=== PATIENT | female | born 1950 | race Caucasian/White ===

== ENCOUNTER 2023-04-15 19:49 | Inpatient (IN) | payer OTHER, SELFPAY ==
[2023-04-14 08:39] VITALS: BMI 47.6
[2023-04-14 09:28] LABS: Urine Albumin Trace (Neg - Trace); Urine Bilirubin 1+ (Negative); Urine Character Slightly Cloudy (Clear); Urine Color Yellow; Urine Glucose Negative (Negative); Urine Ketone Trace (Negative); Urine Leukocyte Trace (Negative); Urine Nitrite Negative (Negative); Urine Occult Blood 4+ (Negative); Urine Urobilinogen Negative (Neg - 1+)
[2023-04-14 09:29] LABS: % Basophils 0.6 % (0-2); % Eosinophils 1.3 % (0-6); % Immature Granulocytes 0.4 % (0-0.5); % Lymphocytes 19.3 % (20.5-51.1); % Monocytes 9.6 % (1.7-9.3); % Neutrophils 68.8 % (42.2-75.2); Absolute Basophils 0.1 10^3/uL (0-0.2); Absolute Eosinophils 0.1 10^3/uL (0-0.7); Absolute Lymphocytes 2.1 10^3/uL (1.2-3.4); Absolute Neutrophils 7.5 10^3/uL (1.4-6.5); Hematocrit 36.3 % (37.0-47.0); Hemoglobin 11.6 g/dL (12.0-16.0); Mean Corpuscular Volume 87.7 fL (81.0-99.0); Mean Platelet Volume 9.8 fL (7.4-10.4); Nucleated Red Blood Cells % 0 %; Platelet Count 252 10^3/uL (130-400); Red Blood Cell Count 4.14 10^6/uL (4.20-5.40); Red Cell Dist. Width 14.8 % (11.5-14.5); White Blood Cell Count 10.9 10^3/uL (4.8-10.8)
[2023-04-14 09:33] LABS: PT 29.1 Sec (11.4-14.6)
[2023-04-14 09:34] LABS: APTT 41.3 Sec (23.4-35.0)
[2023-04-14 09:44] LABS: Urine Mucus Few; Urine Squamous Cell >30 /LPF (Few)
[2023-04-14 09:45] LABS: Urine Red Blood Cell >100 /HPF (0-2)
[2023-04-14 09:46] LABS: Urine Bacteria Many (Negative)
[2023-04-14 09:58] LABS: Glycohemoglobin (HgbA1c) 5.7 % (4.0-5.6)
[2023-04-14 10:26] LABS: NT-proBNP 1640 pg/ml
[2023-04-14 10:37] LABS: ALT (SGPT) 19 U/L (0-35); AST (SGOT) 51 U/L (14-36); Albumin 3.5 g/dl (3.5-5.0); Alkaline Phosphatase 125 U/L (38-126); Blood Urea Nitrogen 18 mg/dl (7-17); Calcium 9.3 mg/dl (8.4-10.2); Carbon Dioxide 33 mmol/L (22-30); Chloride 91 mmol/L (98-107); Direct Bilirubin 0.5 mg/dl (0.0-0.4); Estimated Creatinine Clearance 90 ml/min; Glucose 123 mg/dl (70-99); Potassium 3.7 mmol/L (3.5-5.1); Sodium 133 mmol/L (135-145); Total Protein 8.3 g/dl (6.3-8.2); eGFR > 60.00
--- NOTE | 2023-04-14 10:54 | CM ---
Chart reviewed. Met with the patient and her daughter in PAT. Patient is Ukaranian speaking, daughter was translating. Patient and her live in the basement of a [address], full set up in the basement, ambulates with a rolling walker, also
has a wheelchair at home. Patient wears Home O2 2l and CPAP at night. The daughter is unsure of her oxygen supplier. Patient is not current with VN. The daughter is her multimedia programmer caregiver. 0 LUZ MARIA . Reviewed preoperative and postoperative
instructions and restrictions, along with showering guidelines. Gave patient 2 soaps. Patient is agreeable to a home visit by CT Transitional RN. Plan is for the patient to return home with CT Transitional RN.
--- NOTE | 2023-04-14 13:38 | HPS.HSE ---
Family Physician
-
Family Physician: Harmeet Barrios
Cardiology: Ayaz Vasques
Chief Complaint
-
Dyspnea on exertion
History of Present Illness
Mrs. Anita Guevara is a very pleasant 72-year-old woman who is followed by Dr. Vasques. She was initially evaluated by the heart team in August. Her past medical history significant for hypertension, hyperlipidemia, morbid obesity with a BMI of 45.19,
MARY KATE, DM type II, hypothyroidism, multivessel CAD status post multivessel PCI at [facility] in 2014, chronic atrial fibrillation on Xarelto, stage III diastolic CHF with history of hospitalizations, and aortic stenosis. In March 2021,
her mean aortic valve gradient was 19 mmHg, that had increased to between 27 and 31 mmHg on echocardiogram was obtained in July, and most recently her gradient has increased further to a mean of 41 mmHg on 12/03/2022. Cardiac catheterization on
07/24/2022 demonstrated no significant residual CAD with only 10% luminal irregularities and 10 to 20% in-stent restenosis throughout her coronary bed. Her TAVR CT scan was completed and reviewed, and transfemoral TAVR approach appears reasonable. She
does have a Ade type 0 BAV, but has very reasonable sinuses and coronary heights.Given her numerous comorbidities and body habitus, the heart team reviewed her at the Shared Decision Making Meeting and TAVR is preferred over SAVR. The patient
and her daughter would like to proceed with TAVR. Patient seen in pre-admission testing today and in no acute distress although her daughter states she feels that her shortness of breath has progressed. She denies recent fever and chills. She denies
chest pain or palpitations. She does complain of orthopnea and also uses a cpap to sleep at night. Reviewed TAVR procedure and risks including PPM, bleeding and stroke. Allowed for and answered questions. Patient chest x-ray with moderate right
pleural effusion. Dr. Michaela bowen. Would like to have admitted on Wednesday prior to TAVR for thoracentesis and medical management of her heart failure prior to TAVR. Daughter, Stefanie, is in agreement with plan. Last dose of Xarelto will be on
Wednesday and she will remain on her aspirin, taking 325mg Wednesday then 81mg daily. Aware she will receive a call from the hospital Wednesday with bed assignment.
Medical History
Past Medical History
Past Medical History: Reports Arrhythmia (A-fib on Xarelto), CAD (MID RCA and LAD stent), CHF, GERD, HTN, Hypercholesterolemia, Hypothyroidism, NIDDM, Valvular Disease (severe , mild MR, TR) and Other (Moderate pulmonary HTN)
Past Surgical History: Reports Cardiac (PCI with stents to RCA and LAD)
Social History
Unable to obtain full social history at this time due to: Language Barrier (Patient is [place] speaking. Daughter interpretting.)
Tobacco: Former Smoker
Alcohol: None
Drug: None
Personal:
Living: With Family
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
Family History
Family History: Not pertinent
Allergies / Home Medications
Allergies reflects when Allergies were last updated in [employer].
Home Medications with original date entered in [employer]
Allergy/Medication List:
Allergies:
Penicillins
Medications:
Aspirin Adult Low Dose 81 MG Tablet Delayed Release 1 tablet Orally One every 3 day
Atorvastatin Calcium 40 MG Tablet 1 tablet Orally Once a day
Cardizem CD(dilTIAZem HCl ER Coated Beads) 120 MG Capsule Extended Release 24 Hour 1 capsule Orally bid
Digoxin 125 MCG Tablet 1 tablet Orally
Ferrous Sulfate 325 (65 Fe) MG Tablet 1 tablet Orally daily
Lasix(Furosemide) 40 MG Tablet 1 tablet Orally TID
Donepezil 5mg QD
Bumex 1mg BID
Trazadone 50mg daily
Levothyroxine Sodium 125 MCG Capsule 2 tablet in the morning on an empty stomach Orally Once a day, Notes: [id number]
metOLazone 5 MG Tablet 1 tablet Orally every other day
Metoprolol Tartrate 100 MG Tablet 1 tablet with food Orally Twice a day
Omeprazole 20 MG Capsule Delayed Release 1 capsule 30 minutes before morning meal Orally Once a day
Potassium Chloride 20 MEQ Packet 1 packet with food Orally Once a day
Spironolactone 25 MG Tablet 1 tablet Orally Once a day
Trulicity , Notes: ?dose, takes weekly on Sundays
Rivaroxaban 20 MG Tablet 1 tablet with food Orally Once a day
Vitamin d 50,000units as directed
Review of Systems
-
Unable to obtain full review of systems at this time due to: Language Barrier ([place] speaking. Daughter interpreting)
History Source: Family
Constitutional: Reports Sleep Disturbance
EENT: Reports No Symptoms
Respiratory: Reports Trouble Breathing (uses CPAP at night. ROSA. h/o hospitalization for pleural effusion)
Cardiac: Reports Chest Pain (intermittant, relieved spontaneously. Does not radiate. ) and Palpitations (A-fib, on Xarelto)
Abdomen/GI: Reports No Symptoms
: Reports No Symptoms
Musculoskeletal: Reports Edema (bilateral LE)
Skin: Reports No Symptoms
Neurological: Reports No Symptoms
Endocrine: Reports No Symptoms
Hematologic/Lymphatic: Reports No Symptoms
Psych: Reports No Symptoms
Physical Exam
Physical Exam
General: Well Developed, No Apparent Distress and Morbidly Obese
HEENT: NormoCephalic
Respiratory: Clear, Non Labored Respirations and Decreased Breath Sounds (right lower lobe)
Cardiac: Irregular Rhythm, Tachycardia and Murmur (Grade III/)
Breast: Deferred by me
GI: Soft, Non Tender, Non Distended and Normal Bowel Sounds
Rectal: Deferred by Provider
Genito-urinary: Deferred by me
Musculoskeletal: Edema, Left Lower Extremity (+3 pitting) and Edema, Right Lower Extremity (+3 pitting)
Skin: Warm and Dry
Neuro: Awake, Alert, Oriented and Nonfocal/grossly intact
Psych: Calm
Laboratory Results
-
04/14/23 08:53
04/14/23 08:53
Laboratory Results
PT 29.1 Sec (11.4-14.6) H 04/14/23 08:53
INR 2.70 04/14/23 08:53
APTT 41.3 Sec (23.4-35.0) H 04/14/23 08:53
Total Bilirubin 1.0 mg/dl (0.2-1.3) 04/14/23 08:53
AST 51 U/L (14-36) H 04/14/23 08:53
ALT 19 U/L (0-35) 04/14/23 08:53
Alkaline Phosphatase 125 U/L (38-126) 04/14/23 08:53
Data Reviewed
-
Diagnostic Radiology: Report Reviewed by me and Discussed with Physician (Chest x-ray with moderate pleural effusion. Reviewed with Dr. Jennings. Plan to admit 04/19 for thoracentesis)
Medical Tests (Nuc Med, Echo, EKG etc): Report Reviewed by me (EKG, afib, no bundle branch blocks noted)
Lab Data: Labs Reviewed by me (GFR >60, BUN/Creat: 18/0.8, H/H: 11.6/36.3)
Old Records: Reviewed (Echocardiogram , CT surgery consult note)
Impression/Plan
-
IMPRESSION: Severe aortic stenosis
Acute on Chronic Heart Failure
Moderate right pleural effusion
PLAN:
Severe Aortic Stenosis:
Plan TF TAVR on 04/22/2023 utilizing 23mm S3
Continue daily aspirin and resume Xarelto post TAVR if no signs of bleeding
POD #1/#30 echocardiogram
Cardiac Rehab consult
Acute on Chronic Heart Failure:
Admit 48 hours prior to TAVR for inpatient management
Daily weights
Low sodium diet
Consult cardiology for medication management
Right pleural effusion:
Consult interventional radiology for thoracentesis
[2023-04-15] VITALS (7 sets, daily range): BP systolic 120–206; BP diastolic 67–111; PULSE 85; BMI 46.5
--- NOTE | 2023-04-15 17:10 | ED.GENMED ---
History of Present Illness
<Karla Beltre PA-C - Last Filed: 04/20/23 11:09>
General
Chief Complaint: Breathing Problem
Source: patient
Exam Limitations: none
Time Seen by Provider: 04/15/23 16:46
Nursing documentation reviewed up to this point in time: agreed with
Travel History
Have you had any contact with someone who has COVID-19?: No
Do you have any symptoms of coronavirus? Fever > 100 degrees, chills, cough, shortness of breath, sore throat, loss of taste or smell, muscle aches, or headache?: No
History of Present Illness
History of Present Illness:
Patient is a 72 year old female with hx afib on xarelto, CHF, severe aortic stenosis presenting to the emergency department for evaluation of right-sided pleural effusion and associated worsening shortness of breath. Patient has a TAVR scheduled
with Dr. Jennings on 04/22/23. She was seen in office for pre-op labs yesterday and was found to have a moderate right pleural effusion. She was sent to ER for admission to hospital, thoracentesis, and medical management of CHF.
Patient does report worsening shortness of breath over the past few days and a mild cough. No fever or chills. No chest pain.
Patient is complaint with medications. She is on 2L nasal cannula at home.
Phy Exam
<Karla Beltre PA-C - Last Filed: 04/20/23 11:09>
Physical Exam
Physical Exam:
General: Uncomfortable, non-toxic
Vitals: Tachypneic, otherwise VSS; afebrile
HEENT: Atraumatic, normocephalic; protecting airway
Neck: appears supple, no JVD
CV: Regular rate and rhythm, heart sounds normal, no evidence of cyanosis
Resp: On 2 L nasal cannula, diminished breath sounds at right lower lung, no accessory muscle use
Abd: Soft, nontender, non-distended
Extremities: Bilateral 2+ pitting edema
Neuro: Nonfocal/grossly intact
Psych: Normal affect
Skin: Intact
Scores
<Karla Beltre PA-C - Last Filed: 04/20/23 11:09>
Heart Failure Risk
Heart Failure Risk Score: Yes
History of Stroke or TIA: No
History of intubation for respiratory distress: No
Heart rate on ED arrival >/= 110: No
SaO2 <90% on arrival on room air: Yes
HR >/=110 during 3min walk test (or too ill to perform test): No
ECG has acute ischemic changes: No
Urea >/=12mmol/L (BUN 33.6mg/dL): Yes
Serum CO2>/=35mmol/L: Yes
Troponin I or T elevated to [place] Level (0.4mg/dL): Yes
NT-proBNP >/=5,000ng/L (5,000pg/ml): No
HF Risk Score: 6
Admission Status: VERY HIGH RISK 55.3% Consider admission to hospital
Course
<Karla Beltre PA-C - Last Filed: 04/20/23 11:09>
Orders/Labs/Results
Orders:
Orders
04/14/23 08:15
Electrocardiogram (*1) Routine
Reason for Study: PreOp
Comment: MERGED WITH [facility] 04/22/23
CR Chest - 2 Views Routine
Comment: MERGED WITH [facility] 04/22/23
Reason For Exam: PREOP
04/15/23 Dinner
Cholesterol Lowering
At Your Request: Limited Participation
Cholesterol Lowering: Sodium, 2 Gram
04/15/23 15:30
EKG [Electrocardiogram (*1)] Urgent
Reason for Study: Shortness of Breath
EKG- Treatment ONCE
04/15/23 17:18
Furosemide [Lasix] 40 mg IV NOW STA
04/15/23 19:11
Admit/Transfer Patient As Directed
Co-Sign Provider:
Level of Care: Inpatient admission
Assign to:: Telemetry
Physician / Group: la nena
Diagnosis: chf exacerbation
Reason for Telemetry: Arrhythmia
Date to Stop Telemetry: 04/18/23
Time to Stop Telemetry: 11:00
Reason for Hospitalization: chf exacerbation
Expected length of stay greater than two midnights?: Yes
ELOS- Estimated Length of Stay in days: 2
I certify the patient meets the requirements for IP care: Yes
04/15/23 19:12
Code Status As Directed
Resuscitation Status: Full Code
04/15/23 19:33
Troponin I Urgent
04/15/23 20:43
Budesonide/Formoterol 160/4.5 [Symbicort 160/4.5 Mcg Inhaler] 2 puff INH R BIDPRN PRN
Dextrose 50%-Water [Dextrose 50% Syringe] 12.5 grams IV [id number] PRN
Diltiazem Extended Release [Cardizem Cd] 120 mg PO BID
Glucagon [GlucaGen] 1 mg IM PRN PRN
Metoprolol [Lopressor] 100 mg PO BID
Potassium Chloride [KCl] 20 meq PO BID
04/15/23 20:43
VTE Contraindication Routine
VTE Mechanical Device Contraindication: Medical Contraindication
Pharmocologic Contraindication: Medical Contraindication
Acid Fast Culture & Smear Routine
GREGG Source: Pleural Fluid
Specimen Description:
Date Specimen was Collected: 04/16/23
Time Specimen was Collected: 15:31
Comment: right thoracentsis
Body Fluid Amylase Routine
Fluid Source: Pleural
Date Specimen was Collected: 04/16/23
Time Specimen was Collected: 15:31
Body Fluid Cell Count Routine
What is the Body Fluid: pleural fluid
Date Specimen was Collected: 04/16/23
Time Specimen was Collected: 15:31
Body Fluid Glucose Routine
Fluid Source: Pleural
Date Specimen was Collected: 04/16/23
Time Specimen was Collected: 15:31
Body Fluid LDH Routine
Fluid Source: Pleural
Date Specimen was Collected: 04/16/23
Time Specimen was Collected: 15:31
Body Fluid Protein Routine
Fluid Source: Pleural
Date Specimen was Collected: 04/16/23
Time Specimen was Collected: 15:31
Body Fluid Triglycerides Routine
Fluid Source: Pleural
Date Specimen was Collected: 04/16/23
Time Specimen was Collected: 15:31
Body Fluid pH Routine
Fluid Source: Pleural
Date Specimen was Collected: 04/16/23
Time Specimen was Collected: 15:31
Fluid Culture with Gram Stain Routine
GREGG Source: Pleural Fluid
Specimen Description:
Date Specimen was Collected: 04/16/23
Time Specimen was Collected: 15:31
Fungus Culture Routine
GREGG Source: Pleural Fluid
Specimen Description:
Date Specimen was Collected: 04/16/23
Time Specimen was Collected: 15:31
Fungus Smear Routine
GREGG Source: Pleural Fluid
Specimen Description:
Date Specimen was Collected: 04/16/23
Time Specimen was Collected: 15:31
Activity As Directed
Activity Level: As Tolerated
Bedside Glucose Monitoring As Directed
Frequency: AC&HS
Comment: Change to q6h if pt on TPN, tube feeding or not eating
Intake/ Output As Directed
Frequency: Per unit guidelines
Vital Signs As Directed
Frequency: Other
Additional Instructions:: Q12 or per unit guidelines if more frequent.
Weight As Directed
Frequency: Daily
Type of Scale: Standing Scale
Comment: Daily morning weight. If unable to stand, use balanced bed scale.
Weight As Directed
Frequency: Once
Type of Scale: Standing Scale
Comment: Upon Admission. If unable to stand, use balanced bed scale.
IRAD Cytology Routine
Date Specimen was Collected: 04/16/23
Time Specimen was Collected: 15:32
Source: Pleural Fluid, Right
Clinical Impression: chf
Pulse Ox/cont/shift [RESP] Routine
Quantity: 1
Special Instructions: Daily pulse oximetry at rest. If greater than 92% at rest also obtain pulse oximetry
while ambulating as tolerated.
04/15/23 20:58
LDH Routine
Comment: post procedure, add on to morning labs if already drawn
Total Protein Routine
Comment: post procedure, add on to morning labs if already drawn
04/15/23 22:00
Trazodone [Desyrel] 50 mg PO HS
04/16/23 07:00
Levothyroxine [Synthroid] 200 mcg PO DAILY AT 0700
Levothyroxine [Synthroid] 50 mcg PO DAILY AT 0700
04/16/23 07:30
Insulin Aspart Corrective Low [Novolog Flexpen-Low Resistance] See Protocol SC AC
04/16/23 08:00
Aspirin Low Dose EC [Aspir Low (Enteric Coated)] 81 mg PO Q3D
Donepezil [Aricept] 5 mg PO DAILY
Ferrous Sulfate [Feosol] 325 mg PO DAILY
Furosemide [Lasix] 60 mg IV BID AT 0800,1600
Metolazone [Zaroxolyn] 5 mg PO Q48H
Pantoprazole [Protonix] 40 mg PO DAILY
Spironolactone [Aldactone] 25 mg PO DAILY
04/16/23 08:39
Complete Blood Count/With Diff IN AM
Comprehensive Metabolic Panel IN AM
04/16/23 18:00
Atorvastatin [Lipitor] 40 mg PO QPM
Digoxin [Lanoxin] 125 mcg PO QPM
Rivaroxaban [Xarelto] 20 mg PO QPM
04/18/23 11:00
DC Protocol for Telemetry ONCE
04/20/23 08:00
Ergocalciferol [Drisdol (Vitamin D2)] 50,000 units PO TU
Abnormal Lab Results
04/15/23
19:33
Troponin I 0.114 H* ng/ml
Vital Signs
Initial and Last Documented VS:
Initial Vital Signs
Temp Pulse Resp BP Pulse Ox
98.5 F 74 18 141/85 96
04/15/23 15:28 04/15/23 15:28 04/15/23 15:28 04/15/23 15:28 04/15/23 15:28
Last Documented Vital Signs
Temp Pulse Resp BP Pulse Ox
97.7 F 86 20 135/75 94
04/20/23 07:40 04/20/23 07:52 04/20/23 07:40 04/20/23 07:52 04/20/23 07:40
<Johny Colby, DO - Last Filed: 04/15/23 17:15>
Orders/Labs/Results
Orders:
Orders
04/14/23 08:15
Electrocardiogram (*1) Routine
Reason for Study: PreOp
Comment: MERGED WITH [facility] 04/22/23
CR Chest - 2 Views Routine
Comment: MERGED WITH [facility] 04/22/23
Reason For Exam: PREOP
04/15/23 Dinner
Cholesterol Lowering
At Your Request: Limited Participation
Cholesterol Lowering: Sodium, 2 Gram
04/15/23 15:30
EKG [Electrocardiogram (*1)] Urgent
Reason for Study: Shortness of Breath
EKG- Treatment ONCE
04/15/23 17:18
Furosemide [Lasix] 40 mg IV NOW STA
04/15/23 19:11
Admit/Transfer Patient As Directed
Co-Sign Provider:
Level of Care: Inpatient admission
Assign to:: Telemetry
Physician / Group: la nena
Diagnosis: chf exacerbation
Reason for Telemetry: Arrhythmia
Date to Stop Telemetry: 04/18/23
Time to Stop Telemetry: 11:00
Reason for Hospitalization: chf exacerbation
Expected length of stay greater than two midnights?: Yes
ELOS- Estimated Length of Stay in days: 2
I certify the patient meets the requirements for IP care: Yes
04/15/23 19:12
Code Status As Directed
Resuscitation Status: Full Code
04/15/23 19:33
Troponin I Urgent
04/15/23 20:43
Budesonide/Formoterol 160/4.5 [Symbicort 160/4.5 Mcg Inhaler] 2 puff INH R BIDPRN PRN
Dextrose 50%-Water [Dextrose 50% Syringe] 12.5 grams IV [id number] PRN
Diltiazem Extended Release [Cardizem Cd] 120 mg PO BID
Glucagon [GlucaGen] 1 mg IM PRN PRN
Metoprolol [Lopressor] 100 mg PO BID
Potassium Chloride [KCl] 20 meq PO BID
04/15/23 20:43
VTE Contraindication Routine
VTE Mechanical Device Contraindication: Medical Contraindication
Pharmocologic Contraindication: Medical Contraindication
Acid Fast Culture & Smear Routine
GREGG Source: Pleural Fluid
Specimen Description:
Date Specimen was Collected: 04/16/23
Time Specimen was Collected: 15:31
Comment: right thoracentsis
Body Fluid Amylase Routine
Fluid Source: Pleural
Date Specimen was Collected: 04/16/23
Time Specimen was Collected: 15:31
Body Fluid Cell Count Routine
What is the Body Fluid: pleural fluid
Date Specimen was Collected: 04/16/23
Time Specimen was Collected: 15:31
Body Fluid Glucose Routine
Fluid Source: Pleural
Date Specimen was Collected: 04/16/23
Time Specimen was Collected: 15:31
Body Fluid LDH Routine
Fluid Source: Pleural
Date Specimen was Collected: 04/16/23
Time Specimen was Collected: 15:31
Body Fluid Protein Routine
Fluid Source: Pleural
Date Specimen was Collected: 04/16/23
Time Specimen was Collected: 15:31
Body Fluid Triglycerides Routine
Fluid Source: Pleural
Date Specimen was Collected: 04/16/23
Time Specimen was Collected: 15:31
Body Fluid pH Routine
Fluid Source: Pleural
Date Specimen was Collected: 04/16/23
Time Specimen was Collected: 15:31
Fluid Culture with Gram Stain Routine
GREGG Source: Pleural Fluid
Specimen Description:
Date Specimen was Collected: 04/16/23
Time Specimen was Collected: 15:31
Fungus Culture Routine
GREGG Source: Pleural Fluid
Specimen Description:
Date Specimen was Collected: 04/16/23
Time Specimen was Collected: 15:31
Fungus Smear Routine
GREGG Source: Pleural Fluid
Specimen Description:
Date Specimen was Collected: 04/16/23
Time Specimen was Collected: 15:31
Activity As Directed
Activity Level: As Tolerated
Bedside Glucose Monitoring As Directed
Frequency: AC&HS
Comment: Change to q6h if pt on TPN, tube feeding or not eating
Intake/ Output As Directed
Frequency: Per unit guidelines
Vital Signs As Directed
Frequency: Other
Additional Instructions:: Q12 or per unit guidelines if more frequent.
Weight As Directed
Frequency: Daily
Type of Scale: Standing Scale
Comment: Daily morning weight. If unable to stand, use balanced bed scale.
Weight As Directed
Frequency: Once
Type of Scale: Standing Scale
Comment: Upon Admission. If unable to stand, use balanced bed scale.
IRAD Cytology Routine
Date Specimen was Collected: 04/16/23
Time Specimen was Collected: 15:32
Source: Pleural Fluid, Right
Clinical Impression: chf
Pulse Ox/cont/shift [RESP] Routine
Quantity: 1
Special Instructions: Daily pulse oximetry at rest. If greater than 92% at rest also obtain pulse oximetry
while ambulating as tolerated.
04/15/23 20:58
LDH Routine
Comment: post procedure, add on to morning labs if already drawn
Total Protein Routine
Comment: post procedure, add on to morning labs if already drawn
04/15/23 22:00
Trazodone [Desyrel] 50 mg PO HS
04/16/23 07:00
Levothyroxine [Synthroid] 200 mcg PO DAILY AT 0700
Levothyroxine [Synthroid] 50 mcg PO DAILY AT 0700
04/16/23 07:30
Insulin Aspart Corrective Low [Novolog Flexpen-Low Resistance] See Protocol SC AC
04/16/23 08:00
Aspirin Low Dose EC [Aspir Low (Enteric Coated)] 81 mg PO Q3D
Donepezil [Aricept] 5 mg PO DAILY
Ferrous Sulfate [Feosol] 325 mg PO DAILY
Furosemide [Lasix] 60 mg IV BID AT 0800,1600
Metolazone [Zaroxolyn] 5 mg PO Q48H
Pantoprazole [Protonix] 40 mg PO DAILY
Spironolactone [Aldactone] 25 mg PO DAILY
04/16/23 08:39
Complete Blood Count/With Diff IN AM
Comprehensive Metabolic Panel IN AM
04/16/23 18:00
Atorvastatin [Lipitor] 40 mg PO QPM
Digoxin [Lanoxin] 125 mcg PO QPM
Rivaroxaban [Xarelto] 20 mg PO QPM
04/18/23 11:00
DC Protocol for Telemetry ONCE
04/20/23 08:00
Ergocalciferol [Drisdol (Vitamin D2)] 50,000 units PO TU
Abnormal Lab Results
04/15/23
19:33
Troponin I 0.114 H* ng/ml
Vital Signs
Initial and Last Documented VS:
Initial Vital Signs
Temp Pulse Resp BP Pulse Ox
98.5 F 74 18 141/85 96
04/15/23 15:28 04/15/23 15:28 04/15/23 15:28 04/15/23 15:28 04/15/23 15:28
Last Documented Vital Signs
Temp Pulse Resp BP Pulse Ox
97.7 F 86 20 135/75 94
04/20/23 07:40 04/20/23 07:52 04/20/23 07:40 04/20/23 07:52 04/20/23 07:40
<Karla Beltre PA-C - Last Filed: 04/20/23 11:09>
MDM/Problems Addressed
Differential Diagnosis Includes:
Pleural effusion, CHF exacerbation, atrial fibrillation,
MDM/Problems Addressed:
Patient is a 72 year old female with hx afib on xarelto, CHF, severe aortic stenosis presenting to the emergency department for evaluation of right-sided pleural effusion and associated worsening shortness of breath. Patient is scheduled for TAVR
with Dr. Jennings on 04/21 and had pre-operative labs and imaging performed yesterday which showed moderate right-sided pleural effusion. She was sent emergency department for admission for medical management of CHF and thoracentesis. Patient is on 2
L nasal cannula. Vital signs stable. Physical exam as document above. She has diminished breath sounds at right lung base. Reviewed x-ray which shows mild to moderate pleural effusion on right side. Discussed with interventional radiology.
They will perform thoracentesis tomorrow morning. Will admit patient for CHF management/thoracentesis tomorrow. Will give 40 IV Lasix. Discussed with hospitalist.
Chronic conditions affecting care:
CHF, aortic stenosis, atrial fibrillation
Acute Exacerbation and/or Progression of Chronic Illness:
Acute CHF exacerbation with right-sided pleural effusion
<Karla Beltre PA-C - Last Filed: 04/20/23 11:09>
*Radiology
Radiology exam reviewed: preliminary read by ED provider and radiology read reviewed
*Pulse Oximetry
Patient hypoxic: yes
Comment: on 2L
*EKG
EKG Intrepretation Date: 04/15/23
Interpretation: abnormal
Comparison EKG: changes noted
Heart Rate: 65
Rate: normal
Rhythm: a-fib
[place]: normal axis
Interval: normal interval
QRS Pattern: normal QRS
Ischemia: non-specific ST changes
*Critical Care Note
Total Time (30-74mins, 75-104mins- exclusive of procedures): Not Applicable
<Karla Beltre PA-C - Last Filed: 04/20/23 11:09>
Patient Management
Discussion with other providers: Hospitalist and [employer] (interventional radiologist)
ED Attending Note
<Karla Beltre PA-C - Last Filed: 04/20/23 11:09>
-
Portions of this chart may have been created with voice recognition software.� Occasional wrong word or��sound alike� substitutions may have occurred due to the inherent limitations of voice recognition software.
<Johny Colby DO - Last Filed: 04/15/23 17:15>
ED Attending Note
Patient seen and examined by attending physician: Yes
I performed the substantive portion of visit, reviewed & personally made and approve the management plan that is documented in note by myself or ELLIS.: Yes
ED Attending Note:
I have seen and evaluated the patient with a [id number] encounter. I have spoken to the advance practicer provider and involved in the medical history, the physical exam, medical decision making.
Evaluation and management service: agree unless noted differently below.
Results interpretation: agree unless noted differently below.
Focused HPI: 72-year-old female presenting with shortness of breath. Patient is being worked up for TAVR. Outpatient blood work and chest x-ray revealed large right pleural effusion. Patient sent in for thoracentesis and admission for management
of heart failure
Physical exam: Uncomfortable, tachypneic, decreased breath sounds to the right
Medical Decision Making: Will discuss case with IR to discuss thoracentesis. Will give Lasix and admit
Discharge Plan
Departure
Patient Disposition: Admit
Date of Disposition: 04/15/23
Time of Disposition: 17:56
Presentation/result/management discussed w/ accepting MD/DO: Hospitalist
Discharge Problem:
Pleural effusion on right, CHF (congestive heart failure)
Interventions
Interventions:
*Risk Screen - Suicide Last Done: 04/15/23 20:53
*General Assessment Last Done: 04/15/23 15:28
*Neglect/Abuse Screening Last Done: 04/15/23 15:28
ED- Fall Risk Assessment Last Done: 04/15/23 17:01
*ED COVID-19 Vaccine History Last Done: 04/15/23 15:28
*Nursing Disposition Last Done: 04/15/23 20:04
ED- Cardiac Assessment Last Done: 04/15/23 17:01
ED- Pulmonary Assessment Last Done: 04/15/23 17:01
Discharge Date and Time
Discharge Date/Time: 04/15/23 20:04
[2023-04-15] MEDS: LASIX 40 MG IV (17:53)
--- NOTE | 2023-04-15 19:20 | HPS.HSE ---
Family Physician
-
Family Physician: Harmeet Barrios
Chief Complaint
-
shortness of breath
History of Present Illness
72-year-old Luxembourger-speaking female past medical history of atrial fibrillation on Xarelto, CAD with stents, diastolic CHF, severe aortic stenosis, moderate pulm hypertension, obstructive sleep apnea, asthma, hypertension, GERD, hypercholesteremia,
hypothyroidism, diabetes, obesity, presenting for right pleural effusion and worsening shortness of breath.
Patient has TAVR scheduled for 04/22/[address] Jennings. Patient had preop labs yesterday and chest x-ray which showed large right pleural effusion. Patient was sent in for thoracentesis and medical management for heart failure to be optimized
prior to TAVR.
She has been having shortness of breath for the past few weeks worse with exertion. She does have some cough sometimes with sputum. Denies any fevers or chills. She does have burning chest pain with ambulation and elevated heart rate and hypoxia
with ambulation as well. No recent weight gain and in fact has lost weight.
Medical History
Past Medical History
Past Medical History: Reports Other (atrial fibrillation on Xarelto, CAD with stents, diastolic CHF, severe aortic stenosis, moderate pulm hypertension, obstructive sleep apnea, asthma, hypertension, GERD, hypercholesteremia, hypothyroidism,
diabetes, obesity)
Past Surgical History: Reports None
Social History
Tobacco: Former Smoker
Alcohol: Former
Drug: None
Family History
Family History: Not pertinent
Allergies / Home Medications
Allergies reflects when Allergies were last updated in [facility].
Home Medications with original date entered in [facility]
Allergy/Medication List:
Allergies
Allergy/AdvReac Type Severity Reaction Status Date / Time
Penicillins Allergy Diarrhea Verified 04/15/23 15:29
Home Medications
atorvastatin 40 mg tablet 40 mg PO QPM 04/12/23
budesonide-formoterol HFA 160 mcg-4.5 mcg/actuation aerosol inhaler (Symbicort) 2 puff inhalation PRN PRN asthma 04/12/23
digoxin 125 mcg (0.125 mg) tablet 125 mcg PO QPM 04/12/23
diltiazem HCl 120 mg capsule,extended release 24 hr 120 mg PO BID 04/12/23
donepezil 5 mg tablet 5 mg PO DAILY 04/12/23
ergocalciferol (vitamin D2) 1,250 mcg (50,000 unit) capsule 1,250 mcg PO TU 04/12/23
ferrous sulfate 324 mg (65 mg iron) tablet,delayed release 324 mg PO DAILY 04/12/23
furosemide 40 mg tablet 40 mg PO DAILY@1300 04/12/23
levothyroxine 200 mcg tablet 200 mcg PO DAILY 04/12/23
metolazone 5 mg tablet 5 mg PO Q48H 04/12/23
omeprazole 20 mg tablet,delayed release 20 mg PO DAILY 04/12/23
potassium chloride 20 mEq tablet,extended release 20 meq PO BID 04/12/23
rivaroxaban 20 mg tablet (Xarelto) 20 mg PO QPM 04/12/23
spironolactone 25 mg tablet 25 mg PO DAILY 04/12/23
trazodone 50 mg tablet 50 mg PO HS 04/12/23
aspirin 81 mg tablet,delayed release 81 mg PO Q3D 04/15/23
dulaglutide 0.75 mg/0.5 mL subcutaneous pen injector (Trulicity) 0.75 mg SC TU 04/15/23
furosemide 40 mg tablet 80 mg PO DAILY 04/15/23
levothyroxine 50 mcg tablet 50 mcg PO DAILY 04/15/23
metoprolol tartrate 100 mg tablet 100 mg PO BID 04/15/23
Review of Systems
-
History Source: Patient
A 12 point ROS was completed and negative except as noted: Yes
Constitutional: Reports No Symptoms
EENT: Reports No Symptoms
Respiratory: Reports See HPI
Cardiac: Reports See HPI
Abdomen/GI: Reports No Symptoms
: Reports No Symptoms
Musculoskeletal: Reports No Symptoms
Skin: Reports No Symptoms
Neurological: Reports No Symptoms
Endocrine: Reports No Symptoms
Hematologic/Lymphatic: Reports No Symptoms
Psych: Reports No Symptoms
Physical Exam
Vital Signs
Vital Signs
Temp Pulse Resp BP Pulse Ox
98.5 F 75 25 206/105 97
04/15/23 15:28 04/15/23 18:30 04/15/23 18:30 04/15/23 17:55 04/15/23 18:30
Physical Exam
General: Well Developed, Well Nourished and No Apparent Distress
HEENT: NormoCephalic, Moist mucous membranes and Atraumatic
Respiratory: Clear
Cardiac: S1/S2 and Regular Rhythm; No Murmur or Rub
GI: Soft, Non Tender, Non Distended and Normal Bowel Sounds; No Organomegaly
Rectal: Deferred by Provider
Musculoskeletal: No Clubbing, No Cyanosis and No Edema
Skin: No Rash
Neuro: Nonfocal/grossly intact
Data Reviewed
-
Lab Data: Labs Reviewed by me
Old Records: Reviewed
Impression/Plan
-
IMPRESSION:
PLAN:
# Moderate right pleural effusion
# Acute on chronic HFpEF exacerbation
-Cardiac BNP of 1600
-Check I's and O's, daily weights
-60 IV Lasix twice daily
-Continue metolazone
-Continue spironolactone
-EKG diffuse T wave inversions
-Check troponin
-IR consulted for Thora
-Cardiology consulted
Paroxysmal atrial fibrillation
-Continue Xarelto
-Continue digoxin
-Continue diltiazem
-Continue metoprolol
Coronary artery disease with history of stents
-Continue aspirin
Severe aortic stenosis
-Undergoing TAVR on April 21
Moderate pulmonary hypertension
Obstructive sleep apnea
-Continue CPAP
Asthma
-Continue inhalers
Essential hypertension
GERD
-Continue omeprazole
Hypercholesterolemia
-Continue statin
Hypothyroidism
-Continue levothyroxine
Type 2 diabetes
-Insulin sliding scale
Obesity
Dementia
-Continue donepezil
Chronic anemia
-Hemoglobin stable
Insomnia
-Continue trazodone
Full code
DVT prophylaxis�Xarelto
Cardiac diet
[2023-04-15 20:12] LABS: Troponin I 0.114 ng/ml
[2023-04-15 21:21] LABS: LDH 264 U/L (120-246); Total Protein 8.8 g/dl (6.3-8.2)
[2023-04-15] MEDS: KCL 20 MEQ PO (21:44)
[2023-04-15] MEDS: DESYREL 50 MG PO (21:44)
[2023-04-15] MEDS: XARELTO 20 MG PO (21:44)
[2023-04-15] MEDS: LOPRESSOR 100 MG PO (21:45)
[2023-04-15] MEDS: CARDIZEM CD 120 MG PO (21:45)
[2023-04-15 21:48] LABS: Glucose - Point of Care 110 mg/dl (70-99)
[2023-04-16] VITALS (8 sets, daily range): BP systolic 60–141; BP diastolic 57–75
--- NOTE | 2023-04-16 01:12 | PTCARENOTE ---
Received pt from the ER, and ambulated from stretcher to bed. Daughter at the bedside and assisted with the admission. Pt fluent only in Urdu. Pt uses CPAP at home, but forgot it and lives an hour away. notified and changed order.
Respiratory assisted with placing CPAP. Pt did not like the fit of the CPAP, and requested to wear the 2L nasal cannula instead. Daughter will bring home CPAP tomorrow. Pt oriented to the room, call reddy within reach.
[2023-04-16] MEDS: SYNTHROID 200 MCG PO (06:25)
[2023-04-16] MEDS: SYNTHROID 50 MCG PO (06:26)
[2023-04-16 08:01] LABS: Glucose - Point of Care 114 mg/dl (70-99)
--- NOTE | 2023-04-16 08:47 | CON.CAR ---
Addendum entered and electronically signed by Shankar Ceja MD 04/16/23 09:34:
I saw and examined the patient.
The CORPORATE DRIVER's note was reviewed and I agree with the note.
Comment: 72 yo Bahamian speaking female (patient of Dr. Ayaz Vasques) with severe (scheduled for TAVR 04/22/23), HFpEF, HTN, HLD, morbid obesity, permanent Afib on Xarelto, MARY KATE on CPAP, DM II, multivessel CAD (PCI 2014 Mid RCA and mid LAD, patent
on cath 08/07), and hypothyroidism, who presents to the ER with c/o SOB and moderate right pleural effusion on CXR. She is here for thoracentesis and diuresis for CHF prior to TAVR.
- IV diuresis
- thoracentesis today
Original Note:
Consultation
Consultation Request
Date/Time Consultation Requested: 04/15/23 11p
Date/Time Consultation Performed: 04/16/23 8a
Requesting Provider: Dr. Longoria
Performing Provider: PEYTON Khan for Dr. Jennings
Reason for Consultation: HFpEF, right pleural effusion, severe
Medical History
-
Chief Complaint: sob, right pleural effusion on CXR
History of Present Illness:
Mrs. Guevara is a 72 yo Bahamian speaking female (patient of Dr. Ayaz Vasques) with severe (scheduled for TAVR 04/22/23), HFpEF, HTN, HLD, morbid obesity, permanent Afib on Xarelto, MARY KATE on CPAP, DM II, multivessel CAD (PCI 2014 Mid RCA and mid LAD,
patent on cath 08/07), and hypothyroidism, who presents to the ER with c/o SOB and moderate right pleural effusion on CXR. She had the CXR for pre-procedure work up as she is scheduled for a TAVR 04/22/23. She is admitted for thoracentesis and
diuresis with IV Lasix. History obtained from patient's son Vin, he was assisting with translation via her telephone. She c/o SOB, LE edema and not sleeping well last night because her CPAP mask didn't fit correctly.
Past Medical History
Past Medical History: Other (as above)
Past Surgical History: Cardiac (PCI)
Social History
Tobacco: Non-Smoker
Alcohol: None
Living: With Family
Family History
Family History: Reviewed & Not Pertinent
Allergies / Home Medications
Allergy/AdvReac Type Severity Reaction Status Date / Time
Penicillins Allergy Diarrhea Verified 04/15/23 15:29
Medication Instructions Recorded Confirmed Type
atorvastatin 40 mg tablet 40 mg PO QPM 04/12/23 04/15/23 History
budesonide-formoterol HFA 160 2 puff inhalation PRN PRN asthma 04/12/23 04/15/23 History
mcg-4.5 mcg/actuation aerosol
inhaler (Symbicort)
digoxin 125 mcg (0.125 mg) tablet 125 mcg PO QPM 04/12/23 04/15/23 History
diltiazem HCl 120 mg 120 mg PO BID 04/12/23 04/15/23 History
capsule,extended release 24 hr
donepezil 5 mg tablet 5 mg PO DAILY 04/12/23 04/15/23 History
ergocalciferol (vitamin D2) 1,250 1,250 mcg PO TU 04/12/23 04/15/23 History
mcg (50,000 unit) capsule
ferrous sulfate 324 mg (65 mg 324 mg PO DAILY 04/12/23 04/15/23 History
iron) tablet,delayed release
furosemide 40 mg tablet 40 mg PO DAILY@1300 04/12/23 04/15/23 History
levothyroxine 200 mcg tablet 200 mcg PO DAILY 04/12/23 04/15/23 History
metolazone 5 mg tablet 5 mg PO Q48H 04/12/23 04/15/23 History
omeprazole 20 mg tablet,delayed 20 mg PO DAILY 04/12/23 04/15/23 History
release
potassium chloride 20 mEq 20 meq PO BID 04/12/23 04/15/23 History
tablet,extended release
rivaroxaban 20 mg tablet (Xarelto) 20 mg PO QPM 04/12/23 04/15/23 History
spironolactone 25 mg tablet 25 mg PO DAILY 04/12/23 04/15/23 History
trazodone 50 mg tablet 50 mg PO HS 04/12/23 04/15/23 History
aspirin 81 mg tablet,delayed 81 mg PO Q3D 04/15/23 04/15/23 History
release
dulaglutide 0.75 mg/0.5 mL 0.75 mg SC TU 04/15/23 04/15/23 History
subcutaneous pen injector
(Trulicity)
furosemide 40 mg tablet 80 mg PO DAILY 04/15/23 04/15/23 History
levothyroxine 50 mcg tablet 50 mcg PO DAILY 04/15/23 04/15/23 History
metoprolol tartrate 100 mg tablet 100 mg PO BID 04/15/23 04/15/23 History
Review of Systems
-
History Source: Patient and Family (son Vin assisting with translation)
All other systems: Negative unless noted
Physical Exam
Vital Signs
Temp Pulse Resp BP Pulse Ox
98.7 F 72 16 118/68 97
04/16/23 08:08 04/16/23 08:08 04/16/23 08:08 04/16/23 08:08 04/16/23 08:08
Lab Results
Troponin I 0.114 ng/ml H* 04/15/23 19:33
Physical Exam
General: Well Developed, Well Nourished and Other ( morbidly obese)
HEENT: Normocephalic and Anicteric
Respiratory: Non Labored Respirations and Other (diminished right middle/base)
Cardiac: S1/S2, Irregular Rhythm, Murmur (3/6 SOBEIDA) and Peripheral Edema (b/l LE)
Breast: Deferred by me
GI: Soft, Non Tender and Normal Bowel Sounds
Rectal: Deferred by Provider
Musculoskeletal: No Clubbing and Cyanosis
Skin: Warm and Dry
Neuro: AO x 3
Psych: Calm
Impression / Plan
-
Pleural effusion - moderate right.
- plan for thoracentesis today.
- continue diuresis, Lasix 80mg IV BID.
HFpEF - acute on chronic.
- diuresis IV Lasix 80mg IV BID, Zaroxolyn 5mg Q48H.
- monitor renal function, daily weights.
Aortic stenosis - severe.
- echo 11/2022 EF 60-65%, severe mean gradient 41mmHg, HIRA 0.9cm2
- plan for TAVR 04/22/23.
- TAVR team following.
Afib - permanent.
- rate controlled on Lopressor, Diltiazem, Digoxin.
- [id number] VASc 5.
- OAC with Xarelto, continue.
CAD - multivessel PCI 2014.
- cath 07/24/2022: no significant residual CAD with 10% luminal irregularities and 10 to 20% in-stent restenosis, patent mid RCA/mid LAD stents.
- abnormal troponin 0.114, trend.
- denies any chest pain.
MARY KATE - stable on CPAP.
- her granddaughter is bringing in her mask from home.
HTN - stable on meds, continue and monitor.
HLD - on Lipitor.
- goal LDL < 70.
- no recent lipid profile.
Data Reviewed
-
Radiology: Report Reviewed by me (CXR: moderate right pleural effusion)
Medical Tests (Nuc Med, Echo etc): Report Reviewed by me (cath 07/24/2022: no significant residual CAD with only 10% luminal irregularities and 10 to 20% in-stent restenosis, patent mid RCA/mid LAD stents.) and Other (echo 11/2022 EF 60-65%, severe
mean gradient 41mmHg, HIRA 0.9cm2)
Labs: Labs Reviewed by me
Old Records: Reviewed
[2023-04-16 09:15] LABS: % Basophils 0.8 % (0-2); % Eosinophils 1.6 % (0-6); % Immature Granulocytes 0.2 % (0-0.5); % Lymphocytes 16.6 % (20.5-51.1); % Monocytes 9.4 % (1.7-9.3); % Neutrophils 71.4 % (42.2-75.2); Absolute Basophils 0.1 10^3/uL (0-0.2); Absolute Eosinophils 0.2 10^3/uL (0-0.7); Absolute Lymphocytes 1.6 10^3/uL (1.2-3.4); Absolute Monocytes 0.9 10^3/uL (0.1-0.6); Hematocrit 35.8 % (37.0-47.0); Hemoglobin 11.3 g/dL (12.0-16.0); Mean Corp Hgb Conc. 31.6 g/dL (33.0-37.0); Mean Corpuscular Hgb 27.1 pg (27.0-31.0); Mean Corpuscular Volume 85.9 fL (81.0-99.0); Mean Platelet Volume 9.8 fL (7.4-10.4); Nucleated Red Blood Cells % 0 %; Platelet Count 269 10^3/uL (130-400); Red Blood Cell Count 4.17 10^6/uL (4.20-5.40); Red Cell Dist. Width 14.7 % (11.5-14.5); White Blood Cell Count 9.8 10^3/uL (4.8-10.8)
[2023-04-16 09:36] LABS: ALT (SGPT) 21 U/L (0-35); AST (SGOT) 51 U/L (14-36); Albumin 3.5 g/dl (3.5-5.0); Alkaline Phosphatase 125 U/L (38-126); Blood Urea Nitrogen 23 mg/dl (7-17); Calcium 8.7 mg/dl (8.4-10.2); Carbon Dioxide 37 mmol/L (22-30); Chloride 88 mmol/L (98-107); Estimated Creatinine Clearance 62 ml/min; Glucose 142 mg/dl (70-99); Potassium 3.1 mmol/L (3.5-5.1); Sodium 131 mmol/L (135-145); Total Bilirubin 1.1 mg/dl (0.2-1.3); Total Protein 8.1 g/dl (6.3-8.2); eGFR > 60.00
[2023-04-16] MEDS: NOVOLOG FLEXPEN-LOW RESISTANCE SC ×2 (09:41→17:02)
[2023-04-16] MEDS: ZAROXOLYN 5 MG PO (09:42)
[2023-04-16] MEDS: LOPRESSOR 100 MG PO ×2 (09:42→20:49)
[2023-04-16] MEDS: ALDACTONE 25 MG PO (09:42)
[2023-04-16] MEDS: ARICEPT 5 MG PO (09:43)
[2023-04-16] MEDS: KCL 20 MEQ PO ×2 (09:44→20:49)
[2023-04-16] MEDS: CARDIZEM CD 120 MG PO ×2 (09:44→20:49)
[2023-04-16] MEDS: PROTONIX 40 MG PO (09:44)
[2023-04-16] MEDS: FEOSOL 325 MG PO (09:44)
[2023-04-16] MEDS: ASPIR LOW (ENTERIC COATED) 81 MG PO (09:53)
[2023-04-16 10:04] LABS: INR 2.98; PT 30.9 Sec (11.4-14.6)
[2023-04-16 10:08] LABS: Troponin I 0.126 ng/ml
--- NOTE | 2023-04-16 10:24 | CM ---
Addendum entered by Minna Zuniga 04/16/23 15:16:
Spoke with pesticide use medical coordinator from [facility] [place] home casre, referral received via [facility].
[facility] [place] will require a written script and 'face to face' form filled out by to be faxed with d/c instructions.
[facility] [place] VN

Original Note:
Patient seen bedside with daughter who translated.
Patient lives with daughter in a multilevel home.
Patient an spouse live in the finished basement with no steps to enter.
Powder room in basement.
Daughter brings all meals to patient and sponge bathes her mother.
Patient ambulates with a RW, also has a WC and cane.
Patient has had VN in the past and daughter would like VN again, [facility] [place] VN. Referral sent.
PCP: Dr Zapien
Pharmacy: [facility]
Plan: home with VN, referral sent to [facility] [place].
[2023-04-16 11:42] LABS: Glucose - Point of Care 157 mg/dl (70-99)
--- NOTE | 2023-04-16 12:01 | W.PN.HOSP.TC ---
Today's Communication/Plan
-
monitor vitals
see plan
IV lasix
give vit K
monitor INR
thora when able per IR
Assessment / Plan
Assessment / Plan
General: Well Developed, Well Nourished and No Apparent Distress
HEENT: NormoCephalic, Moist mucous membranes and Atraumatic
Respiratory: Clear
Cardiac: S1/S2 and Regular Rhythm; No Murmur or Rub
GI: Soft, Non Tender, Non Distended and Normal Bowel Sounds; No Organomegaly
Rectal: Deferred by Provider
Musculoskeletal: No Clubbing, No Cyanosis and No Edema
Skin: No Rash
Neuro: Nonfocal/grossly intact
Moderate right pleural effusion
# Acute on chronic HFpEF exacerbation
-Cardiac BNP of 1600
-monitor I's and O's, daily weights
-cw IV alsix
-Continue metolazone
-Continue spironolactone
-IR consulted for Thora; INR 2.9; give 2.5 PO vit K
-Cardiology consulted
elevated trop
likely non DC related; trend
Paroxysmal atrial fibrillation
-Continue Xarelto
-Continue digoxin
-Continue diltiazem
-Continue metoprolol
Coronary artery disease with history of stents
-Continue aspirin
Severe aortic stenosis
-Undergoing TAVR on April 21
Moderate pulmonary hypertension
Hypokalemia
replete
Hyponatremia
Monitor
Obstructive sleep apnea
-Continue CPAP
Asthma
-Continue inhalers
Essential hypertension
GERD
-Continue omeprazole
Hypercholesterolemia
-Continue statin
Hypothyroidism
-Continue levothyroxine
Type 2 diabetes
-Insulin sliding scale
Obesity
Dementia
-Continue donepezil
Chronic anemia
-Hemoglobin stable
Insomnia
-Continue trazodone
Full code
DVT prophylaxis�Xarelto
I spent a total of 52 minutes with the patient or on the floor. More than 50% of this time involved counseling and coordination of care.
Anticipated Discharge: > 48 hours
Subjective/Interval History
-
Date of Service: April 16, 2023
denies pain
Objective Data
-
Labs:
Laboratory Results
04/16/23 04/16/23
08:39 09:41
WBC 9.8
Hgb 11.3 L
Hct 35.8 L
Plt Count 269
PT 30.9 H
INR 2.98
Sodium 131 L
Potassium 3.1 L
Chloride 88 L
Carbon Dioxide 37 H
BUN 23 H
Creatinine 1.0
Glucose 142 H
Calcium 8.7
Total Bilirubin 1.1
AST 51 H
ALT 21
Alkaline Phosphatase 125
Vital Signs:
Vital Signs
Temp Pulse Resp BP Pulse Ox
98.7 F 73 16 141/75 93
04/16/23 11:13 04/16/23 11:13 04/16/23 11:13 04/16/23 11:13 04/16/23 11:13
I&O
04/15/23 04/16/23 04/17/23
06:59 06:59 06:59
Intake Total 120 / 120
Output Total 700 / 700
Balance -580 / -580
[2023-04-16] MEDS: NOVOLOG FLEXPEN-LOW RESISTANCE 1 UNITS SC (12:51)
[2023-04-16] MEDS: MEPHYTON 2.5 MG PO (12:52)
[2023-04-16 15:59] LABS: Body Fluid Polymorphonuclear 16.7 %; Body Fluid WBC 562 /CUMM; Body Fluid pH 7.53
[2023-04-16 16:00] LABS: Body Fluid Mononuclear 83.3 %; Body Fluid Second Tech JKH
[2023-04-16 16:11] LABS: Body Fluid Amylase < 30 U/L; Body Fluid Glucose 128 mg/dl; Body Fluid LDH 101 U/L; Body Fluid Protein 3.6 g/dl; Body Fluid Triglycerides < 30 mg/dl
[2023-04-16 16:35] LABS: Glucose - Point of Care 116 mg/dl (70-99)
[2023-04-16 17:01] LABS: Troponin I 0.116 ng/ml
[2023-04-16] MEDS: LASIX 80 MG IV (17:01)
[2023-04-16] MEDS: LIPITOR 40 MG PO (17:03)
[2023-04-16] MEDS: XARELTO 20 MG PO (17:03)
[2023-04-16] MEDS: LANOXIN 125 MCG PO (17:03)
[2023-04-16] MEDS: DESYREL PO (21:57)
[2023-04-16 22:06] LABS: Glucose - Point of Care 126 mg/dl (70-99)
[2023-04-17 03:00] VITALS: BP 107/45
[2023-04-17 06:00] VITALS: BMI 46.2
[2023-04-17] MEDS: SYNTHROID 50 MCG PO (06:33)
[2023-04-17] MEDS: SYNTHROID 200 MCG PO (06:33)
[2023-04-17 07:30] VITALS: BP 99/47
[2023-04-17 08:39] LABS: Glucose - Point of Care 160 mg/dl (70-99)
[2023-04-17 08:46] LABS: % Basophils 0.8 % (0-2); % Immature Granulocytes 0.4 % (0-0.5); % Lymphocytes 18.2 % (20.5-51.1); % Monocytes 11.4 % (1.7-9.3); % Neutrophils 67.2 % (42.2-75.2); Absolute Basophils 0.1 10^3/uL (0-0.2); Absolute Eosinophils 0.2 10^3/uL (0-0.7); Absolute Lymphocytes 1.6 10^3/uL (1.2-3.4); Absolute Neutrophils 5.7 10^3/uL (1.4-6.5); Hemoglobin 10.7 g/dL (12.0-16.0); Mean Corp Hgb Conc. 31.5 g/dL (33.0-37.0); Mean Corpuscular Hgb 27.5 pg (27.0-31.0); Mean Corpuscular Volume 87.4 fL (81.0-99.0); Mean Platelet Volume 9.9 fL (7.4-10.4); Nucleated Red Blood Cells % 0 %; Platelet Count 233 10^3/uL (130-400); Red Blood Cell Count 3.89 10^6/uL (4.20-5.40); Red Cell Dist. Width 14.7 % (11.5-14.5); White Blood Cell Count 8.5 10^3/uL (4.8-10.8)
[2023-04-17 09:01] LABS: INR 2.84; PT 29.8 Sec (11.4-14.6)
[2023-04-17 09:17] LABS: Blood Urea Nitrogen 34 mg/dl (7-17); Carbon Dioxide 39 mmol/L (22-30); Chloride 87 mmol/L (98-107); Estimated Creatinine Clearance 62 ml/min; Glucose 116 mg/dl (70-99); Potassium 3.2 mmol/L (3.5-5.1); Sodium 133 mmol/L (135-145); eGFR > 60.00
[2023-04-17] MEDS: NOVOLOG FLEXPEN-LOW RESISTANCE SC ×3 (09:33→17:07)
[2023-04-17] MEDS: ARICEPT 5 MG PO (09:34)
[2023-04-17] MEDS: KCL 20 MEQ PO ×2 (09:34→20:45)
[2023-04-17] MEDS: CARDIZEM CD 120 MG PO (09:35)
[2023-04-17] MEDS: PROTONIX 40 MG PO (09:35)
[2023-04-17] MEDS: LOPRESSOR 100 MG PO (09:35)
[2023-04-17] MEDS: ALDACTONE 25 MG PO (09:35)
[2023-04-17] MEDS: FEOSOL 325 MG PO (09:35)
[2023-04-17] MEDS: LASIX IV (09:35)
--- NOTE | 2023-04-17 10:49 | W.PN.CD ---
Addendum entered and electronically signed by Shankar Ceja MD 04/17/23 13:11:
I saw and examined the patient.
The MULTIMEDIA DEVELOPER's note was reviewed and I agree with the note.
Comment: 79-year-old male with CAD, non-ischemic cardiomyopathy EF 30-35%, HFrEF, permanent atrial fibrillation (Watchman device on aspirin), aortic stenosis s/p TAVR, ICD with lead extraction 04/06/2022, dyslipidemia, chronic anemia and CKD3b, who
presented to the ER with complaints of shortness of breath x 2 days. She is s/p thoracentesis and feeling much better, but she still has LE edema. She also has bradycardia with asymptomatic ~2s in duration pauses.
- stop dilt
- continue diuresis
- LE compression stocking
Original Note:
Today's Communication / Plan
-
Continue diuresis
Stop diltiazem
LE compression
Impression / Plan
-
Background: 72 yo Ecuadorean speaking female (patient of Dr. Ayaz Vasques) with severe (scheduled for TAVR 04/22/23), HFpEF, HTN, HLD, morbid obesity, permanent Afib on Xarelto, MARY KATE on CPAP, DM II, multivessel CAD (PCI 2015 Mid RCA and mid LAD,
patent on cath 08/07), and hypothyroidism, who presents to the ER with c/o SOB and moderate right pleural effusion on CXR.
Pleural effusion - moderate right.
- S/P thoracentesis 04/16/23 for 600mL
- continue diuresis, Lasix 80mg IV BID.
HFpEF - acute on chronic.
- diuresis IV Lasix 80mg IV BID, Zaroxolyn 5mg Q48H.
- monitor renal function, daily weights.
- she would benefit from LE compression
Aortic stenosis - severe.
- echo 11/2022 EF 60-65%, severe mean gradient 41mmHg, HIRA 0.9cm2
- plan for TAVR 04/22/23.
- TAVR team following.
Abnormal troponin, nonischemic myocardial injury in the setting of acute heart failure and severe aortic valve disease
- Chest pain-free
- Peak appears to be 0.126
Afib - permanent.
- she is having 2-2.5 second pauses, stop diltiazem
- [id number] VASc 5.
- OAC with Xarelto, continue.
CAD - multivessel PCI 2014.
- cath 07/24/2022: no significant residual CAD with 10% luminal irregularities and 10 to 20% in-stent restenosis, patent mid RCA/mid LAD stents.
- abnormal troponin 0.114, trend.
- denies any chest pain.
MARY KATE - stable on CPAP.
- her granddaughter is bringing in her mask from home.
HTN - stable on meds, continue and monitor.
HLD - on Lipitor.
- goal LDL < 70.
- no recent lipid profile.
Physical Exam
Vital Signs/Labs
Vital Signs
Temp Pulse Resp BP Pulse Ox
97.9 F 67 18 99/47 98
04/17/23 07:30 04/17/23 07:30 04/17/23 07:30 04/17/23 07:30 04/17/23 07:30
04/16/23 04/17/23 04/18/23
06:59 06:59 06:59
Actual Weight 115.212 kg 114.396 kg
04/17/23 07:14
04/17/23 07:14
PT 29.8 Sec (11.4-14.6) H 04/17/23 07:14
INR 2.84 04/17/23 07:14
LAB Results
04/15/23 04/16/23 04/16/23
19:33 09:29 16:31
Troponin I 0.114 H* 0.126 H* 0.116 H*
Physical Exam
Constitutional: No acute distress
EENT: Anicteric and Moist mucous membranes
Cardiovascular: Rhythm & rate is regular, Pedal edema present, S1S2 is normal and Murmur/rub/gallop absent
Respiratory: Respiratory effort normal and Lungs clear to auscul.
GI: Soft, Distention absent, Flat and Normal bowel sounds
Neuro/Psych: AO x 3
Other: Skin (warm and dry with LE edema)
Data Reviewed
-
Date of Service: April 17, 2023
[2023-04-17 11:25] VITALS: BP 123/60
[2023-04-17 11:46] LABS: Glucose - Point of Care 100 mg/dl (70-99)
--- NOTE | 2023-04-17 11:53 | W.PN.HOSP.TC ---
Today's Communication/Plan
-
monitor vitals
see plan
cw IV lasix
dc diltiazem
cw dig,metoprolol
Assessment / Plan
Assessment / Plan
General: Well Developed, Well Nourished and No Apparent Distress
HEENT: NormoCephalic, Moist mucous membranes and Atraumatic
Respiratory: Clear
Cardiac: S1/S2 and Regular Rhythm; No Murmur or Rub
GI: Soft, Non Tender, Non Distended and Normal Bowel Sounds; No Organomegaly
Rectal: Deferred by Provider
Musculoskeletal: No Clubbing, No Cyanosis and No Edema
Skin: No Rash
Neuro: Nonfocal/grossly intact
Moderate right pleural effusion
# Acute on chronic HFpEF exacerbation
-Cardiac BNP of 1600
-monitor I's and O's, daily weights
-cw IV lasix
-Continue metolazone
-Continue spironolactone
-IR consulted for Thora; INR 2.9; give 2.5 PO vit K; s/p thora 04/15 with 600cc removal
-Cardiology following
elevated trop
likely non HI related; trend
Paroxysmal atrial fibrillation
periods of bradycardia
-Continue Xarelto
-Continue digoxin
-DC diltiazem
-Continue metoprolol
Coronary artery disease with history of stents
-Continue aspirin
Severe aortic stenosis
-Undergoing TAVR on April 21
Moderate pulmonary hypertension
Hypokalemia
replete
Hyponatremia
Monitor
Obstructive sleep apnea
-Continue CPAP
Asthma
-Continue inhalers
Essential hypertension
GERD
-Continue omeprazole
Hypercholesterolemia
-Continue statin
Hypothyroidism
-Continue levothyroxine
Type 2 diabetes
-Insulin sliding scale
Obesity
Dementia
-Continue donepezil
Chronic anemia
-Hemoglobin stable
Insomnia
-Continue trazodone
Full code
DVT prophylaxis�Xarelto
I spent a total of 53 minutes with the patient or on the floor. More than 50% of this time involved counseling and coordination of care.
Anticipated Discharge: 24 - 48 hours
Subjective/Interval History
-
Date of Service: April 17, 2023
denies chest pain
Objective Data
-
Labs:
Laboratory Results
04/17/23
07:14
WBC 8.5
Hgb 10.7 L
Hct 34.0 L
Plt Count 233
PT 29.8 H
INR 2.84
Sodium 133 L
Potassium 3.2 L
Chloride 87 L
Carbon Dioxide 39 H
BUN 34 H
Creatinine 1.0
Glucose 116 H
Calcium 9.0
Vital Signs:
Vital Signs
Temp Pulse Resp BP Pulse Ox
97.9 F 67 18 99/47 98
04/17/23 07:30 04/17/23 07:30 04/17/23 07:30 04/17/23 07:30 04/17/23 09:01
I&O
04/16/23 04/17/23 04/18/23
06:59 06:59 06:59
Intake Total 120 / 120 960 / 960
Output Total 700 / 700
Balance -580 / -580 960 / 960
[2023-04-17] MEDS: KLOR-CON 40 MEQ PO (12:35)
[2023-04-17 15:30] VITALS: BP 128/62
[2023-04-17 17:04] LABS: Glucose - Point of Care 130 mg/dl (70-99)
[2023-04-17] MEDS: LASIX 80 MG IV (17:07)
[2023-04-17] MEDS: LIPITOR 40 MG PO (17:08)
[2023-04-17] MEDS: LANOXIN PO (17:11)
[2023-04-17] MEDS: XARELTO 20 MG PO (17:13)
[2023-04-17 19:58] VITALS: BP 137/67
[2023-04-17] MEDS: DESYREL 50 MG PO (20:45)
[2023-04-17] MEDS: LOPRESSOR PO (20:54)
[2023-04-17 21:36] LABS: Glucose - Point of Care 109 mg/dl (70-99)
[2023-04-17 23:39] VITALS: BP 117/65
[2023-04-18 04:13] VITALS: BP 108/60
[2023-04-18] MEDS: SYNTHROID 50 MCG PO (05:48)
[2023-04-18] MEDS: SYNTHROID 200 MCG PO (05:48)
[2023-04-18 05:53] VITALS: BMI 46.2
[2023-04-18 08:08] LABS: Glucose - Point of Care 135 mg/dl (70-99)
[2023-04-18 09:02] VITALS: BP 119/59
[2023-04-18 09:20] LABS: % Basophils 0.7 % (0-2); % Eosinophils 1.2 % (0-6); % Immature Granulocytes 0.5 % (0-0.5); % Lymphocytes 15.6 % (20.5-51.1); % Monocytes 8.8 % (1.7-9.3); % Neutrophils 73.2 % (42.2-75.2); Absolute Basophils 0.1 10^3/uL (0-0.2); Absolute Eosinophils 0.1 10^3/uL (0-0.7); Absolute Lymphocytes 1.3 10^3/uL (1.2-3.4); Absolute Monocytes 0.8 10^3/uL (0.1-0.6); Absolute Neutrophils 6.2 10^3/uL (1.4-6.5); Hematocrit 36.4 % (37.0-47.0); Hemoglobin 11.4 g/dL (12.0-16.0); Mean Corp Hgb Conc. 31.3 g/dL (33.0-37.0); Mean Corpuscular Hgb 27.5 pg (27.0-31.0); Mean Corpuscular Volume 87.9 fL (81.0-99.0); Mean Platelet Volume 9.8 fL (7.4-10.4); Nucleated Red Blood Cells % 0 %; Platelet Count 242 10^3/uL (130-400); Red Blood Cell Count 4.14 10^6/uL (4.20-5.40); Red Cell Dist. Width 14.7 % (11.5-14.5); White Blood Cell Count 8.5 10^3/uL (4.8-10.8)
[2023-04-18 09:49] LABS: Blood Urea Nitrogen 31 mg/dl (7-17); Calcium 8.8 mg/dl (8.4-10.2); Carbon Dioxide 37 mmol/L (22-30); Chloride 89 mmol/L (98-107); Estimated Creatinine Clearance 69 ml/min; Glucose 115 mg/dl (70-99); Potassium 3.5 mmol/L (3.5-5.1); Sodium 131 mmol/L (135-145); eGFR > 60.00
[2023-04-18] MEDS: LOPRESSOR 100 MG PO ×2 (10:21→17:12)
[2023-04-18] MEDS: FEOSOL 325 MG PO (10:21)
[2023-04-18] MEDS: ZAROXOLYN 5 MG PO (10:22)
[2023-04-18] MEDS: KCL 20 MEQ PO ×2 (10:22→20:38)
[2023-04-18] MEDS: LASIX 80 MG IV ×2 (10:22→15:40)
[2023-04-18] MEDS: ALDACTONE 25 MG PO (10:23)
[2023-04-18] MEDS: PROTONIX 40 MG PO (10:23)
[2023-04-18] MEDS: ARICEPT 5 MG PO (10:24)
[2023-04-18] MEDS: NOVOLOG FLEXPEN-LOW RESISTANCE SC ×2 (10:24→17:13)
[2023-04-18 11:15] VITALS: BP 119/75
[2023-04-18 11:37] LABS: Glucose - Point of Care 160 mg/dl (70-99)
--- NOTE | 2023-04-18 11:51 | W.PN.CD ---
Today's Communication / Plan
-
hold xarelto, npo after midnight for cath tomorrow, asa 81 mg, cont diuresis
Impression / Plan
-
Background: 72 yo Belizean speaking female (patient of Dr. Ayaz Vasques) with severe (scheduled for TAVR 04/22/23), HFpEF, HTN, HLD, morbid obesity, permanent Afib on Xarelto, MARY KATE on CPAP, DM II, multivessel CAD (PCI 2014 Mid RCA and mid LAD,
patent on cath 08/07), and hypothyroidism, who presents to the ER with c/o SOB and moderate right pleural effusion on CXR.
Burning chest pain with exertion
- NPO after midnight for cath tomorrow
- hold Xarelto until post TAVR
- aspirin 81 mg
Pleural effusion - moderate right.
- S/P thoracentesis 04/16/23 for 600mL
- continue diuresis, Lasix 80mg IV BID.
HFpEF - acute on chronic.
- diuresis IV Lasix 80mg IV BID, Zaroxolyn 5mg Q48H.
- monitor renal function, daily weights.
- she would benefit from LE compression
Aortic stenosis - severe.
- echo 11/2022 EF 60-65%, severe mean gradient 41mmHg, HIRA 0.9cm2
- plan for TAVR 04/22/23.
- TAVR team following.
Abnormal troponin, nonischemic myocardial injury in the setting of acute heart failure and severe aortic valve disease
- Chest pain-free
- Peak appears to be 0.126
Afib - permanent.
- she is having 2-2.5 second pauses, stop diltiazem
- [id number] VASc 5.
- OAC with Xarelto, hold for now.
CAD - multivessel PCI 2014.
- cath 07/24/2022: no significant residual CAD with 10% luminal irregularities and 10 to 20% in-stent restenosis, patent mid RCA/mid LAD stents.
- abnormal troponin 0.114, trend.
- denies any chest pain.
- cont crestor
MARY KATE - stable on CPAP.
- her granddaughter is bringing in her mask from home.
HTN - stable on meds, continue and monitor.
HLD - on Lipitor.
- goal LDL < 70.
- no recent lipid profile.
Physical Exam
Vital Signs/Labs
Vital Signs
Temp Pulse Resp BP Pulse Ox
98.2 F 79 16 119/75 95
04/18/23 11:15 04/18/23 11:15 04/18/23 11:15 04/18/23 11:15 04/18/23 11:15
04/17/23 04/18/23 04/19/23
06:59 06:59 06:59
Actual Weight 252 lb 3.2 oz 252 lb 4 oz
04/18/23 07:46
04/18/23 07:46
PT 29.8 Sec (11.4-14.6) H 04/17/23 07:14
INR 2.84 04/17/23 07:14
LAB Results
04/15/23 04/16/23 04/16/23
19:33 09:29 16:31
Troponin I 0.114 H* 0.126 H* 0.116 H*
Physical Exam
Constitutional: No acute distress
EENT: Anicteric
Cardiovascular: Rhythm/rate is irregular and Pedal edema present
Respiratory: Respiratory effort normal and Lungs clear to auscul.
GI: Soft
Neuro/Psych: AO x 3
Data Reviewed
-
Date of Service: April 18, 2023
EKG: Tracing Personally Visualized and interpreted
Labs: Labs Reviewed by me
--- NOTE | 2023-04-18 12:34 | W.PN.HOSP.TC ---
Today's Communication/Plan
-
Monitor vital signs and see plan
Plan for catheterization tomorrow
Xarelto on hold
Continue with IV Lasix
N.p.o. past midnight
Daughter updated over the phone
Assessment / Plan
Assessment / Plan
General: Well Developed, Well Nourished and No Apparent Distress
HEENT: NormoCephalic, Moist mucous membranes and Atraumatic
Respiratory: Clear
Cardiac: S1/S2 and Regular Rhythm; No Murmur or Rub
GI: Soft, Non Tender, Non Distended and Normal Bowel Sounds; No Organomegaly
Rectal: Deferred by Provider
Musculoskeletal: No Clubbing, No Cyanosis and No Edema
Skin: No Rash
Neuro: Nonfocal/grossly intact
Moderate right pleural effusion
# Acute on chronic HFpEF exacerbation
-Cardiac BNP of 1600
-monitor I's and O's, daily weights
-cw IV lasix
-Continue metolazone
-Continue spironolactone
-IR consulted for Thora; INR 2.9; give 2.5 PO vit K; s/p thora 04/15 with 600cc removal
-Cardiology following
elevated trop
likely non AR related; trend
Given burning chest pain exertion overnight. Cardiology now planning for catheterization tomorrow. N.p.o. past midnight. Xarelto on hold
Paroxysmal atrial fibrillation
periods of bradycardia
-Continue Xarelto
-Continue digoxin
-DC diltiazem
-Continue metoprolol
Coronary artery disease with history of stents
-Continue aspirin
Severe aortic stenosis
-Undergoing TAVR on April 21
Moderate pulmonary hypertension
Hypokalemia
improving
Hyponatremia
Monitor
Obstructive sleep apnea
-Continue CPAP
Asthma
-Continue inhalers
Essential hypertension
GERD
-Continue omeprazole
Hypercholesterolemia
-Continue statin
Hypothyroidism
-Continue levothyroxine
Type 2 diabetes
-Insulin sliding scale
Obesity
Dementia
-Continue donepezil
Chronic anemia
-Hemoglobin stable
Insomnia
-Continue trazodone
Full code
DVT prophylaxis�Xarelto on hold; SCD's
I spent a total of 52 minutes with the patient or on the floor. More than 50% of this time involved counseling and coordination of care.
Anticipated Discharge: > 48 hours
Subjective/Interval History
-
Date of Service: April 18, 2023
had some exertional chest discomfort
Objective Data
-
Labs:
Laboratory Results
04/18/23
07:46
WBC 8.5
Hgb 11.4 L
Hct 36.4 L
Plt Count 242
Sodium 131 L
Potassium 3.5
Chloride 89 L
Carbon Dioxide 37 H
BUN 31 H
Creatinine 0.9
Glucose 115 H
Calcium 8.8
Vital Signs:
Vital Signs
Temp Pulse Resp BP Pulse Ox
98.2 F 79 16 119/75 95
04/18/23 11:15 04/18/23 11:15 04/18/23 11:15 04/18/23 11:15 04/18/23 11:15
I&O
04/17/23 04/18/23 04/19/23
06:59 06:59 06:59
Intake Total 960 / 960 1440 / 1440
Balance 960 / 960 1440 / 1440
[2023-04-18] MEDS: NOVOLOG FLEXPEN-LOW RESISTANCE 1 UNITS SC (12:56)
[2023-04-18 15:30] VITALS: BP 119/62
[2023-04-18 16:39] LABS: Glucose - Point of Care 110 mg/dl (70-99)
[2023-04-18] MEDS: LIPITOR 40 MG PO (17:14)
--- NOTE | 2023-04-18 17:15 | PTCARENOTE ---
pt had a 12 beat run of V-tach. Cardiology made aware. Told to give 20:00 dose of metoprolol early. Given now.
[2023-04-18] MEDS: LANOXIN 125 MCG PO (18:22)
[2023-04-18] MEDS: DESYREL PO ×2 (20:38→20:43)
[2023-04-18 21:50] LABS: Glucose - Point of Care 106 mg/dl (70-99)
[2023-04-18 23:25] VITALS: BP 115/55
[2023-04-19] VITALS (12 sets, daily range): BP systolic 99–145; BP diastolic 45–72; BMI 45.8
[2023-04-19 05:54] LABS: % Basophils 0.8 % (0-2); % Eosinophils 1.6 % (0-6); % Immature Granulocytes 0.5 % (0-0.5); % Lymphocytes 18.6 % (20.5-51.1); % Monocytes 12.6 % (1.7-9.3); % Neutrophils 65.9 % (42.2-75.2); Absolute Basophils 0.1 10^3/uL (0-0.2); Absolute Eosinophils 0.2 10^3/uL (0-0.7); Absolute Immature Granulocytes 0.1 10^3/uL (0-0.05); Absolute Lymphocytes 1.9 10^3/uL (1.2-3.4); Absolute Monocytes 1.3 10^3/uL (0.1-0.6); Absolute Neutrophils 6.8 10^3/uL (1.4-6.5); Hemoglobin 11.1 g/dL (12.0-16.0); Mean Corp Hgb Conc. 31.7 g/dL (33.0-37.0); Mean Corpuscular Hgb 27.6 pg (27.0-31.0); Mean Corpuscular Volume 87.1 fL (81.0-99.0); Mean Platelet Volume 9.7 fL (7.4-10.4); Nucleated Red Blood Cells % 0 %; Platelet Count 220 10^3/uL (130-400); Red Blood Cell Count 4.02 10^6/uL (4.20-5.40); Red Cell Dist. Width 14.6 % (11.5-14.5); White Blood Cell Count 10.2 10^3/uL (4.8-10.8)
[2023-04-19] MEDS: SYNTHROID 200 MCG PO (06:01)
[2023-04-19] MEDS: SYNTHROID 50 MCG PO (06:01)
[2023-04-19 06:06] LABS: Glucose - Point of Care 108 mg/dl (70-99)
[2023-04-19 06:18] LABS: Blood Urea Nitrogen 36 mg/dl (7-17); Calcium 8.7 mg/dl (8.4-10.2); Carbon Dioxide 38 mmol/L (22-30); Chloride 88 mmol/L (98-107); Estimated Creatinine Clearance 47 ml/min; Glucose 117 mg/dl (70-99); Potassium 3.6 mmol/L (3.5-5.1); Sodium 133 mmol/L (135-145); eGFR 43.96
[2023-04-19] MEDS: PROTONIX 40 MG PO (08:11)
[2023-04-19] MEDS: FEOSOL 325 MG PO (08:11)
[2023-04-19] MEDS: KCL 20 MEQ PO ×2 (08:11→19:31)
[2023-04-19 08:40] LABS: Magnesium 1.9 mg/dl (1.6-2.3)
[2023-04-19] MEDS: ASPIR LOW (ENTERIC COATED) 81 MG PO (08:42)
[2023-04-19] MEDS: LOPRESSOR 100 MG PO ×2 (08:42→19:31)
[2023-04-19] MEDS: ARICEPT 5 MG PO (08:43)
[2023-04-19 08:44] LABS: PT 19.8 Sec (11.4-14.6)
[2023-04-19] MEDS: LASIX IV (08:45)
[2023-04-19] MEDS: ALDACTONE PO (08:45)
--- NOTE | 2023-04-19 10:52 | W.PN.CD ---
Today's Communication / Plan
-
Cardiac catheterization today.
We will look at the coronary arteries and consider crossing valve to evaluate her LVEDP given her rise in creatinine.
Impression / Plan
-
Impression/Plan: 72 yo Ukranian speaking female (patient of Dr. Ayaz Vasques) with severe (scheduled for TAVR 04/22/23), HFpEF, HTN, HLD, morbid obesity, permanent Afib on Xarelto, MARY KATE on CPAP, DM II, multivessel CAD (PCI 2015 Mid RCA and mid
LAD, patent on cath 08/07), and hypothyroidism, who admitted with decompensated HF, right pleural effusion and new burning chest pain with ambulation.
#Burning chest pain with exertion
-Possible anginal equivalent.
-Coronary angiography today to clarify anatomy. Prior films from 07/2022 (Dr. Griffin, [facility]) reviewed, patent at that time.
-Troponin stuttering (0.114 --> 0.126 --> 0.116).
#Right sided pleural effusion
-New diagnosis.
-S/P thoracentesis 04/16/23 for 600mL of transudate.
#HFpEF
-Acute on chronic.
-Diuresis IV Lasix 80mg IV BID, Zaroxolyn 5mg Q48H - currently on hold with uptick in BUN/Cr.
-Continue to monitor renal function, daily weights.
-She would benefit from LE compression.
#Aortic stenosis
-Chronic, severe.
-Echo 11/2022: EF 60-65%, severe mean gradient 41mmHg, HIRA 0.9cm2
-Tentative plan for TAVR 04/22/23.
-TAVR team following.
#Abnormal troponin
-Nonischemic myocardial injury in the setting of acute heart failure and severe aortic valve disease.
-Chest pain-free at rest.
-Troponin peak 0.126. This is consistent with non-ischemic myocardial injury.
#Permanent Afib
-She is having 2-2.5 second pauses, stop diltiazem.
-[id number] = 5 (CHF, HTN, Age x1, Vascular Disease, Female).
-OAC with Xarelto, currently on hold for now.
#CAD
-Chronic, stable.
-Multivessel PCI 2014 (RCA, LAD).
-Cath 07/24/2022: no significant residual CAD with 10% luminal irregularities and 10 to 20% in-stent restenosis, patent mid RCA/mid LAD stents.
-As noted above, troponin elevation seems unlikely to be ACS.
-Coronary angiography today.
-Continue aspirin, rosuvastatin.
#MARY KATE
-Chronic, stable on CPAP.
#HTN
-Chronic, stable on meds.
-Continue to monitor while off of diltiazem (held for pauses).
#HLD
-Chronic, stable.
Subjective/Interval History:
12 beat run of NSVT overnight. Metoprolol given early.
Patient's daughter is present and translates as the patient does not speak ivorian.
SaO2 97% on 1.5 LNC.
Metolazone given yesterday.
Creatinine up to 1.3 this AM. Furosemide, metolazone and spironolactone held.
DATA:
Thoracentesis, 04/16/2023:
IMPRESSION: Successful ultrasound-guided thoracentesis, yielding 600 cc of clear christopher pleural fluid.
TAVR CTA, 09/28/2022:
Measurements for proposed TAVR procedure:
Bicuspid aortic valve, Siever's type 0, with no raphe.
Moderate valvular calcification. Mild nodular calcification extending into the left ventricular outflow tract.
Aortic annulus: 27.4 mm x 22.6 mm. Measured cross-sectional area of 412-429 sq mm. Calculated annular perimeter from diameters-78.7 mm.
Left ventricular outflow tract: Measured cross-sectional area of 390 sq mm.
Sinuses of Valsalva: 35.3 mm x 27.0 mm.
Sinotubular junction: Minimal calcification. 26.1 mm x 26.7 mm.
Distance from aortic annulus to left coronary artery origin: 18.3 mm.
Distance from aortic annulus to right coronary artery origin: 17.0 mm.
TTE, 05/27/2022:
CONCLUSIONS
�Poorly visualized aortic valve which appears to be restricted in motion.
�Mean gradient across the valve is 26 mmHg
�Dimensionless index LVOT VTI 2 aortic valve VTI ratio is 0 21, this ratio
�suggest low gradient severe aortic stenosis.
�Clinical correlation is required, correlation with recent cardiac
�catheterization at [facility].
�If clinically indicated patient should be evaluated for TAVR.
Physical Exam
Vital Signs/Labs
Vital Signs
Temp Pulse Resp BP Pulse Ox
36.3 C 87 16 123/60 97
04/19/23 08:00 04/19/23 08:42 04/19/23 08:00 04/19/23 08:42 04/19/23 08:00
04/17/23 04/18/23 04/19/23
11:59 11:59 11:59
Actual Weight 114.396 kg 114.419 kg 113.489 kg
04/19/23 05:34
04/19/23 05:34
PT Cancelled 04/19/23 08:10
INR Cancelled 04/19/23 08:10
Magnesium 1.9 mg/dl (1.6-2.3) 04/19/23 05:34
LAB Results
04/16/23
16:31
Troponin I 0.116 H*
Physical Exam
Constitutional: No acute distress and Comfortable
EENT: Anicteric and Moist mucous membranes
Cardiovascular: Rhythm & rate is regular, Pedal edema is absent, JVD pressure is normal, Systolic murmur present and S1S2 is normal
Respiratory: Respiratory effort normal, Lungs clear to auscul., Wheeze Absent, Crackles Absent and Rhonchi Absent
GI: Soft, Distention absent, Flat, Non tender and Normal bowel sounds
Neuro/Psych: Alert
Data Reviewed
-
Date of Service: April 19, 2023
Medical Decision Making: Reviewed Test Results, Test Interpretation and Review of Case with other Provider
EKG: Tracing Personally Visualized and interpreted and Report Reviewed by me
Echo: Report Reviewed by me
X-Ray/CT/US/MRI/NUC/PET: Image Personally Visualized and interpreted and Report Reviewed by me
Medical Tests (PFT, Pathology etc): Image Personally Visualized and interpreted and Report Reviewed by me
Labs: Labs Reviewed by me
--- NOTE | 2023-04-19 11:11 | W.PN.HOSP.TC ---
Addendum entered and electronically signed by Enrrique Messer MD 04/19/23 13:49:
Permanent atrial fibrillation
Chronic hypoxic respiratory failure on 2 L oxygen at home
Original Note:
Today's Communication/Plan
-
Monitor vital signs and see plan
Creatinine elevated today, hold IV Lasix for now
Check UA, bladder scan
Cath today, n.p.o.
Daughter updated over the phone
Assessment / Plan
Assessment / Plan
General: Well Developed, Well Nourished and No Apparent Distress
HEENT: NormoCephalic, Moist mucous membranes and Atraumatic
Respiratory: Clear
Cardiac: S1/S2 and Regular Rhythm; No Murmur or Rub
GI: Soft, Non Tender, Non Distended and Normal Bowel Sounds; No Organomegaly
Rectal: Deferred by Provider
Musculoskeletal: + Edema
Skin: No Rash
Neuro: Nonfocal/grossly intact
Moderate right pleural effusion
# Acute on chronic HFpEF exacerbation
-Cardiac BNP of 1600
-monitor I's and O's, daily weights
-cw IV lasix once ok with cardiology; ELGIN today and going for cath will hold off on morning dose
-Continue metolazone
-Continue spironolactone
-s/p thora 04/15 with 600cc removal
-Cardiology following
elevated trop
likely non ischemic myocardial injury; trend
Given burning chest pain on exertion. Cardiology now planning for catheterization today. N.p.o. Xarelto on hold
Paroxysmal atrial fibrillation
periods of bradycardia
-Continue Xarelto
-Continue digoxin
-DC diltiazem
-Continue metoprolol
Coronary artery disease with history of stents
-Continue aspirin
ELGIN likely secondary to diuresis
Check UA
Bladder scan
Severe aortic stenosis
-Undergoing TAVR on April 21
Moderate pulmonary hypertension
Hypokalemia
improving
Hyponatremia
Monitor
Obstructive sleep apnea
-Continue CPAP
Asthma
-Continue inhalers
Essential hypertension
GERD
-Continue omeprazole
Hypercholesterolemia
-Continue statin
Hypothyroidism
-Continue levothyroxine
Type 2 diabetes
-Insulin sliding scale
Obesity
Dementia
-Continue donepezil
Chronic anemia
-Hemoglobin stable
Insomnia
-Continue trazodone
Full code
DVT prophylaxis�Xarelto on hold; SCD's
I spent a total of 53 minutes with the patient or on the floor. More than 50% of this time involved counseling and coordination of care.
Anticipated Discharge: > 48 hours
Subjective/Interval History
-
Date of Service: April 19, 2023
denies pain
Objective Data
-
Labs:
Laboratory Results
04/19/23 04/19/23 04/19/23
05:34 07:59 08:10
WBC 10.2
Hgb 11.1 L
Hct 35.0 L
Plt Count 220
PT 19.8 H Cancelled
INR 1.70 Cancelled
Sodium 133 L
Potassium 3.6
Chloride 88 L
Carbon Dioxide 38 H
BUN 36 H
Creatinine 1.3 H
Glucose 117 H
Calcium 8.7
Vital Signs:
Vital Signs
Temp Pulse Resp BP Pulse Ox
97.4 F 87 16 123/60 97
04/19/23 08:00 04/19/23 08:42 04/19/23 08:00 04/19/23 08:42 04/19/23 08:00
I&O
04/18/23 04/19/23 04/20/23
06:59 06:59 06:59
Intake Total 1440 / 1440 1380 / 1380
Balance 1440 / 1440 1380 / 1380
--- NOTE | 2023-04-19 11:59 | ITS.CL.CATH ---
[facility] - Catheterization
Cardiac Catheterization
Procedure Report:
CARDIAC CATHETERIZATION REPORT
Date of Procedure: 04/19/2023
Referring: Shankar Ceja M.D.
INDICATION: Severe aortic valve stenosis, congestive heart failure, known coronary artery disease, low-level troponin elevation.
PROCEDURE:
1. Left heart catheterization.
2. Coronary angiography.
ACCESS:
6 Senegalese right radial artery.
CATHETERS:
1. 5 [place]e JL 3.5.
2. 5 [place]e JR4.
3. 5 [place]e AL-1.
HEMODYNAMIC DATA
Weight (kg): 113.4
AO (s/d/x, mmHg): 146/72/97
LV (s/x mmHg): 195/35
AV gradient (x, mmHg): 43 (pullback)
LEFT VENTRICULOGRAPHY: Not performed.
CORONARY ANGIOGRAPHY
Dominance: Right.
Left Main: Normal size, bifurcating vessel. There is no coronary artery disease.
LAD: Normal size vessel giving rise to several small diagonals. There is a long stented segment in the mid vessel. There is <10% in-stent restenosis.
Ramus: Congenitally absent.
Circumflex: Large size, nondominant vessel giving rise to 2 obtuse marginals before terminating as a left posterolateral branch. There are minor luminal irregularities in the proximal circumflex.
RCA: Normal size, dominant vessel. Patent stents are present in the proximal and mid vessel with no evidence of in-stent restenosis.
INTERVENTION(S)
None.
Closure Device: Vascular band.
Radiation (mGy): 371.80
DAP (cm2.Gy): 29.2381
Fluoroscopy time (minutes): 4.9
Sedation time (minutes): 23
CONCLUSIONS
1. Right dominant circulation with patent stents in the proximal/mid RCA and mid LAD with no evidence of significant in-stent restenosis.
2. Severely elevated filling pressures (LVEDP = 35 mmHg at 113.4 kg).
3. Severe aortic valve stenosis (mean gradient 43 mmHg on pullback).
RECOMMENDATIONS:
1. Expectant management after cardiac catheterization via right radial approach.
2. Limited weight bearing on the right wrist for one week.
3. Continue diuresis.
4. Maintain tentative plan for transcatheter aortic valve replacement during this admission.
Copy to: Shankar Ceja M.D., David Jennings M.D., Ayaz Vasques M.D., Harmeet Barrios M.D., Axel Cordova M.D.
Enoc Nagel DO, FACC, FACP
--- NOTE | 2023-04-19 13:02 | PN.CDI ---
CDI
- -
CDI:
Physician Documentation Request
Admit Date: 04/15/23 19:49
Dear Doctor Gui,
Please review the following and provide your response in the progress notes.
Clinical Indicators:
Pt admitted with CHFpEF exacerbation
There is potentially conflicting documentation in the record regarding the type of afib.
Documented per cardiology notes, ' Permanent Afib..OAC with Xarelto...'
Documented per progress notes, ' Paroxysmal atrial fibrillation Continue Xarelto Continue digoxin Continue diltiazem Continue metoprolol..'
If possible, please provide further specificity regarding atrial fibrillation, such as:
Permanent atrial fibrillation - when a decision has been made to accept the presence of AF and there is no further attempt to restore or maintain sinus rhythm
Paroxysmal atrial fibrillation - terminates spontaneously or with intervention within 7 days of onset
Other - please specify
Use of terms such as suspected, likely, concern for, or probable (associated with a specific diagnosis that is being evaluated, monitored, or treated as if it exists) are acceptable and can be coded in the inpatient setting, when documented at the
time of discharge.
Thank you,
Talia Rios RN
CDI Specialist
[facility]
Please use your independent medical judgment in providing your response.
--- NOTE | 2023-04-19 13:08 | PN.CDI ---
CDI
- -
CDI:
Physician Documentation Request
Admit Date: 04/15/23 19:49
Dear Doctor Gui ,
Please review the following and provide your response in the progress notes.
Clinical Indicators:
Pt admitted with CHFpEF exacerbation
Documented per ED, ' She is on 2L nasal cannula at home. '
Per Vitals signs pt has been on 1.5 -2 lPM via NC here
Clarify which of the following accurately represents the patient's respiratory status/home oxygen use:
Chronic Hypoxic respiratory failure
Home oxygen use only
Other
Use of terms such as suspected, likely, concern for, or probable (associated with a specific diagnosis that is being evaluated, monitored, or treated as if it exists) are acceptable and can be coded in the inpatient setting, when documented at the
time of discharge.
Thank you,
Talia Rios RN
CDI Specialist
[place] [facility]
Please use your independent medical judgment in providing your response.
--- NOTE | 2023-04-19 13:15 | CM ---
Patient was seen in [facility] 04/14/23. Chart reviewed. Met with the patient and her daughter in [facility]. Patient is Ukaranian speaking, daughter was translating. Patient and her live in the basement of a [address], full set up in the basement,
ambulates with a rolling walker, also has a wheelchair at home. Patient wears Home O2 2l and CPAP at night. The daughter is unsure of her oxygen supplier. Patient is not current with VN. The daughter is her methods time analyst caregiver. 0 LUZ MARIA .
Reviewed preoperative and postoperative instructions and restrictions, along with showering guidelines. Gave patient 2 soaps. Patient is agreeable to a home visit by CT Transitional RN. Plan is for the patient to return home with CT Transitional
RN.
[2023-04-19 13:39] LABS: Glucose - Point of Care 120 mg/dl (70-99)
--- NOTE | 2023-04-19 13:56 | CM ---
Chart reviewed and patient to possible transfer to IVU for procedure on 04/22/23, cardiac case packer has evaluated patient. referral was sent to [facility].
Plan; Home when stable.
[2023-04-19] MEDS: NSS 1000 IV (14:02)
--- NOTE | 2023-04-19 16:13 | PTCARENOTE ---
pt currently ordered Lasix 80mg IV bid, requested pt to remain on tele
[2023-04-19 16:15] LABS: Urine Albumin Trace (Neg - Trace); Urine Bilirubin 1+ (Negative); Urine Character Slightly Cloudy (Clear); Urine Color Yellow; Urine Glucose Negative (Negative); Urine Ketone Trace (Negative); Urine Leukocyte Trace (Negative); Urine Nitrite Negative (Negative); Urine Occult Blood 4+ (Negative); Urine Specific Gravity 1.015 (<1.030); Urine Urobilinogen Negative (Neg - 1+)
[2023-04-19 16:24] LABS: Urine Red Blood Cell >100 /HPF (0-2); Urine Squamous Cell 26-30 /LPF (Few); Urine Yeast Few (Negative)
[2023-04-19] MEDS: LASIX 80 MG IV (17:09)
[2023-04-19] MEDS: LANOXIN 125 MCG PO (17:10)
[2023-04-19] MEDS: LIPITOR 40 MG PO (17:10)
[2023-04-19 18:12] LABS: Glucose - Point of Care 129 mg/dl (70-99)
[2023-04-19] MEDS: DESYREL PO (19:29)
[2023-04-19 21:12] LABS: Glucose - Point of Care 114 mg/dl (70-99)
[2023-04-20] VITALS (8 sets, daily range): BP systolic 98–152; BP diastolic 44–82; BMI 45.8
--- NOTE | 2023-04-20 01:13 | PTCARENOTE ---
Patient complaining of right sided chest discomfort. Vital signs obtained. Patient remains on telemetry. Patient states that her chest discomfort started when she was moving around and that it is resolving while she lays down. Cardiac cath performed
on 04/19/23. Guillermina Lyn NP made aware.
[2023-04-20] MEDS: NITROSTAT (SUBLINGUAL) 0.400000000000000022 MG SL (01:23)
[2023-04-20] MEDS: SYNTHROID 200 MCG PO (05:28)
[2023-04-20] MEDS: SYNTHROID 50 MCG PO (05:28)
[2023-04-20 07:48] LABS: Glucose - Point of Care 124 mg/dl (70-99)
[2023-04-20] MEDS: ALDACTONE 25 MG PO (07:52)
[2023-04-20] MEDS: ZAROXOLYN 5 MG PO (07:52)
[2023-04-20] MEDS: KCL 20 MEQ PO ×2 (07:52→20:00)
[2023-04-20] MEDS: FEOSOL 325 MG PO (07:53)
[2023-04-20] MEDS: LASIX 80 MG IV ×2 (07:53→16:22)
[2023-04-20] MEDS: ARICEPT 5 MG PO (07:53)
[2023-04-20] MEDS: PROTONIX 40 MG PO (07:53)
[2023-04-20] MEDS: LOPRESSOR 100 MG PO ×2 (07:53→20:00)
[2023-04-20] MEDS: NOVOLOG FLEXPEN-LOW RESISTANCE SC (07:54)
[2023-04-20 08:14] LABS: % Basophils 0.7 % (0-2); % Eosinophils 1.8 % (0-6); % Immature Granulocytes 0.5 % (0-0.5); % Lymphocytes 16.9 % (20.5-51.1); % Monocytes 12.2 % (1.7-9.3); % Neutrophils 67.9 % (42.2-75.2); Absolute Basophils 0.1 10^3/uL (0-0.2); Absolute Eosinophils 0.2 10^3/uL (0-0.7); Absolute Lymphocytes 1.5 10^3/uL (1.2-3.4); Absolute Monocytes 1.1 10^3/uL (0.1-0.6); Absolute Neutrophils 5.9 10^3/uL (1.4-6.5); Hematocrit 35.9 % (37.0-47.0); Hemoglobin 11.4 g/dL (12.0-16.0); Mean Corp Hgb Conc. 31.8 g/dL (33.0-37.0); Mean Corpuscular Hgb 27.7 pg (27.0-31.0); Mean Corpuscular Volume 87.3 fL (81.0-99.0); Nucleated Red Blood Cells % 0 %; Platelet Count 231 10^3/uL (130-400); Red Blood Cell Count 4.11 10^6/uL (4.20-5.40); Red Cell Dist. Width 14.6 % (11.5-14.5); White Blood Cell Count 8.7 10^3/uL (4.8-10.8)
--- NOTE | 2023-04-20 08:35 | W.PN.CD ---
Today's Communication / Plan
-
-Most likely cause of burning chest pain with exertion; cardiac catheterization yesterday did not reveal any obstructive CAD, and stents were patent.
-TAVR pending, as inpatient.
-Tentative plan for TAVR 04/22/23.
-Continue Lasix 80 mg IV BID and Zaroxolyn 5 mg Q48H.
-Replete potassium.
-Will now place on heparin drip (Xarelto is being held).
-Coronary angiography yesterday with no obstructive CAD, patent stents.
Impression / Plan
-
Impression/Plan: 72 yo Ukranian speaking female (patient of Dr. Ayaz Vasques) with severe (scheduled for TAVR 04/22/23), HFpEF, HTN, HLD, morbid obesity, permanent Afib on Xarelto, MARY KATE on CPAP, DM II, multivessel CAD (PCI 2015 Mid RCA and mid
LAD, patent on cath 08/07), and hypothyroidism, who admitted with decompensated HF, right pleural effusion and new burning chest pain with ambulation.
# Severe symptomatic aortic stenosis:
-Most likely cause of burning chest pain with exertion; cardiac catheterization yesterday did not reveal any obstructive CAD, and stents were patent.
-TAVR pending, as inpatient.
#Aortic stenosis
-Severe.
-Echo 11/2022: EF 60-65%, severe mean gradient 41mmHg, HIRA 0.9cm2
-Tentative plan for TAVR 04/22/23.
-TAVR team following.
#Right sided pleural effusion
-S/P thoracentesis 04/16/23 for 600mL of transudate.
#HFpEF
-Acute on chronic.
-Continue Lasix 80 mg IV BID and Zaroxolyn 5 mg Q48H.
-Replete potassium.
-Continue to monitor renal function, daily weights.
-She would benefit from LE compression.
#Abnormal troponin
-Troponin stuttering (0.114 --> 0.126 --> 0.116).
-Acute nonischemic myocardial injury in the setting of acute heart failure and severe aortic valve disease.
#Permanent Afib
-She is having 2-2.5 second pauses; diltiazem discontinued.
-[id number] = 5 (CHF, HTN, Age x1, Vascular Disease, Female).
-OAC with Xarelto, currently on hold for now.
-Will now place on heparin drip.
#CAD
-Chronic, stable.
-Multivessel PCI 2014 (RCA, LAD).
-Cath 07/24/2022: no significant residual CAD with 10% luminal irregularities and 10 to 20% in-stent restenosis, patent mid RCA/mid LAD stents.
-As noted above, troponin elevation seems unlikely to be ACS.
-Coronary angiography yesterday with no obstructive CAD, patent stents.
-Continue aspirin, rosuvastatin.
#MARY KATE
-Chronic, stable on CPAP.
#HTN
-Chronic, stable on meds.
-Continue to monitor while off of diltiazem (held for pauses).
#HLD
-Chronic, stable.
Subjective/Interval History:
No major events overnight. Creatinine has normalized from 1.3-0.9 today. Daughter (Estela) was able to help translate via cell phone.
DATA:
Thoracentesis, 04/16/2023:
IMPRESSION: Successful ultrasound-guided thoracentesis, yielding 600 cc of clear christopher pleural fluid.
TAVR CTA, 09/28/2022:
Measurements for proposed TAVR procedure:
Bicuspid aortic valve, Siever's type 0, with no raphe.
Moderate valvular calcification. Mild nodular calcification extending into the left ventricular outflow tract.
Aortic annulus: 27.4 mm x 22.6 mm. Measured cross-sectional area of 412-429 sq mm. Calculated annular perimeter from diameters-78.7 mm.
Left ventricular outflow tract: Measured cross-sectional area of 390 sq mm.
Sinuses of Valsalva: 35.3 mm x 27.0 mm.
Sinotubular junction: Minimal calcification. 26.1 mm x 26.7 mm.
Distance from aortic annulus to left coronary artery origin: 18.3 mm.
Distance from aortic annulus to right coronary artery origin: 17.0 mm.
TTE, 05/27/2022:
CONCLUSIONS
�Poorly visualized aortic valve which appears to be restricted in motion.
�Mean gradient across the valve is 26 mmHg
�Dimensionless index LVOT VTI 2 aortic valve VTI ratio is 0 21, this ratio
�suggest low gradient severe aortic stenosis.
�Clinical correlation is required, correlation with recent cardiac
�catheterization at [facility].
�If clinically indicated patient should be evaluated for TAVR.
Physical Exam
Vital Signs/Labs
Vital Signs
Temp Pulse Resp BP Pulse Ox
98.2 F 86 18 135/75 92
04/20/23 03:05 04/20/23 07:52 04/20/23 03:05 04/20/23 07:52 04/20/23 03:05
04/19/23 04/20/23 04/21/23
06:59 06:59 06:59
Actual Weight 113.489 kg 113.511 kg
04/20/23 07:30
PT Cancelled 04/19/23 08:10
INR Cancelled 04/19/23 08:10
Magnesium 1.9 mg/dl (1.6-2.3) 04/19/23 05:34
Physical Exam
Constitutional: No acute distress and Comfortable
EENT: Anicteric
Cardiovascular: Rhythm/rate is irregular, Pedal edema present (1+), Systolic murmur present (3/6) and S1S2 is normal
Respiratory: Respiratory effort normal and Rhonchi Present (Mild bibasilar)
GI: Soft
Neuro/Psych: AO x 3
Other: Skin
Warm, dry, intact
Data Reviewed
-
Date of Service: April 20, 2023
EKG: Tracing Personally Visualized and interpreted (A-fib)
Echo: Tracing Personally Visualized and interpreted (Severe )
Medical Tests (PFT, Pathology etc): Image Personally Visualized and interpreted (Cardiac catheterization: Severe , no obstructive CAD, patent stents)
Labs: Labs Reviewed by me
[2023-04-20 08:36] LABS: Blood Urea Nitrogen 44 mg/dl (7-17); Calcium 8.9 mg/dl (8.4-10.2); Chloride 86 mmol/L (98-107); Estimated Creatinine Clearance 68 ml/min; Glucose 120 mg/dl (70-99); Potassium 3.3 mmol/L (3.5-5.1); Sodium 133 mmol/L (135-145); eGFR > 60.00
[2023-04-20 08:45] LABS: Carbon Dioxide 36 mmol/L (22-30)
[2023-04-20 09:55] LABS: Hematocrit 36.6 % (37.0-47.0); Hemoglobin 11.8 g/dL (12.0-16.0); Mean Corp Hgb Conc. 32.2 g/dL (33.0-37.0); Mean Corpuscular Hgb 27.8 pg (27.0-31.0); Mean Corpuscular Volume 86.3 fL (81.0-99.0); Mean Platelet Volume 9.7 fL (7.4-10.4); Platelet Count 245 10^3/uL (130-400); Red Blood Cell Count 4.24 10^6/uL (4.20-5.40); Red Cell Dist. Width 14.6 % (11.5-14.5); White Blood Cell Count 8.5 10^3/uL (4.8-10.8)
[2023-04-20 10:06] LABS: APTT 29.7 Sec (23.4-35.0)
--- NOTE | 2023-04-20 10:21 | W.PN.HOSP.TC ---
Today's Communication/Plan
-
see bold
Assessment / Plan
Assessment / Plan
Gen: NAD, Awake and alert, appears chronically ill
Eyes: EOMI, PERRLA, no scleral icterus.
Neck: supple.
CV: irreg/irreg, +S1/S2, no m/r/g.
Resp: CTAB, no rales, wheezes, or rhonchi.
Abd: +BS, soft, NT, ND
Skin: No rashes. 1+ ankle edema
Neuro: CN 2-12 intact, non-focal.
Psych: Normal mood and affect.
Acute on chronic HFpEF exacerbation:
-with moderate R pleural effusion s/p thoracentesis for 600cc on 04/16/23
-proBNP of 1600
-cont IV Lasix
-monitor I/O's, daily wts
-Continue metolazone/spironolactone
-Cardiology following
Elevated troponin:
-h/o CAD with h/o stents
-likely nonischemic myocardial injury
-s/p cardiac cath 04/19/23 without obstructive CAD, stents were patent
-cont ASA/BB
Paroxysmal atrial fibrillation:
-with periods of bradycardia
-Continue Xarelto/Digoxin/BB
-currently on heparin gtt
Other problems:
Severe : for TAVR as inpt on 04/22/23
Moderate pulmonary hypertension
Hypokalemia: cont PO K
Hyponatremia, mild
MARY KATE: cont CPAP
Asthma
Essential hypertension: cont BB
GERD: cont PPI
Hypercholesterolemia: Continue statin
Hypothyroidism: Continue levothyroxine
DM2: SSI/accuchecks
Obesity due to excess calories
Dementia: Continue donepezil
Anemia of chronic disease: Hb stable
Insomnia: Continue trazodone
FULL/Heparin
Anticipated Discharge: > 48 hours
Subjective/Interval History
-
Date of Service: April 20, 2023
Denies CP/SOB.
Objective Data
-
Labs:
Laboratory Results
04/20/23 04/20/23
07:30 09:43
WBC 8.7 8.5
Hgb 11.4 L 11.8 L
Hct 35.9 L 36.6 L
Plt Count 231 245
APTT 29.7
Sodium 133 L
Potassium 3.3 L
Chloride 86 L
Carbon Dioxide 36 H
BUN 44 H
Creatinine 0.9
Glucose 120 H
Calcium 8.9
Vital Signs:
Vital Signs
Temp Pulse Resp BP Pulse Ox
97.7 F 86 20 135/75 94
04/20/23 07:40 04/20/23 07:52 04/20/23 07:40 04/20/23 07:52 04/20/23 07:40
I&O
04/19/23 04/20/23 04/21/23
06:59 06:59 06:59
Intake Total 1380 / 1380 360 / 360
Output Total 200 / 200
Balance 1380 / 1380 160 / 160
[2023-04-20] MEDS: HEPARIN 4000 UNITS IV (10:22)
[2023-04-20] MEDS: DRISDOL (VITAMIN D2) 50000 UNITS PO (10:22)
[2023-04-20] MEDS: HEPARIN 25000 UNITS/250 ML IV (10:33)
--- NOTE | 2023-04-20 10:33 | CM ---
Updated [facility] on plan for TAVR and probable move to IVU.
[2023-04-20 11:53] LABS: Glucose - Point of Care 180 mg/dl (70-99)
[2023-04-20] MEDS: NOVOLOG FLEXPEN-LOW RESISTANCE 1 UNITS SC ×2 (12:42→16:23)
[2023-04-20 16:21] LABS: Glucose - Point of Care 157 mg/dl (70-99)
[2023-04-20 16:30] LABS: APTT 58.9 Sec (23.4-35.0)
[2023-04-20] MEDS: LIPITOR 40 MG PO (17:13)
[2023-04-20] MEDS: LANOXIN 125 MCG PO (17:13)
[2023-04-20] MEDS: DESYREL PO (20:05)
[2023-04-20] MEDS: TYLENOL 650 MG PO (21:02)
[2023-04-20 21:17] LABS: Glucose - Point of Care 191 mg/dl (70-99)
[2023-04-20 23:27] LABS: APTT 61.2 Sec (23.4-35.0)
[2023-04-21] VITALS (10 sets, daily range): BP systolic 107–130; BP diastolic 52–106; BMI 45.7
[2023-04-21] MEDS: SYNTHROID 50 MCG PO (05:14)
[2023-04-21] MEDS: SYNTHROID 200 MCG PO (05:14)
[2023-04-21 07:21] LABS: APTT 75.3 Sec (23.4-35.0)
[2023-04-21 07:51] LABS: Glucose - Point of Care 120 mg/dl (70-99)
[2023-04-21] MEDS: NOVOLOG FLEXPEN-LOW RESISTANCE SC ×3 (08:07→17:23)
[2023-04-21] MEDS: HEPARIN 25000 UNITS/250 ML IV (09:44)
[2023-04-21] MEDS: ALDACTONE 25 MG PO (10:17)
[2023-04-21] MEDS: KCL 20 MEQ PO ×2 (10:19→20:31)
[2023-04-21] MEDS: ARICEPT 5 MG PO (10:19)
[2023-04-21] MEDS: FEOSOL 325 MG PO (10:19)
[2023-04-21] MEDS: LASIX 80 MG IV ×2 (10:20→16:17)
[2023-04-21] MEDS: PROTONIX 40 MG PO (10:23)
[2023-04-21] MEDS: LOPRESSOR 100 MG PO ×2 (10:23→20:31)
[2023-04-21 10:29] LABS: Hematocrit 36.9 % (37.0-47.0); Mean Corp Hgb Conc. 32.5 g/dL (33.0-37.0); Mean Corpuscular Hgb 27.6 pg (27.0-31.0); Mean Corpuscular Volume 84.8 fL (81.0-99.0); Mean Platelet Volume 9.8 fL (7.4-10.4); Platelet Count 263 10^3/uL (130-400); Red Blood Cell Count 4.35 10^6/uL (4.20-5.40); Red Cell Dist. Width 14.9 % (11.5-14.5); White Blood Cell Count 8.2 10^3/uL (4.8-10.8)
[2023-04-21] MEDS: ULTRAM 50 MG PO (10:38)
--- NOTE | 2023-04-21 11:06 | W.PN.HOSP.TC ---
Today's Communication/Plan
-
see bold
Assessment / Plan
Assessment / Plan
Gen: NAD, Awake and alert, appears chronically ill
Eyes: EOMI, PERRLA, no scleral icterus.
Neck: supple.
CV: remains irreg/irreg, +S1/S2, 2/6 SOBEIDA
Resp: CTAB, no rales, wheezes, or rhonchi.
Abd: +BS, soft, NT, ND
Skin: No rashes. trace ankle edema
Neuro: CN 2-12 intact, non-focal.
Psych: Normal mood and affect.
Acute on chronic HFpEF exacerbation:
-with moderate R pleural effusion s/p thoracentesis for 600cc on 04/16/23
-proBNP of 1600
-cont IV Lasix
-monitor I/O's, daily wts
-Continue metolazone/spironolactone
-Cardiology following
Elevated troponin:
-h/o CAD with h/o stents
-likely nonischemic myocardial injury
-s/p cardiac cath 04/19/23 without obstructive CAD, stents were patent
-cont ASA/BB
Paroxysmal atrial fibrillation:
-with periods of bradycardia
-Continue Xarelto/Digoxin/BB
-currently on heparin gtt
Other problems:
Severe : for TAVR as inpt on 04/22/23
Moderate pulmonary hypertension
Hypokalemia: cont PO K
Hyponatremia, mild
MARY KATE: cont CPAP
Asthma
Essential hypertension: cont BB
GERD: cont PPI
Hypercholesterolemia: Continue statin
Hypothyroidism: Continue levothyroxine
DM2: SSI/accuchecks
Obesity due to excess calories
Dementia: Continue donepezil
Anemia of chronic disease: Hb stable
Insomnia: Continue trazodone
FULL/Heparin
Anticipated Discharge: > 48 hours
Subjective/Interval History
-
Date of Service: April 21, 2023
Denies CP/SOB.
Objective Data
-
Labs:
Laboratory Results
04/20/23 04/21/23 04/21/23
23:10 06:50 10:15
WBC 8.2
Hgb 12.0
Hct 36.9 L
Plt Count 263
APTT 61.2 H 75.3 H
Sodium Pending
Potassium Pending
Chloride Pending
Carbon Dioxide Pending
BUN Pending
Creatinine Pending
Glucose Pending
Calcium Pending
04/21/23
13:45
WBC
Hgb
Hct
Plt Count
APTT Pending
Sodium
Potassium
Chloride
Carbon Dioxide
BUN
Creatinine
Glucose
Calcium
Vital Signs:
Vital Signs
Temp Pulse Resp BP Pulse Ox
98.3 F 74 16 107/60 92
04/21/23 08:09 04/21/23 10:23 04/21/23 08:09 04/21/23 10:23 04/21/23 08:09
I&O
04/20/23 04/21/23 04/22/23
06:59 06:59 06:59
Intake Total 360 / 360 1570 / 1570
Output Total 200 / 200
Balance 160 / 160 1570 / 1570
[2023-04-21 11:27] LABS: Blood Urea Nitrogen 41 mg/dl (7-17); Carbon Dioxide 38 mmol/L (22-30); Chloride 87 mmol/L (98-107); Estimated Creatinine Clearance 68 ml/min; Glucose 119 mg/dl (70-99); Potassium 3.8 mmol/L (3.5-5.1); Sodium 131 mmol/L (135-145); eGFR > 60.00
[2023-04-21 11:34] LABS: Glucose - Point of Care 120 mg/dl (70-99)
--- NOTE | 2023-04-21 13:33 | W.PN.CD ---
Today's Communication / Plan
-
No changes.
NPO after MN for TAVR.
Impression / Plan
-
Impression/Plan: 72 yo Ukranian speaking female (patient of Dr. Ayaz Vasques) with severe (scheduled for TAVR 04/22/23), HFpEF, HTN, HLD, morbid obesity, permanent Afib on Xarelto, MARY KATE on CPAP, DM II, multivessel CAD (PCI 2015 Mid RCA and mid
LAD, patent on cath 08/07), and hypothyroidism, who admitted with decompensated HF, right pleural effusion and new burning chest pain with ambulation.
# Severe symptomatic aortic stenosis:
-Most likely cause of burning chest pain with exertion; cardiac catheterization did not reveal any obstructive CAD, and stents were patent.
-TAVR pending, as inpatient.
#Aortic stenosis
-Severe.
-Echo 11/2022: EF 60-65%, severe mean gradient 41mmHg, HIRA 0.9cm2
-Tentative plan for TAVR 04/22/23.
-TAVR team following.
#Right sided pleural effusion
-S/P thoracentesis 04/16/23 for 600mL of transudate.
#HFpEF
-Acute on chronic.
-Continue furosemide 80 mg IV BID and Zaroxolyn 5 mg Q48H.
-Replete potassium.
-Continue to monitor renal function, daily weights.
-She would benefit from LE compression.
#Abnormal troponin
-Troponin stuttering (0.114 --> 0.126 --> 0.116).
-Acute nonischemic myocardial injury in the setting of acute heart failure and severe aortic valve disease.
#Permanent Afib
-She is having 2-2.5 second pauses; diltiazem discontinued.
-[id number] = 5 (CHF, HTN, Age x1, Vascular Disease, Female).
-OAC with rivaroxaban, currently on heparin gtt.
#CAD
-Chronic, stable.
-Multivessel PCI 2014 (RCA, LAD).
-Cath 07/24/2022: no significant residual CAD with 10% luminal irregularities and 10 to 20% in-stent restenosis, patent mid RCA/mid LAD stents.
-As noted above, troponin elevation seems unlikely to be ACS.
-Coronary angiography on 04/19/2023 with no obstructive CAD, patent stents.
-Continue aspirin, rosuvastatin.
#MARY KATE
-Chronic, stable on CPAP.
#HTN
-Chronic, stable on meds.
-Continue to monitor while off of diltiazem (held for pauses).
#HLD
-Chronic, stable.
Subjective/Interval History:
Weight is down 0.4 kg.
Renal function stable/improving.
Communication was aided by her daughter who translated.
DATA:
Cardiac Catheterization, 04/19/2023:
CONCLUSIONS
1.� Right dominant circulation with patent stents in the proximal/mid RCA and mid LAD with no evidence of significant in-stent restenosis.
2.� Severely elevated filling pressures (LVEDP = 35 mmHg at 113.4 kg).
3.� Severe aortic valve stenosis (mean gradient 43 mmHg on pullback).
Thoracentesis, 04/16/2023:
IMPRESSION: Successful ultrasound-guided thoracentesis, yielding 600 cc of clear christopher pleural fluid.
TAVR CTA, 09/28/2022:
Measurements for proposed TAVR procedure:
Bicuspid aortic valve, Siever's type 0, with no raphe.
Moderate valvular calcification. Mild nodular calcification extending into the left ventricular outflow tract.
Aortic annulus: 27.4 mm x 22.6 mm. Measured cross-sectional area of 412-429 sq mm. Calculated annular perimeter from diameters-78.7 mm.
Left ventricular outflow tract: Measured cross-sectional area of 390 sq mm.
Sinuses of Valsalva: 35.3 mm x 27.0 mm.
Sinotubular junction: Minimal calcification. 26.1 mm x 26.7 mm.
Distance from aortic annulus to left coronary artery origin: 18.3 mm.
Distance from aortic annulus to right coronary artery origin: 17.0 mm.
TTE, 05/27/2022:
CONCLUSIONS
�Poorly visualized aortic valve which appears to be restricted in motion.
�Mean gradient across the valve is 26 mmHg
�Dimensionless index LVOT VTI 2 aortic valve VTI ratio is 0 21, this ratio
�suggest low gradient severe aortic stenosis.
�Clinical correlation is required, correlation with recent cardiac
�catheterization at [facility].
�If clinically indicated patient should be evaluated for TAVR.
Physical Exam
Vital Signs/Labs
Vital Signs
Temp Pulse Resp BP Pulse Ox
36.5 C 73 16 120/65 99
04/21/23 11:26 04/21/23 11:26 04/21/23 11:26 04/21/23 11:26 04/21/23 11:26
04/20/23 04/21/23 04/22/23
11:59 11:59 11:59
Actual Weight 113.511 kg 113.115 kg
04/21/23 10:15
04/21/23 10:15
PT Cancelled 04/19/23 08:10
INR Cancelled 04/19/23 08:10
APTT 75.3 Sec (23.4-35.0) H 04/21/23 06:50
Magnesium 1.9 mg/dl (1.6-2.3) 04/19/23 05:34
04/14/23
08:53
Gmj-N-Dxjqttkivsh Pept 1640
Physical Exam
Constitutional: No acute distress and Comfortable
EENT: Anicteric and Moist mucous membranes
Cardiovascular: Pedal edema is absent, JVD pressure is normal, Rhythm/rate is irregular, S1S2 is normal and Murmur/rub/gallop absent
Respiratory: Respiratory effort normal, Wheeze Absent, Crackles Absent, Rhonchi Absent and Other (Decreased/tubular at the RLL.)
GI: Soft, Distention absent, Flat, Non tender and Normal bowel sounds
Neuro/Psych: AO x 3
Data Reviewed
-
Date of Service: April 21, 2023
Medical Decision Making: Reviewed Test Results, Independent Historian Assessment and Test Interpretation
EKG: Tracing Personally Visualized and interpreted and Report Reviewed by me
Echo: Tracing Personally Visualized and interpreted and Report Reviewed by me
X-Ray/CT/US/MRI/NUC/PET: Image Personally Visualized and interpreted and Report Reviewed by me
Medical Tests (PFT, Pathology etc): Image Personally Visualized and interpreted and Report Reviewed by me
Labs: Labs Reviewed by me
[2023-04-21 14:29] LABS: APTT 76.8 Sec (23.4-35.0)
[2023-04-21 17:22] LABS: Glucose - Point of Care 101 mg/dl (70-99)
[2023-04-21] MEDS: LIPITOR 40 MG PO (18:28)
[2023-04-21] MEDS: LANOXIN 125 MCG PO (18:28)
[2023-04-21] MEDS: DESYREL PO (20:32)
[2023-04-21 21:20] LABS: Glucose - Point of Care 149 mg/dl (70-99)
[2023-04-22] VITALS (21 sets, daily range): BP systolic 104–142; BP diastolic 51–76
[2023-04-22] MEDS: HEPARIN 25000 UNITS/250 ML IV (04:12)
[2023-04-22 05:22] LABS: Hematocrit 34.7 % (37.0-47.0); Hemoglobin 11.3 g/dL (12.0-16.0); Mean Corp Hgb Conc. 32.6 g/dL (33.0-37.0); Mean Corpuscular Hgb 27.6 pg (27.0-31.0); Mean Corpuscular Volume 84.8 fL (81.0-99.0); Mean Platelet Volume 9.6 fL (7.4-10.4); Platelet Count 227 10^3/uL (130-400); Red Blood Cell Count 4.09 10^6/uL (4.20-5.40); Red Cell Dist. Width 14.7 % (11.5-14.5); White Blood Cell Count 8.5 10^3/uL (4.8-10.8)
--- NOTE | 2023-04-22 05:25 | PTCARENOTE ---
Pt prepped- linens changed- showered and wiped with CHG wipes. dgt helped and is at bedside for translation.
[2023-04-22 05:33] LABS: APTT 93.3 Sec (23.4-35.0)
[2023-04-22 05:49] LABS: Blood Urea Nitrogen 46 mg/dl (7-17); Calcium 9.1 mg/dl (8.4-10.2); Chloride 86 mmol/L (98-107); Estimated Creatinine Clearance 51 ml/min; Glucose 116 mg/dl (70-99); Potassium 3.5 mmol/L (3.5-5.1); Sodium 133 mmol/L (135-145); eGFR 48.39
[2023-04-22 06:01] LABS: Carbon Dioxide 37 mmol/L (22-30)
[2023-04-22] MEDS: NOVOLOG FLEXPEN-LOW RESISTANCE SC ×2 (07:23→14:24)
[2023-04-22] MEDS: LASIX IV (08:00)
[2023-04-22] MEDS: LOPRESSOR PO (08:00)
[2023-04-22] MEDS: KCL PO (08:00)
--- NOTE | 2023-04-22 08:01 | W.PN.HOSP.TC ---
Today's Communication/Plan
-
see bold
Assessment / Plan
Assessment / Plan
Gen: NAD, Awake and alert, appears chronically ill
Eyes: EOMI, PERRLA, no scleral icterus.
Neck: supple.
CV: continues to remain irreg/irreg, +S1/S2, 2/6 SOBEIDA
Resp: remains CTAB, no rales, wheezes, or rhonchi.
Abd: remains +BS, soft, NT, ND
Skin: No rashes. trace ankle edema
Neuro: CN 2-12 intact, non-focal.
Psych: Normal mood and affect.
Acute on chronic HFpEF exacerbation:
-with moderate R pleural effusion s/p thoracentesis for 600cc on 04/16/23
-proBNP of 1600
-cont IV Lasix
-monitor I/O's, daily wts
-Continue metolazone/spironolactone
-Cardiology following
Elevated troponin:
-h/o CAD with h/o stents
-likely nonischemic myocardial injury
-s/p cardiac cath 04/19/23 without obstructive CAD, stents were patent
-cont ASA/BB
Paroxysmal atrial fibrillation:
-with periods of bradycardia
-Continue Digoxin/BB
-currently on heparin gtt
Other problems:
Severe : for TAVR as inpt on 04/22/23
Moderate pulmonary hypertension
Hypokalemia: cont PO K
Hyponatremia, mild
MARY KATE: cont CPAP
Asthma
Essential hypertension: cont BB
GERD: cont PPI
Hypercholesterolemia: Continue statin
Hypothyroidism: Continue levothyroxine
DM2: SSI/accuchecks
Obesity due to excess calories
Dementia: Continue donepezil
Anemia of chronic disease: Hb stable
Insomnia: Continue trazodone
FULL/Heparin
Anticipated Discharge: 24 - 48 hours
Subjective/Interval History
-
Date of Service: April 22, 2023
Denies chest pain or shortness of breath.
Objective Data
-
Labs:
Laboratory Results
04/22/23
05:06
WBC 8.5
Hgb 11.3 L
Hct 34.7 L
Plt Count 227
APTT 93.3 H
Sodium 133 L
Potassium 3.5
Chloride 86 L
Carbon Dioxide 37 H
BUN 46 H
Creatinine 1.2 H
Glucose 116 H
Calcium 9.1
Vital Signs:
Vital Signs
Temp Pulse Resp BP Pulse Ox
97.8 F 67 20 119/62 97
04/22/23 07:19 04/22/23 05:08 04/22/23 07:19 04/22/23 05:08 04/22/23 07:19
I&O
04/21/23 04/22/23 04/23/23
06:59 06:59 06:59
Intake Total 1570 / 1570 120 / 120
Balance 1570 / 1570 120 / 120
--- NOTE | 2023-04-22 09:12 | W.CVOR.SURPR ---
CVOR Surgeon Immed Pre Op
-
I have examined this patient prior to performance of the scheduled procedure.
The patient's condition is unchanged from the time of the dictated/written History and
Physical and the patient is able to undergo the scheduled procedure.
[2023-04-22] MEDS: ASPIR LOW (ENTERIC COATED) 81 MG PO (09:26)
[2023-04-22] MEDS: SYNTHROID 50 MCG PO (09:26)
[2023-04-22] MEDS: PROTONIX 40 MG PO (09:26)
[2023-04-22] MEDS: SYNTHROID 200 MCG PO (09:26)
[2023-04-22] MEDS: ZINACEF 1500 MG IV ×2 (10:00)
[2023-04-22] MEDS: STERILE WATER FOR INJECTION 16 ML IV ×2 (10:00)
[2023-04-22] MEDS: VANCOCIN 300 ML IV ×2 (10:30→22:57)
[2023-04-22] MEDS: VANCOCIN 300 MG IV ×2 (10:30→22:57)
--- NOTE | 2023-04-22 10:58 | CM ---
Chart reviewed. Patient is independent of ADLS, lives with her in the basement of her daughters house, [address], uses a wheelchair and walker. Patient also wears Oxygen 2l at home. Plan is for the patient to return home with CT
Transitional RN and then will be seen by [facility]. CM to follow.
[2023-04-22 11:11] LABS: ACT-LR - POC 279 Seconds (116-155)
--- NOTE | 2023-04-22 12:13 | W.IMMPOSTOP ---
Surgical Immed Post Op Note
-
Dictated: [id number]
STRUCTURAL HEART PROCEDURE NOTE: TAVR
Preoperative Dx:
Severe aortic stenosis (P/M: 70/41)
Bicuspid AV (Ade 0)
Congestive heart failure w/ current admission w/ acute decompensation
CAD s/p prior MV PCI
Permanent AF (C2V: 5) on Xarelto
T2DM
HTN/HLD
Morbid obesity w/ BMI 45.32
Postoperative Dx:
Same
Procedures:
1) L OCCUPATIONAL THERAPY ASST access w/ tactile and fluoroscopic guidance, micropuncture technique, 6Fr sheath placement, limited angiography
2) L CFV access w/ fluoroscopic guidance, micropuncture technique, 6Fr sheath placement
3) R OCCUPATIONAL THERAPY ASST access w/ tactile and fluoroscopic guidance, micropuncture technique, 6Fr sheath placement, limited angiography
4) Placement of pigtail catheter at saleem of AV cusp w/ limited aortography & confirmation of coplanar valve deployment angle
5) Placement of temporary RV pacing wire w/ threshold testing
6) Placement of perclose sutures x 3 into R OCCUPATIONAL THERAPY ASST (1 failure), 8Fr sheath placement (partial heparinization)
7) Placement of superstiff wire w/ serial dilation of right ileofemoral system & subsequent placement of Brown E-sheath (full heparinization)
8) Wire purchase across stenotic AV (AL-1, soft-tip straight, extrastiff wire)
9) R TF TAVR w/ placement of 26mm RICK 3 valve
10) Completion aortography: 90/10 positioning, no AI, patent coronaries
11) Completion TTE: mean gradient 6mmHg, no AI
12) Removal of valve delivery system & Brown E-sheath w/ R OCCUPATIONAL THERAPY ASST mgmt w/ perclose sutures x 2, 8Fr angioseal, manual pressure
13) Completion R ileofemoral angiography w/ significant loss of perfusion below level of OCCUPATIONAL THERAPY ASST access
14) Contralateral antegrade wire control across iatrogenic R OCCUPATIONAL THERAPY ASST injury into R SFA
15) Balloon of iatrogenic R OCCUPATIONAL THERAPY ASST injury w/ 4mm x 40mm balloon - angiography w/ significantly improved flow; patent profunda
16) Placement of COOK Zilver PTX BHARGAV 8mm x 40mm self-expanding stent into R OCCUPATIONAL THERAPY ASST - angiography w/ good result
17) Post-stent balloon dilation - angiography w/ excellent result
18) Removal of 6Fr L OCCUPATIONAL THERAPY ASST sheath w/ mgmt w/ 6Fr angioseal; manual pressure
19) Removal of temporary pacing wire
20) L CFV sheath left in-situ w/ planned removal in recovery; heparinization not reversed
Real Estate Assessor:
Dr. David Jennings
Cardiac Surgeon:
Dr. Axel Cordova
Vascular Surgery Consultation:
Dr. Levy Thurman
Anesthesia:
General w/ LMA; local to B/L groins
Complications:
Temporary loss of RLE perfusion after removal of Brown E-sheath
Successfully managed w/ percutaneous techniques and R OCCUPATIONAL THERAPY ASST stent placement
Implants:
Perclose x 2
8Fr angioseal x 1
6Fr angioseal x 1
Brown Lifesciences 26mm Model [id number], SN: [id number]
COOK BHARGAV 8mm x 40mm; REF: [id number], LOT: [id number]
Cath Data:
Start: 1037hrs, Deploy: 1115hrs, End: 1209hrs
FT: 15.0min, mGy: 1289.87, DAP: 151.42, Contrast: 119 omni
Post TTE: mean gradient 6mmHg, no AI
Condition:
Stable/guarded to recovery
[2023-04-22 12:55] LABS: ACT-LR - POC 200 Seconds (116-155)
[2023-04-22 12:57] LABS: Glucose - Point of Care 131 mg/dl (70-99)
[2023-04-22] MEDS: DILAUDID 0.5 MG IV (13:04)
[2023-04-22 14:18] LABS: ACT-LR - POC 171 Seconds (116-155)
[2023-04-22 14:48] LABS: ACT-LR - POC 161 Seconds (116-155)
--- NOTE | 2023-04-22 14:50 | PTCARENOTE ---
Rec'd Pt S/P TAVR, A,A+O, speaks Ukranian, daughter and son at bedside to translate. Bilat femoral dsgs D+I. Pt c/o chest pain rated 09/24. PA control system computer scientist notified-Minna and came to see Pt. IV offirmiv ordered and given with good relief.
[2023-04-22] MEDS: OFIRMEV 100 IV (15:14)
[2023-04-22 15:45] LABS: ACT-LR - POC > 397 Seconds (116-155)
[2023-04-22 15:45] LABS: ACT-LR - POC > 397 Seconds (116-155)
[2023-04-22] MEDS: PLAVIX 600 MG PO (16:02)
[2023-04-22] MEDS: FEOSOL 325 MG PO (16:05)
[2023-04-22] MEDS: ALDACTONE 25 MG PO (16:06)
[2023-04-22] MEDS: ARICEPT 5 MG PO (16:06)
[2023-04-22] MEDS: ZAROXOLYN 5 MG PO (16:07)
[2023-04-22] MEDS: LASIX 80 MG IV (16:07)
--- NOTE | 2023-04-22 16:28 | ITS.CL.TAVR ---
Nuclear Reactor Technician - TAVR Report
TAVR PRocedure
Procedure Report:
TRANSCATHETER AORTIC VALVE REPLACEMENT REPORT
Date: 04/22/2023
Referring physician: Ayaz Vasques MD
Operators:
director payment: David Jennings MD
Cardiac surgeon: Axel Cordova MD
Procedure:
Conscious sedation was provided by anesthesia. Using a micropuncture technique, 6F sheaths were placed in the LFA and LFV. A transvenous pacemaker was advanced to the RV and excellent thresholds obtained. A pigtail catheter was advanced to the
aortic root where low volume injections were performed to identify an appropriate angle for valve deployment deployment. Of note, this was a bicuspid aortic valve Ade type 0. Access was then obtained in the right femoral artery using a
micropuncture technique. A 6Fsheath was placed and angiography confirmed a PAINT LABORATORY TECHNICIAN puncture site. Heparin 5000 units was administered. Two perclose sutures were preset using the preclose technique. An 8F sheath was placed in the LFA and an Amplatz
super stiff wire advanced into the thoracic aorta. The ileofemoral vessels were dilated using the Brown dilator. An Brown E sheath was advanced into the descending thoracic aorta. Additional heparin 4000 units was administered. The valve was
crossed using a diagnostic 6F AL1 catheter and a straight wire. An Amplatz extra stiff wire with a homemade curve was placed in the LV apex. Balloon aortic valvuloplasty was not performed. An Brown 26 mm Buddy S3 valve prepped soft (1 less cc)
was then advanced through the E sheath and prepared for transit around the aortic arch. The valve was carefully advanced across the aortic annulus and deployed during rapid ventricular pacing. Echocardiography and aortography confirmed an excellent
result with no AI and mean gradient 6 mmHg.. The valve deployment system was removed. The Brown E sheath was then removed. The Perclose sutures were cinched down and there was still significant bleeding prompting us to place an 8 Jordanian
Angio-Seal. Bleeding stopped after the Angio-Seal was placed. Angiography demonstrated no evidence of ileofemoral dissection/perforation but no runoff past the arteriotomy site in the common femoral artery. At this point, we needed to correct this
problem. A 5 Jordanian rim catheter was advanced over the aortic bifurcation for better angiography confirming occlusion of the common femoral artery. ACT remained in the therapeutic range. Using the Amplatz extra-stiff wire, we advanced a 6 x 45 cm
Cook sheath over the bifurcation into the right external iliac artery. A 0.014 compatible Spectranetics exchange catheter was then advanced over a [place] pilot 200 coronary guidewire to just superior to the site of occlusion. The [place] pilot wire was
successfully manipulated across the occlusion and placed in the right SFA. A 4 mm x 40 mm balloon was then advanced to cover the arteriotomy site in the common femoral artery and inflated for 5 minutes at 8 sonja. Once we deflated the balloon and
performed angiography there was brisk runoff into the SFA and profunda with a significant dissection at the arteriotomy site. At this point we decided to place a 8 x 40 mm Zilver PTX self-expanding stent in the right common femoral artery well
above the bifurcation. A 0.035 compatible Spectranetics exchange catheter was then advanced over the [place] pilot 200 wire into the SFA allowing us to make a wire exchange for the 035 table J-wire. This stent was placed and deployed-there was slight
underexpansion at the site of the arteriotomy possibly due to the Perclose/Angio-Seal. Postdilatation with a 6 x 40 mm balloon to 8 sonja resulted in complete expansion of the stent with an outstanding final angiographic results and brisk runoff into
the SFA and profunda vessels. The pacemaker was removed and the LFV sheath secured in position. The LFA sheath was removed using a 6 F angioseal.
Radiation (mGy): 1289
DAP (cm2.Gy)): 151
Fluoroscopy time: 15.0 minutes
Conclusions: Successful placement of 26 mm Buddy S3 aortic valve for bicuspid aortic valve stenosis via right transfemoral approach. The procedure was complicated by total occlusion of the right common femoral artery following hemostatis requiring
2 Perclose sutures and an 8 Jordanian Angio-Seal. This problem was corrected with balloon angioplasty using a 6 x 40 mm balloon followed by placement of an 8 x 40 mm Zilver PTX drug-eluting self-expanding stent positioned in the common femoral artery
well superior to the femoral bifurcation. Recommend dual antiplatelet therapy until Xarelto is resumed then in this patient I would favor full dose Xarelto (20 mg daily) with aspirin 81 mg daily. The alternative regimen would be Xarelto 15 mg
daily with Plavix 75mg daily
Copy: Ayaz Vasques MD, Harmeet Barrios MD
[2023-04-22] MEDS: LANOXIN 125 MCG PO (17:42)
[2023-04-22] MEDS: ZINACEF 750 MG IV (17:43)
[2023-04-22] MEDS: LIPITOR 40 MG PO (17:50)
[2023-04-22 17:59] LABS: Glucose - Point of Care 186 mg/dl (70-99)
[2023-04-22] MEDS: NOVOLOG FLEXPEN-LOW RESISTANCE 1 UNITS SC (18:00)
[2023-04-22] MEDS: LOPRESSOR 100 MG PO (19:39)
[2023-04-22] MEDS: KCL 20 MEQ PO (19:39)
[2023-04-22] MEDS: TYLENOL 650 MG PO (19:39)
[2023-04-22 21:29] LABS: Glucose - Point of Care 106 mg/dl (70-99)
[2023-04-22] MEDS: DESYREL 50 MG PO ×2 (22:55→22:57)
--- NOTE | 2023-04-23 00:03 | PTCARENOTE ---
Patient out of bed to the chair. Wears oxygen 2 liter NC at home. 93-84% on room air, placed on 2 liters NC. Groins dressing are soft and dry. Pedals verified with Doppler. Walking to the bathroom, purwick removed, daughter at bedside
[2023-04-23] MEDS: STERILE WATER FOR INJECTION 8.30000000000000071 ML IV ×2 (02:13→11:42)
[2023-04-23] MEDS: ZINACEF 750 MG IV ×2 (02:14→11:41)
[2023-04-23 02:23] VITALS: BP 121/58
[2023-04-23 04:49] LABS: Hematocrit 33.3 % (37.0-47.0); Hemoglobin 10.7 g/dL (12.0-16.0); Mean Corp Hgb Conc. 32.1 g/dL (33.0-37.0); Mean Corpuscular Hgb 27.8 pg (27.0-31.0); Mean Corpuscular Volume 86.5 fL (81.0-99.0); Mean Platelet Volume 9.9 fL (7.4-10.4); Platelet Count 209 10^3/uL (130-400); Red Blood Cell Count 3.85 10^6/uL (4.20-5.40); White Blood Cell Count 9.7 10^3/uL (4.8-10.8)
[2023-04-23 05:14] LABS: Blood Urea Nitrogen 38 mg/dl (7-17); Calcium 8.8 mg/dl (8.4-10.2); Carbon Dioxide 36 mmol/L (22-30); Chloride 92 mmol/L (98-107); Estimated Creatinine Clearance 56 ml/min; Glucose 107 mg/dl (70-99); Potassium 3.6 mmol/L (3.5-5.1); Sodium 132 mmol/L (135-145); eGFR 53.72
[2023-04-23] MEDS: SYNTHROID 200 MCG PO (05:46)
[2023-04-23] MEDS: SYNTHROID 50 MCG PO (05:46)
--- NOTE | 2023-04-23 07:00 | W.PN.CT ---
Today's Communication / Plan
-
-pod #1
-no issues overnight
-a-fib 40-50s overnight. No significant pauses
-s/p R BOILER OUT stent- lower extremities are warm b/l. DP and PT pulses are Dopplerable b/l
-Echo today
-current meds (ASA 81 q3d, Plavix, Lipitor, Digoxin, Lopressor 100 bid, Lasix 80 iv bid, Zaroxolyn 5 q48h, K 20 bid, Aldactone). Preop was on Xarelto for a-fib
-encourage IS, OOB, ambulate
Assessment / Plan
-
- Severe symptomatic (Bicuspid AV, Ade 0)- s/p R TF TAVR w/ placement of 26mm RICK 3 valve on 04/22/23, pod #1
-Temporary loss of RLE perfusion after removal of Brown E-sheath- Successfully managed w/ percutaneous techniques and R BOILER OUT stent placement
-Post TTE: mean gradient 6mmHg, no AI
- Acute on chronic diastolic CHF with current admission for decompensation
- CAD with prior stents
- Cath 04/19/23:
1.� Right dominant circulation with patent stents in the proximal/mid RCA and mid LAD with no evidence of significant in-stent restenosis.
2.� Severely elevated filling pressures (LVEDP = 35 mmHg at 113.4 kg).
3.� Severe aortic valve stenosis (mean gradient 43 mmHg on pullback).
- Permanent AF (C2V: 5) -on Xarelto preop
- T2DM
- HTN/HLD
- class 3 obesity w/ BMI 45.32
- MRSA colonization - tx with Zinacef/Vanco preop
- Hypothyroidism
- Moderate pulmonary HTN
- Former smoker, quit 20 yrs ago
Discussed patient care with: Nursing and Care Team
Subjective
Procedure
- s/p R TF TAVR w/ placement of 26mm RICK 3 valve on 04/22/23
-Temporary loss of RLE perfusion after removal of Brown E-sheath- Successfully managed w/ percutaneous techniques and R BOILER OUT stent placement
-
Date of Service: April 23, 2023
Objective Data
-
PT Cancelled 04/19/23 08:10
INR Cancelled 04/19/23 08:10
APTT 93.3 Sec (23.4-35.0) H 04/22/23 05:06
Vital Signs
Vital Signs
Temp Pulse Resp BP Pulse Ox
98.2 F 60 16 104/58 90
04/22/23 22:54 04/22/23 23:00 04/22/23 22:54 04/22/23 22:42 04/22/23 23:00
CT Intake/Output/Weight
04/22/23 04/22/23 04/23/23
06:59 18:59 06:59
Output Total 500 / 1500 1000 / 1500
Balance -500 / -1500 -1000 / -1500
SaO2: 90
Physical Exam
-
General: Awake and AOx3
Cardiovascular: Irregular rate & rhythm, No Murmurs and No Rub
Respiratory: Clear and Decreased Breath Sounds
Incision: Other (groins are cdi, soft, nontender, no hematoma b/l)
Extremities: Edema +1 (DP and PTs are easily found by Doppler b/l)
Data Reviewed
-
Lab Results: Results Reviewed
Medications: Active Meds Reviewed
Chest X-Ray: Report Reviewed and Image Reviewed
ECG: Report Reviewed and Image Reviewed
[2023-04-23 07:14] VITALS: BP 142/56
[2023-04-23 07:17] LABS: Glucose - Point of Care 174 mg/dl (70-99)
[2023-04-23] MEDS: FEOSOL 325 MG PO (08:32)
[2023-04-23] MEDS: KCL 20 MEQ PO (08:32)
[2023-04-23] MEDS: PLAVIX 75 MG PO (08:33)
[2023-04-23] MEDS: PROTONIX 40 MG PO (08:33)
[2023-04-23] MEDS: LASIX 80 MG IV (08:34)
[2023-04-23] MEDS: LOPRESSOR 100 MG PO (08:34)
[2023-04-23] MEDS: NOVOLOG FLEXPEN-LOW RESISTANCE 1 UNITS SC (08:35)
--- NOTE | 2023-04-23 08:35 | W.PN.ANS.POP ---
Anesthesia Post Operative
- Anesthesia Post Op Note
Vital Signs Stable-See Nursing Note: Yes
Airway Patent: Yes
Adequate Pain Control: Yes
Change in Mental Status: No
Current Postoperative Nausea & Vomiting: No
Anesthesia Complications: No
General Anesthetic Recall: No
Unplanned Admission: No
Post Op Hydration Adequate: Yes (po)
[2023-04-23] MEDS: ALDACTONE 25 MG PO (08:42)
[2023-04-23] MEDS: ARICEPT 5 MG PO (08:42)
--- NOTE | 2023-04-23 10:29 | W.DCSUMMARY ---
Discharge Summary
Discharge Data
Date of Admission: 04/15/23
Date of Discharge: 04/23/23
Total time spent discharging patient (in min): 25
-
Pending Results: No
Hospital Course
Primary care physician:
Dr. Harmeet Barrios
Outpatient civil draftsman:
Dr. Ayaz Vasques
Inpatient consultants:
CBC
Procedures:
1. Right transfemoral transcatheter aortic valve replacement with placement of #26 mm RICK 3 valve
Primary Diagnosis:
1. Severe aortic stenosis
Secondary Diagnoses:
1. Congestive heart failure
2. Coronary artery disease status post prior percutaneous cardiac intervention
3. Permanent atrial fibrillation on Xarelto
4. Type 2 diabetes mellitus
5. Hypertension
6. Hyperlipidemia
7. Morbid obesity
HPI: 72-year-old female presents to [facility] on for transcatheter aortic valve replacement optimization. She presented with severe shortness of breath that worsened in the past weeks with exertion.
Hospital course: Patient was admitted on with symptoms of shortness of breath, cough, chest pain with ambulation, and elevated heart rate and hypoxia with ambulation. Throughout her hospital stay patient was taken to the cardiac [facility] on
04/18 for a left heart cath. Left heart cath revealed severe aortic stenosis and patent stents in the proximal/mid RCA and mid LAD. Patient was further optimized with Lasix and patient went for a transcatheter aortic valve replacement on 04/[address] Cordova. During the TAVR procedure there was compromised blood flow to the right lower extremity, therefore, a lower extremity stent was placed and blood flow improved. Patient was sent to [facility] recovery where she did well and was
transferred to our telemetry unit for the rest of her recovery. On 04/22 postop day #1 patient received 1 dose of Plavix and after discussion with cardiology it was decided that patient will be discharged on Xarelto and daily aspirin. Chest Xray
remains stable with a small right pleural effusion that is improving compared to previous chest x-rays. �Repeat echocardiogram was preformed and compared to the prior on 04/22/2023, the prior was a limited study, gradient across the valve has
increased from 4 mmHg to 12 mmHg.�patient was deemed stable for DC.
Home medication changes:
see below
Discharge Plan
-
Patient Disposition: Home (Routine Discharge)
Discharge Diagnosis/Procedures: CHF/TF TAVR
Condition: Fair
Diet: Low Fat, Low Sodium and Diabetic, Carb Controlled
Activity: No strenuous activity
Driving Restrictions: No driving for 1 week
Bathing Restrictions: OK to Shower
Blood Work: bmp in 5 days after discharge
Wound Care: No creams,lotion or powder to groin puncture sites. Keep clean and dry. Monitor groin sites for increased pain,swelling,reddness,drainage.Call your doctor if any occur.
Specialty Instructions: Weigh Daily- Call MD for wt gain/loss 3 lbs overnight/5 lbs in 1 week
Activity Restrictions/Additional Instructions:
Please call to make appointments for Phase II Cardiac Rehab (when PT/OT is no longer needed)
1. Halle (8 min) [phone]
Instructions: *PCP/Other Property Disposal Manager Heart Failure Instructions
Referrals:
[facility] [Other]
CT Transitional Care Nurse [Outside] (The Cardiothoracic Transitional Care Nurse will call you to set up a visit in 1-2 days.)
Harmeet Barrios MD [Family Provider] -
Ayaz Vasques MD [Active] - 05/19/23 9:00 am
Prescriptions:
New
acetaminophen 325 mg Tablet
650 mg PO Q4HPRN PRN (Reason: N[place], mild pain, or fever >101F) Qty: 0 0RF
aspirin 81 mg Tablet,Delayed Release (Dr/Ec)
81 mg PO DAILY Qty: 0 0RF
Continued
furosemide 40 mg Tablet
40 mg PO DAILY@1300
atorvastatin 40 mg Tablet
40 mg PO QPM
donepezil 5 mg Tablet
5 mg PO DAILY
trazodone 50 mg Tablet
50 mg PO HS
metolazone 5 mg Tablet
5 mg PO Q48H
spironolactone 25 mg Tablet
25 mg PO DAILY
diltiazem HCl 120 mg Capsule,Extended Release 24hr
120 mg PO BID
levothyroxine 200 mcg Tablet
200 mcg PO DAILY
Rx Instructions:
taken w/ 50mcg= 250mcg
digoxin 125 mcg (0.125 mg) Tablet
125 mcg PO QPM
ferrous sulfate 324 mg (65 mg iron) Tablet,Delayed Release (Dr/Ec)
324 mg PO DAILY
omeprazole 20 mg Tablet,Delayed Release (Dr/Ec)
20 mg PO DAILY
Xarelto 20 mg Tablet
20 mg PO QPM
potassium chloride 20 mEq Tablet Extended Release
20 meq PO BID
ergocalciferol (vitamin D2) 1,250 mcg (50,000 unit) Capsule
1,250 mcg PO TU
budesonide-formoterol [Symbicort] 160-4.5 mcg/actuation Hfa Aerosol Inhaler
2 puff INHALATION PRN PRN (Reason: asthma)
furosemide 40 mg tablet
80 mg PO DAILY
metoprolol tartrate 100 mg tablet
100 mg PO BID
levothyroxine 50 mcg tablet
50 mcg PO DAILY
Rx Instructions:
taken w/ 200mcg= 250mcg
Trulicity 0.75 mg/0.5 mL pen injector
0.75 mg SC TU
Discontinued
aspirin 81 mg Tablet,Delayed Release (Dr/Ec)
81 mg PO Q3D
Discharge Orders:
Discharge Patient (As Directed); Ordered 04/23/23
Ordered By: Shavonne Dobbs
Care Plan Goals
Care Plan Goals:
Problem: Readiness for enhanced knowledge related to diagnosis and treatment plan
Goal: Understand your diagnosis and treatment plan needs, including medications if applicable.
Instructions: Know your diagnosis, underlying causes and treatment plan options, including medications if applicable. Consult with your health care team to learn about your diagnosis and treatment plan, including medications if applicable.
--- NOTE | 2023-04-23 11:06 | CM ---
Chart reviewed. Patient is independent of ADLS, lives with her in her daughters basement, ambulates with a rolling walker and wheelchair, wears O2 2l at home, has a CPAP, 0 LUZ MARIA. Plan is for the patient to return home with CT Transitional
RN and then will have [facility].
[2023-04-23 11:26] VITALS: BP 113/57
--- NOTE | 2023-04-23 11:28 | W.PN.CD ---
Today's Communication / Plan
-
Okay for home today
Recommend Xarelto 20 mg daily with aspirin 81 mg daily. Aspirin is necessary as she had stenting of the right Common femoral artery yesterday
Impression / Plan
-
Impression/Plan: 72 yo Ukranian speaking female (patient of Dr. Ayaz Vasques) with severe (scheduled for TAVR 04/22/23), HFpEF, HTN, HLD, morbid obesity, permanent Afib on Xarelto, MARY KATE on CPAP, DM II, multivessel CAD (PCI 2015 Mid RCA and mid
LAD, patent on cath 08/07), and hypothyroidism, who admitted with decompensated HF, right pleural effusion and new burning chest pain with ambulation.
# Severe symptomatic aortic stenosis:
-Successful placement of 26 mm Brown RICK S3 TAVR valve yesterday.
-Echo today shows mean gradient 12 mmHg with no AI. LVEF normal. No pericardial effusion.
#Right sided pleural effusion
-S/P thoracentesis 04/16/23 for 600mL of transudate.
#HFpEF
-Acute on chronic.
-She will need daily Lasix (80 mg daily) continued along with KCl 20 mill equivalents daily
-Would only add Zaroxolyn for weight gain greater than 5 pounds and if added for 3 consecutive days then stop Zaroxolyn
#Abnormal troponin
-Troponin stuttering (0.114 --> 0.126 --> 0.116).
-Acute nonischemic myocardial injury in the setting of acute heart failure and severe aortic valve disease.
-Cath this admission shows no significant CAD with patent stents in the LAD and RCA vessels
#Permanent Afib
-She is having 2-2.5 second pauses; diltiazem discontinued.
-[id number] = 5 (CHF, HTN, Age x1, Vascular Disease, Female).
-OAC with rivaroxaban, to be resumed today
# Right common femoral artery stent
-Stent was placed due to occlusion of the right common femoral artery following percutaneous closure of the access site yesterday
-As she requires oral anticoagulation, we will not give dual antiplatelet therapy. I favor aspirin rather than Plavix in this situation as the pioneer trial concluding that Xarelto/Plavix was optimal therapy following coronary stenting required
the Xarelto dose to be reduced to 15 mg daily. In that trial, the majority of patients had CHADS2 Vascor is less than 4. Given her high [id number] score (5), I prefer her to receive full dose Xarelto and will use Xarelto 20 mg daily with aspirin
81 mg daily
#MARY KATE
-Chronic, stable on CPAP.
#HTN
-Chronic, stable on meds.
-Continue to monitor while off of diltiazem (held for pauses).
#HLD
-Chronic, stable.
Subjective/Interval History:
Weight is down 0.4 kg.
Renal function stable/improving.
Communication was aided by her daughter who translated.
DATA:
Cardiac Catheterization, 04/19/2023:
CONCLUSIONS
1.� Right dominant circulation with patent stents in the proximal/mid RCA and mid LAD with no evidence of significant in-stent restenosis.
2.� Severely elevated filling pressures (LVEDP = 35 mmHg at 113.4 kg).
3.� Severe aortic valve stenosis (mean gradient 43 mmHg on pullback).
Thoracentesis, 04/16/2023:
IMPRESSION: Successful ultrasound-guided thoracentesis, yielding 600 cc of clear christopher pleural fluid.
TAVR CTA, 09/28/2022:
Measurements for proposed TAVR procedure:
Bicuspid aortic valve, Siever's type 0, with no raphe.
Moderate valvular calcification. Mild nodular calcification extending into the left ventricular outflow tract.
Aortic annulus: 27.4 mm x 22.6 mm. Measured cross-sectional area of 412-429 sq mm. Calculated annular perimeter from diameters-78.7 mm.
Left ventricular outflow tract: Measured cross-sectional area of 390 sq mm.
Sinuses of Valsalva: 35.3 mm x 27.0 mm.
Sinotubular junction: Minimal calcification. 26.1 mm x 26.7 mm.
Distance from aortic annulus to left coronary artery origin: 18.3 mm.
Distance from aortic annulus to right coronary artery origin: 17.0 mm.
TTE, 05/27/2022:
CONCLUSIONS
�Poorly visualized aortic valve which appears to be restricted in motion.
�Mean gradient across the valve is 26 mmHg
�Dimensionless index LVOT VTI 2 aortic valve VTI ratio is 0 21, this ratio
�suggest low gradient severe aortic stenosis.
�Clinical correlation is required, correlation with recent cardiac
�catheterization at [facility].
�If clinically indicated patient should be evaluated for TAVR.
Physical Exam
Vital Signs/Labs
Vital Signs
Temp Pulse Resp BP Pulse Ox
97.8 F 73 16 142/56 94
04/23/23 11:24 04/23/23 11:24 04/23/23 11:24 04/23/23 07:14 04/23/23 11:24
04/23/23 04:13
04/23/23 04:13
PT Cancelled 04/19/23 08:10
INR Cancelled 04/19/23 08:10
APTT 93.3 Sec (23.4-35.0) H 04/22/23 05:06
Magnesium 1.9 mg/dl (1.6-2.3) 04/19/23 05:34
04/14/23
08:53
Yya-L-Kocewpfcief Pept 1640
Physical Exam
Constitutional: No acute distress and Comfortable
EENT: Anicteric
Cardiovascular: Rhythm/rate is irregular, S1S2 is normal and Murmur/rub/gallop absent
Respiratory: Respiratory effort normal, Wheeze Absent and Crackles Absent
GI: Soft
Neuro/Psych: Motor deficits absent
Data Reviewed
-
Date of Service: April 23, 2023
[2023-04-23 12:07] LABS: Glucose - Point of Care 113 mg/dl (70-99)
[2023-04-23] MEDS: NOVOLOG FLEXPEN-LOW RESISTANCE SC (12:49)
== END 2023-04-23 15:54 | disposition home or self-care (01) | DRG 266 ==
LOC: IVU 19:49
PROVIDERS: Internal Medicine; Internal Medicine Cardiovascular Disease; Nurse Practitioner; Physician Assistant; Physician Assistant Medical; Radiology Vascular & Interventional Radiology; ADMITTING PHYSICIAN Hospitalist; ATTENDING PHYSICIAN Thoracic Surgery (Cardiothoracic Vascular Surgery); EMERGENCY PHYSICIAN Student in an Organized Health Care Education/Training Program; FAMILY PHYSICIAN Internal Medicine; OTHER PHYSICIAN Internal Medicine Cardiovascular Disease
PROC: 5A09357 Assistance with Respiratory Ventilation, Less than 24 Consecutive Hours, Continuous Positive Airway Pressure (ICD-10-PCS; 2023-04-15)
PROC: 0W993ZZ Drainage of Right Pleural Cavity, Percutaneous Approach (ICD-10-PCS; 2023-04-16)
PROC: B2111ZZ Fluoroscopy of Multiple Coronary Arteries using Low Osmolar Contrast (ICD-10-PCS; 2023-04-19)
PROC: 4A023N7 Measurement of Cardiac Sampling and Pressure, Left Heart, Percutaneous Approach (ICD-10-PCS; 2023-04-19)
PROC: 02RF38Z Replacement of Aortic Valve with Zooplastic Tissue, Percutaneous Approach (ICD-10-PCS; 2023-04-22)
DX: I11.0 Hypertensive heart disease with heart failure (principal); I50.33 Acute on chronic diastolic (congestive) heart failure; Q23.1 Congenital insufficiency of aortic valve; Z68.42 Body mass index [BMI] 45.0-49.9, adult; I48.21 Permanent atrial fibrillation; J91.8 Pleural effusion in other conditions classified elsewhere; F03.918 Unspecified dementia, unspecified severity, with other behavioral disturbance; E87.1 Hypo-osmolality and hyponatremia; I70.92 Chronic total occlusion of artery of the extremities; J96.11 Chronic respiratory failure with hypoxia; N17.9 Acute kidney failure, unspecified; I42.8 Other cardiomyopathies; I5A Non-ischemic myocardial injury (non-traumatic); E78.00 Pure hypercholesterolemia, unspecified; E66.01 Morbid (severe) obesity due to excess calories; E03.9 Hypothyroidism, unspecified; E11.9 Type 2 diabetes mellitus without complications; I25.10 Atherosclerotic heart disease of native coronary artery without angina pectoris; K21.9 Gastro-esophageal reflux disease without esophagitis; I27.20 Pulmonary hypertension, unspecified; G47.33 Obstructive sleep apnea (adult) (pediatric); J45.909 Unspecified asthma, uncomplicated; E87.6 Hypokalemia; D63.8 Anemia in other chronic diseases classified elsewhere; Z60.3 Acculturation difficulty; G47.00 Insomnia, unspecified; I70.201 Unspecified atherosclerosis of native arteries of extremities, right leg; Z79.01 Long term (current) use of anticoagulants; Z79.82 Long term (current) use of aspirin; Z79.84 Long term (current) use of oral hypoglycemic drugs; Z79.899 Other long term (current) drug therapy; Z87.891 Personal history of nicotine dependence; Z95.5 Presence of coronary angioplasty implant and graft
CPT/HCPCS: 88305; 93308; 32555; 33361; 36415; 37226; 71045; 71046; 80048; 80053; 81003; 81015; 82150; 82248; 82945; 82962; 83036; 83615; 83735; 83880; 83986; 84155; 84157; 84478; 84484; 85025; 85027; 85347; 85610; 85730; 86850; 86900; 86901; 86920; 87015; 87070; 87086; 87102; 87116; 87147; 87205; 87206; 88112; 88341; 88342; 89051; 93005; 93306; 93321; 93325; 93458; 94660; 96374; 99285; C1725; C1760; C1769; C1894; Q9967

== ENCOUNTER 2023-11-10 16:57 | Inpatient (IN) | payer OTHER, SELFPAY ==
[2023-11-10] VITALS (8 sets, daily range): BP systolic 96–132; BP diastolic 46–68; BMI 47.5
[2023-11-10 12:13] LABS: % Basophils 0.9 % (0-2); % Immature Granulocytes 0.4 % (0-0.5); % Lymphocytes 13.9 % (20.5-51.1); % Monocytes 10.4 % (1.7-9.3); % Neutrophils 73.4 % (42.2-75.2); Absolute Basophils 0.1 10^3/uL (0-0.2); Absolute Eosinophils 0.1 10^3/uL (0-0.7); Absolute Lymphocytes 1.3 10^3/uL (1.2-3.4); Absolute Monocytes 0.9 10^3/uL (0.1-0.6); Absolute Neutrophils 6.6 10^3/uL (1.4-6.5); Hematocrit 24.3 % (37.0-47.0); Hemoglobin 7.4 g/dL (12.0-16.0); Mean Corp Hgb Conc. 30.5 g/dL (33.0-37.0); Mean Corpuscular Hgb 26.7 pg (27.0-31.0); Mean Corpuscular Volume 87.7 fL (81.0-99.0); Mean Platelet Volume 10.8 fL (7.4-10.4); Nucleated Red Blood Cells % 0 %; Platelet Count 215 10^3/uL (130-400); Red Blood Cell Count 2.77 10^6/uL (4.20-5.40); Red Cell Dist. Width 17.4 % (11.5-14.5); White Blood Cell Count 9.1 10^3/uL (4.8-10.8)
--- NOTE | 2023-11-10 13:13 | ED.GENMED ---
History of Present Illness
General
Chief Complaint: Breathing Problem
Time Seen by Provider: 11/10/23 12:36
History of Present Illness
History of Present Illness:
73-year-old female with history of CAD on 2 L O2, DVT on Lovenox, hypertension, atrial fibrillation, hyperlipidemia presenting to the emergency department for worsening swelling to the lower extremities, increased oxygen requirements and swelling to
the left upper extremity. Patient is South African-speaking, arrives with daughter who notes that she had a recent hospital admission at [facility], was discharged on the . Patient had been admitted for CHF, received diuretics. She was also
discovered to have DVT to the lower extremities despite being on Xarelto, was switched to Lovenox. She has been getting Lovenox injections and got an injection in her left upper extremity. The left upper extremity has since been getting
increasingly bruised and swollen with increased pain. Patient denies numbness to the arm. However, has had difficulty with range of motion secondary to pain. Daughter notes that the lower extremity edema has not been improving, has been worsening
despite recent admission. In addition, patient had been discharged on 2 L of oxygen, now requiring 4 L of oxygen. Patient has had difficulty ambulating around the house, so has been using a commode. She notes some shortness of breath, denies
chest pain. No report of cough or fever. Daughter is her 24-hour oil fire specialist, has been giving her Lovenox injections. No additional symptoms reported at this timeit's
Phy Exam
Physical Exam
Physical Exam:
General: Morbidly obese, nontoxic
HEENT: protecting airway
Neck: appears supple
CV: Normal heart rate, irregularly irregular rhythm, no evidence of cyanosis
Resp: On supplemental O2, no increased work of breathing, crackles at the bases
Abd: Soft and non-distended, areas of ecchymosis from Lovenox injections, nontender
Extremities: 4+ pitting edema without erythema or warmth, nontender to lower extremities. On examination of the left upper extremity, large hematoma at the medial bicipital area, tense, tender. Distal sensation and pulses intact
Neuro: alert, no focal neurologic deficit
: deferred
Rectal: deferred
Psych: Normal affect
Skin: Intact
Scores
Heart Failure Risk
Heart Failure Risk Score: Yes
History of Stroke or TIA: No
History of intubation for respiratory distress: No
Heart rate on ED arrival >/= 110: No
SaO2 <90% on arrival on room air: Yes
HR >/=110 during 3min walk test (or too ill to perform test): Yes
ECG has acute ischemic changes: No
Urea >/=12mmol/L (BUN 33.6mg/dL): No
Serum CO2>/=35mmol/L: No
Troponin I or T elevated to IA Level (0.4mg/dL): No
NT-proBNP >/=5,000ng/L (5,000pg/ml): No
HF Risk Score: 3
Admission Status: HIGH RISK 15.9% Consider SNF treatment or admission to hospital
Course
Orders/Labs/Results
Orders:
Orders
11/10/23 11:53
ECG [Electrocardiogram (*1)] Urgent
Reason for Study: Shortness of Breath
11/10/23 11:54
EKG- Treatment ONCE
11/10/23 12:02
Complete Blood Count/With Diff Urgent
11/10/23 12:58
Morphine Sulfate 4 mg IV NOW STA
CR Chest - 2 Views Urgent
Comment:
Reason For Exam: CHF
11/10/23 13:14
Basic Metabolic Panel Urgent
NT-proBNP Urgent
PTT Urgent
Prothrombin Time Urgent
Troponin I Urgent
11/10/23 13:19
Venous Doppler Upr Ext Left [US Periph Venous UPPER Ext LT] Urgent
Comment:
Reason For Exam: large hematoma
11/10/23 15:23
Furosemide [Lasix] 40 mg IV NOW STA
11/10/23 16:08
Admit/Transfer Patient As Directed
Co-Sign Provider:
Level of Care: Inpatient admission
Assign to:: Telemetry
Physician / Group: la nena
Diagnosis: CHF exacerbation
Reason for Telemetry: Subacute Heart Failure
Date to Stop Telemetry: 11/12/23
Time to Stop Telemetry: 11:00
Reason for Hospitalization: CHF exacerbation
Expected length of stay greater than two midnights?: Yes
ELOS- Estimated Length of Stay in days: 3
I certify the patient meets the requirements for IP care: Yes
PRN Pain Medication Management As Directed
May give lesser potent ordered pain med per pt: Yes
preference::
Protocol:: Medication orders for pain may be administered in a
manner that supports deferring to patient preference
when the pt is:
- Requesting an ordered lesser potent pain medication.
Least to most potent pain medications are defined
as: acetaminophen < NSAID < tramadol < opioids
(morphine, oxycodone, hydromorphone).
- Requesting a lesser dose of the same medication IF
ORDERED.
- Requesting a less intrusive route of administration
if both routes are prescribed by the provider (PO <
IV).
11/10/23 16:10
Code Status As Directed
Resuscitation Status: Full Code
11/10/23 16:26
Potassium Routine
11/10/23 16:28
Weight As Directed
Frequency: Daily
Comment: first now please. TY!
11/10/23 18:09
H&H Q6H
Atorvastatin [Lipitor] 40 mg PO QPM
Dextrose 50%-Water [Dextrose 50% Syringe] 12.5 grams IV [id number] PRN
Glucagon [GlucaGen] 1 mg IM PRN PRN
Insulin Aspart Corrective Low [Novolog Flexpen-Low Resistance] See Protocol SC AC
11/10/23 18:09
CARDIOLOGY CONSULT Routine
Consulting Provider: Tyler Ness
Was physician already notified: Yes
HF DIETARY CONSULT Routine
HF EDUCATOR CONSULT Routine
Comment:
SURGICAL CONSULT Routine
Consulting Provider: Michael Morgan
Was physician already notified: Yes
VTE Contraindication Routine
VTE Mechanical Device Contraindication: DVT lower extremity
Pharmocologic Contraindication: Bleeding
Activity As Directed
Activity Level: As Tolerated
Bedside Glucose Monitoring As Directed
Frequency: AC&HS
Additional Instructions:: Change to q6h if pt on TPN, tube feeding or not eating
Bladder Scan As Directed
Follow Bladder Retention/Intermittent Cath Algorithm?: Yes
PRN if no void in __ hours: 6
Frequency: Per Retention Algorithm
If Bladder Scan Result >: 400
then:: Straight cath
Intake/ Output As Directed
Frequency: Per unit guidelines
Patient Education As Directed
Type: CHF folder
Comment: give on admission. Document in Interdisciplinary Education record
Sleep Apnea Assessment by RN As Directed
Comment:
Physician Instructions:
Straight Cath As Directed
Frequency: Per Retention Algorithm
Additional Instructions: straight cath as needed per acute urinary retention algorithm for 24 hrs
Additional Instructions: for bladder scan greater than 400 mL
Vital Signs As Directed
Frequency: Other
Additional Instructions:: Q12 or per unit guidelines if more frequent.
Weight As Directed
Frequency: Daily
Type of Scale: Standing Scale
Comment: Daily morning weight. If unable to stand, use balanced bed scale.
Weight As Directed
Frequency: Once
Type of Scale: Standing Scale
Comment: Upon Admission. If unable to stand, use balanced bed scale.
Cpap [RESP] Routine
Patient to use own unit?: No
Set Pressure (cm H2O): 5
O2 Therapy [RESP] Routine
Titrate/Wean O2 to maintain O2 sat greater than (%): 92
Pulse Ox/cont/shift [RESP] Routine
Quantity: 1
Special Instructions: Daily pulse oximetry at rest. If greater than 92% at rest also obtain pulse oximetry
while ambulating as tolerated.
Ot Eval And Treat Routine
Pt Eval And Treat Routine
Activity Level: As Tolerated
11/10/23 19:00
Troponin I Q6H
Comment: at admission & every 6 hours x 2 (3 total), ECG to be done with each level
11/10/23 20:00
Diltiazem Extended Release [Cardizem Cd] 120 mg PO BID
Metoprolol [Lopressor] 50 mg PO BID
Potassium Chloride [KCl] 20 meq PO BID
11/10/23 22:00
Trazodone [Desyrel] 50 mg PO HS
11/11/23 00:09
H&H Q6H
11/11/23 01:00
Troponin I Q6H
Comment: at admission & every 6 hours x 2 (3 total), ECG to be done with each level
11/11/23 Breakfast
1600 calorie (13 carb) Diabetic
At Your Request: Full Participation
Fluid Restriction: 1200 mL/day (40 oz)
Diabetic Diet: Cholesterol Lowering
Basic Metabolic Panel IN AM
Cardiovascular Evaluation IN AM
Complete Blood Count/No Diff IN AM
Glycohemoglobin (HgbA1c) IN AM
Cijpj-Yffw-Ncctjdo IN AM
Magnesium IN AM
TSH Reflex To Free T4 IN AM
Levothyroxine [Synthroid] 200 mcg PO DAILY @ 0600
Levothyroxine [Synthroid] 50 mcg PO DAILY @ 0600
11/11/23 06:09
H&H Q6H
11/11/23 08:00
Aspirin Low Dose EC [Aspir Low (Enteric Coated)] 81 mg PO DAILY
Donepezil [Aricept] 5 mg PO DAILY
Pantoprazole [Protonix] 40 mg PO DAILY
Spironolactone [Aldactone] 25 mg PO DAILY
11/12/23 06:00
Basic Metabolic Panel IN AM
Complete Blood Count/No Diff IN AM
11/12/23 11:00
DC Protocol for Telemetry ONCE
11/13/23 06:00
Basic Metabolic Panel IN AM
Complete Blood Count/No Diff IN AM
11/14/23 06:00
Complete Blood Count/No Diff IN AM
11/15/23 06:00
Complete Blood Count/No Diff IN AM
Abnormal Lab Results
11/10/23 11/10/23
12:02 13:14
RBC 2.77 L 10^6/uL
(4.20-5.40)
Hgb 7.4 L g/dL
(12.0-16.0)
Hct 24.3 L %
(37.0-47.0)
MCH 26.7 L pg
(27.0-31.0)
MCHC 30.5 L g/dL
(33.0-37.0)
RDW 17.4 H %
(11.5-14.5)
MPV 10.8 H fL
(7.4-10.4)
Absolute Neuts (auto) 6.6 H 10^3/uL
(1.4-6.5)
Absolute Monos (auto) 0.9 H 10^3/uL
(0.1-0.6)
Lymphocytes % 13.9 L %
(20.5-51.1)
Monocytes % 10.4 H %
(1.7-9.3)
PT 16.5 H Sec
(11.4-14.6)
APTT 48.2 H Sec
(23.4-35.0)
Sodium 131 L mmol/L
(135-145)
Chloride 92 L mmol/L
(98-107)
Carbon Dioxide 32 H mmol/L
(22-30)
BUN 34 H mg/dl
(7-17)
Glucose 119 H mg/dl
(70-99)
Troponin I 0.128 H* ng/ml
11/10/23 12:02
Vital Signs
Initial and Last Documented VS:
Initial Vital Signs
Temp Pulse Resp BP Pulse Ox
97.6 F 61 20 131/59 99
11/10/23 11:46 11/10/23 11:46 11/10/23 11:46 11/10/23 11:46 11/10/23 11:46
Last Documented Vital Signs
Temp Pulse Resp BP Pulse Ox
97.8 F 80 17 96/61 95
11/10/23 18:19 11/10/23 18:19 11/10/23 18:19 11/10/23 18:19 11/10/23 18:19
MDM/Problems Addressed
MDM/Problems Addressed:
73-year-old female with multiple comorbidities including CHF, A-fib and DVT on Lovenox, hypertension, hyperlipidemia presenting to the emergency department for increasing lower extremity edema, increasing oxygen requirements, left upper extremity
pain and swelling. Vital signs on arrival are normal.
On exam, patient in no acute respiratory distress, generally unwell in appearance. On pulmonary exam, mild crackles at the bases, suspected acute on chronic CHF with 4+ pitting edema to lower extremities. Daughter notes upon discharge on 11/03 from
[facility], her legs were improved however continued to worsen, and she had been discharged on 2 L, is now on 4 L. Will obtain chest x-ray imaging and laboratory analysis. Daughter arrives with paperwork from [facility]. Patient recently
had a CT chest during her admission, no PE. She had lower extremity Doppler ultrasound, which is why she was changed from Xarelto to Lovenox. No need to repeat lower extremity ultrasounds at this time. However left upper arm is significantly
swollen with large hematoma, tense and tender. Will obtain left upper extremity ultrasound for further evaluation. Patient complaining of pain, will administer morphine.
15:20 -chest x-ray consistent with pulmonary vascular congestion, CHF. Troponin is elevated, however patient without chest pain. Suspected ischemic demand. Ultrasound of the left upper extremity without DVT, she has large hematoma, without active
bleeding. Continue to suspect decompensated heart failure. Failure of outpatient therapy. Plan for admission.
*EKG
Interpreted by ED Provider?: Yes
EKG Intrepretation Date: 11/10/23
EKG Intrepretation Time: 13:25
Interpretation: normal
Heart Rate: 65
Rate: normal
Rhythm: a-fib
[place]: normal axis
QRS Pattern: normal QRS
Ischemia: no ischemia
*Critical Care Note
Total Time (30-74mins, 75-104mins- exclusive of procedures): Not Applicable
ED Attending Note
-
Portions of this chart may have been created with voice recognition software.� Occasional wrong word or��sound alike� substitutions may have occurred due to the inherent limitations of voice recognition software.
Discharge Plan
Departure
Patient Disposition: Admit
Date of Disposition: 11/10/23
Time of Disposition: 15:32
Presentation/result/management discussed w/ accepting MD/DO: Hospitalist
Patient with high blood pressure during this ER visit?: No
Discharge Problem:
Acute on chronic diastolic CHF (congestive heart failure), Bilateral edema of lower extremity, Hematoma of left upper extremity
Interventions
Interventions:
*Risk Screen - Suicide Last Done: 11/10/23 14:00
*General Assessment Last Done: 11/10/23 14:00
*Neglect/Abuse Screening Last Done: 11/10/23 14:00
ED- Fall Risk Assessment Last Done: 11/10/23 14:00
*ED COVID-19 Vaccine History Last Done: 11/10/23 14:00
*Nursing Disposition Last Done: 11/10/23 17:45
ED- Cardiac Assessment Last Done: 11/10/23 14:00
ED- Pulmonary Assessment Last Done: 11/10/23 14:00
Discharge Date and Time
Discharge Date/Time: 11/10/23 18:02
[2023-11-10] MEDS: MORPHINE SULFATE 4 MG IV (13:16)
[2023-11-10 13:34] LABS: INR 1.33; PT 16.5 Sec (11.4-14.6)
[2023-11-10 13:35] LABS: APTT 48.2 Sec (23.4-35.0)
[2023-11-10 13:59] LABS: Blood Urea Nitrogen 34 mg/dl (7-17); Carbon Dioxide 32 mmol/L (22-30); Chloride 92 mmol/L (98-107); Glucose 119 mg/dl (70-99); Sodium 131 mmol/L (135-145); eGFR 59.86
[2023-11-10 14:01] LABS: NT-proBNP 1420 pg/ml; Troponin I 0.128 ng/ml
--- NOTE | 2023-11-10 15:35 | HPS.HSE ---
Family Physician
-
Family Physician: Harmeet Barrios
Chief Complaint
-
sob
Le edema
left UA hematoma
History of Present Illness
73-year-old female with history of CAD on 2 L O2, DVT on Lovenox, hypertension, atrial fibrillation, hyperlipidemia presenting to the emergency department for worsening swelling to the lower extremities, increased oxygen requirements and swelling to
the left upper extremity. Patient is Malian-speaking, arrives with daughter who notes that she had a recent hospital admission at [facility] with CHF exacerbation. she was discharged on the . before the admission to [facility] she was
on Lasix, Bumex and metolazone. upon discharge her Lasix was discontinued. she was sent home on metolazone and Bumex. patient stated orthopnea and was sleeping on the chair. daughter stated decreased urine output.daughter stated, patient was
discharged on 2 of oxygen and now requiring 4l of oxygen. denied chest pain, runny nose, congestion, fever. denied NOLASCO, dizzy or syncopal episode. denied abdominal pain,n,v,d. denied dysuria or hematuria.
She was also discovered to have DVT to the lower extremities despite being on Xarelto, was switched to Lovenox. She has been getting Lovenox injections and got an injection in her left upper extremity. The left upper extremity has since been
getting increasingly bruised and swollen with increased pain. Patient denies numbness to the arm. However, has had difficulty with range of motion secondary to pain.
chest x ray with CHF. received iv Lasix 40. admitting for further management.
Medical History
Past Medical History
Past Medical History: Reports Other
Additional Past Medical History:
Coronary artery disease
Congestive heart failure
A-fib
Hypertension
Hyperlipidemia
Hypothyroidism
Past Surgical History: Reports Other
Additional Past Surgical History:
Coronary artery bypass graft
Social History
Tobacco: Former Smoker
Alcohol: None
Drug: None
Personal: Single
Living: With Family
Family History
Family History: Not pertinent
Allergies / Home Medications
Allergies reflects when Allergies were last updated in [facility].
Home Medications with original date entered in [facility]
Allergy/Medication List:
Allergies
Allergy/AdvReac Type Severity Reaction Status Date / Time
Penicillins Allergy Diarrhea Verified 04/15/23 15:29
Home Medications
atorvastatin 40 mg tablet 40 mg PO QPM High Cholesterol 04/12/23
diltiazem HCl 120 mg capsule,extended release 24 hr 120 mg PO BID Arrhythmia 04/12/23
donepezil 5 mg tablet 5 mg PO DAILY Neurological Condition 04/12/23
ergocalciferol (vitamin D2) 1,250 mcg (50,000 unit) capsule 1,250 mcg PO DAY Supplement 04/12/23
levothyroxine 200 mcg tablet 200 mcg PO DAILY Thyroid 04/12/23
omeprazole 20 mg tablet,delayed release 20 mg PO DAILY Gastrointestinal Issue 04/12/23
potassium chloride 20 mEq tablet,extended release 20 meq PO BID Electrolyte Repletion 04/12/23
spironolactone 25 mg tablet 25 mg PO DAILY Fluid Retention/Swelling 04/12/23
trazodone 50 mg tablet 50 mg PO HS Sleep 04/12/23
dulaglutide 0.75 mg/0.5 mL subcutaneous pen injector (Trulicity) 0.75 mg SC DAY Diabetes 04/15/23
levothyroxine 50 mcg tablet 50 mcg PO DAILY Thyroid 04/15/23
aspirin 81 mg tablet,delayed release 81 mg PO DAILY #0 tabs 04/23/23
bumetanide 2 mg tablet 2 mg PO DAILY 11/10/23
enoxaparin 120 mg/0.8 mL subcutaneous syringe 120 mg SC Q12H 11/10/23
metoprolol tartrate 50 mg tablet 50 mg PO BID 11/10/23
Review of Systems
-
Constitutional: Reports No Symptoms
EENT: Reports No Symptoms
Respiratory: Reports Trouble Breathing
Cardiac: Reports No Symptoms
Abdomen/GI: Reports No Symptoms
: Reports No Symptoms
Musculoskeletal: Reports Edema (b/l LE edema, right arm hematoma)
Skin: Reports No Symptoms
Neurological: Reports No Symptoms
Endocrine: Reports No Symptoms
Hematologic/Lymphatic: Reports No Symptoms
Psych: Reports No Symptoms
Physical Exam
Vital Signs
Vital Signs
Temp Pulse Resp BP Pulse Ox
97.6 F 67 22 131/59 100
11/10/23 11:46 11/10/23 12:23 11/10/23 12:23 11/10/23 11:46 11/10/23 14:00
Physical Exam
General: Well Developed, Well Nourished and No Apparent Distress
HEENT: NormoCephalic, Moist mucous membranes and Atraumatic
Respiratory: Crackles and Decreased Breath Sounds
Cardiac: S1/S2 and Regular Rhythm; No Murmur or Rub
GI: Soft, Non Tender, Non Distended and Normal Bowel Sounds; No Organomegaly
Rectal: Deferred by Provider
Musculoskeletal: No Clubbing, No Cyanosis and Other (b/l Le edema. right arm hematoma)
Skin: No Rash
Neuro: AO x 3 and Nonfocal/grossly intact
Psych: Calm
Laboratory Results
-
11/10/23 12:02
11/10/23 13:14
Laboratory Results
PT 16.5 Sec (11.4-14.6) H 11/10/23 13:14
INR 1.33 11/10/23 13:14
APTT 48.2 Sec (23.4-35.0) H 11/10/23 13:14
Total Bilirubin Cancelled 11/10/23 13:14
AST Cancelled 11/10/23 13:14
ALT Cancelled 11/10/23 13:14
Alkaline Phosphatase Cancelled 11/10/23 13:14
Troponin I 0.128 ng/ml H* 11/10/23 13:14
Data Reviewed
-
Diagnostic Radiology: Report Reviewed by me
Lab Data: Labs Reviewed by me
Impression/Plan
-
# Acute on chronic exacerbation of Heart failure
# Acute on chronic respiratory failure
-Chest x-ray with impression of Cardiomegaly with increased pulmonary vascularity suggesting CHF.Right mid and lower lobe opacification compatible with at least in part moderate size pleural effusion.
-iv Bumex 3 mg twice a day
-Spironolactone
-Strict DANIKA
-Daily weight
-Fluid restriction
-Patient uses 2 L at baseline, at present requiring 4 L
-Continue supplemental oxygen to keep sat greater than 92
-Wean as tolerated
-Cardiology consult
-Recent echo with impression of LV ejection fraction is 65-70% by Goddard's method of discs.
# Left upper extremity hematoma
-Hemoglobin 7.4
-Continue to monitor
-Left upper extremity ultrasound with impression of No findings to confirm deep venous thrombosis of the left upper extremity.Large complex left upper arm abnormal fluid collection measuring 13.4 cm in greatest dimension most likely representing a
hematoma without findings to confirm active blood flow within.
-Hold Lovenox
-recheck hgb in 6 hours, if hgb less than 7 consider transfusion.
-Surgery consulted
-as per surgery, consider CTA if hgb trending down.
# Chronic hyponatremia
-Sodium 131
-Fluid restriction
-Continue to monitor
# Chronic troponin elevation
-Trop elevated 0.128, trend Trope
-No complaints of chest pain continue to trend Trope
-s/p cardiac cath 04/19/23 without obstructive CAD, stents were patent
-cont ASA/BB
#Severe : for TAVR as inpt on 04/22/23
#Moderate pulmonary hypertension
#MARY KATE: cont CPAP
#Asthma
-Patient not in acute exacerbation
#Essential hypertension: cont BB
# Atrial Fib likely permanent
-Cardizem continued
#GERD: cont PPI
#Hypercholesterolemia: Continue statin
#Hypothyroidism: Continue levothyroxine
#DM2: SSI/accuchecks, hold Trulicity
#Obesity due to excess calories
#Dementia: Continue donepezil
#Insomnia: Continue trazodone
FULL
SCDs contraindicated due to recent clots
[2023-11-10] MEDS: LASIX 40 MG IV (16:08)
--- NOTE | 2023-11-10 16:46 | CON.CAR ---
Addendum entered and electronically signed by Tyler Ness MD 11/10/23 17:42:
Patient seen and examined in collaboration with NEW ACCOUNTS REPRESENTATIVE; agree with below.
73-year-old female with medical history as outlined below, including chronic HFpEF, recent TAVR (04/2023) complicated by left femoral arterial occlusion and subsequent stent placement, morbid obesity, recent bilateral DVTs while on Xarelto and
subsequently transitioned to Lovenox--but now has a left upper arm hematoma; admitted with shortness of breath.
-Recommend Bumex 3 mg IV BID for now.
-Given hematoma, Lovenox must be held; recommend IVC filter.
-Patient is apparently on chronic supplemental oxygen; management as per primary team.
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
-Will follow.
Original Note:
Medical History
-
Chief Complaint: Left arm pain, BLE edema
History of Present Illness:
73 y/o female (Patient of Dr. Vasques)- Mongolian/Comoran speaking per her daughter who helps translate. She has a history of hypertension, dyslipidemia, obesity, MARY KATE, restrictive lung disease, severe multivessel CAD with PCI 2014, permanent AFIB
(previously on Xarelto, currently on lovenox), Hypothyroidism, s/p TAVR 04/22/23 (c/b total occlusion of right common femoral artery s/p balloon angio and stent). She was recently hospitalized at [facility] and discharged about one week
ago. She presented since her O2 sats at home were in the 70's. She was treated for acute heart failure with preserved EF with Bumex. She also had a thoracentesis for pleural effusion. She was also treated with antibiotics during that admit for
possible PNA. She was noted to be anemic (HGB 11/01 7.9). Additionally BLE DVT was noted despite being on Xarelto and she was adjusted to Lovenox. No PE on CT scan there. She had an injection in her left arm and now has a significant hematoma. During
hospitalization she had an echo 10/27/23 which showed EF 65%, Grade II DD, well seated bio AVR, MG 16 mmHg, moderately elevated PASP. High sensitivity troponin was 144. She is here now with complaints of left arm pain with significant ecchymosis
noted. Her daughter also notes that her LE edema is worse than usual. She has been on Bumex 2 mg daily, though took it BID twice this week without help. She is in no distress at the time of my assessment. We are consulted for CHF.
Past Medical History
Past Medical History: Arrhythmias, CAD, CHF, HTN, Hypothyroidism, Valvular Disease and Other (as above)
Social History
Living: With Family
Family History
Family History: Reviewed & Not Pertinent
Allergies / Home Medications
Allergy/AdvReac Type Severity Reaction Status Date / Time
Penicillins Allergy Diarrhea Verified 04/15/23 15:29
�Medication �Instructions �Recorded �Confirmed �Type
atorvastatin 40 mg tablet 40 mg PO QPM High Cholesterol 04/12/23 11/10/23 History
diltiazem HCl 120 mg 120 mg PO BID Arrhythmia 04/12/23 11/10/23 History
capsule,extended release 24 hr
donepezil 5 mg tablet 5 mg PO DAILY Neurological 04/12/23 11/10/23 History
Condition
ergocalciferol (vitamin D2) 1,250 1,250 mcg PO DAY Supplement 04/12/23 11/10/23 History
mcg (50,000 unit) capsule
levothyroxine 200 mcg tablet 200 mcg PO DAILY Thyroid 04/12/23 11/10/23 History
omeprazole 20 mg tablet,delayed 20 mg PO DAILY Gastrointestinal 04/12/23 11/10/23 History
release Issue
potassium chloride 20 mEq 20 meq PO BID Electrolyte Repletion 04/12/23 11/10/23 History
tablet,extended release
spironolactone 25 mg tablet 25 mg PO DAILY Fluid 04/12/23 11/10/23 History
Retention/Swelling
trazodone 50 mg tablet 50 mg PO HS Sleep 04/12/23 11/10/23 History
dulaglutide 0.75 mg/0.5 mL 0.75 mg SC DAY Diabetes 04/15/23 11/10/23 History
subcutaneous pen injector
(Trulicity)
levothyroxine 50 mcg tablet 50 mcg PO DAILY Thyroid 04/15/23 11/10/23 History
aspirin 81 mg tablet,delayed 81 mg PO DAILY #0 tabs 04/23/23 11/10/23 Rx
release
bumetanide 2 mg tablet 2 mg PO DAILY 11/10/23 11/10/23 History
enoxaparin 120 mg/0.8 mL 120 mg SC Q12H 11/10/23 11/10/23 History
subcutaneous syringe
metoprolol tartrate 50 mg tablet 50 mg PO BID 11/10/23 11/10/23 History
Review of Systems
-
History Source: Patient
All other systems: Negative unless noted
Respiratory: Trouble Breathing and Other (left arm pain)
Musculoskeletal: Edema
Physical Exam
Vital Signs
Temp Pulse Resp BP Pulse Ox
97.6 F 74 18 119/65 100
11/10/23 11:46 11/10/23 16:08 11/10/23 16:00 11/10/23 16:08 11/10/23 14:00
Lab Results
11/10/23 12:02
Troponin I 0.128 ng/ml H* 11/10/23 13:14
Foj-K-[id number] Pept 1420 pg/ml 11/10/23 13:14
Physical Exam
General: Well Developed and No Apparent Distress
HEENT: Normocephalic and Anicteric
Respiratory: Other (on O2 by NC; lungs dimininshed to bases)
Cardiac: Irregular Rhythm
Musculoskeletal: Edema (+3 BLE edema)
Skin: Warm and Dry
Neuro: Awake, Alert and Oriented
Psych: Calm
Impression / Plan
-
Pycah-zt-qaylbea HFpEF:
-severe BLE edema
-CXR as noted- has required thoracenteses in the past
-recent echo as noted
-agree with IV Bumex, which requires intensive monitoring- I have rechecked potassium which is pending
-no weight in yet, though it is ordered. She has not been checking weights daily at home, but thinks typical weight is 243 lbs.
LUE hematoma:
-Lovenox held
Anemia:
-follow labs, but was similar in [facility]
Recent BLE DVT:
-Lovenox held for hematoma
Permanent AFIB:
-rate-controlled on diltiazem and metoprolol
-Xarelto issues as noted, Lovenox held
Abnormal troponin:
-appears to be chronic non-ischemic myocardial injury in this patient with CHF, anemia
-denies CP
-also elevated on recent admit to [facility] as noted and in previous admit here
s/p TAVR:
-stable by recent echo
CAD with hx stenting:
-stable without CP
-cath earlier this year stable
Right common fem artery stent:
-continue ASA
Data Reviewed
-
EKG: Tracing Personally Visualized and interpreted (AFIB)
Radiology: Report Reviewed by me (Cardiomegaly with increased pulmonary vascularity suggesting CHF. Right mid and lower lobe opacification compatible with at least in part moderate size pleural effusion.)
Ultrasound: Report Reviewed by me (No findings to confirm deep venous thrombosis of the left upper extremity. Large complex left upper arm abnormal fluid collection measuring 13.4 cm in greatest dimension most likely representing a hematoma without
findings to confirm active blood flow within.)
Labs: Labs Reviewed by me
--- NOTE | 2023-11-10 17:05 | W.PN.UPDATE ---
Addendum entered and electronically signed by Vijay Longoria MD 11/10/23 17:11:
Patient on 4L baseline as per daughter.
Original Note:
Update Note
Progress Note Update
This is an addendum to the H&P written by Jinny Dickinson.� Patient seen and examined independently with LOCKSTITCH SHOULDER JOINER.��
73-year-old Kittitian-speaking female past medical history of CAD on 2 L, severe aortic stenosis status post bioprosthetic aortic valve, DVT on Lovenox, moderate pulmonary hypertension, obstructive sleep apnea, asthma, hypertension, permanent atrial
fibrillation, hyperlipidemia, dementia, anemia of chronic disease, insomnia, type 2 diabetes, presenting with hypoxemia, lower extremity edema and swelling of the left upper extremity.
She was recently hospitalized at [facility] for CHF exacerbation.� She was also found to have DVT of the lower extremities despite being on Xarelto and switched to Lovenox.
Chest x-ray shows cardiomegaly with increased pulmonary vascularity suggesting CHF.� Cardiac BNP of 1420.� EKG shows atrial fibrillation with heart rate of 65.� Labs show anemia with hemoglobin of 7.4 from 10.7.� Troponin of 0.128.� Venous
ultrasound of left upper extremity shows large complex left upper arm abdominal fluid collection measuring 13.4 cm likely hematoma.
Presentation consistent with acute on chronic CHF exacerbation.� Patient also has left upper extremity hematoma.� 3 mg IV Bumex twice daily.� Trend troponins. Bladder scan protocol.�
Hold Lovenox although will need to be restarted due to recent lower extremity DVTs.� General surgery consulted due to left upper extremity hematoma. May need to consider IVC filter with hematology.�
[2023-11-10 19:48] LABS: Hemoglobin 6.3 g/dL (12.0-16.0)
[2023-11-10 19:49] LABS: Potassium 4.6 mmol/L (3.5-5.1)
[2023-11-10 20:07] LABS: Troponin I 0.126 ng/ml
--- NOTE | 2023-11-10 20:08 | W.PN.UPDATE ---
Update Note
Progress Note Update
Hgb 6.3, blood consent in chart. Will order type and screen, PRBC x1 unit, since hgb trending down, will order CTA Left Upper extremity, stable VS.
--- NOTE | 2023-11-10 20:15 | PTCARENOTE ---
@1957 ; TT PEYTON Poe on critical lab; HGB: 6.3 and HCT:21.0.Type and cross /1 unit PRBC ordered.
[2023-11-10] MEDS: DILAUDID 1 MG IV (20:52)
[2023-11-10] MEDS: LOPRESSOR 50 MG PO (20:53)
[2023-11-10] MEDS: KCL 20 MEQ PO (20:53)
[2023-11-10] MEDS: CARDIZEM CD 120 MG PO (20:53)
[2023-11-10] MEDS: LIPITOR 40 MG PO (20:53)
[2023-11-10] MEDS: NOVOLOG FLEXPEN-LOW RESISTANCE SC (21:06)
[2023-11-10 21:14] LABS: Glucose - Point of Care 145 mg/dl (70-99)
[2023-11-11] VITALS (20 sets, daily range): BP systolic 0–131; BP diastolic 50–94; PULSE 2–83; O2SAT 95; BMI 46.2
--- NOTE | 2023-11-11 02:00 | PTCARENOTE ---
Pt tolerated 1 unit of PRBC and completed at 0132.V/S charted and stable.
[2023-11-11 04:11] LABS: Hematocrit 24.3 % (37.0-47.0); Hemoglobin 7.4 g/dL (12.0-16.0); Mean Corp Hgb Conc. 30.5 g/dL (33.0-37.0); Mean Corpuscular Hgb 28.1 pg (27.0-31.0); Mean Corpuscular Volume 92.4 fL (81.0-99.0); Mean Platelet Volume 10.1 fL (7.4-10.4); Platelet Count 233 10^3/uL (130-400); Red Blood Cell Count 2.63 10^6/uL (4.20-5.40); Red Cell Dist. Width 17.2 % (11.5-14.5)
[2023-11-11 04:30] LABS: ALT (SGPT) 18 U/L (0-35); AST (SGOT) 43 U/L (14-36); Albumin 3.6 g/dl (3.5-5.0); Alkaline Phosphatase 142 U/L (38-126); Blood Urea Nitrogen 36 mg/dl (7-17); Calcium 8.9 mg/dl (8.4-10.2); Carbon Dioxide 30 mmol/L (22-30); Chloride 95 mmol/L (98-107); Direct Bilirubin 0.3 mg/dl (0.0-0.4); Estimated Creatinine Clearance 62 ml/min; Glucose 130 mg/dl (70-99); HDL Cholesterol 39 mg/dl; LDL Cholesterol, Calculated 62 mg/dl; Magnesium 1.9 mg/dl (1.6-2.3); Potassium 5.4 mmol/L (3.5-5.1); Sodium 135 mmol/L (135-145); Total Bilirubin 1.5 mg/dl (0.2-1.3); Total Cholesterol 129 mg/dl (50-199); Total Protein 7.1 g/dl (6.3-8.2); Triglyceride 140 mg/dl (10-149); Very Low Density Lipoprotein 28 mg/dl (0-30); eGFR 59.86
[2023-11-11 04:39] LABS: Troponin I 0.128 ng/ml
[2023-11-11] MEDS: SYNTHROID 200 MCG PO (06:00)
[2023-11-11] MEDS: SYNTHROID 50 MCG PO (06:00)
--- NOTE | 2023-11-11 06:34 | PTCARENOTE ---
1:1 observation - Suicide maintained this shift .
--- NOTE | 2023-11-11 06:45 | W.PN.UPDATE ---
Update Note
Progress Note Update
K 5.4 likely due to Furosemide that was given. Will order Lokelma 5 PO x1, will hold potassium supplements and Aldactone. no new complaints.
[2023-11-11 07:16] LABS: Glucose - Point of Care 119 mg/dl (70-99)
--- NOTE | 2023-11-11 07:26 | W.PN.HOSP.TC ---
Addendum entered and electronically signed by Talisha Haddad MD 11/11/23 19:31:
I saw and evaluated the patient in PACU with Dr. Ni and Dr. Durham. I reviewed the resident's note and agree with findings and plan as documented by Dr. Ni.
Called to see patient in PACU for hypoxemia requiring BiPAP and 12 L of oxygen. Patient received packed red blood cells, IV fluids, general anesthesia (was not planning for that), with history of atrial fibrillation and presumed obstructive sleep
apnea (by official court interpreter patient states that she does sleep with a machine at night). Monitor also states patient has A-fib but is rate controlled.
GENERAL: well developed, well nourished, obese female in no apparent distress
HEENT: BiPAP mask on 12 L of oxygen
HEART: Irregularly irregular
LUNGS : Limited exam as patient could only move to her right side, therefore left lung base was auscultated with crackles noted
ABDOM: soft, nontender, nondistended, + bowel sounds
EXT: 4+ pitting edema bilaterally--left arm with surgical bandages and Demian wrap in place
NEUROLOGIC: Appears grossly intact
Telemetry reviewed which shows atrial fibrillation rate controlled--EKG reviewed which also shows atrial fibrillation rate approximately 60-job
A/P:
Acute hypoxemic respiratory failure--patient on BiPAP with 12 L of oxygen--looks comfortable, saturating 98%--very likely due to volume overload with packed red blood cells and IV fluids given intraoperatively, general anesthesia, obstructive sleep
apnea along with baseline bilateral lower extremity edema and likely acute exacerbation of heart failure with preserved ejection fraction
-Transferred to IMU
-Diuresis
-Wean BiPAP to off if possible
-Wean oxygen to off if possible
-CXR by my read shows large sided pleural effusion and pulm edema (rotated film)--would consult IR for thoracentesis in AM
time for eval: 38 minutes
Original Note:
Today's Communication/Plan
-
Assessment / Plan
Assessment / Plan
Ms. Anita Guevara is a 73yo F pmh HFpEF (EF 65-70%, NYHA class 4) CAD on 2l O2 at home, s/p TAVR (04/22/23), DVT on enoxaparin, afib, htn, hld was admitted 11/09 for worsening swelling to her LE, increased O2 requirements, and LUE swelling.
Acute on chronic exacerbation of HFpEF w acute on chronic respiratory failure, HTN, Chronic Troponin elevation
- CXR: cardiomegaly, pulmonary vascular congestion, right mid & lower lobe opacification c/w pleural effusion
- IV Bumex 3mg BID
- spironolactone
- fluid restriction
- I&O's
- daily weight
- 2L O2 at baseline, on 4L now. Goal SpO2 >92%. wean as tolerated.
- ECHO: s/p TAVR, well seated bioprosthetic valve. Pulm a. systolic 40 mmHg. LVEF 65-70%
- cardiology following
LUE pain, anemia
- concern for compartment syndrome vs heparin induced necrosis vs HIT
- vascular surgery consulted. ruled out compartment syndrome.
- Hb 7.4
- CT: There is 9.5 x 3 x 4 cm old hematoma/seroma in the left biceps musculature with no internal contrast extravasation to suggest active hemorrhage. There is edema in the left upper arm at the elbow and forearm
- Dr. Thurman evacuated hematoma today. Anesthesia plan was LMA w propofol TIVA. Had to convert to ET tube due to desaturation and hypercapnia. Transfused 1 unit RBCs. Pt extubated, on bipap in PACU due to spo2 in 80s.
- No active bleeding per post-procedure report.
- reexamined pt: spo2 95%+. Pt awake and alert. Bibasilar crackles.
- pt's oxygenation improvement could be due to anesthesia effects wearing off.
- ECG in PACU: afib w nonspecific t wave abnormality
- CXR in PACU, read by me: cardiomegaly, suspect r pleural effusion
- bumex given. continue to diurese
- hep c antibody, [id number] panel, cariolipin panel, lupus panel, phosphatidylserine panel pending
- transfuse hemoglobin less than 7.0 g/dL
- follow cbc
b/l le dvt
- eval for ivc filter
hyperkalemia, Chronic hyponatremia
- Na 135 today
- K 5.4
- hold KCl
- follow bmp
MARY KATE, asthma
- continue cpap
- no acute asthma exacerbation
Afib
- continue cardizem
- tele monitoring
Type 2 DM, obesity
- SSI, accuchecks
- hold trulicity
HLD
- continue statin
GERD
- continue PPI
Hypothyroidism
- continue levothyroxine
- TSH 14.9
- Free T4 1.7
Dementia
- continue donepezil
- delirium precautions
Insomnia
- cont trazodone
DVT prophylaxis
- SCDs contraindicated due to recent clots
- developed bl dvt on xarelto
- lovenox contraindicated due to heparin reaction
Code status: FULL CODE
Diet: diabetic
Anticipated Discharge: > 48 hours
Subjective/Interval History
-
Date of Service: November 11, 2023
Ms. Anita Guevara is a 73yo F pmh HFpEF (EF 65-70%, NYHA class 4) on 2l O2 at home, s/p TAVR (04/22/23), DVT on enoxaparin, afib, htn, hld was admitted 11/09 for worsening swelling to her LE, increased O2 requirements, and LUE swelling. Lebanese
speaking, daughter at bedside. On 4L O2 in ED. Main concern now is a 10/10 pain in the proximal L arm. Pt is on one-to-one because she stated the pain is so bad she does not want to be alive. Daughter states this was a misunderstanding and requested
one-to-one be cancelled. Daughter states that during a hospital stay at a different hospital, she received lovenox in the deltoid. Originally the bruise was around the injection site, but has spread all over the upper arm.
Objective Data
-
Labs:
Laboratory Results
11/10/23 11/11/23 11/11/23
19:30 00:09 04:00
WBC 10.0
Hgb 6.3 L* Cancelled 7.4 L
Hct 21.0 L Cancelled 24.3 L
Plt Count 233
Sodium
Potassium 4.6
Chloride
Carbon Dioxide
BUN
Creatinine
Glucose
Calcium
Total Bilirubin
AST
ALT
Alkaline Phosphatase
11/11/23
04:03
WBC
Hgb
Hct
Plt Count
Sodium 135
Potassium 5.4 H
Chloride 95 L
Carbon Dioxide 30
BUN 36 H
Creatinine 1.0
Glucose 130 H
Calcium 8.9
Total Bilirubin 1.5 H
AST 43 H
ALT 18
Alkaline Phosphatase 142 H
Vital Signs:
Vital Signs
Temp Pulse Resp BP Pulse Ox
97.7 F 83 16 131/82 98
11/11/23 07:12 11/11/23 07:12 11/11/23 07:12 11/11/23 07:12 11/11/23 07:12
I&O
11/10/23 11/11/23 11/12/23
06:59 06:59 06:59
Intake Total 600 / 600
Output Total 200 / 200
Balance 400 / 400
Review of Systems
-
History Source: Patient and Family
Constitutional: Denies Fever, Night Sweats or Chills
Respiratory: Denies Cough or Trouble Breathing
Cardiac: Denies Chest Pain or Palpitations
Abdomen/GI: Denies Abdominal Pain, Nausea, Vomiting, Diarrhea or Constipated
Hematologic / Lymphatic: Reports Bruising and Other (swelling in upper arm)
Physical Exam
-
General: Well Developed, Well Nourished and Pain
HEENT: Normocephalic, Atraumatic and Moist Mucous Membranes
Respiratory: Clear to Auscultation and Other (on 3L nasal cannula); Negative Wheezes, Rales, Rhonchi or Crackles
Cardiac: Regular Rhythm and S1/S2; Negative Murmur, Rub, Carotid Bruits or Gallop
GI: Soft, Nontender, Nondistended and Normal Bowel Sounds
Musculoskeletal: Edema, Right Lower Extrem (+2 nonpitting), Edema, Left Lower Extrem (+2 nonpitting) and Other (extreme tenderness to palpation over bruising. Bruising spread from deltoid down to the antecubital fossa)
Skin: Warm and Dry
Neuro: Other (sensation intact b/l arms. unable to assess L arm strength. Unsure if due to pain or weakness. )
Psych: Calm
[2023-11-11] MEDS: DILAUDID 1 MG IV ×2 (07:51→11:43)
[2023-11-11] MEDS: LOKELMA 5 GRAM PO (08:01)
[2023-11-11] MEDS: NOVOLOG FLEXPEN-LOW RESISTANCE SC ×3 (08:02→18:00)
[2023-11-11] MEDS: CARDIZEM CD 120 MG PO ×2 (08:03→19:57)
[2023-11-11] MEDS: PROTONIX 40 MG PO (08:03)
[2023-11-11] MEDS: ASPIR LOW (ENTERIC COATED) 81 MG PO (08:03)
[2023-11-11] MEDS: LOPRESSOR 50 MG PO ×2 (08:03→19:56)
[2023-11-11] MEDS: ARICEPT 5 MG PO (08:04)
[2023-11-11] MEDS: BUMEX 3 MG IV ×2 (08:22→16:36)
[2023-11-11 09:08] LABS: Glycohemoglobin (HgbA1c) 4.8 % (4.0-5.6)
--- NOTE | 2023-11-11 09:23 | CON.ONC ---
Impression
Impression
Thrombosis syndrome
Anemia with widened RDW
Hematoma causing significant pain in the upper extremity
Plan
Plan
Continue to transfuse hemoglobin less than 7.0 g/dL
Vascular surgery to the OR for hematoma evacuation today
Anticoagulation on hold
Consider consider venogram as indicated by vascular
Given the extent of complications in this patient it may be reasonable to consider IVC filter
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
Monitor for active bleeding from GI source on anticoagulation
Thrombophilia assessment for APS
Rule out secondary causes of anemia including hemolysis and additional substrate insufficiency
Patient History
History of Present Illness
73 y/o female Nepali/Brazilian speaking history of hypertension, dyslipidemia, obesity, MARY KATE, restrictive lung disease, severe multivessel CAD with PCI 2014, permanent AFIB (previously on Xarelto, currently on lovenox), Hypothyroidism, s/p TAVR
04/22/23 (c/b total occlusion of right common femoral artery s/p balloon angio and stent). She was recently hospitalized at [facility] and discharged about one week ago. She presented since her O2 sats at home were in the 70's. She was
treated for acute heart failure with preserved EF with Bumex. She also had a thoracentesis for pleural effusion. She was also treated with antibiotics during that admit for possible PNA. She was noted to be anemic (HGB 9/17 7.9). Additionally BLE
DVT was noted despite being on Xarelto and she was adjusted to Lovenox. No PE on CT scan there. She had an injection in her left arm and now has a significant hematoma. She reports significant discomfort associated with the hematoma. We are
consulted to review anticoagulation and bleeding.
Past-Medical/Surgical History
Past Medical History
Past Medical History: Arrhythmias, CAD, CHF, HTN, Hypothyroidism, Valvular Disease and Other (as above)
Social History
Living: With Family
Family History
Family History: Reviewed & Not Pertinent
Patient Medication
�Medication �Instructions �Recorded �Confirmed �Last Taken �Type
atorvastatin 40 mg tablet 40 mg PO QPM High Cholesterol 04/12/23 11/10/23 Unknown History
diltiazem HCl 120 mg 120 mg PO BID Arrhythmia 04/12/23 11/10/23 Unknown History
capsule,extended release 24 hr
donepezil 5 mg tablet 5 mg PO DAILY Neurological 04/12/23 11/10/23 Unknown History
Condition
ergocalciferol (vitamin D2) 1,250 1,250 mcg PO DAY Supplement 04/12/23 11/10/23 Unknown History
mcg (50,000 unit) capsule
levothyroxine 200 mcg tablet 200 mcg PO DAILY Thyroid 04/12/23 11/10/23 Unknown History
omeprazole 20 mg tablet,delayed 20 mg PO DAILY Gastrointestinal 04/12/23 11/10/23 Unknown History
release Issue
potassium chloride 20 mEq 20 meq PO BID Electrolyte Repletion 04/12/23 11/10/23 Unknown History
tablet,extended release
spironolactone 25 mg tablet 25 mg PO DAILY Fluid 04/12/23 11/10/23 Unknown History
Retention/Swelling
trazodone 50 mg tablet 50 mg PO HS Sleep 04/12/23 11/10/23 Unknown History
dulaglutide 0.75 mg/0.5 mL 0.75 mg SC DAY Diabetes 04/15/23 11/10/23 04/13/23 History
subcutaneous pen injector
(Trulicity)
levothyroxine 50 mcg tablet 50 mcg PO DAILY Thyroid 04/15/23 11/10/23 04/15/23 History
aspirin 81 mg tablet,delayed 81 mg PO DAILY #0 tabs 04/23/23 11/10/23 Unknown Rx
release
bumetanide 2 mg tablet 2 mg PO DAILY Fluid 11/10/23 11/10/23 Unknown History
Retention/Swelling
enoxaparin 120 mg/0.8 mL 120 mg SC Q12H Blood Clot 11/10/23 11/10/23 Unknown History
subcutaneous syringe Prevention/Tx
metoprolol tartrate 50 mg tablet 50 mg PO BID Blood Pressure 11/10/23 11/10/23 Unknown History
Active Medications
Generic Name Dose Route Start Last Admin
Trade Name Freq PRN Reason Stop Dose Admin
Aspirin 81 mg 11/11/23 08:00 11/11/23 08:03
Aspirin 81 Mg (Enteric Coated) Tablet PO 12/09/23 07:59 81 mg
DAILY PRIYANKA Administration
Atorvastatin Calcium 40 mg 11/10/23 18:09 11/10/23 20:53
Atorvastatin (Lipitor) 40 Mg Tablet PO 12/08/23 18:08 40 mg
QPM PRIYANKA Administration
Bumetanide 3 mg 11/11/23 16:00
Bumetanide (0.25 Mg/1 Ml) 4 Ml Vial IV 12/09/23 15:59
BID@0800,1600 PRIYANKA
Dextrose 12.5 grams 11/10/23 18:09
Dextrose 50% (0.5 Grams/Ml) 50 Ml Syringe IV 12/08/23 18:08
[id number] PRN
hypoglycemia
Protocol
Diltiazem HCl 120 mg 11/10/23 20:00 11/11/23 08:03
Diltiazem 120 Mg Extended Release (24 H) Capsule PO 12/08/23 19:59 120 mg
BID PRIYANKA Administration
Donepezil HCl 5 mg 11/11/23 08:00 11/11/23 08:04
Donepezil 5 Mg Tablet PO 12/09/23 07:59 5 mg
DAILY PRIYANKA Administration
Glucagon 1 mg 11/10/23 18:09
Glucagon 1 Mg Vial IM 12/08/23 18:08
PRN PRN
hypoglycemia
Protocol
Hydromorphone HCl 1 mg 11/11/23 08:21
Hydromorphone 1 Mg/Ml Carpuject IV 11/24/23 17:45
Q4HPRN PRN
moderate to severe pain
Insulin Aspart 0 units 11/10/23 18:09 11/11/23 08:02
Insulin Aspart Low Resistance 300 Units/3 Ml Pen.Injctr SC 12/08/23 18:08 Not Given
AC PRIYANKA
Protocol
Levothyroxine Sodium 50 mcg 11/11/23 06:00 11/11/23 06:00
Levothyroxine 50 Mcg Tablet PO 12/09/23 05:59 50 mcg
DAILY @ 0600 PRIYANKA Administration
Levothyroxine Sodium 200 mcg 11/11/23 06:00 11/11/23 06:00
Levothyroxine 200 Mcg Tablet PO 12/09/23 05:59 200 mcg
DAILY @ 0600 PRIYANKA Administration
Metoprolol Tartrate 50 mg 11/10/23 20:00 11/11/23 08:03
Metoprolol 50 Mg Regular Release Tablet PO 12/08/23 19:59 50 mg
BID PRIYANKA Administration
Pantoprazole Sodium 40 mg 11/11/23 08:00 11/11/23 08:03
Pantoprazole 40 Mg Delayed Release Tablet PO 12/09/23 07:59 40 mg
DAILY PRIYANKA Administration
Potassium Chloride 20 meq 11/10/23 20:00 11/10/23 20:53
Potassium Chloride 20 Meq Extended Release Tablet PO 12/08/23 19:59 20 meq
BID PRIYANKA Administration
Sodium Chloride 0 flush 11/10/23 18:00
Sodium Chloride 0.9% (Flush) Syringe IV 12/08/23 17:59
PER PROTOCOL PRIYANKA
Spironolactone 25 mg 11/11/23 08:00
Spironolactone 25 Mg Tablet PO 12/09/23 07:59
DAILY PRIYANKA
Trazodone HCl 50 mg 11/10/23 22:00 11/10/23 23:56
Trazodone 50 Mg Tablet PO 12/08/23 21:59 Not Given
HS PRIYANKA
Review of Systems
-
Additional review of systems unremarkable reviewed with her son in the room.
Physical Exam
-
Physical Exam
General: Well Developed and No Apparent Distress
HEENT: Normocephalic and Anicteric
Respiratory: Other (on O2 by NC; lungs dimininshed to bases)
Cardiac: Irregular Rhythm
Musculoskeletal: Edema (+3 BLE edema) large ecchymosis in the upper arm with ecchymosis noted in the lateral flank
Skin: Warm and Dry
Neuro: Awake, Alert and Oriented
Psych: Calm
Labs
Lab Results
WBC 10.0 10^3/uL (4.8-10.8) 11/11/23 04:00
RBC 2.63 10^6/uL (4.20-5.40) L 11/11/23 04:00
Hgb 7.4 g/dL (12.0-16.0) L 11/11/23 04:00
Hct 24.3 % (37.0-47.0) L 11/11/23 04:00
MCV 92.4 fL (81.0-99.0) 11/11/23 04:00
MCH 28.1 pg (27.0-31.0) 11/11/23 04:00
MCHC 30.5 g/dL (33.0-37.0) L 11/11/23 04:00
RDW 17.2 % (11.5-14.5) H 11/11/23 04:00
Plt Count 233 10^3/uL (130-400) 11/11/23 04:00
MPV 10.1 fL (7.4-10.4) 11/11/23 04:00
Abs Immat Gran (auto) 0.0 10^3/uL (0-0.05) 11/10/23 12:02
Absolute Neuts (auto) 6.6 10^3/uL (1.4-6.5) H 11/10/23 12:02
Absolute Lymphs (auto) 1.3 10^3/uL (1.2-3.4) 11/10/23 12:02
Absolute Monos (auto) 0.9 10^3/uL (0.1-0.6) H 11/10/23 12:02
Absolute Eos (auto) 0.1 10^3/uL (0-0.7) 11/10/23 12:02
Absolute Basos (auto) 0.1 10^3/uL (0-0.2) 11/10/23 12:02
Immature Gran % 0.4 % (0-0.5) 11/10/23 12:02
Neutrophils % 73.4 % (42.2-75.2) 11/10/23 12:02
Lymphocytes % 13.9 % (20.5-51.1) L 11/10/23 12:02
Monocytes % 10.4 % (1.7-9.3) H 11/10/23 12:02
Eosinophils % 1.0 % (0-6) 11/10/23 12:02
Basophils % 0.9 % (0-2) 11/10/23 12:02
Creatinine 1.0 mg/dL (0.6-1.0) 11/11/23 04:03
Vital Signs
Vital Signs
Temp Pulse Resp BP Pulse Ox
97.7 F 83 16 131/82 98
11/11/23 07:12 11/11/23 07:12 11/11/23 07:12 11/11/23 07:12 11/11/23 07:12
--- NOTE | 2023-11-11 09:30 | W.PN.CD ---
Addendum entered and electronically signed by Tyler Ness MD 11/11/23 10:35:
Patient seen and examined in collaboration with CORE BAKER; agree with below.
-Vascular Surgery was also currently in room when evaluating patient; plan is for them to take her to the OR for evacuation of her left upper arm hematoma--patient's hemoglobin went down to 6.3 and she was subsequently transfused 1 unit of blood
with improvement of her hemoglobin to 7.4.
-Continue Bumex 3 mg IV BID.
-Lovenox being held.
-Recommend IVC filter; deferring to primary team regarding management/arrangement of this.
Original Note:
Today's Communication / Plan
-
-plan for hematoma evacuation today per vascular surgery
-continue IV diuresis and monitor labs, weights, I/O's
-Should rescan legs today per vascular. Additionally, and importantly, patient would benefit from IVC filter in this patient with DVT's and AC held for anemia/hematoma.
Impression / Plan
-
73 y/o female (Patient of Dr. Vasques)- Kinyarwanda/Liberian speaking per her daughter. She has a history of hypertension, dyslipidemia, obesity, MARY KATE, restrictive lung disease, severe multivessel CAD with PCI 2014, permanent AFIB (previously on Xarelto,
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 She was recently hospitalized at [facility] and discharged about one week ago. She presented
since her O2 sats at home were in the 70's. She was treated for acute heart failure with preserved EF with Bumex. She also had a thoracentesis for pleural effusion. She was also treated with antibiotics during that admit for possible PNA. She was
noted to be anemic (HGB 9/17 7.9). Additionally BLE DVT was noted despite being on Xarelto and she was adjusted to Lovenox. No PE on CT scan there. She had an injection in her left arm and now has a significant hematoma. She is here now with
complaints of left arm pain with hematoma and worsened LE edema. She has been on Bumex 2 mg daily, though took it BID twice this week without help. We are consulted for CHF.
Pmdgs-qr-euhskux HFpEF:
-weight is down this AM, breathing fine on O2 per patient. Still with severe BLE edema. Continue IV Bumex 3 mg BID - this requires intensive monitoring
-CXR with right pleural effusion- has required thoracenteses in the past
-echo 10/27/23 which showed EF 65%, Grade II DD, well seated bio AVR, MG 16 mmHg, moderately elevated PASP (HRH)
-she thinks dry weight is 243 lbs and she is currently 252
-hyperkalemia noted this AM and Aldactone and K+ supplement now held- monitor closely
LUE hematoma:
-Lovenox held- see below
-CT scan pending
-vascular is seeing patient and plan is for surgery for hematoma evacuation today
Anemia:
-worsened and became severe overnight now s/p unit PRBC- monitor closely.
-heme consulted, CT scan pending
Recent BLE DVT:
-Lovenox held for hematoma
-recommend IVC filter
-plan to repeat LE u/s per vascular
Permanent AFIB:
-rate-controlled on diltiazem and metoprolol
-Xarelto issues as noted, Lovenox held
Abnormal troponin:
-appears to be chronic non-ischemic myocardial injury in this patient with CHF, anemia
-denies CP
-also elevated on recent admit to [facility] as noted and in previous admit here
s/p TAVR:
-stable by recent echo
CAD with hx stenting:
-stable without CP
-cath earlier this year stable
Right common fem artery stent:
-remains on ASA
Son is present at bedside and helps translate.
Physical Exam
Vital Signs/Labs
Vital Signs
Temp Pulse Resp BP Pulse Ox
97.7 F 83 16 131/82 98
11/11/23 07:12 11/11/23 07:12 11/11/23 07:12 11/11/23 07:12 11/11/23 07:12
11/10/23 11/11/23 11/12/23
06:59 06:59 06:59
Actual Weight 114.362 kg
11/11/23 04:00
11/11/23 04:03
PT 16.5 Sec (11.4-14.6) H 11/10/23 13:14
INR 1.33 11/10/23 13:14
APTT 48.2 Sec (23.4-35.0) H 11/10/23 13:14
Magnesium 1.9 mg/dl (1.6-2.3) 11/11/23 04:03
Triglycerides 140 mg/dl (10-149) 11/11/23 04:03
LDL Cholesterol, Calc 62 mg/dl 11/11/23 04:03
VLDL Cholesterol, Calc 28 mg/dl (0-30) 11/11/23 04:03
HDL Cholesterol 39 mg/dl 11/11/23 04:03
Free T4 1.70 ng/dl (0.78-2.19) 11/11/23 04:03
11/10/23
13:14
Qqe-K-Nipytwliotf Pept 1420
LAB Results
11/10/23 11/10/23 11/11/23
13:14 19:30 01:00
Troponin I 0.128 H* 0.126 H* Cancelled
11/11/23
04:00
Troponin I 0.128 H*
Physical Exam
Constitutional: No acute distress
EENT: Anicteric
Cardiovascular: Rhythm/rate is irregular and Pedal edema present (significant, not improved from yesterday to my assessment)
Respiratory: Other (on O2 ny NC, diminished to bases)
Neuro/Psych: Alert and Oriented
Other: Skin (LUE ecchymosis and hematoma)
Data Reviewed
-
Date of Service: November 11, 2023
EKG: Other (Tele AFIB)
Labs: Labs Reviewed by me
--- NOTE | 2023-11-11 10:45 | CON.VAS ---
Addendum entered and electronically signed by Levy Thurman MD 11/11/23 11:28:
Seen and evaluated emergently as per the request of resident from primary team. Seen and evaluated with SARKIS Moran and SARKIS Stephens (agree with findings as noted below). Patient non-Sinhala speaking, her son interpreting at the bedside (Jason). Offered
but declined building official services.
There was a concern for compartment syndrome of the upper extremity. Patient was evaluated at [facility] and found to have bilateral lower extremity DVTs while on anticoagulation for atrial fibrillation. (Xarelto). Due to the fact
that they felt it was a failure of Xarelto, she was started on Lovenox. Per report the Lovenox was injected into the left upper arm. Patient has had worsening pain in the left upper arm and swelling over the last few days. To the point that she
cannot sleep. She denies any weakness in the hand, though she notes that her forearm and hand are slightly swollen and that creates a little bit of tightness when she moves. No overt weakness. No numbness. Just pain.
Extensive cardiac history as noted in full history.
On exam her left upper extremity in the upper arm medially has a fullness/hematoma. She is moderately tender there. The compartment is compressible. Not severely tense. Echymosis , but no skin blistering. Left forearm and hand are soft.
Palpable left radial pulse. Motor and sensory function in the left arm and hand seems relatively normal.
Plan/ 1) Hematoma LUE -- discussed with patient and her son. Discussed that she has a moderate-sized hematoma, I reviewed the CT scan as well. She does not have an overt compartment syndrome, but she has significant pain. No skin changes or neuro
vascular compression. However because of significant pain and discomfort, am recommending evacuation of the hematoma. Discussed with her procedure. Discussed alternatives of conservative management. Discussed risks including but not limited to
bleeding, infection, need for recurrent hematoma evacuation and recurrent hematoma. She understands all wishes to proceed. Plan urgent OR today.
2) B/l LE DVT while on anticoag - consider hematology eval and IVC filter placement for failure while on therapeutic anticoag.
Original Note:
Consultation
Consultation Request
Date/Time Consultation Performed: 11/11/23 1035
Requesting Provider: Hospitalist
Performing Provider: Caprice Stephens, SARKIS-C for Levy Thurman MD
Reason for Consultation: Left upper extremity hematoma
Medical History
-
Chief Complaint: Left upper extremity hematoma/left upper extremity pain
History of Present Illness:
This is a 73-year-old female significant past medical history for atrial fibrillation, hypothyroidism, aortic stenosis s/p TAVR, CHF, CAD and hypertension who presented to [place] [facility] on 11/10/2023 with worsening bilateral lower extremity swelling
and pain/edema to left upper extremity. Patient endorses recent hospitalization at [facility] roughly a week and a half ago for bilateral lower extremity DVT and edema she was on p.o. Xarelto for anticoagulation for paroxysmal atrial
fibrillation but was noted to have developed DVT despite OAC, thus leading to transition to Lovenox. While hospitalized a Lovenox injection was done in her arm at [facility] which caused a hematoma develop. She endorses over the past week but
the swelling and pain have significantly increased at hematoma site. She denies paresthesia, changes in sensory, or temperature to left lower extremity. She does note scantly decreased strength at hand grasp but she attributes this to her swollen
fingers. She denies weakness at the left upper extremity, however does have limited range of motion due to pain. She notes the past 2 nights pain was horrible and she could barely sleep.
Past Medical History
Past Medical History: Arrhythmias (Atrial fibrillation), CAD, CHF, HTN and Hypothyroidism
Past Surgical History: Cardiac (CABG, TAVR (during TAVR patient developed subsequent total occlusion of right common femoral artery s/p balloon angio and stent))
Social History
Living: With Family
Allergies / Home Medications
Allergy/AdvReac Type Severity Reaction Status Date / Time
Penicillins Allergy Diarrhea Verified 04/15/23 15:29
�Medication �Instructions �Recorded �Confirmed �Type
atorvastatin 40 mg tablet 40 mg PO QPM High Cholesterol 04/12/23 11/10/23 History
diltiazem HCl 120 mg 120 mg PO BID Arrhythmia 04/12/23 11/10/23 History
capsule,extended release 24 hr
donepezil 5 mg tablet 5 mg PO DAILY Neurological 04/12/23 11/10/23 History
Condition
ergocalciferol (vitamin D2) 1,250 1,250 mcg PO DAY Supplement 04/12/23 11/10/23 History
mcg (50,000 unit) capsule
levothyroxine 200 mcg tablet 200 mcg PO DAILY Thyroid 04/12/23 11/10/23 History
omeprazole 20 mg tablet,delayed 20 mg PO DAILY Gastrointestinal 04/12/23 11/10/23 History
release Issue
potassium chloride 20 mEq 20 meq PO BID Electrolyte Repletion 04/12/23 11/10/23 History
tablet,extended release
spironolactone 25 mg tablet 25 mg PO DAILY Fluid 04/12/23 11/10/23 History
Retention/Swelling
trazodone 50 mg tablet 50 mg PO HS Sleep 04/12/23 11/10/23 History
dulaglutide 0.75 mg/0.5 mL 0.75 mg SC DAY Diabetes 04/15/23 11/10/23 History
subcutaneous pen injector
(Trulicity)
levothyroxine 50 mcg tablet 50 mcg PO DAILY Thyroid 04/15/23 11/10/23 History
aspirin 81 mg tablet,delayed 81 mg PO DAILY #0 tabs 04/23/23 11/10/23 Rx
release
bumetanide 2 mg tablet 2 mg PO DAILY Fluid 11/10/23 11/10/23 History
Retention/Swelling
enoxaparin 120 mg/0.8 mL 120 mg SC Q12H Blood Clot 11/10/23 11/10/23 History
subcutaneous syringe Prevention/Tx
metoprolol tartrate 50 mg tablet 50 mg PO BID Blood Pressure 11/10/23 11/10/23 History
Review of Systems
-
History Source: Patient
Constitutional: Reports No Symptoms
EENT: Reports No Symptoms
Respiratory: Reports Trouble Breathing
Cardiac: Denies Chest Pain
Vascular: Denies Leg Pain / Claudication
Abdomen/GI: Reports No Symptoms
: Reports No Symptoms
Musculoskeletal: Reports Edema (Bilateral lower extremity edema and left upper extremity edema) and Other (Pain at left upper extremity specifically near bicep where hematoma has developed)
Skin: Reports Other (Ecchymosis of left upper extremity)
Neurological: Reports No Symptoms
Endocrine: Reports No Symptoms
Physical Exam
Vital Signs
Temp Pulse Resp BP Pulse Ox
97.7 F 83 16 131/82 98
11/11/23 07:12 11/11/23 07:12 11/11/23 07:12 11/11/23 07:12 11/11/23 07:12
Lab Results
11/11/23 04:00
11/11/23 04:03
Troponin I 0.128 ng/ml H* 11/11/23 04:00
Jqz-D-Dwlcohcagba Pept 1420 pg/ml 11/10/23 13:14
Physical Exam
General: No Apparent Distress
HEENT: Normocephalic, Anicteric and Atraumatic
Respiratory: Non Labored Respirations
Cardiac: Negative JVD
GI: Soft, Non Tender and Non Distended
Musculoskeletal: Edema (Bilateral lower extremities +3 pitting edema)
Skin: Warm, Dry and Other (+2 edema at left upper extremity with ecchymosis, large palpable hematoma near bicep, surrounding compartments are soft, hand is warm, sensation intact, motor intact other than scantly decreased left hand grasp, left
radial pulse +2)
Neuro: Awake, Alert and Oriented
Assessment / Plan
-
Assessment: 33-year-old female with left upper extremity hematoma
Plan:
Given patient is continued report poorly managed pain would recommend surgical intervention to remove hematoma, will plan for OR today. Patient n.p.o.
Continue to hold anticoagulation
Given history of bilateral DVTs would consider CT venogram to evaluate extent of clot burden, may want to consider IVC filter placement
Patient seen evaluated bedside with Dr. Levy Thurman, above plan reviewed with attending
[2023-11-11 11:38] LABS: Glucose - Point of Care 155 mg/dl (70-99)
--- NOTE | 2023-11-11 12:00 | PTCARENOTE ---
patient has been cooperative with care and calm. utilizing conference interpreter line for translation. no verbalization of wanting to harm self or others. PRN Dilaudid administered for c/o left arm pain with good relief, left arm with hematoma, mid arm
edematous and ecchymotic. decreased ROM in fingers,elevated on pillows. vss, 1:1 observation maintained. will continue to monitor.
--- NOTE | 2023-11-11 12:06 | W.PN.UPDATE ---
Update Note
Progress Note Update
Seen and examined sitting on the edge of her bed. Appears comfortable does admit to having left upper extremity pain over hematoma site. Tells me that she is planned for the OR later today's. Spoke with son over the phone provided update. He is
aware.
NAD, resting comfortably in bed
Scleral anicteric
Moist mucous membranes
No JVD
CTA bilateral
Normal S1-S2 no murmurs
Soft nontender nondistended bowel sounds active
1+ pitting edema
Moves extremities spontaneously
-Left arm wrapped
AAOx3
Acute on chronic HFpEF with EF 55 to 60%
�Cardiology following
�IV diuretic
�Monitor urinary output
�K greater than 4
�Magnesium greater than 2
�Monitor on telemetry
Left upper extremity hematoma after direct administration of Lovenox
�Vascular surgery following
�Plan for OR later today for hematoma evacuation
�Monitor CBC
�Consult hematology as she potentially needs IVC filter after failing Xarelto and now developing hematoma from improper use of Lovenox
- -At this time hematology rec to start hep gtt, but as CBC returned hgb is <7, therefore, at this time will consult IR for IVC Filter
Acute blood loss anemia secondary to hematoma
-Transfuse for hgb >7
VTE history, currently on Lovenox, felt at previous hospital failed Xarelto as she was on this for atrial fibrillation
�Hematology consulted
�Potentially may need IVC filter versus resuming anticoagulation
Acute on Chronic hypoxemic respiratory failure.
-hypoxic while under anaesthesia for left upper extremity hematoma evacuation. Therefore required mechanical ventilation. Extubated to BiPAP.
-suspect volume overload from fluids an dblood and also likey anaesthesia
�Home 4 L
Bioprosthetic AV valve s/p TAVR
�Outpatient cardiology clinic follow-up
--- NOTE | 2023-11-11 15:08 | W.SUR.PREOP ---
Pre-Operative Surgical Note
-
I have examined this patient prior to the performance of the scheduled procedure.
The patient's condition is unchanged from the time of the current History and
Physical and the patient is able to undergo the scheduled procedure.
--- NOTE | 2023-11-11 15:45 | W.SUR.POST ---
Surgical Immediate Post Op
Note
Pre Op Diagnosis: Hematoma
Post Op Diagnosis: Same
Procedure Performed: Left upper extremity hematoma washout
Primary Surgeon: Olman
Secondary Surgeons: Angelo TODD
Anesthesia: General
Estimated Blood Loss: 200cc hematoma, 5 cc of blood loss
Fluids: See anesthesia flowsheet
Drains/Shunts: None
Specimens/Cultures: None
Doppler/Duplex/Angio (Y/N): N
Complications: None
Operative Findings: No active bleeding
[2023-11-11 16:19] LABS: Glucose - Point of Care 147 mg/dl (70-99)
[2023-11-11] MEDS: LIPITOR PO (18:01)
--- NOTE | 2023-11-11 18:04 | SUR.PHASEI ---
Pt under 1:1 observation throughout PACU stay
--- NOTE | 2023-11-11 18:31 | PTCARENOTE ---
Pt rec'd from PACU into 3351; 1:1 RN (for previously mentioned suicide precautions)and son and DIL at bedside. Pt is smiling under bipap mask, asking for drink, VSS, no complaint of pain. BARTOLO drain to LUE in place. Settled into new room and plan of
care. Call reddy in hand, safe environment maintained.
[2023-11-11 18:32] LABS: Hepatitis C Antibody Negative (Negative)
--- NOTE | 2023-11-11 18:39 | PTCARENOTE ---
Per resident Raiza; no need for 1:1, nursing baggage agent supervisor notified.
--- NOTE | 2023-11-11 20:00 | PTCARENOTE ---
Received pt from previous shift. Assessment performed, see flowsheets. Pt's daughter at bedside assisting with translation. Pt reports no pain or discomfort at this time. On BiPAP. AFib on heart monitor. Purewick in place draining christopher urine. LUE
with SILVA wrap and BARTOLO drain, elevated on a pillow. RAC and R hand PIV in place. +4 b/l LE edema. Evening labs drawn and sent. Will continue to monitor.
[2023-11-11 20:28] LABS: Hematocrit 24.6 % (37.0-47.0); Hemoglobin 7.6 g/dL (12.0-16.0); Mean Corp Hgb Conc. 30.9 g/dL (33.0-37.0); Mean Corpuscular Hgb 26.9 pg (27.0-31.0); Mean Corpuscular Volume 86.9 fL (81.0-99.0); Mean Platelet Volume 9.5 fL (7.4-10.4); Platelet Count 208 10^3/uL (130-400); Red Blood Cell Count 2.83 10^6/uL (4.20-5.40); Red Cell Dist. Width 18.1 % (11.5-14.5); White Blood Cell Count 10.1 10^3/uL (4.8-10.8)
[2023-11-11 20:43] LABS: ALT (SGPT) 17 U/L (0-35); AST (SGOT) 46 U/L (14-36); Albumin 3.6 g/dl (3.5-5.0); Alkaline Phosphatase 140 U/L (38-126); Blood Urea Nitrogen 37 mg/dl (7-17); Calcium 8.8 mg/dl (8.4-10.2); Carbon Dioxide 28 mmol/L (22-30); Chloride 94 mmol/L (98-107); Estimated Creatinine Clearance 61 ml/min; Glucose 121 mg/dl (70-99); Potassium 5.3 mmol/L (3.5-5.1); Sodium 135 mmol/L (135-145); Total Bilirubin 1.4 mg/dl (0.2-1.3); Total Protein 7.1 g/dl (6.3-8.2); eGFR 59.86
[2023-11-11 21:56] LABS: Glucose - Point of Care 136 mg/dl (70-99)
[2023-11-11 21:58] LABS: INR 1.12; PT 14.5 Sec (11.4-14.6)
[2023-11-12] VITALS (29 sets, daily range): BP systolic 66–134; BP diastolic 43–65; PULSE 2–85; BMI 46.3
[2023-11-12 05:00] LABS: Hematocrit 23.8 % (37.0-47.0); Hemoglobin 7.3 g/dL (12.0-16.0); Mean Corp Hgb Conc. 30.7 g/dL (33.0-37.0); Mean Corpuscular Volume 91.2 fL (81.0-99.0); Platelet Count 199 10^3/uL (130-400); Red Blood Cell Count 2.61 10^6/uL (4.20-5.40); Red Cell Dist. Width 18.3 % (11.5-14.5); White Blood Cell Count 8.8 10^3/uL (4.8-10.8)
[2023-11-12 05:02] LABS: Blood Urea Nitrogen 44 mg/dl (7-17); Calcium 8.9 mg/dl (8.4-10.2); Carbon Dioxide 31 mmol/L (22-30); Chloride 93 mmol/L (98-107); Estimated Creatinine Clearance 55 ml/min; Glucose 132 mg/dl (70-99); LDH 338 U/L (120-246); Lipase 141 U/L (23-300); Potassium 5.7 mmol/L (3.5-5.1); Sodium 134 mmol/L (135-145); eGFR 53.39
--- NOTE | 2023-11-12 05:27 | W.PN.HOSP.TC ---
Addendum entered and electronically signed by Pierre Serrato MD 11/13/23 14:59:
hypervolemic hyponatremia
fluid restrict
check sosm, urine na/cr
continue diuresis
Addendum entered and electronically signed by Pierre Serrato MD 11/13/23 14:52:
Seen and examined sitting on the edge of her bed. Appears comfortable does admit to having left upper extremity pain over hematoma site. Tells me that she is planned for the OR later today's. Spoke with son over the phone provided update. He is
aware.
NAD, resting comfortably in bed
Scleral anicteric
Moist mucous membranes
No JVD
CTA bilateral
Normal S1-S2 no murmurs
Soft nontender nondistended bowel sounds active
1+ pitting edema
Moves extremities spontaneously
-Left arm wrapped
AAOx3
Acute on chronic HFpEF with EF 55 to 60%
�Cardiology following
�IV diuretic
�Monitor urinary output
�K greater than 4
�Magnesium greater than 2
�Monitor on telemetry
Left upper extremity hematoma after direct administration of Lovenox
�Vascular surgery following
�S/p evacuation
-IR plans for IVC filter
Acute blood loss anemia secondary to hematoma
-Transfuse for hgb >7
VTE history, currently on Lovenox, felt at previous hospital failed Xarelto as she was on this for atrial fibrillation
�Hematology consulted
�Planned for IVC filter
Acute on Chronic hypoxemic respiratory failure.
-hypoxic while under anaesthesia for left upper extremity hematoma evacuation. Therefore required mechanical ventilation. Extubated to BiPAP.
-suspect volume overload from fluids and blood and also likey anaesthesia
�Home 4 L
Bioprosthetic AV valve s/p TAVR
�Outpatient cardiology clinic follow-up
Original Note:
Today's Communication/Plan
-
Assessment / Plan
Assessment / Plan
Ms. Anita Guevara is a 73yo F pmh HFpEF (EF 65-70%, NYHA class 4) CAD on 2l O2 at home, s/p TAVR (04/22/23), DVT on enoxaparin, afib, htn, hld was admitted 11/09 for worsening swelling to her LE, increased O2 requirements, and LUE swelling.
Acute on chronic exacerbation of HFpEF w acute on chronic respiratory failure, HTN, Chronic Troponin elevation
- CXR: cardiomegaly, pulmonary vascular congestion, right mid & lower lobe opacification c/w pleural effusion
- IV Bumex 3mg BID
- spironolactone
- fluid restriction
- I&O's
- daily weight
- 2L O2 at baseline, on 4L now. Goal SpO2 >92%. wean as tolerated.
- ECHO: s/p TAVR, well seated bioprosthetic valve. Pulm a. systolic 40 mmHg. LVEF 65-70%
- cardiology following
- thoracentesis: Successful ultrasound-guided thoracentesis, yielding 1100 cc of serosanguineous pleural fluid
- pleural fluid: pH 7.44, hct<1, protein 2.5, albumin 1.0, LDH 123, triglycerides <30
- unlikely chylothorax bc TG undetectable
- serum LDH 338, protein 7.1, albumin 3.6
- Light's criteria are not met. Likely a transudative effusion, secondary to CHF exacerbation
LUE pain, anemia
- concern for compartment syndrome vs heparin induced necrosis vs HIT
- vascular surgery consulted. ruled out compartment syndrome. planned to evacuate the hematoma/seroma w surgery
- Hb 7.4 on 11/09, now 6.3 s/p thoracentesis
- 2 PRBCs ordered
- Reevaluated by vascular surgery - continue neuro checks, recommend IVC
- CT: There is 9.5 x 3 x 4 cm old hematoma/seroma in the left biceps musculature with no internal contrast extravasation to suggest active hemorrhage. There is edema in the left upper arm at the elbow and forearm
- Dr. Thurman evacuated hematoma today. Anesthesia plan was LMA w propofol TIVA. Had to convert to ET tube due to desaturation and hypercapnia. Transfused 1 unit RBCs. Pt extubated, on bipap in PACU due to spo2 in 80s. Hb Pre-op 7.4, post-op 7.6. No
active bleeding per post-procedure report.
- reexamined pt: spo2 95%+. Pt awake and alert. Bibasilar crackles.
- pt's oxygenation improvement could be due to anesthesia effects wearing off.
- ECG in PACU: afib w nonspecific t wave abnormality
- CXR in PACU: Large dense airspace consolidation of the right lower and middle lobes with associated moderate left to right mediastinal shift suggesting severe atelectasis. Small right pleural effusion. Severe diffuse ground-glass opacity in the
lungs and increased reticulonodular interstitial markings throughout both lungs. Diagnostic possibilities are (1) acute interstitial and alveolar cardiogenic pulmonary edema, (2) an acute infectious or inflammatory pneumonitis, or (3) lymphangitic
carcinomatosis.
- bumex given post-op. continue to diurese
- hep c antibody, [id number] panel, cariolipin panel, lupus panel, phosphatidylserine panel pending
- PT 14.5, INR 1.12, PTT 32.6
- transfuse hemoglobin less than 7.0 g/dL
- follow cbc
b/l le dvt
- eval for ivc filter
- IR consulted for IVC
hyperkalemia, Chronic hyponatremia
- Na 131 on 11/09, now 134
- K 4.6 on 11/09, now 5.7
- hold KCl
- 3 doses lokelma
- low K diet
- follow bmp
MARY KATE, asthma
- continue cpap
- no acute asthma exacerbation
Afib
- continue cardizem
- tele monitoring
Type 2 DM, obesity
- SSI, accuchecks
- hold trulicity
- diabetic diet
HLD
- continue statin
GERD
- continue PPI
Hypothyroidism
- continue levothyroxine
- TSH 14.9
- Free T4 1.7
Dementia
- continue donepezil
- delirium precautions
Insomnia
- cont trazodone
DVT prophylaxis
- SCDs contraindicated due to recent clots
- developed bl dvt on xarelto
- lovenox contraindicated due to heparin reaction
Code status: FULL CODE
Diet: diabetic, low K
Anticipated Discharge: 24 - 48 hours
Subjective/Interval History
-
Date of Service: November 12, 2023
Ms. Anita Guevara is a 73yo F pmh HFpEF (EF 65-70%, NYHA class 4) CAD on 2l O2 at home, s/p TAVR (04/22/23), DVT on enoxaparin, afib, htn, hld was admitted 11/09 for worsening swelling to her LE, increased O2 requirements, and LUE swelling. Hematoma
evacuation yesterday. BARTOLO drain 10 mL overnight. Lots of blood dripping from SILVA wrap per RN. Went for thoracentesis this morning.
Pt is not suicidal. No plans or intentions of hurting herself.
Objective Data
-
Labs:
Laboratory Results
11/11/23 11/11/23 11/12/23
20:12 21:38 04:33
WBC 10.1 8.8
Hgb 7.6 L 7.3 L
Hct 24.6 L 23.8 L
Plt Count 208 199
PT 14.5
INR 1.12
Sodium 135 134 L
Potassium 5.3 H 5.7 H
Chloride 94 L 93 L
Carbon Dioxide 28 31 H
BUN 37 H 44 H
Creatinine 1.0 1.1 H
Glucose 121 H 132 H
Calcium 8.8 8.9
Total Bilirubin 1.4 H
AST 46 H
ALT 17
Alkaline Phosphatase 140 H
Vital Signs:
Vital Signs
Temp Pulse Resp BP Pulse Ox
98.7 F 79 13 110/67 99
11/12/23 04:47 11/11/23 19:45 11/11/23 19:45 11/11/23 18:22 11/11/23 19:45
I&O
11/10/23 11/11/23 11/12/23
06:59 06:59 06:59
Intake Total 600 / 600 200 / 200
Output Total 200 / 200 565 / 565
Balance 400 / 400 -365 / -365
Review of Systems
-
History Source: Patient
Constitutional: Denies Fever or Chills
Respiratory: Reports No Symptoms
Cardiac: Reports No Symptoms
Abdomen/GI: Reports No Symptoms
Neuro: Reports Numbness
Hematologic / Lymphatic: Reports Bleeding and Bruising
Physical Exam
-
General: Well Developed, Well Nourished and Morbidly Obese
Respiratory: Wheezes, Decreased Breath Sounds (R lower lung) and Other (On 3L O2 nasal cannula); Negative Rales or Rhonchi
Cardiac: Regular Rhythm and S1/S2; Negative Murmur, Rub or Gallop
GI: Soft, Nontender, Nondistended and Normal Bowel Sounds
Musculoskeletal: Edema, Right Lower Extrem and Edema, Left Lower Extrem
Skin: Warm and Dry
Neuro: Other (new sensory deficits on L arm)
[2023-11-12] MEDS: LOKELMA 5 GRAM PO (05:43)
--- NOTE | 2023-11-12 05:50 | PTCARENOTE ---
Lobito texted house provider about pt's K= 5.7. Received orders to give lokelma.
[2023-11-12 06:21] LABS: APTT 32.6 Sec (23.4-35.0)
--- NOTE | 2023-11-12 07:46 | OR.RPT ---
Operative Report
Operative Report
PROCEDURE DATE: 11/11/2023
Preoperative diagnosis: Tense hematoma left upper arm with significant pain
Postoperative diagnosis: Same
Procedure: Urgent evacuation left upper extremity hematoma
Surgeon: Olman
Heavy Truck Driver: SARKIS Stephens, required for all aspects of procedure including assistance with traction/countertraction and assistance with closure.
Complications: None
Anesthesia: General
Indications for procedure:
Patient had received subcutaneous Lovenox injection a few days prior. Had worsening left upper arm pain to the point she had no relief and could not even sleep at night. She had a fairly tense hematoma on exam, though the compartments are all soft
and she had no evidence of compartmental compression. Regardless given her pain, I felt relatively expeditious/urgent evacuation hematoma was warranted upon our immediate evaluation of the patient upon consultation. Therefore patient was taken to
the operating room. Risk/benefits/alternatives were also discussed. Patient and her son understood and wished to proceed.
Description of procedure:
Patient was identified brought to the operating room placed on the table in supine position. After the adequate administration of anesthesia she was prepped and draped in the standard surgical fashion. A standard preoperative timeout was
undertaken and everybody was in agreement the plan. A longitudinal incision was made on the anterior slightly medial proximal aspect of the upper arm overlying the slightly medial aspect of the biceps muscle. This was carried through the skin and
subcutaneous tissue. Then with the electrocautery to incise through the fascial layer. The muscle was noted to be bulging from hematoma within the intramuscular space. When I the muscle fibers of the biceps a large liquefied hematoma
was immediately drained out. This was a completely intramuscular hematoma. Once all the liquefied hematoma drained out, I carefully inspected. There was no significant formed hematoma. However I irrigated out the cavity well. I then inspected
for any bleeding point. There was only 1 small muscle oozing point, but likely not the cause of the bleed. This was cauterized successfully. No other bleeding points were noted. I observe the cavity for a little bit and noted no blood welling in
the cavity. Note, upon decompression of the intramuscular hematoma, the compartment was noted to be all soft. There was no bulging of the muscles. Therefore I was satisfied that there was no active bleeding at this point. I made a small separate
stab incision and brought a round large 19 Uvaldo drain through that incision which I placed into the hematoma cavity. I then secured to the skin with a nylon suture. Then again confirmed no bleeding or welling up of blood. At this point I was
satisfied. We then closed in layers using 3-0 Vicryl running deep dermal layer followed by skin clips. Dressings were applied. The patient tolerated the procedure well.
[2023-11-12 08:14] LABS: Glucose - Point of Care 125 mg/dl (70-99)
[2023-11-12] MEDS: NOVOLOG FLEXPEN-LOW RESISTANCE SC ×2 (08:16→12:40)
--- NOTE | 2023-11-12 08:17 | W.PN.VS ---
Addendum entered and electronically signed by Asif Horta III, MD 11/12/23 15:06:
This patient was seen and examined with PEYTON Rosas. I agree with the history and physical exam as well as the assessment and plan.
Transfuse for hemoglobin 6.7
Continue arm elevation, gentle Demian wrap
Keep BARTOLO
If cannot safely reinitiate anticoagulation for DVT due to hematoma, anemia and ongoing bleeding risk then would have IR place IVC filter.
Call with questions or concerns
Signed:
Asif Horta III, MD
[facility] [address] V[facility] Surgery
[phone] (exwq)
Addendum entered and electronically signed by PEYTON Rosas 11/12/23 13:39:
Repeat hemoglobin resulted at 6.7, would not recommend initiating anticoagulation given continued anemia. Relayed to primary team recommendation of consulting IR for IVC filter placement. Additionally will give 2 units packed red blood cell.
Original Note:
Today's Communication / Plan
-
See below.
Assessment/Plan
-
Assessment: 73 year old female POD#1 Urgent evacuation left upper extremity hematoma
Plan:
Continue BARTOLO drain
Would initiate either heparin infusion or place IVC filter given her DVT, will review with primary team
Continue neuro checks
Subjective Data
-
Date of Service: November 12, 2023
Patient seen and examined at bedside, utilized daughter as curbing stonecutter at patients request. Patient reports pain is improved from pre-op but she does note on going tenderness at old hematoma site with arm movement or touch. She denies hand pain,
paraesthesia, or motor changes.
Objective Data
-
Vital Signs
Temp Pulse Resp BP Pulse Ox
98.7 F 79 13 110/67 99
11/12/23 04:47 11/11/23 19:45 11/11/23 19:45 11/11/23 18:22 11/11/23 19:45
Intake and Output
11/11/23 11/12/23 11/13/23
06:59 06:59 06:59
Intake Total 600 / 600 350 / 350
Output Total 200 / 200 565 / 565
Balance 400 / 400 -215 / -215
Intake:
Oral fluids 150 / 150
IV fluids (Total) 200 / 200
NSS 200 / 200
Blood products 350 / 350
Blood Product Amount Infused ( 250 / 250
mL)
Packed Rbc Leukoreduced Unit 250 / 250
[id number]
Output:
Drain Output (Total)
Left Upper
Urine, Voided 200 / 200 550 / 550
Other:
How many times incontinent 1
How many times incontinent 1
MODERATE amount urine
Lab Results
11/12/23 04:33
11/12/23 04:33
Calcium 8.9 mg/dl (8.4-10.2) 11/12/23 04:33
Magnesium 2.0 mg/dl (1.6-2.3) 11/11/23 20:12
Total Bilirubin 1.4 mg/dl (0.2-1.3) H 11/11/23 20:12
Direct Bilirubin 0.3 mg/dl (0.0-0.4) 11/11/23 04:03
AST 46 U/L (14-36) H 11/11/23 20:12
ALT 17 U/L (0-35) 11/11/23 20:12
Alkaline Phosphatase 140 U/L (38-126) H 11/11/23 20:12
Total Protein 7.1 g/dl (6.3-8.2) 11/11/23 20:12
Albumin 3.6 g/dl (3.5-5.0) 11/11/23 20:12
Physical Exam
-
Awake and alert
Left UE with +2 edema and ecchymosis all compartments soft, tender to palpation over biceps area surgical incision, no evidence of hand pain, hand warm, +2 palpable radial pulse
ABD rotund
BL LE +2 edema
[2023-11-12 10:19] LABS: Body Fluid pH 7.44
[2023-11-12] MEDS: BUMEX 3 MG IV ×2 (10:24→17:51)
[2023-11-12] MEDS: ASPIR LOW (ENTERIC COATED) 81 MG PO (10:25)
[2023-11-12] MEDS: LOPRESSOR 50 MG PO ×2 (10:25→20:22)
[2023-11-12] MEDS: PROTONIX 40 MG PO (10:27)
[2023-11-12] MEDS: CARDIZEM CD 120 MG PO (10:27)
[2023-11-12] MEDS: ARICEPT 5 MG PO (10:28)
[2023-11-12] MEDS: SYNTHROID 50 MCG PO (10:28)
[2023-11-12] MEDS: SYNTHROID 200 MCG PO (10:28)
[2023-11-12 10:34] LABS: Body Fluid LDH 123 U/L; Body Fluid Protein 2.5 g/dl; Body Fluid Triglycerides < 30 mg/dl
--- NOTE | 2023-11-12 10:45 | W.PN.CD ---
Today's Communication / Plan
-
-Continue IV Bumex 3 mg BID.
-Aldactone and K+ supplement now held secondary to hyperkalemia; K+ 5.7 this a.m.--management as per primary team.
Impression / Plan
-
73 y/o female (Patient of Dr. Vasques)- Hong Konger/Cape Verdean speaking per her daughter. She has a history of hypertension, dyslipidemia, obesity, MARY KATE, restrictive lung disease, severe multivessel CAD with PCI 2014, permanent AFIB (previously on Xarelto,
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 She was recently hospitalized at [facility] and discharged about one week ago. She presented
since her O2 sats at home were in the 70's. She was treated for acute heart failure with preserved EF with Bumex. She also had a thoracentesis for pleural effusion. She was also treated with antibiotics during that admit for possible PNA. She was
noted to be anemic (HGB / 7.9). Additionally BLE DVT was noted despite being on Xarelto and she was adjusted to Lovenox. No PE on CT scan there. She had an injection in her left arm and now has a significant hematoma. She is here now with
complaints of left arm pain with hematoma and worsened LE edema. She has been on Bumex 2 mg daily, though took it BID twice this week without help. We are consulted for CHF.
[id number] HFpEF:
-Still with severe BLE edema.
-Continue IV Bumex 3 mg BID.
-CXR with right pleural effusion- has required thoracenteses in the past
-echo 10/27/23 which showed EF 65%, Grade II DD, well seated bio AVR, MG 16 mmHg, moderately elevated PASP (HRH)
-she thinks dry weight is 243 lbs and she is currently ~252.
-Aldactone and K+ supplement now held secondary to hyperkalemia; K+ 5.7 this a.m.--management as per primary team.
LUE hematoma:
-Lovenox held.
-Evacuated by vascular surgery yesterday.
Anemia:
-Continue to monitor hemoglobin.
Recent BLE DVT:
-Lovenox held for hematoma
-recommend IVC filter
Permanent AFIB:
-rate-controlled on diltiazem and metoprolol
-Xarelto issues as noted, Lovenox held
Abnormal troponin:
-appears to be chronic non-ischemic myocardial injury in this patient with CHF, anemia
-denies CP
-also elevated on recent admit to [facility] as noted and in previous admit here
s/p TAVR:
-stable by recent echo
CAD with hx stenting:
-stable without CP
-cath earlier this year stable
Right common fem artery stent:
-remains on ASA
Daughter is present at bedside and helps translate.
Physical Exam
Vital Signs/Labs
Vital Signs
Temp Pulse Resp BP Pulse Ox
97.8 F 79 20 103/55 97
11/12/23 09:06 11/12/23 10:25 11/12/23 09:47 11/12/23 10:27 11/12/23 09:06
11/11/23 11/12/23 11/13/23
06:59 06:59 06:59
Actual Weight 114.362 kg 114.7 kg
11/12/23 04:33
PT 14.5 Sec (11.4-14.6) 11/11/23 21:38
INR 1.12 11/11/23 21:38
APTT 32.6 Sec (23.4-35.0) 11/12/23 05:57
Magnesium 2.0 mg/dl (1.6-2.3) 11/11/23 20:12
Triglycerides 140 mg/dl (10-149) 11/11/23 04:03
LDL Cholesterol, Calc 62 mg/dl 11/11/23 04:03
VLDL Cholesterol, Calc 28 mg/dl (0-30) 11/11/23 04:03
HDL Cholesterol 39 mg/dl 11/11/23 04:03
Free T4 1.70 ng/dl (0.78-2.19) 11/11/23 04:03
11/10/23
13:14
Hzr-W-Ocpafnwbrxv Pept 1420
LAB Results
11/10/23 11/10/23 11/11/23
13:14 19:30 01:00
Troponin I 0.128 H* 0.126 H* Cancelled
11/11/23 11/11/23
04:00 20:12
Troponin I 0.128 H* 0.130 H*
Physical Exam
Constitutional: No acute distress and Comfortable
EENT: Anicteric
Cardiovascular: Rhythm/rate is irregular, Pedal edema present (2-3+), Systolic murmur present (Soft 2/6) and S1S2 is normal
Respiratory: Respiratory effort normal and Other (Decreased bibasilar breath sounds)
GI: Soft
Neuro/Psych: AO x 3
Data Reviewed
-
Date of Service: November 12, 2023
EKG: Tracing Personally Visualized and interpreted (Telemetry: A-fib)
Labs: Labs Reviewed by me
[2023-11-12 11:05] LABS: Body Fluid Hematocrit < 1 %
--- NOTE | 2023-11-12 11:11 | PTCARENOTE ---
Patient AAOx3, daughter at bedside, translating at patients request. Patient reports some loss in sensation to LUE today. Pulses weak but palpable +1, able to move extremity, +2 edema throughout LUE, bloody drainage wheeping through wali wrap,
Vascular surgery and primary team notified. Tolerating 3L NC. VSS, afib on monitor. Went for thora today, dressing CDI. Poor appetite, encouraging intake. Will closely monitor.
--- NOTE | 2023-11-12 12:54 | CM ---
Ukranian & Senegalese speaking patient with Hx dementia with Dx HF, Acute on chronic respiratory failure, LUE hematoma. O2 3L. Receiving IV Bumex. BARTOLO drain LUE & wali wrap. PT/OT recommend HH.
Met with patient and her daughter Estela, who is staying with patient here overnight;
the patient resides with her , daughter, son in law and 2 grand-children in a one story house, with no LUZ MARIA.
Bedroom/bath for patient/spouse is in basement level.
The patient requires assistance with her ADLs; she does sponge baths at bedside and has been using a commode the past few weeks.
Daughter is caregiver.
She is able to ambulate short distances with her RW.
DME - home O2 concentrator/portables, CPAP, RW, w/c.
Prior [facility] (daughter wants again)
PCP - Harmeet Barrios
Pharmacy - [facility]
Referral to [facility]
Plan home with [facility], possibly with BARTOLO Drain.
--- NOTE | 2023-11-12 13:13 | PTOTSP ---
Pt went to OR yesterday 11/10 for evacuation of hematoma LUE under general anesthesia and was moved to IMU. Will need new orders for PT and OT when stable to resume activity.
[2023-11-12 13:16] LABS: Hematocrit 22.2 % (37.0-47.0); Hemoglobin 6.7 g/dL (12.0-16.0); Mean Corp Hgb Conc. 30.2 g/dL (33.0-37.0); Mean Corpuscular Hgb 26.8 pg (27.0-31.0); Mean Corpuscular Volume 88.8 fL (81.0-99.0); Mean Platelet Volume 9.8 fL (7.4-10.4); Platelet Count 222 10^3/uL (130-400); Red Cell Dist. Width 18.1 % (11.5-14.5); White Blood Cell Count 9.5 10^3/uL (4.8-10.8)
[2023-11-12 14:00] LABS: Hepatitis B Surface Antigen Negative (Negative)
[2023-11-12 14:05] LABS: Hepatitis A IgM Antibody Negative (Negative); Hepatitis B Core Ab, IgM Negative (Negative)
[2023-11-12 14:17] LABS: Hepatitis B Core Ab, Total Negative (Negative); Hepatitis B Surface Antibody Negative
[2023-11-12] MEDS: LOKELMA 10 GRAM PO ×2 (14:28→19:40)
--- NOTE | 2023-11-12 15:22 | PN.CDI ---
CDI
- -
CDI:
Physician Documentation Request
Admit Date: 11/10/23 16:57
Dear Doctor Rojelio,
Patient admitted with acute on chronic diastolic CHF.
11/09 Na 131
Based on the above, could you clarify in the progress notes, the appropriate diagnosis, if significant, that supports the above abnormalities and additional evaluation, monitoring and/or treatment rendered:
Hyponatremia
Insignificant abnormal lab finding
Other
Use of terms such as suspected, likely, concern for, or probable (associated with a specific diagnosis that is being evaluated, monitored, or treated as if it exists) are acceptable and can be coded in the inpatient setting, when documented at the
time of discharge.
Thank you,
Morena HERNANDEZ,RN,CCDS
CDI Specialist
Available via tiger text
Please use your independent medical judgment in providing your response.
[2023-11-12 16:11] LABS: Hepatitis A Antibody, Total Positive (Negative)
--- NOTE | 2023-11-12 16:47 | W.PN.UPDATE ---
Update Note
Progress Note Update
Procedure: IVC venogram and filter placement
- indication: DVT with recent surgery/anemia
- IVC: patent. no anatomic variants
- ALN retrievable filter placed below inflow of renal veins
- rec removal once patient is able to tolerate anticoagulation
[2023-11-12] MEDS: LIPITOR 40 MG PO (17:51)
[2023-11-12 18:55] LABS: Glucose - Point of Care 198 mg/dl (70-99)
--- NOTE | 2023-11-12 20:00 | PTCARENOTE ---
Received pt from previous shift. Assessment performed, see flowsheets. There is a large amount of sanguinous drainage from the LUE. Day shift RN javier texted vascular surgery, who advised to changed the SILVA wrap and gauze and to make sure that it
stays elevated. Picture of surgical site with steady stream of blood sent via catrachoer text to vascular surgeon, who confirmed that it looked okay. 2nd unit of PRBCs to be started soon. Pt appears comfortable on 3L NC. AFib on heart monitor. Purewick
in place. Daughter at bedside. Will continue to monitor.
[2023-11-12] MEDS: NOVOLOG FLEXPEN-LOW RESISTANCE 1 UNITS SC (20:21)
[2023-11-12] MEDS: CARDIZEM CD PO (20:22)
[2023-11-12 22:11] LABS: Glucose - Point of Care 122 mg/dl (70-99)
[2023-11-13] VITALS (16 sets, daily range): BP systolic 93–125; BP diastolic 44–67; PULSE 2–81; BMI 46.6
--- NOTE | 2023-11-13 02:00 | PTCARENOTE ---
Pt's gown changed and LUE wrap and dressing changed due to blood saturating through dressing (which was done at 20:00).
[2023-11-13 03:05] LABS: Hematocrit 26.4 % (37.0-47.0); Hemoglobin 8.4 g/dL (12.0-16.0); Mean Corp Hgb Conc. 31.8 g/dL (33.0-37.0); Mean Corpuscular Hgb 27.5 pg (27.0-31.0); Mean Corpuscular Volume 86.3 fL (81.0-99.0); Mean Platelet Volume 9.6 fL (7.4-10.4); Platelet Count 210 10^3/uL (130-400); Red Blood Cell Count 3.06 10^6/uL (4.20-5.40)
[2023-11-13 03:12] LABS: Blood Urea Nitrogen 56 mg/dl (7-17); Calcium 8.7 mg/dl (8.4-10.2); Carbon Dioxide 30 mmol/L (22-30); Chloride 93 mmol/L (98-107); Estimated Creatinine Clearance 32 ml/min; Glucose 110 mg/dl (70-99); Potassium 4.6 mmol/L (3.5-5.1); Sodium 133 mmol/L (135-145); eGFR 27.71
--- NOTE | 2023-11-13 05:46 | W.PN.HOSP.TC ---
Addendum entered and electronically signed by Pierre Serrato MD 11/14/23 12:29:
Seen and examined sitting on the edge of her bed.
Arm movement improvement
NAD, resting comfortably in bed
Scleral anicteric
Moist mucous membranes
No JVD
CTA bilateral
Normal S1-S2 no murmurs
Soft nontender nondistended bowel sounds active
1+ pitting edema
Moves extremities spontaneously
-Left arm wrapped, able to wiggle fingers
AAOx3
Acute on chronic HFpEF with EF 55 to 60%
�Cardiology following
�IV diuretic
�Monitor urinary output
�K greater than 4
�Magnesium greater than 2
�Monitor on telemetry
ELGIN potentially CALVIN, was hypotensive therefore cannot exclude atn nor cardiorenal syndrome
-Will continue IV diuretics per neph
-Follow up UOP
-Avoid nephrotoxins
-Check urine studies
-Renal to follow
Left upper extremity hematoma after direct administration of Lovenox
�Vascular surgery following
�Plan for OR later today for hematoma evacuation
�Monitor CBC
�Consult hematology as she potentially needs IVC filter after failing Xarelto and now developing hematoma from improper use of Lovenox
- -At this time hematology rec to start hep gtt, but as CBC returned hgb is <7, therefore, at this time will consult IR for IVC Filter
Acute blood loss anemia secondary to hematoma
-Transfuse for hgb >7
VTE history, currently on Lovenox, felt at previous hospital failed Xarelto as she was on this for atrial fibrillation
�Hematology consulted
�Potentially may need IVC filter versus resuming anticoagulation
Acute on Chronic hypoxemic respiratory failure.
-hypoxic while under anaesthesia for left upper extremity hematoma evacuation. Therefore required mechanical ventilation. Extubated to BiPAP.
-suspect volume overload from fluids an dblood and also likey anaesthesia
�Home 4 L
Bioprosthetic AV valve s/p TAVR
�Outpatient cardiology clinic follow-up
Original Note:
Documented by User: Naomi Ni DO, Resident 11/14/23 12:11
Today's Communication/Plan
-
Assessment / Plan
Assessment / Plan
Ms. Anita Guevara is a 73yo F pmh HFpEF (EF 65-70%, NYHA class 4) CAD on 2l O2 at home, s/p TAVR (04/22/23), DVT on enoxaparin, afib, htn, hld was admitted 11/09 for worsening swelling to her LE, increased O2 requirements, and LUE swelling.
Acute on chronic exacerbation of HFpEF w acute on chronic respiratory failure, HTN, Chronic Troponin elevation
- CXR: cardiomegaly, pulmonary vascular congestion, right mid & lower lobe opacification c/w pleural effusion
- IV Bumex 3mg BID
- spironolactone
- fluid restriction
- I&O's
- daily weight
- 2L O2 at baseline, on 4L now. Goal SpO2 >92%. wean as tolerated.
- ECHO: s/p TAVR, well seated bioprosthetic valve. Pulm a. systolic 40 mmHg. LVEF 65-70%
- cardiology following
- thoracentesis: Successful ultrasound-guided thoracentesis, yielding 1100 cc of serosanguineous pleural fluid
- 2 PRBCs ordered for Hb 6.3 s/p thoracentesis
- pleural fluid: pH 7.44, hct<1, protein 2.5, albumin 1.0, LDH 123, triglycerides <30
- serum LDH 338, protein 7.1, albumin 3.6
- unlikely chylothorax bc TG undetectable
- Light's criteria are not met. Likely a transudative effusion, secondary to CHF exacerbation
- weight up, hypotensive (MAP 62), clinical signs of fluid overload
- hold diltiazem, continue bumex
LUE pain, anemia
- concern for compartment syndrome vs heparin induced necrosis vs HIT
- vascular surgery consulted. ruled out compartment syndrome. evacuated the hematoma/seroma w surgery
- Hb 7.4 on 11/09, now 8.8
- PT 14.5, INR 1.12, PTT 32.6
- Reevaluated by vascular surgery - continue neuro checks, recommended IVC. Recommends elevating L arm for fluid retention and eval by OT.
- CT: There is 9.5 x 3 x 4 cm old hematoma/seroma in the left biceps musculature with no internal contrast extravasation to suggest active hemorrhage. There is edema in the left upper arm at the elbow and forearm
- Dr. Thurman evacuated hematoma today. Anesthesia plan was LMA w propofol TIVA. Had to convert to ET tube due to desaturation and hypercapnia. Transfused 1 unit RBCs. Pt extubated, on bipap in PACU due to spo2 in 80s. Hb Pre-op 7.4, post-op 7.6. No
active bleeding per post-procedure report.
- reexamined pt: spo2 95%+. Pt awake and alert. Bibasilar crackles.
- pt's oxygenation improvement could be due to anesthesia effects wearing off.
- ECG in PACU: afib w nonspecific t wave abnormality
- CXR in PACU: Large dense airspace consolidation of the right lower and middle lobes with associated moderate left to right mediastinal shift suggesting severe atelectasis. Small right pleural effusion. Severe diffuse ground-glass opacity in the
lungs and increased reticulonodular interstitial markings throughout both lungs. Diagnostic possibilities are (1) acute interstitial and alveolar cardiogenic pulmonary edema, (2) an acute infectious or inflammatory pneumonitis, or (3) lymphangitic
carcinomatosis.
- hep panel -
- [id number]-[id number] panel, cariolipin panel, lupus panel, phosphatidylserine panel pending
- transfuse hemoglobin less than 7.0 g/dL
- follow cbc
- PT/OT consulted
ELGIN
- Cr 1.1 on 11/11, now 1.9
- BUN/Cr 29, prerenal cause.
- bladder us pending
- urinalysis - likely contaminated. Many squamous cells,leukocyte esterase
- urine microscopy - RBC, moderate bacteria, many yeast, squamous cells, Hyaline casts
- Urine Osm 350, Cr 157.6, Na<5, neg glucose, 21 total protein, trace albumin.
- Serum Osm pending
- ELGIN Likely due to low intravascular volume status secondary to diuresis bc of BUN/Cr >20, presence of hyaline casts in urine
- nephro consulted: continue diuretics, titrate back or hold diltiazem
- holding diltiazem, continuing bumex, low rate IVF to help washout IV contrast from IVC filter placement yesterday
- CMP to reassess kidney function
- postvoid bladder scan to evaluate for obstruction
b/l le dvt
- eval for ivc filter
- IR consulted for IVC filter placement. Successfully placed yesterday. IVC is patent. Recommends removing when pt able to tolerate anticoagulation. Pt tolerated procedure well.
hyperkalemia, Chronic hyponatremia
- Na 131 on 11/09, now 133.
- K 4.6 on 11/09, 5.7 peak, now 4.6. resolved
- hold KCl, aldactone
- 3 doses lokelma
- low K diet
- follow cmp
MARY KATE, asthma
- continue cpap
- no acute asthma exacerbation
Afib
- continue cardizem
- tele monitoring
Type 2 DM, obesity
- SSI, accuchecks
- hold trulicity
- diabetic diet
HLD
- continue statin
GERD
- continue PPI
Hypothyroidism
- continue levothyroxine
- TSH 14.9
- Free T4 1.7
Dementia
- continue donepezil
- delirium precautions
Insomnia
- cont trazodone
DVT prophylaxis
- SCDs contraindicated due to recent clots
- developed bl dvt on xarelto
- lovenox contraindicated due to heparin reaction
- IVC filter placed 11/11
Code status: FULL CODE
Diet: diabetic, low K
Anticipated Discharge: 24 - 48 hours
Subjective/Interval History
-
Date of Service: November 13, 2023
Ms. Anita Guevara is a 73yo F pmh HFpEF (EF 65-70%, NYHA class 4) CAD on 2l O2 at home, s/p TAVR (04/22/23), DVT on enoxaparin, afib, htn, hld was admitted 11/09 for worsening swelling to her LE, increased O2 requirements, and LUE swelling.
Thoracentesis, IVC filter placed yesterday. Did not void from yesterday afternoon to the night. 23:30 bladder scan 154 mL. This morning, 200mL dark urine in purewick. Pt's daughter states she has no feeling in her L arm and cannot move it.
Objective Data
-
Labs:
Laboratory Results
11/12/23 11/13/23 11/13/23
16:39 02:46 06:00
WBC Cancelled 10.0
Hgb Cancelled 8.4 L D
Hct Cancelled 26.4 L
Plt Count Cancelled 210
Sodium 133 L Pending
Potassium 4.6 Pending
Chloride 93 L Pending
Carbon Dioxide 30 Pending
BUN 56 H Pending
Creatinine 1.9 H Pending
Glucose 110 H Pending
Calcium 8.7 Pending
Total Bilirubin Pending
AST Pending
ALT Pending
Alkaline Phosphatase Pending
Vital Signs:
Vital Signs
Temp Pulse Resp BP Pulse Ox
97.9 F 68 14 109/47 100
11/13/23 04:21 11/13/23 04:30 11/13/23 04:30 11/13/23 04:00 11/13/23 04:30
I&O
11/11/23 11/12/23 11/13/23
06:59 06:59 06:59
Intake Total 600 / 600 350 / 350 500 / 500
Output Total 200 / 200 565 / 565
Balance 400 / 400 -215 / -215 490 / 490
Review of Systems
-
History Source: Patient and Family
Constitutional: Denies Fever or Chills
Respiratory: Denies Cough, Trouble Breathing or Wheezing
Cardiac: Denies Chest Pain or Palpitations
Abdomen/GI: Denies Abdominal Pain, Nausea, Vomiting, Diarrhea or Constipated
Genitourinary: Reports Dark Urine
Neuro: Reports Weakness; Denies Dizzy, Headache, Numbness or Lightheadedness
Physical Exam
-
General: Well Developed and Well Nourished
HEENT: Normocephalic and Atraumatic
Respiratory: Clear to Auscultation; Negative Wheezes, Rales, Rhonchi or Crackles
Cardiac: S1/S2 and Irregular Rhythm; Negative Murmur, Rub or Gallop
GI: Soft, Nontender, Nondistended and Normal Bowel Sounds
Musculoskeletal: Edema, Right Lower Extrem (+2) and Edema, Left Lower Extrem (+2)
Skin: Warm, Dry and Other (bruising on R arm from blood draws)
Neuro: Awake, No Sensory Deficits, DTR's Intact & Symmetrica (b/l brachioradialis reflex +1) and Other (CN XII intact, cannot move arm.)
Psych: Calm

Documented by User: Pierre Serrato MD 11/14/23 12:27
Today's Communication/Plan
-
.
[2023-11-13] MEDS: SYNTHROID 200 MCG PO (07:12)
[2023-11-13] MEDS: SYNTHROID 50 MCG PO (07:12)
[2023-11-13 07:52] LABS: Glucose - Point of Care 99 mg/dl (70-99)
--- NOTE | 2023-11-13 08:25 | W.PN.VS ---
Today's Communication / Plan
-
Discussed with Dr. Fan
Assessment/Plan
-
Assessment: 73 year old female POD# 2 urgent evacuation left upper extremity hematoma
Plan:
Continue BARTOLO drain
Trend H&H
PT/OT
Subjective Data
-
Date of Service: November 13, 2023
Patient seen at bedside this a.m. resting comfortably in bed. Per RN dressing was changed at 2 AM for saturation. Dressing with moderate amount of drainage at this time. No other events overnight
Objective Data
-
Vital Signs
Temp Pulse Resp BP Pulse Ox
97.9 F 69 17 109/56 100
11/13/23 04:21 11/13/23 06:00 11/13/23 06:00 11/13/23 06:00 11/13/23 06:00
Intake and Output
11/12/23 11/13/23 11/14/23
06:59 06:59 06:59
Intake Total 350 / 350 500 / 500 50 / 50
Output Total 565 / 565
Balance -215 / -215 490 / 490 45 / 45
Intake:
Oral fluids 150 / 150 50 / 50
IV fluids (Total) 200 / 200
NSS 200 / 200
Blood Product Amount Infused ( 500 / 500
mL)
Packed Rbc Leukoreduced Unit 250 / 250
[id number]
Packed Rbc Leukoreduced Unit 250 / 250
[id number]
Output:
Drain Output (Total)
Left Upper
Urine, Voided 550 / 550
Other:
How many times incontinent 1
Calcium 8.7 mg/dl (8.4-10.2) 11/13/23 02:46
Magnesium 2.0 mg/dl (1.6-2.3) 11/11/23 20:12
Total Bilirubin 1.4 mg/dl (0.2-1.3) H 11/11/23 20:12
Direct Bilirubin 0.3 mg/dl (0.0-0.4) 11/11/23 04:03
AST 46 U/L (14-36) H 11/11/23 20:12
ALT 17 U/L (0-35) 11/11/23 20:12
Alkaline Phosphatase 140 U/L (38-126) H 11/11/23 20:12
Total Protein 7.1 g/dl (6.3-8.2) 11/11/23 20:12
Albumin 3.6 g/dl (3.5-5.0) 11/11/23 20:12
Physical Exam
-
Awake and alert
Left UE moderate ecchymosis all compartments soft, edema much improved to palpation over biceps area surgical incision, staple line intact scant ooze, hand warm, +2 palpable radial pulse
Dressing changed, moderate amount of sanguinous drainage to dressing
Redressed, patient tolerated well
ABD rotund
BL LE +2 edema
[2023-11-13] MEDS: PROTONIX 40 MG PO (08:44)
[2023-11-13] MEDS: CARDIZEM CD PO (08:44)
[2023-11-13] MEDS: ARICEPT 5 MG PO (08:44)
[2023-11-13] MEDS: ASPIR LOW (ENTERIC COATED) 81 MG PO (08:44)
[2023-11-13] MEDS: NOVOLOG FLEXPEN-LOW RESISTANCE SC ×3 (08:44→15:44)
[2023-11-13] MEDS: LOPRESSOR 50 MG PO ×2 (08:45→19:47)
[2023-11-13] MEDS: BUMEX 3 MG IV ×2 (08:45→15:52)
[2023-11-13 10:05] LABS: Hematocrit 27.9 % (37.0-47.0); Hemoglobin 8.8 g/dL (12.0-16.0)
--- NOTE | 2023-11-13 10:39 | W.CON.NEPH ---
Consultation
-
Date/Time Consultation Requested: 11/13/2023 10:15 AM
Date/Time Consultation Performed: 11/13/2023 9:40 AM
Requesting Provider: Dr. Serrato
Performing Provider: Dr. Dangelo
Reason for Consultation: Acute kidney injury/hyponatremia
Medical History
-
Chief Complaint: Acute kidney injury/hyponatremia
History of Present Illness:
73-year-old female with history of CAD on 2 L O2, DVT on Lovenox, hypertension(on diltiazem and metoprolol) atrial fibrillation (diltiazem and metoprolol), hyperlipidemia presenting to the emergency department for worsening swelling to the lower
extremities, increased oxygen requirements and swelling to the left upper extremity. Patient is [place]-speaking, arrives with daughter who notes that she had a recent hospital admission at [facility] with CHF exacerbation. she was discharged
on the . before the admission to [facility] she was on Lasix, Bumex and metolazone. upon discharge her Lasix was discontinued. she was sent home on metolazone and Bumex. patient stated orthopnea and was sleeping on the chair. daughter stated
decreased urine output.daughter stated, patient was discharged on 2 of oxygen and now requiring 4l of oxygen. denied chest pain, runny nose, congestion, fever. denied NOLASCO, dizzy or syncopal episode. denied abdominal pain,n,v,d. denied dysuria or
hematuria.
She was also discovered to have DVT to the lower extremities despite being on Xarelto, was switched to Lovenox. She has been getting Lovenox injections and got an injection in her left upper extremity. The left upper extremity has since been
getting increasingly bruised and swollen with increased pain. Patient denies numbness to the arm. However, has had difficulty with range of motion secondary to pain.
Her creatinine has now risen from 1.1-1.9 and nephrology was consult
Past Medical History
Coronary artery disease
Congestive heart failure
A-fib
Hypertension
Hyperlipidemia
Hypothyroidism
Past Surgical History: Reports Other
Additional Past Surgical History:
Coronary artery bypass graft
Social History
Tobacco: Former Smoker
Alcohol: None
Family History
no CKD
Allergies / Home Medications
Allergy/AdvReac Type Severity Reaction Status Date / Time
Penicillins Allergy Diarrhea Verified 04/15/23 15:29
�Medication �Instructions �Recorded �Confirmed �Type
atorvastatin 40 mg tablet 40 mg PO QPM High Cholesterol 04/12/23 11/10/23 History
diltiazem HCl 120 mg 120 mg PO BID Arrhythmia 04/12/23 11/10/23 History
capsule,extended release 24 hr
donepezil 5 mg tablet 5 mg PO DAILY Neurological 04/12/23 11/10/23 History
Condition
ergocalciferol (vitamin D2) 1,250 1,250 mcg PO DAY Supplement 04/12/23 11/10/23 History
mcg (50,000 unit) capsule
levothyroxine 200 mcg tablet 200 mcg PO DAILY Thyroid 04/12/23 11/10/23 History
omeprazole 20 mg tablet,delayed 20 mg PO DAILY Gastrointestinal 04/12/23 11/10/23 History
release Issue
potassium chloride 20 mEq 20 meq PO BID Electrolyte Repletion 04/12/23 11/10/23 History
tablet,extended release
spironolactone 25 mg tablet 25 mg PO DAILY Fluid 04/12/23 11/10/23 History
Retention/Swelling
trazodone 50 mg tablet 50 mg PO HS Sleep 04/12/23 11/10/23 History
dulaglutide 0.75 mg/0.5 mL 0.75 mg SC DAY Diabetes 04/15/23 11/10/23 History
subcutaneous pen injector
(Trulicity)
levothyroxine 50 mcg tablet 50 mcg PO DAILY Thyroid 04/15/23 11/10/23 History
aspirin 81 mg tablet,delayed 81 mg PO DAILY #0 tabs 04/23/23 11/10/23 Rx
release
bumetanide 2 mg tablet 2 mg PO DAILY Fluid 11/10/23 11/10/23 History
Retention/Swelling
enoxaparin 120 mg/0.8 mL 120 mg SC Q12H Blood Clot 11/10/23 11/10/23 History
subcutaneous syringe Prevention/Tx
metoprolol tartrate 50 mg tablet 50 mg PO BID Blood Pressure 11/10/23 11/10/23 History
Review of Systems
-
History Source: Patient
All other systems: Negative unless noted
Respiratory: Trouble Breathing
Musculoskeletal: Edema and Other (Left upper extremity pain with BARTOLO drain and surgical bandage)
Physical Exam
Vital Signs
Vital Signs
Temp Pulse Resp BP Pulse Ox
97.7 F 68 17 97/51 99
11/13/23 07:25 11/13/23 08:45 11/13/23 08:00 11/13/23 08:44 11/13/23 08:59
Lab Results
WBC 10.0 10^3/uL (4.8-10.8) 11/13/23 02:46
RBC 3.06 10^6/uL (4.20-5.40) L 11/13/23 02:46
Plt Count 210 10^3/uL (130-400) 11/13/23 02:46
Sodium Cancelled 11/13/23 06:00
Potassium Cancelled 11/13/23 06:00
Chloride Cancelled 11/13/23 06:00
Carbon Dioxide Cancelled 11/13/23 06:00
BUN Cancelled 11/13/23 06:00
Creatinine Cancelled 11/13/23 06:00
eGFR Cancelled 11/13/23 06:00
Glucose Cancelled 11/13/23 06:00
Calcium Cancelled 11/13/23 06:00
Ssu-M-Dqxknwixjhd Pept 1420 pg/ml 11/10/23 13:14
Albumin Cancelled 11/13/23 06:00
Physical Exam
General: AOx3, Nontoxic , NAD
HEENT: PERRL, EOMI, Anicteric, Conjunctivae Clear, Ear/Nose Intact, Hearing Normal, Oropharynx Clear/Moist, Dentition Intact, Facial Symmetry, Neck Supple, Neck: Trachea Midline, No JVD and No Thyromegaly, no Bruits
Respiratory: Clear to auscultation bilaterally with normal lung excursion, decreased breath sounds at the bases
Cardiac: S1/S2 irregular Rate/Rhythm
Breast: Deferred by me
Abdomen: Soft, Nontender, Nondistended, Normal Bowel Sounds and No Hepatosplenomegaly
Rectal: Deferred by Provider
Genito-urinary: No Costovertebral Tenderness
Extremities: No Clubbing, No Cyanosis and noted pitting edema, left upper extremity in surgical dressing with BARTOLO drain
Skin: No Rash or open lesions
Neuro: Nonfocal/Grossly Intact, CN II-XII (Intact) and Strength (Musculoskeletal exam 5 out of 5 both upper and lower extremities)
Hematologic/Lymphatic: No Cervical Lymphadenopathy, No Submandibular Lymphadenopathy and No Supraclavicular Lymphadenopathy
Psych: Flat affect [place]-speaking only
Vascular: plus 1 pedal and radial pulses
Data Reviewed
-
Radiology: Image Personally Visualized and interpreted (Chest x-ray notes bilateral pulmonary edema)
Labs: Labs Reviewed by me (BMP CBC)
Old Records: Reviewed (Creatinine level 1.1 from 04/23/2023)
Assessment/Plan
-
Impression:
ELGIN
Hyponatremia
Vnklv-le-pwdvxpu HFpEF: (echo 10/27/23 which showed EF 65%, Grade II DD, well seated bio AVR, MG 16 mmHg, moderately elevated PASP (HRH)
Right Pleural effusion
LUE hematoma: Status post evacuation surgery
Anemia:
Recent BLE DVT: (s/p IVC filter placement)
Permanent AFIB:
Abnormal troponin:
s/p TAVR:
CAD with hx stenting:
Right common fem artery stent
Plan:
ELGIN:
-Status post IVC filter placement with 15 cc of Visipaque on 11/12/2023
-ELGIN likely prerenally mediated due to low blood pressure in setting of decompensated congestive heart
-Diuresis per cardiology, I would not stop the diuretics at this time despite renal failure as patient is obviously hypervolemic
-Patient was also profoundly hypotensive therfor ewould titrate back diltiazem, or hold
-Weights up despite diuresis I's and O's not recorded
-Check postvoid bladder scan to evaluate for obstructive component, low threshold for Horta catheter
-Check urinalysis
--- NOTE | 2023-11-13 11:33 | PTCARENOTE ---
Bladder scan done per request of Dr Dangelo: 5ml scanned, however very difficult with patient's body habitus. Dr Dangelo updated via tiger text. He instructed to place braun and he will enter order.
[2023-11-13 11:37] LABS: Glucose - Point of Care 128 mg/dl (70-99)
--- NOTE | 2023-11-13 11:37 | PTCARENOTE ---
Assumed care of patient at beginning of this shift from previous RN. Patient speaks only [place]; daughter remains in room to assist with translation. Per report, patient had no urinary output overnight; last documented output was 11/12/23 at 04:47
for amount of 550. Bladder scan done on previous shift at 23:30 for 154ml. On change of shift rounds, patient voided 300ml christopher urine into purewick. Hospitalist group updated; bumex place on hold d/t Cr 1.9; however morning dose was given.
Loreto updated and stated he spoke with hospitalist and recommended bumex continue. Bumex remains d/c'd; notified Dr Dangelo via tiger text.
[2023-11-13 11:56] LABS: Urine Albumin Trace (Neg - Trace); Urine Bilirubin 1+ (Negative); Urine Character Clear (Clear); Urine Color Yellow; Urine Glucose Negative (Negative); Urine Ketone Negative (Negative); Urine Leukocyte Trace (Negative); Urine Nitrite Negative (Negative); Urine Occult Blood Negative (Negative); Urine Specific Gravity 1.015 (<1.030); Urine Urobilinogen 1+ (Neg - 1+)
[2023-11-13 12:04] LABS: Osmolality Urine 350 mOsm/kg (300-900)
[2023-11-13 12:10] LABS: Urine Squamous Cell >30 /LPF (Few)
[2023-11-13 12:12] LABS: Urine Bacteria Moderate (Negative); Urine Yeast Many (Negative)
[2023-11-13 12:21] LABS: Urine Protein 21 mg/dl (0-12); Urine Sodium < 5 mmol/L (30-90)
--- NOTE | 2023-11-13 12:57 | W.PN.CD ---
Today's Communication / Plan
-
- Continue diuresis with Bumex
Impression / Plan
-
73 y/o female (Patient of Dr. Vasques)- Korean/Kyrgyz speaking per her daughter. She has a history of hypertension, dyslipidemia, obesity, MARY KATE, restrictive lung disease, severe multivessel CAD with PCI 2014, permanent AFIB (previously on Xarelto,
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 She was recently hospitalized at [facility] and discharged about one week ago. She presented
since her O2 sats at home were in the s. She was treated for acute heart failure with preserved EF with Bumex. She also had a thoracentesis for pleural effusion. She was also treated with antibiotics during that admit for possible PNA. She was
noted to be anemic (HGB 11/01 7.9). Additionally BLE DVT was noted despite being on Xarelto and she was adjusted to Lovenox. No PE on CT scan there. She had an injection in her left arm and now has a significant hematoma. She is here now with
complaints of left arm pain with hematoma and worsened LE edema. She has been on Bumex 2 mg daily, though took it BID twice this week without help. We are consulted for CHF.
Czadt-eh-opnhnmf HFpEF:
-Still with severe BLE edema.
-Continue IV Bumex 3 mg BID.
-CXR with right pleural effusion- has required thoracenteses in the past
-echo 10/27/23 which showed EF 65%, Grade II DD, well seated bio AVR, MG 16 mmHg, moderately elevated PASP (HRH)
-she thinks dry weight is 243 lbs and she is currently ~252.
-Aldactone and K+ supplement now held secondary to hyperkalemia; K is normalized now.
LUE hematoma:
-Lovenox held.
-Evacuated by vascular surgery 11/11/23
- BARTOLO drain is inplace
- Repeat Hgb
Anemia:
-Continue to monitor hemoglobin.
Recent BLE DVT:
-Lovenox held for hematoma
-recommend IVC filter
Permanent AFIB:
-rate-controlled on diltiazem and metoprolol
-Xarelto issues as noted, Lovenox held
Abnormal troponin:
-appears to be chronic non-ischemic myocardial injury in this patient with CHF, anemia
-denies CP
-also elevated on recent admit to [facility] as noted and in previous admit here
s/p TAVR:
-stable by recent echo
CAD with hx stenting:
-stable without CP
-cath earlier this year stable
Right common fem artery stent:
-remains on ASA
Daughter is present at bedside and helps translate.
Physical Exam
Vital Signs/Labs
Vital Signs
Temp Pulse Resp BP Pulse Ox
97.7 F 70 20 98/44 98
11/13/23 07:25 11/13/23 10:00 11/13/23 10:00 11/13/23 10:00 11/13/23 10:00
11/12/23 11/13/23 11/14/23
06:59 06:59 06:59
Actual Weight 114.7 kg 115.5 kg
11/13/23 06:00
PT 14.5 Sec (11.4-14.6) 11/11/23 21:38
INR 1.12 11/11/23 21:38
APTT 32.6 Sec (23.4-35.0) 11/12/23 05:57
Magnesium 2.0 mg/dl (1.6-2.3) 11/11/23 20:12
Triglycerides 140 mg/dl (10-149) 11/11/23 04:03
LDL Cholesterol, Calc 62 mg/dl 11/11/23 04:03
VLDL Cholesterol, Calc 28 mg/dl (0-30) 11/11/23 04:03
HDL Cholesterol 39 mg/dl 11/11/23 04:03
Free T4 1.70 ng/dl (0.78-2.19) 11/11/23 04:03
11/10/23
13:14
Ylt-H-Vigmqdscdjm Pept 1420
LAB Results
11/10/23 11/10/23 11/11/23
13:14 19:30 01:00
Troponin I 0.128 H* 0.126 H* Cancelled
11/11/23 11/11/23
04:00 20:12
Troponin I 0.128 H* 0.130 H*
Physical Exam
Constitutional: No acute distress and Comfortable
EENT: Anicteric and Moist mucous membranes
Cardiovascular: Rhythm/rate is irregular, Pedal edema present, JVD present and Systolic murmur present
Respiratory: Respiratory effort normal and Crackles Present
GI: Soft, Non tender and Normal bowel sounds
Neuro/Psych: Alert
Data Reviewed
-
Date of Service: November 13, 2023
Medical Decision Making: Reviewed Test Results, Independent Historian Assessment and Test Interpretation
EKG: Tracing Personally Visualized and interpreted
Echo: Report Reviewed by me
Medical Tests (PFT, Pathology etc): Discussed with Family
Labs: Labs Reviewed by me
Old Records: Reviewed
[2023-11-13] MEDS: NSS 1000 IV (14:07)
--- NOTE | 2023-11-13 14:24 | W.PN.UPDATE ---
Update Note
Progress Note Update
Discontinued IV fluids as patient is hypervolemic
IV fluids at this point will not help contrast nephropathy
She is clinically volume overloaded
The main question is why is she hypotensive? I think she requires a an echocardiogram
She may have evolving cardiorenal syndrome
--- NOTE | 2023-11-13 14:45 | PTCARENOTE ---
Horta placed as per Dr Dangelo; only minimal urine returned, clear yellow in tubing. IVF ordered by resident with hospitalist service; confirmed with her that IVF are to be given. Dr Dangelo up to unit; instructed to hold IVF. IVF placed on hold
almost immediately after started.
[2023-11-13 15:29] LABS: Osmolality Serum 290 mOsm/kg (275-300)
[2023-11-13 15:34] LABS: Hematocrit 26.4 % (37.0-47.0); Hemoglobin 8.4 g/dL (12.0-16.0)
[2023-11-13 15:55] LABS: Glucose - Point of Care 136 mg/dl (70-99)
--- NOTE | 2023-11-13 16:47 | W.PN.UPDATE ---
Update Note
Progress Note Update
Seen and examined sitting on the edge of her bed. Appears comfortable does admit to having left upper extremity pain over hematoma site. Tells me that she is planned for the OR later today's. Spoke with son over the phone provided update. He is
aware.
NAD, resting comfortably in bed
Scleral anicteric
Moist mucous membranes
No JVD
CTA bilateral
Normal S1-S2 no murmurs
Soft nontender nondistended bowel sounds active
1+ pitting edema
Moves extremities spontaneously
-Left arm wrapped
AAOx3
Acute on chronic HFpEF with EF 55 to 60%
�Cardiology following
�IV diuretic
�Monitor urinary output
�K greater than 4
�Magnesium greater than 2
�Monitor on telemetry
ELGIN potentially CALVIN, was hypotensive therefore cannot exclude atn nor cardiorenal syndrome
-Will continue IV diuretics per neph
-Follow up UOP
-Avoid nephrotoxins
-Check urine studies
-Renal to follow
Left upper extremity hematoma after direct administration of Lovenox
�Vascular surgery following
�Plan for OR later today for hematoma evacuation
�Monitor CBC
�Consult hematology as she potentially needs IVC filter after failing Xarelto and now developing hematoma from improper use of Lovenox
- -At this time hematology rec to start hep gtt, but as CBC returned hgb is <7, therefore, at this time will consult IR for IVC Filter
Acute blood loss anemia secondary to hematoma
-Transfuse for hgb >7
VTE history, currently on Lovenox, felt at previous hospital failed Xarelto as she was on this for atrial fibrillation
�Hematology consulted
�Potentially may need IVC filter versus resuming anticoagulation
Acute on Chronic hypoxemic respiratory failure.
-hypoxic while under anaesthesia for left upper extremity hematoma evacuation. Therefore required mechanical ventilation. Extubated to BiPAP.
-suspect volume overload from fluids an dblood and also likey anaesthesia
�Home 4 L
Bioprosthetic AV valve s/p TAVR
�Outpatient cardiology clinic follow-up
[2023-11-13] MEDS: LIPITOR 40 MG PO (16:52)
--- NOTE | 2023-11-13 16:57 | PTCARENOTE ---
Patient changing positions in bed per translation from family. Denies pain.
[2023-11-13 20:18] LABS: Haptoglobin 103 mg/dL (30-200)
[2023-11-13 21:37] LABS: Glucose - Point of Care 172 mg/dl (70-99)
--- NOTE | 2023-11-13 23:48 | PTCARENOTE ---
Assumed care of pt from previous RN. Pt resting comfortably in bed. Refuses HS trazadone, as she 'doesn't take this medication all the time' per daughter at bedside. Pt able to ambulate OOB to BSC with assistx1, but remains unable to have BM. Pt
reports urge to go, but unable. Horta catheter remains in place. Bed alarm in place for pt safety, although daughter at bedside. Call reddy within reach.
[2023-11-14] VITALS (11 sets, daily range): BP systolic 96–142; BP diastolic 52–90; BMI 46.7
[2023-11-14 03:30] LABS: Beta-2-Glycoprotein I Ab. IgA 10 SAU (<=20); Beta-2-Glycoprotein I Ab. IgG <10 SGU (<=20); Beta-2-Glycoprotein I Ab. IgM <10 SMU (<=20)
[2023-11-14 04:55] LABS: Hematocrit 26.4 % (37.0-47.0); Hemoglobin 8.5 g/dL (12.0-16.0); Mean Corp Hgb Conc. 32.2 g/dL (33.0-37.0); Mean Corpuscular Hgb 28.8 pg (27.0-31.0); Mean Corpuscular Volume 89.5 fL (81.0-99.0); Mean Platelet Volume 9.6 fL (7.4-10.4); Platelet Count 185 10^3/uL (130-400); Red Blood Cell Count 2.95 10^6/uL (4.20-5.40); Red Cell Dist. Width 17.5 % (11.5-14.5); White Blood Cell Count 7.9 10^3/uL (4.8-10.8)
[2023-11-14 05:20] LABS: ALT (SGPT) 12 U/L (0-35); AST (SGOT) 40 U/L (14-36); Albumin 3.1 g/dl (3.5-5.0); Alkaline Phosphatase 140 U/L (38-126); Blood Urea Nitrogen 69 mg/dl (7-17); Calcium 8.6 mg/dl (8.4-10.2); Carbon Dioxide 30 mmol/L (22-30); Chloride 94 mmol/L (98-107); Estimated Creatinine Clearance 27 ml/min; Glucose 115 mg/dl (70-99); Magnesium 2.4 mg/dl (1.6-2.3); Potassium 4.5 mmol/L (3.5-5.1); Sodium 134 mmol/L (135-145); Total Bilirubin 1.1 mg/dl (0.2-1.3); Total Protein 6.2 g/dl (6.3-8.2); eGFR 22.03
[2023-11-14] MEDS: SYNTHROID 50 MCG PO (06:14)
[2023-11-14] MEDS: SYNTHROID 200 MCG PO (06:14)
[2023-11-14 07:17] LABS: Cardiolipin IgA Antibody <10 APL (<=11); Cardiolipin IgM Antibody <10 MPL (<=12); Cardiolipin Igg Antibody 19 GPL (<=14)
--- NOTE | 2023-11-14 08:14 | W.PN.NEPH.PH ---
Today's Communication / Plan
-
Maintain full
Follow BMP
Maintain diuretics
Keep MAP greater than 65
Assessment/Plan
-
Impression:
ELGIN
Hyponatremia
Wdayh-sd-vlerqgd HFpEF: (echo 10/27/23 which showed EF 65%, Grade II DD, well seated bio AVR, MG 16 mmHg, moderately elevated PASP (HRH)
Right Pleural effusion
LUE hematoma: Status post evacuation surgery
Anemia:
Recent BLE DVT: (s/p IVC filter placement)
Permanent AFIB:
Abnormal troponin:
s/p TAVR:
CAD with hx stenting:
Right common fem artery stent
Plan:
ELGIN:
-creatinine up to 2.3 from 1.9but appear non oliguric via braun
-Status post IVC filter placement with 15 cc of Visipaque on 11/12/2023
-ELGIN likely prerenally mediated due to low blood pressure in setting of decompensated congestive heart and contrast administration
-Diuresis per cardiology, I would not stop the diuretics at this time despite renal failure as patient is obviously hypervolemic
-Patient was also profoundly hypotensive holding diltaizem with hold parameters
-Weights up
-Checked urine studies: Fractional excretion of sodium consistent with prerenal stimulus, trace proteinuria and no hematuria
-
-
Date of Service: November 14, 2023
CC / HPI / ROS
-
Chief Complaint:
ELGIN
History of Present Illness:
Creatinine increased to 2.3
Hemodynamically labile
Review of Systems:
non oliguric
weights stable
LUE surgical wrapped
Labs
-
Labs:
WBC 7.9 10^3/uL (4.8-10.8) 11/14/23 04:45
RBC 2.95 10^6/uL (4.20-5.40) L 11/14/23 04:45
Hgb 8.5 g/dL (12.0-16.0) L 11/14/23 04:45
Hct 26.4 % (37.0-47.0) L 11/14/23 04:45
Plt Count 185 10^3/uL (130-400) 11/14/23 04:45
Sodium 134 mmol/L (135-145) L 11/14/23 04:45
Potassium 4.5 mmol/L (3.5-5.1) 11/14/23 04:45
Chloride 94 mmol/L (98-107) L 11/14/23 04:45
Carbon Dioxide 30 mmol/L (22-30) 11/14/23 04:45
BUN 69 mg/dl (7-17) H 11/14/23 04:45
Creatinine 2.3 mg/dL (0.6-1.0) H 11/14/23 04:45
eGFR 22.03 11/14/23 04:45
Glucose 115 mg/dl (70-99) H 11/14/23 04:45
Calcium 8.6 mg/dl (8.4-10.2) 11/14/23 04:45
Jpx-V-Vmtlvrkpkhj Pept 1420 pg/ml 11/10/23 13:14
Albumin 3.1 g/dl (3.5-5.0) L 11/14/23 04:45
Physical Exam
-
Vital Signs:
Vital Signs
Temp Pulse Resp BP Pulse Ox
97.4 F 83 16 122/73 97
11/14/23 04:48 11/14/23 04:00 11/14/23 04:00 11/14/23 04:00 11/14/23 04:00
Cardiovascular:: Regular rate and rhythm
Respiratory:: Bilateral: Coarse
Lung Excursion:: Normal
Abdomen:: Nontender and Soft
Extremity Edema:: +1: Bilateral:
Braun Catheter: Yes
--- NOTE | 2023-11-14 08:40 | W.PN.HOSP.TC ---
Addendum entered and electronically signed by Pierre Serrato MD 11/14/23 12:49:
Seen and examined sitting on the edge of her bed.
Arm movement improvement
NAD, resting comfortably in bed
Scleral anicteric
Moist mucous membranes
No JVD
CTA bilateral
Normal S1-S2 no murmurs
Soft nontender nondistended bowel sounds active
1+ pitting edema
Moves extremities spontaneously
-Left arm wrapped, able to wiggle fingers
AAOx3
Acute on chronic HFpEF with EF 55 to 60%
�Cardiology following
�IV diuretic
�Monitor urinary output
�K greater than 4
�Magnesium greater than 2
�Monitor on telemetry
LEGIN potentially CALVIN vs crs vs atn vs prerenal was hypotensive therefore cannot exclude atn nor cardiorenal syndrome
-Will continue IV diuretics per neph
-Follow up UOP
-Avoid nephrotoxins
-Check urine studies
-Renal to follow
Left upper extremity hematoma after direct administration of Lovenox
�Vascular surgery following
�Plan for OR later today for hematoma evacuation
�Monitor CBC
�Consult hematology as she potentially needs IVC filter after failing Xarelto and now developing hematoma from improper use of Lovenox
- -At this time hematology rec to start hep gtt, but as CBC returned hgb is <7, therefore, at this time will consult IR for IVC Filter
Acute blood loss anemia secondary to hematoma
-Transfuse for hgb >7
VTE history, currently on Lovenox, felt at previous hospital failed Xarelto as she was on this for atrial fibrillation
�Hematology consulted
�Potentially may need IVC filter versus resuming anticoagulation
Acute on Chronic hypoxemic respiratory failure.
-hypoxic while under anaesthesia for left upper extremity hematoma evacuation. Therefore required mechanical ventilation. Extubated to BiPAP.
-suspect volume overload from fluids an dblood and also likey anaesthesia
�Home 2L
Bioprosthetic AV valve s/p TAVR
�Outpatient cardiology clinic follow-up
Original Note:
Today's Communication/Plan
-
- hold metoprolol due to HoTN
- keep L arm elevated
Assessment / Plan
Assessment / Plan
Ms. Anita Guevara is a 73yo F pmh HFpEF (EF 65-70%, NYHA class 4) CAD on 2l O2 at home, s/p TAVR (04/22/23), DVT on enoxaparin, afib, htn, hld was admitted 11/09 for worsening swelling to her LE, increased O2 requirements, and LUE swelling.
Acute on chronic exacerbation of HFpEF w acute on chronic respiratory failure, HTN, Chronic Troponin elevation
- CXR: cardiomegaly, pulmonary vascular congestion, right mid & lower lobe opacification c/w pleural effusion
- Mg 2.4
- IV Bumex 3mg BID
- spironolactone
- fluid restriction
- I&O's
- daily weight
- 2L O2 at baseline, on 3L now. Goal SpO2 >92%. wean as tolerated.
- ECHO: s/p TAVR, well seated bioprosthetic valve. Pulm a. systolic 40 mmHg. LVEF 65-70%
- cardiology, nephro following
- thoracentesis: Successful ultrasound-guided thoracentesis, yielding 1100 cc of serosanguineous pleural fluid
- 2 PRBCs ordered for Hb 6.3 s/p thoracentesis
- pleural fluid: pH 7.44, hct<1, protein 2.5, albumin 1.0, LDH 123, triglycerides <30
- serum LDH 338, protein 7.1, albumin 3.6
- Light's criteria are not met. Likely a transudative effusion, secondary to CHF exacerbation
- weight is up, hypotensive (MAP 62), clinical signs of fluid overload
- hold diltiazem, continue bumex
LUE pain, anemia
- concern for compartment syndrome vs heparin induced necrosis vs HIT
- vascular surgery consulted. ruled out compartment syndrome. evacuated the hematoma/seroma w surgery
- Hb 7.4 on 11/09, now 8.5
- PT 14.5, INR 1.12, PTT 32.6 - WNL
- Reevaluated by vascular surgery - continue neuro checks, recommended IVC. Recommends elevating L arm for fluid retention and eval by OT.
- CT: There is 9.5 x 3 x 4 cm old hematoma/seroma in the left biceps musculature with no internal contrast extravasation to suggest active hemorrhage. There is edema in the left upper arm at the elbow and forearm
- Dr. Thurman evacuated hematoma today. Anesthesia plan was LMA w propofol TIVA. Had to convert to ET tube due to desaturation and hypercapnia. Transfused 1 unit RBCs. Pt extubated, on bipap in PACU due to spo2 in 80s. Hb Pre-op 7.4, post-op 7.6. No
active bleeding per post-procedure report.
- reexamined pt: spo2 95%+. Pt awake and alert. Bibasilar crackles.
- pt's oxygenation improvement could be due to anesthesia effects wearing off.
- ECG in PACU: afib w nonspecific t wave abnormality
- CXR in PACU: Large dense airspace consolidation of the right lower and middle lobes with associated moderate left to right mediastinal shift suggesting severe atelectasis. Small right pleural effusion. Severe diffuse ground-glass opacity in the
lungs and increased reticulonodular interstitial markings throughout both lungs. Diagnostic possibilities are (1) acute interstitial and alveolar cardiogenic pulmonary edema, (2) an acute infectious or inflammatory pneumonitis, or (3) lymphangitic
carcinomatosis.
- hep panel -
- ppsx-2-lsvkjrvcnhly panel, cariolipin panel, lupus panel, phosphatidylserine panel pending
- transfuse hemoglobin less than 7.0 g/dL
- follow cbc
- PT/OT consulted
ELGIN
- Cr 1.1 on 11/11, now 2.3
- BUN 69. BUN/Cr 30, prerenal cause
- bladder us pending
- urinalysis - likely contaminated. Many squamous cells,leukocyte esterase
- urine microscopy - RBC, moderate bacteria, many yeast, squamous cells, Hyaline casts
- Urine Osm 350, Cr 157.6, Na<5, neg glucose, 21 total protein, trace albumin. Serum Osm 290
- ELGIN Likely due to low intravascular volume status secondary to diuresis bc of BUN/Cr >20, presence of hyaline casts in urine
- nephro following
- holding diltiazem, continuing bumex
- CMP to reassess kidney function
- braun catheter
b/l le dvt
- eval for ivc filter
- IR consulted for IVC filter placement. Successfully placed yesterday. IVC is patent. Recommends removing when pt able to tolerate anticoagulation. Pt tolerated procedure well.
hyperkalemia, Chronic hyponatremia
- Na 131 on 11/09, now 134.
- K 4.6 on 11/09, 5.7 peak, now 4.5. resolved
- hold KCl, aldactone
- 3 doses lokelma
- low K diet
- follow cmp
MARY KATE, asthma
- continue cpap
- no acute asthma exacerbation
Afib
- hold cardizem, metoprolol for HoTN
- tele monitoring
Type 2 DM, obesity
- SSI, accuchecks
- hold trulicity
- diabetic diet
HLD
- continue statin
- monitor cmp
GERD
- continue PPI
Hypothyroidism
- continue levothyroxine
- TSH 14.9
- Free T4 1.7
Dementia
- continue donepezil
- delirium precautions
Insomnia
- cont trazodone
DVT prophylaxis
- SCDs contraindicated due to recent clots
- developed bl dvt on xarelto
- lovenox contraindicated due to heparin reaction
- IVC filter placed 11/11
Code status: FULL CODE
Diet: diabetic, low K
Anticipated Discharge: > 48 hours
Subjective/Interval History
-
Date of Service: November 14, 2023
Ms. Anita Guevara is a 73yo F pmh HFpEF (EF 65-70%, NYHA class 4) CAD on 2l O2 at home, s/p TAVR (04/22/23), DVT on enoxaparin, afib, htn, hld was admitted 11/09 for worsening swelling to her LE, increased O2 requirements, and LUE swelling. Pt feeling
constipated, is able to move L arm some.
Objective Data
-
Labs:
Laboratory Results
11/14/23
04:45
WBC 7.9
Hgb 8.5 L
Hct 26.4 L
Plt Count 185
Sodium 134 L
Potassium 4.5
Chloride 94 L
Carbon Dioxide 30
BUN 69 H
Creatinine 2.3 H
Glucose 115 H
Calcium 8.6
Total Bilirubin 1.1
AST 40 H
ALT 12
Alkaline Phosphatase 140 H
Vital Signs:
Vital Signs
Temp Pulse Resp BP Pulse Ox
97.4 F 83 16 122/73 97
11/14/23 04:48 11/14/23 04:00 11/14/23 04:00 11/14/23 04:00 11/14/23 04:00
I&O
11/13/23 11/14/23 11/15/23
06:59 06:59 06:59
Intake Total 500 / 500 50 / 50
Output Total 615 / 615 150 / 150
Balance 490 / 490 -565 / -565 -150 / -150
Review of Systems
-
Unable to obtain full review of systems at this time due to: Language Barrier
History Source: Patient and Family
Cardiac: Denies Chest Pain or Palpitations
Abdomen/GI: Reports Constipated; Denies Nausea, Vomiting or Diarrhea
Genitourinary: Denies Dysuria, Frequency, Urgency or Bleeding
Neuro: Reports Weakness (improving); Denies Dizzy, Headache or Numbness
Hematologic / Lymphatic: Reports Other (swollen L arm)
Physical Exam
-
General: Well Developed, Well Nourished, No Apparent Distress and Comfortable
HEENT: Normocephalic and Atraumatic
Respiratory: Crackles (b/l lung bases); Negative Wheezes or Rales
Cardiac: S1/S2 and Irregular Rhythm; Negative Murmur, Rub or Gallop
GI: Soft, Nontender, Nondistended and Normal Bowel Sounds
Genito-urinary: No Costovertebral Tender
Musculoskeletal: Edema, Left Upper Extrem, Edema, Right Lower Extrem and Edema, Left Lower Extrem
Skin: Warm, Dry and IV Access / Catheter Site
Neuro: Awake
--- NOTE | 2023-11-14 08:57 | W.PN.CD ---
Today's Communication / Plan
-
-Hold Bumex
Impression / Plan
-
73 y/o female (Patient of Dr. Vasques)- Tajik/Zambian speaking per her daughter. She has a history of hypertension, dyslipidemia, obesity, MARY KATE, restrictive lung disease, severe multivessel CAD with PCI 2014, permanent AFIB (previously on Xarelto,
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 She was recently hospitalized at [facility] and discharged about one week ago. She presented
since her O2 sats at home were in the s. She was treated for acute heart failure with preserved EF with Bumex. She also had a thoracentesis for pleural effusion. She was also treated with antibiotics during that admit for possible PNA. She was
noted to be anemic (HGB 11/01 7.9). Additionally BLE DVT was noted despite being on Xarelto and she was adjusted to Lovenox. No PE on CT scan there. She had an injection in her left arm and now has a significant hematoma. She is here now with
complaints of left arm pain with hematoma and worsened LE edema. She has been on Bumex 2 mg daily, though took it BID twice this week without help. We are consulted for CHF.
Kqmcp-qa-dqzucbm HFpEF:
-Still with severe BLE edema.
-Creatinine is rising now. Hold IV Bumex -was on 3 mg BID.
-CXR with right pleural effusion- has required thoracenteses in the past
-echo 10/27/23 which showed EF 65%, Grade II DD, well seated bio AVR, MG 16 mmHg, moderately elevated PASP (HRH)
-she thinks dry weight is 243 lbs and she is currently ~252.
-Aldactone and K+ supplement now held secondary to hyperkalemia; K is normalized now.
LUE hematoma:
-Lovenox held.
-Evacuated by vascular surgery 11/11/23
- BARTOLO drain is in place
- Repeat Hgb is stable
Anemia:
-Continue to monitor hemoglobin.
Recent BLE DVT:
-Lovenox held for hematoma
-recommend IVC filter
Permanent AFIB:
-rate-controlled on diltiazem and metoprolol
-Xarelto issues as noted, Lovenox held
Abnormal troponin:
-appears to be chronic non-ischemic myocardial injury in this patient with CHF, anemia
-denies CP
-also elevated on recent admit to [facility] as noted and in previous admit here
s/p TAVR:
-stable by recent echo
CAD with hx stenting:
-stable without CP
-cath earlier this year stable
Right common fem artery stent:
-remains on ASA
Daughter is present at bedside and helps translate.
Physical Exam
Vital Signs/Labs
Vital Signs
Temp Pulse Resp BP Pulse Ox
97.4 F 83 16 122/73 97
11/14/23 04:48 11/14/23 04:00 11/14/23 04:00 11/14/23 04:00 11/14/23 04:00
11/13/23 11/14/23 11/15/23
06:59 06:59 06:59
Actual Weight 115.5 kg 115.6 kg
11/14/23 04:45
11/14/23 04:45
PT 14.5 Sec (11.4-14.6) 11/11/23 21:38
INR 1.12 11/11/23 21:38
APTT 32.6 Sec (23.4-35.0) 11/12/23 05:57
Magnesium 2.4 mg/dl (1.6-2.3) H 11/14/23 04:45
Triglycerides 140 mg/dl (10-149) 11/11/23 04:03
LDL Cholesterol, Calc 62 mg/dl 11/11/23 04:03
VLDL Cholesterol, Calc 28 mg/dl (0-30) 11/11/23 04:03
HDL Cholesterol 39 mg/dl 11/11/23 04:03
Free T4 1.70 ng/dl (0.78-2.19) 11/11/23 04:03
11/10/23
13:14
Vww-Q-Zowaptgvpyb Pept 1420
LAB Results
11/11/23
20:12
Troponin I 0.130 H*
Physical Exam
Constitutional: No acute distress and Comfortable
EENT: Anicteric and Moist mucous membranes
Cardiovascular: Rhythm & rate is regular, JVD pressure is normal, Pedal edema present and Systolic murmur present
Respiratory: Respiratory effort normal, Crackles Absent and Rhonchi Absent
GI: Soft, Non tender and Normal bowel sounds
Neuro/Psych: Alert, AO x 3 and Motor deficits absent
Data Reviewed
-
Date of Service: November 14, 2023
Medical Decision Making: Reviewed Test Results, Independent Historian Assessment, Test Interpretation and Review of Case with other Provider
EKG: Tracing Personally Visualized and interpreted
Echo: Report Reviewed by me
Medical Tests (PFT, Pathology etc): Discussed with Patient and Discussed with Family
Labs: Labs Reviewed by me
Old Records: Reviewed
[2023-11-14 09:14] LABS: Glucose - Point of Care 130 mg/dl (70-99)
[2023-11-14] MEDS: NOVOLOG FLEXPEN-LOW RESISTANCE SC ×3 (09:50→17:46)
[2023-11-14] MEDS: ARICEPT 5 MG PO (09:50)
[2023-11-14] MEDS: LOPRESSOR 50 MG PO (09:51)
[2023-11-14] MEDS: PROTONIX 40 MG PO (09:51)
[2023-11-14] MEDS: BUMEX 3 MG IV (09:51)
[2023-11-14] MEDS: ASPIR LOW (ENTERIC COATED) 81 MG PO (09:51)
[2023-11-14] MEDS: SENOKOT-S 1 TABLET PO (14:04)
[2023-11-14] MEDS: MIRALAX 17 GRAMS PO (14:04)
[2023-11-14 14:14] LABS: Glucose - Point of Care 124 mg/dl (70-99)
--- NOTE | 2023-11-14 16:24 | PTCARENOTE ---
Patient AAOx3. Daughter at bedside, translating. No bleeding through LUE dressing today. Elevating as tolerating. VSS, afib, weaned to 1L NC, sats 94%. 87% on RA trial. C/o constipation earlier but had 1 BM. Will continue to closely monitor.
[2023-11-14 17:44] LABS: Glucose - Point of Care 106 mg/dl (70-99)
[2023-11-14] MEDS: LIPITOR 40 MG PO (18:23)
--- NOTE | 2023-11-14 20:30 | PTCARENOTE ---
Assumed care of patient this evening. Pt in BL mitts but still managing to remove mitts, pull wires and almost pulled her IV out. Requested a new order for BL soft wrist restraints. Will continue to monitor. Pt's heart rate elevated as well. Remains
in afib, reaching 130's. Administered PRN 5 mg lopressor with some improvement. Pts heart rate increased again, unsure if its restlessness,anxiety, and confusion administered a PO dose of 12.5 lopressor as well as melatonin.
[2023-11-14 21:26] LABS: Glucose - Point of Care 170 mg/dl (70-99)
[2023-11-15] VITALS (16 sets, daily range): BP systolic 110–141; BP diastolic 44–76; PULSE 110–116; O2SAT 99; BMI 47.1
[2023-11-15] MEDS: SYNTHROID 200 MCG PO (04:53)
[2023-11-15] MEDS: SYNTHROID 50 MCG PO (04:53)
[2023-11-15 05:08] LABS: Hematocrit 27.4 % (37.0-47.0); Hemoglobin 8.6 g/dL (12.0-16.0); Mean Corp Hgb Conc. 31.4 g/dL (33.0-37.0); Mean Corpuscular Hgb 28.1 pg (27.0-31.0); Mean Corpuscular Volume 89.5 fL (81.0-99.0); Mean Platelet Volume 9.6 fL (7.4-10.4); Platelet Count 202 10^3/uL (130-400); Red Blood Cell Count 3.06 10^6/uL (4.20-5.40); Red Cell Dist. Width 17.5 % (11.5-14.5); White Blood Cell Count 7.8 10^3/uL (4.8-10.8)
[2023-11-15 05:46] LABS: Blood Urea Nitrogen 76 mg/dl (7-17); Calcium 8.6 mg/dl (8.4-10.2); Carbon Dioxide 31 mmol/L (22-30); Chloride 94 mmol/L (98-107); Estimated Creatinine Clearance 28 ml/min; Glucose 117 mg/dl (70-99); Magnesium 2.4 mg/dl (1.6-2.3); Sodium 134 mmol/L (135-145); eGFR 23.24
--- NOTE | 2023-11-15 07:39 | W.PN.VS ---
Today's Communication / Plan
-
See plan below for today 11/15/2023.
Assessment/Plan
-
Assessment: 73 year old female s/p urgent evacuation left upper extremity hematoma
Plan:
BARTOLO drain removed biopsy. Can leave unwrapped for now upper extremity. Follow-up in the office in 2 weeks for staple removal.
-
Total Time Spent with Patient (in minutes): 10
Subjective Data
-
Date of Service: November 15, 2023
Patient without significant complaints this morning. She does still does appear to have pain some in the surgical site/hematoma bed.
Objective Data
-
Vital Signs
Temp Pulse Resp BP Pulse Ox
98.1 F 104 16 113/65 97
11/15/23 03:40 11/15/23 06:00 11/15/23 06:00 11/15/23 06:00 11/15/23 06:00
Intake and Output
11/14/23 11/15/23 11/16/23
06:59 06:59 06:59
Intake Total 50 / 50
Output Total 615 / 615 665 / 665
Balance -565 / -565 -665 / -665
Intake:
Oral fluids 50 / 50
Output:
Drain Output (Total)
Left Upper
Urine, Horta 300 / 300 650 / 650
Urine, Voided 300 / 300
Lab Results
11/15/23 04:57
11/15/23 04:57
Calcium 8.6 mg/dl (8.4-10.2) 11/15/23 04:57
Magnesium 2.4 mg/dl (1.6-2.3) H 11/15/23 04:57
Total Bilirubin 1.1 mg/dl (0.2-1.3) 11/14/23 04:45
Direct Bilirubin 0.3 mg/dl (0.0-0.4) 11/11/23 04:03
AST 40 U/L (14-36) H 11/14/23 04:45
ALT 12 U/L (0-35) 11/14/23 04:45
Alkaline Phosphatase 140 U/L (38-126) H 11/14/23 04:45
Total Protein 6.2 g/dl (6.3-8.2) L 11/14/23 04:45
Albumin 3.1 g/dl (3.5-5.0) L 11/14/23 04:45
Physical Exam
-
She is awake and alert. Left upper extremity incision clean dry and intact. No significant recurrent hematoma. BARTOLO drainage scant. Recorded output minimal.
--- NOTE | 2023-11-15 07:50 | W.PN.HOSP.TC ---
Addendum entered and electronically signed by Alvin Trinh MD 11/15/23 21:17:
Attending Addendum-
I saw and evaluated the patient. I reviewed the resident�s note and agree with findings and plan as documented in the resident�s note. Sub: Daughter present for translation. Patient complains of feeling weak and pain in left arm. Full 12 point ROS
reviewed and negative except as documented Exam: Vitals reviewed in chart GEN-NAD heart irreg irreg lungs crackles at bases abd soft LE 3+ pitting edema B/L LUE incision CDI ozzy in place sig bruising present pulses intact
# Acute on chronic HFpEF
- Echo 11/14- EF 60-65% normally functioning TAVR
�Cardiology input appreciated
�restart IV bumex
�Monitor urinary output
�monitor daily BMP
�Monitor on telemetry
- unclear why on trulicity and spironolactone- both on hold
# Hyperkalemia-
- resolved
- trend BMP
- spironolactone and k supplements on hold
# Hypermagnesemia-
- hold mag supplements
- trend
# Hypervolemic Hyponatremia-
- mild
- cont to trend
# Atrial Fibrillation
- restart metoprolol
- start low dose Eliquis- if tolerates will increase to 5 bid
- cards on board
- hold Cardizem
# ELGIN on CKD 3a
-likely prerenal from volume overload
-restart IV diuretics
-renal us- nephrolith in right kidney non obstructing
-Follow I and O
-Avoid nephrotoxins
-Check urine studies- FeUrea
-Renal input appreciated
# Left upper extremity hematoma
� urgent hematoma evacuation on 11/10 Dr. Thurman
- BARTOLO drain removed 11/14
- Monitor CBC
- wound care
# Acute blood loss anemia secondary to hematoma
- Transfuse for hgb < 7
- daily CBC
# VTE history
- was on Lovenox and Xarelto previously
- retrievable IVC filter placed 11/11
- start Eliquis at low dose and monitor (not DVT treatment dose)
# Acute on Chronic hypoxemic respiratory failure.
�Home 2L
- wean for sats > 92%
# Bioprosthetic AV valve s/p TAVR
- Echo- 11/14 - well seated and normally functioning TAVR
# Hypothyroidism-
- cont levothyroxine
# Dementia
- cont aricept
#GERD- cont protonix (on omeprazole at home)
# H/O PAD
- s/p rt fem bypass
# DVT proph- eliquis
Time spent coordinating care, review of plan of care with resident, personally reviewed records in EMR, med rec, consults, notes, labs, radiology, d/w nursing cards nephro and vasc surg � 60 mins
Original Note:
Today's Communication/Plan
-
Assessment / Plan
Assessment / Plan
Ms. Anita Guevara is a 73yo F pmh HFpEF (EF 65-70%, NYHA class 4) CAD on 2l O2 at home, s/p TAVR (04/22/23), DVT on enoxaparin, afib, htn, hld was admitted 11/09 for worsening swelling to her LE, increased O2 requirements, and LUE swelling.
Acute on chronic exacerbation of HFpEF w acute on chronic respiratory failure, HTN, Chronic Troponin elevation
- CXR: cardiomegaly, pulmonary vascular congestion, right mid & lower lobe opacification c/w pleural effusion
- Mg 2.4
- fluid restriction, I&O's, daily weights
- thoracentesis: Successful ultrasound-guided thoracentesis, yielding 1100 cc of serosanguineous pleural fluid.
- 2 PRBCs ordered for Hb 6.3 s/p thoracentesis
- pleural fluid: Light's criteria are not met. Likely a transudative effusion, secondary to CHF exacerbation
- ECHO(11/14): s/p TAVR, well seated bioprosthetic valve. LVEF 60-65%. mild MR
- cardiology, nephro following
- weight is up, BP normalized (MAP 69), clinical signs of fluid overload
- IV Bumex
LUE pain secondary to hematoma s/p hematoma evacuation, anemia
- concern for compartment syndrome vs heparin induced necrosis vs HIT
- Hb 7.4 on 11/09, now 8.6
- PT 14.5, INR 1.12, PTT 32.6 - WNL
- CT: There is 9.5 x 3 x 4 cm old hematoma/seroma in the left biceps musculature with no internal contrast extravasation to suggest active hemorrhage. There is edema in the left upper arm at the elbow and forearm
- Dr. Thurman evacuated the hematoma on 11/10. Pt decompensated, requiring an ET tube. Transfused 1 unit RBCs intraoperatively
- ECG in PACU: afib w nonspecific t wave abnormality
- CXR in PACU: Large dense airspace consolidation of the right lower and middle lobes with associated moderate left to right mediastinal shift suggesting severe atelectasis. Small right pleural effusion. Severe diffuse ground-glass opacity in the
lungs and increased reticulonodular interstitial markings throughout both lungs. Diagnostic possibilities are (1) acute interstitial and alveolar cardiogenic pulmonary edema, (2) an acute infectious or inflammatory pneumonitis, or (3) lymphangitic
carcinomatosis.
- [id number] panel, cariolipin panel, lupus panel, phosphatidylserine panel pending
- vascular surgery: neuro checks, keep L arm elevated. BARTOLO drain removed today. ok to restart eliquis for afib
- PT/OT consulted
- transfuse hemoglobin less than 7.0 g/dL
- follow cbc
ELGIN
- Cr 1.1 on 11/11, peak 2.3, now 2.2
- BUN 76. BUN/Cr 34.5, prerenal cause
- urinalysis - likely contaminated. Many squamous cells,leukocyte esterase
- urine microscopy - RBC, moderate bacteria, many yeast, squamous cells, Hyaline casts
- Urine Osm 350, Cr 157.6, Na<5, neg glucose, 21 total protein, trace albumin. Serum Osm 290
- ELGIN Likely due to low intravascular volume status secondary to diuresis bc of BUN/Cr >20, presence of hyaline casts in urine
- braun catheter
- renal u/s: nephrolith w/in lower pole of R kidney. No evidence for pelvicalyceal dilation or mass b/l. Renal parenchymal thickness preserved b/l.
- urine urea pending
- nephro following
- BMP to reassess kidney function
b/l le dvt
- IVC filter placed 11/11.
- Pt tolerated procedure well.
hyperkalemia, Chronic hyponatremia
- Na 131 on 11/09, now 134.
- K 4.6 on 11/09, 5.7 peak, now 5.0. resolved
- hold KCl, aldactone
- 3 doses lokelma
- low K diet
- follow cmp
MARY KATE, asthma
- continue cpap
- no acute asthma exacerbation
Afib
- hold cardizem
- tele monitoring
- restart metoprolol for rate control as BP improved
- restarting eliquis 2.5mg for stroke prevention. Starting at a lower dose bc pt is high risk for bleeding and has required 3 units pRBCs during this hospitalization.
- monitor cbc
Type 2 DM, obesity
- SSI, accuchecks
- hold trulicity
- diabetic diet
HLD
- continue statin
- monitor cmp
GERD
- continue PPI
Hypothyroidism
- continue levothyroxine
- TSH 14.9. Free T4 1.7
Dementia
- continue donepezil
Insomnia
- cont trazodone prn
DVT prophylaxis
- SCDs contraindicated due to recent clots
- developed bl dvt on xarelto
- lovenox contraindicated due to heparin reaction
- IVC filter placed 11/11
Code status: FULL CODE
Diet: diabetic, low K
Anticipated Discharge: > 48 hours
Subjective/Interval History
-
Date of Service: November 15, 2023
Ms. Anita Guevara is a 73yo F pmh HFpEF (EF 65-70%, NYHA class 4) CAD on 2l O2 at home, s/p TAVR (04/22/23), DVT on enoxaparin, afib, htn, hld was admitted 11/09 for worsening swelling to her LE, increased O2 requirements, and LUE swelling. No acute
events overnight.
Objective Data
-
Labs:
Laboratory Results
11/15/23
04:57
WBC 7.8
Hgb 8.6 L
Hct 27.4 L
Plt Count 202
Sodium 134 L
Potassium 5.0
Chloride 94 L
Carbon Dioxide 31 H
BUN 76 H
Creatinine 2.2 H
Glucose 117 H
Calcium 8.6
Total Bilirubin Pending
AST Pending
ALT Pending
Alkaline Phosphatase Pending
Vital Signs:
Vital Signs
Temp Pulse Resp BP Pulse Ox
98.1 F 104 16 113/65 97
11/15/23 03:40 11/15/23 06:00 11/15/23 06:00 11/15/23 06:00 11/15/23 06:00
I&O
11/14/23 11/15/23 11/16/23
06:59 06:59 06:59
Intake Total 50 / 50
Output Total 615 / 615 665 / 665
Balance -565 / -565 -665 / -665
Review of Systems
-
Unable to obtain full review of systems at this time due to: Language Barrier
Physical Exam
-
General: Well Developed, Well Nourished and No Apparent Distress
HEENT: Normocephalic and Atraumatic
Respiratory: Rhonchi (b/l base, R>L)
Cardiac: S1/S2, Irregular Rhythm and Tachycardic; Negative Murmur, Rub or Gallop
GI: Soft, Nontender, Nondistended and Normal Bowel Sounds
Musculoskeletal: Edema, Right Lower Extrem (+3) and Edema, Left Lower Extrem (+3)
Skin: Warm and Dry
Neuro: Awake
Psych: Calm
[2023-11-15 07:55] LABS: ALT (SGPT) 15 U/L (0-35); AST (SGOT) 50 U/L (14-36); Albumin 3.2 g/dl (3.5-5.0); Alkaline Phosphatase 163 U/L (38-126); Direct Bilirubin 0.4 mg/dl (0.0-0.4); Total Bilirubin 0.9 mg/dl (0.2-1.3); Total Protein 6.5 g/dl (6.3-8.2)
[2023-11-15 08:08] LABS: Glucose - Point of Care 130 mg/dl (70-99)
[2023-11-15] MEDS: NOVOLOG FLEXPEN-LOW RESISTANCE SC ×3 (08:24→17:43)
[2023-11-15] MEDS: PROTONIX 40 MG PO (08:25)
[2023-11-15] MEDS: ASPIR LOW (ENTERIC COATED) 81 MG PO (08:25)
[2023-11-15] MEDS: ARICEPT 5 MG PO (08:25)
[2023-11-15 12:14] LABS: Glucose - Point of Care 116 mg/dl (70-99)
--- NOTE | 2023-11-15 12:47 | W.PN.CD ---
Today's Communication / Plan
-
-
-
Resume diuresis, start with Bumex 3 mg daily, IV. Strict Na+/fluid restriction
Add Eliquis when safe
Remove IVC filter once tolerating Eliquis
Advance HF med Rx slowly but consistently as able
Reviewed with hospitalist and nephrology who agree
Impression / Plan
-
73 y/o female (Patient of Dr. Vasques)- [place] speaking per her daughter. She has a history of hypertension, dyslipidemia, obesity, MARY KATE, restrictive lung disease, severe multivessel CAD with PCI 2014, permanent AFIB (previously on Xarelto,
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 She was recently hospitalized at [facility] and discharged about one week ago. She presented
since her O2 sats at home were in the 70's. She was treated for acute heart failure with preserved EF with Bumex. She also had a thoracentesis for pleural effusion. She was also treated with antibiotics during that admit for possible PNA. She was
noted to be anemic (HGB 9/17 7.9). Additionally BLE DVT was noted despite being on Xarelto and she was adjusted to Lovenox. No PE on CT scan there. She had an injection in her left arm and now has a significant hematoma. She is here now with
complaints of left arm pain with hematoma and worsened LE edema. She has been on Bumex 2 mg daily, though took it BID twice this week without help. We are consulted for CHF.
Severe HFpEF
- Will diurese slowly Bumex 3 mg daily, strict Na+/fluid restriction
- Eventually hope to see her on/ back on MRA/SGLT2-I and perhaps ARNI as well, but will need to watch K+/Cr
LUE hematoma, per vascular surgery
Anemia
Recent BLE DVT => has IVC filter, remove once tolerating anticoagulation
Permanent AFib, will benefit from oral anticoagulation when able
Abnormal troponin => non-ischemic myocardial injury in this patient with CHF, anemia
s/p TAVR, good function by echo
CAD with hx stenting, no obstructive cad at recent cath
PAD: Right common fem artery sten, -remains on ASA
Daughter is present at bedside and helped translate.
Acute kidney injury
- Cr 1 on 11/11/2023, peak 2.3 on 11/14/2023, on 11/15/2023 Cr 2.2
Subjective:
Actually feels better despite her edema and CXR findings
Physical Exam
Vital Signs/Labs
Vital Signs
Temp Pulse Resp BP Pulse Ox
98.0 F 116 14 141/71 100
11/15/23 07:20 11/15/23 12:00 11/15/23 12:00 11/15/23 12:00 11/15/23 12:00
11/14/23 11/15/23 11/16/23
06:59 06:59 06:59
Actual Weight 115.6 kg 116.6 kg
11/15/23 04:57
11/15/23 04:57
PT 14.5 Sec (11.4-14.6) 11/11/23 21:38
INR 1.12 11/11/23 21:38
APTT 32.6 Sec (23.4-35.0) 11/12/23 05:57
Magnesium 2.4 mg/dl (1.6-2.3) H 11/15/23 04:57
Triglycerides 140 mg/dl (10-149) 11/11/23 04:03
LDL Cholesterol, Calc 62 mg/dl 11/11/23 04:03
VLDL Cholesterol, Calc 28 mg/dl (0-30) 11/11/23 04:03
HDL Cholesterol 39 mg/dl 11/11/23 04:03
Free T4 1.70 ng/dl (0.78-2.19) 11/11/23 04:03
11/10/23
13:14
Nsi-T-Qaazxuntwaf Pept 1420
Physical Exam
Constitutional: No acute distress
EENT: Anicteric
Cardiovascular: Rhythm & rate is regular and Pedal edema present (3+)
Respiratory: Respiratory effort normal and Crackles Present
GI: Soft and Distention absent
Neuro/Psych: Alert
Data Reviewed
-
Date of Service: November 15, 2023
--- NOTE | 2023-11-15 12:54 | PTCARENOTE ---
Assumed care of patient at beginning of this shift from previous RN. During change of shift report surgery was in to remove dressing and jennifer drain; instructed to keep SARAVANAN at this time. Patient went for 2-view CXR and had bedside echo done. Daughter
brought in food from home; instructed in 2mg K+ diet. She remains at bedside and assisted patient with hygiene. Bumex remains on hold. Dr Santos in to see patient and made aware. Reviewed Creat level with her as well. See worklist for full
assessment and vital signs.
--- NOTE | 2023-11-15 13:29 | W.PN.NEPH.PH ---
Today's Communication / Plan
-
resume diuretics, titrate as needed
Assessment/Plan
-
Impression:
ELGIN
Hyponatremia
Qcovn-rn-oznoyun HFpEF: (echo 10/27/23 which showed EF 65%, Grade II DD, well seated bio AVR, MG 16 mmHg, moderately elevated PASP (HRH)
Right Pleural effusion
LUE hematoma: Status post evacuation surgery
Anemia:
Recent BLE DVT: (s/p IVC filter placement)
Permanent AFIB:
Abnormal troponin:
s/p TAVR:
CAD with hx stenting:
Right common fem artery stent
Plan:
ELGIN:
-creatinine slightly down to 2.2 and non oliguric via braun
-Status post IVC filter placement with 15 cc of Visipaque on 11/12/2023
-ELGIN likely prerenally mediated due to low blood pressure in setting of decompensated congestive heart and contrast administration
Checked urine studies: Fractional excretion of sodium consistent with prerenal stimulus, trace proteinuria and no hematuria
-Diuresis per cardiology, would resume diuretics at this time as patient is obviously hypervolemic
BPs are improving with holding meds
hypervolemic hyponatremia-strict low salt diet and FR
monitor evolving met alkalosis
elevate legs
d/w family at bedside
-
-
Date of Service: November 15, 2023
CC / HPI / ROS
-
Chief Complaint:
ELGIN
History of Present Illness:
Creatinine down to 2.2, BUN is up at 76
Hemodynamically, improving Bps
Review of Systems:
no cp or sob at rest
weights increasing
LUE surgical wrapped
Labs
-
Labs:
WBC 7.8 10^3/uL (4.8-10.8) 11/15/23 04:57
RBC 3.06 10^6/uL (4.20-5.40) L 11/15/23 04:57
Hgb 8.6 g/dL (12.0-16.0) L 11/15/23 04:57
Hct 27.4 % (37.0-47.0) L 11/15/23 04:57
Plt Count 202 10^3/uL (130-400) 11/15/23 04:57
Sodium 134 mmol/L (135-145) L 11/15/23 04:57
Potassium 5.0 mmol/L (3.5-5.1) 11/15/23 04:57
Chloride 94 mmol/L (98-107) L 11/15/23 04:57
Carbon Dioxide 31 mmol/L (22-30) H 11/15/23 04:57
BUN 76 mg/dl (7-17) H 11/15/23 04:57
Creatinine 2.2 mg/dL (0.6-1.0) H 11/15/23 04:57
eGFR 23.24 11/15/23 04:57
Glucose 117 mg/dl (70-99) H 11/15/23 04:57
Calcium 8.6 mg/dl (8.4-10.2) 11/15/23 04:57
Fqt-T-Gganygrzgkr Pept 1420 pg/ml 11/10/23 13:14
Albumin 3.2 g/dl (3.5-5.0) L 11/15/23 04:57
Physical Exam
-
Vital Signs:
Vital Signs
Temp Pulse Resp BP Pulse Ox
98.0 F 116 14 141/71 100
11/15/23 07:20 11/15/23 12:00 11/15/23 12:00 11/15/23 12:00 11/15/23 12:00
Cardiovascular:: Regular rate and rhythm
Respiratory:: Bilateral: CTA (decreased)
Lung Excursion:: Normal
Abdomen:: Nontender and Soft
Extremity Edema:: +3: Bilateral:
Braun Catheter: Yes
--- NOTE | 2023-11-15 14:11 | PTCARENOTE ---
Bumex and lopressor to resume as per Dr Ni; confirmed with her that lopressor to resume tonight and bumex to resume tomorrow.
[2023-11-15 17:33] LABS: Glucose - Point of Care 138 mg/dl (70-99)
[2023-11-15] MEDS: LIPITOR 40 MG PO (18:04)
[2023-11-15 18:28] LABS: Iron 48 ug/dl (37-170)
--- NOTE | 2023-11-15 19:23 | PTCARENOTE ---
Lab called to verify if needing a urine for urea, stating the test is a miscellaneous sendout and not routinely done. Power text sent to Dr Ni to clarify if this is the test she would like completed; notified her to respond to back tender insulation board RN as
this is change of shift. Updated oncoming RN during report.
[2023-11-15] MEDS: LOPRESSOR 50 MG PO (19:29)
[2023-11-15] MEDS: ELIQUIS 2.5 MG PO (19:30)
[2023-11-15 21:35] LABS: Phosphatidylserine Ab, IgA 5 APS (0-19); Phosphatidylserine Ab, IgG 2 GPS (0-15); Phosphatidylserine Ab, IgM 0 MPS (0-21)
[2023-11-15 21:40] LABS: Glucose - Point of Care 120 mg/dl (70-99)
--- NOTE | 2023-11-15 23:22 | PTCARENOTE ---
Pt resting comfortably in bed, able to sit at side of bed as needed with assistx1. Pt still shows reluctance to move LUE and reports some pain. Pt seen with water bottle at bedside. Pt and daughter at bedside educated on 1440 fluid restriction. Both
pt and daughter verbalize understanding of teaching. Assessment as documented. Call reddy within reach.
[2023-11-16] VITALS (11 sets, daily range): BP systolic 108–147; BP diastolic 55–84; BMI 46.9
[2023-11-16] MEDS: SYNTHROID 200 MCG PO (05:10)
[2023-11-16] MEDS: SYNTHROID 50 MCG PO (05:10)
[2023-11-16 05:46] LABS: Hematocrit 29.9 % (37.0-47.0); Hemoglobin 9.2 g/dL (12.0-16.0); Mean Corp Hgb Conc. 30.8 g/dL (33.0-37.0); Mean Corpuscular Hgb 27.8 pg (27.0-31.0); Mean Corpuscular Volume 90.3 fL (81.0-99.0); Mean Platelet Volume 9.7 fL (7.4-10.4); Platelet Count 214 10^3/uL (130-400); Red Blood Cell Count 3.31 10^6/uL (4.20-5.40); Red Cell Dist. Width 17.2 % (11.5-14.5); White Blood Cell Count 7.9 10^3/uL (4.8-10.8)
[2023-11-16 06:11] LABS: Blood Urea Nitrogen 66 mg/dl (7-17); Calcium 8.7 mg/dl (8.4-10.2); Carbon Dioxide 30 mmol/L (22-30); Chloride 96 mmol/L (98-107); Estimated Creatinine Clearance 28 ml/min; Glucose 113 mg/dl (70-99); Potassium 4.7 mmol/L (3.5-5.1); Sodium 137 mmol/L (135-145); eGFR 23.24
--- NOTE | 2023-11-16 06:27 | PTCARENOTE ---
Original Horta catheter order states catheter to be removed this AM. This RN will leave catheter in place until order to remove catheter can be verified by nephrology this AM d/t setting of ELGIN.
[2023-11-16 07:16] LABS: Folate 8.8 ng/ml (2.76-20); Vitamin B12 664 pg/ml (239-931)
--- NOTE | 2023-11-16 07:43 | W.PN.HOSP.TC ---
Addendum entered and electronically signed by Alvin Trinh MD 11/16/23 21:32:
Attending Addendum-
I saw and evaluated the patient. I reviewed the resident�s note and agree with findings and plan as documented in the resident�s note. Sub: Patient continues to complains of feeling weak and pain in left arm but improved. Full 12 point ROS reviewed
and negative except as documented Exam: Vitals reviewed in chart GEN-NAD heart irreg irreg lungs crackles at bases abd soft LE 3+ pitting edema B/L LUE incision CDI ozzy in place, no drainage on bandage, bruising present pulses intact braun
in place draining clear yellow urine
# Acute on chronic HFpEF
- Echo 11/14- EF 60-65% normally functioning TAVR
�Cardiology input appreciated
�cont IV bumex daily
- diuresing well
�Monitor urinary output/daily weights
�monitor daily BMP
�transfer to telemetry
-trulicity and spironolactone- both on hold
# Hyperkalemia-
- resolved
- trend BMP
- spironolactone and k supplements on hold
# Hypermagnesemia-
- hold mag supplements
- trend
#JENNIE
- cont IV iron per heme
# Hypervolemic Hyponatremia-
- resolved
- cont to trend daily
# Atrial Fibrillation
- cont metoprolol
- increase Eliquis to 5 bid
- cards on board
- hold Cardizem may be able to restart soon if BP stablizes
# ELGIN on CKD 3a
-likely prerenal from volume overload
-cont IV diuretics
-renal us- nephrolith in right kidney non obstructing
-Follow I and O/braun
-Avoid nephrotoxins
-Check urine studies- FeUrea
-Renal input appreciated
-follow bmp closely while on IV bumex
# Urinary Retention
- cont braun
- likely due to immobility
- TOV when more ambulatory
# Left upper extremity hematoma
� urgent hematoma evacuation on 11/10 Dr. Thurman
- BARTOLO drain removed 11/14
- Monitor CBC
- wound care
# VTE history
- was on Lovenox and Xarelto previously
- retrievable IVC filter placed 11/11
- cont Eliquis at Afib dose not treatment dose
- repeat b/l LE U/S
# Acute on Chronic hypoxemic respiratory failure.
- resolved
� on Home 2L
- wean for sats > 92%
# Bioprosthetic AV valve s/p TAVR
- Echo- 11/14 - well seated and normally functioning TAVR
# Hypothyroidism-
- cont levothyroxine
# Dementia
- cont aricept
#GERD- cont protonix (on omeprazole at home)
# H/O PAD
- s/p rt fem bypass
# DVT proph- eliquis
Dispo- transfer to [facility] from [facility] - 11/15
Time spent coordinating care, review of plan of care with resident, personally reviewed records in EMR, med rec, consults, notes, labs, radiology, d/w nursing cards � 55 mins
Original Note:
Today's Communication/Plan
-
Assessment / Plan
Assessment / Plan
Ms. Anita Guevara is a 73yo F pmh HFpEF (EF 60-65%) on 2l O2 at home, CAD, s/p TAVR (04/22/23), DVT on enoxaparin, afib, htn, hld was admitted 11/09 for a CHF exacerbation.
Acute on chronic exacerbation of HFpEF w acute on chronic respiratory failure, HTN, Chronic Troponin elevation
- CXR: cardiomegaly, pulmonary vascular congestion, right mid & lower lobe opacification c/w pleural effusion
- fluid restriction, I&O's, daily weights
- thoracentesis: Successful ultrasound-guided thoracentesis, yielding 1100 cc of serosanguineous pleural fluid.
- 2 PRBCs ordered for Hb 6.3 s/p thoracentesis
- pleural fluid: Light's criteria are not met. Likely a transudative effusion, secondary to CHF exacerbation
- ECHO(11/14): s/p TAVR, well seated bioprosthetic valve. LVEF 60-65%. mild MR
- cardiology, nephro following
- weight is starting to decrease, by 0.4kg from yesterday. BP normalized (MAP 95), clinical signs of fluid overload
- increase O2 flow to maintain adequate SpO2
- incentive spirometer
- IV Bumex, titrate as needed
LUE pain secondary to hematoma s/p hematoma evacuation, anemia
- Hb 7.4 on 11/09, now 9.2
- PT 14.5, INR 1.12, PTT 32.6 - WNL
- Dr. Thurman evacuated the hematoma on 11/10. Pt decompensated, requiring transition to an ET tube. Transfused 1 unit RBCs intraoperatively
- ECG in PACU: afib w nonspecific t wave abnormality
- CXR in PACU: b/l pleural effusions, R>L
- tsmq-1-ezfrygpwkoan panel, cariolipin panel, lupus panel, phosphatidylserine panel pending
- vascular surgery: neuro checks, keep L arm elevated. BARTOLO drain removed 11/14. ok to restart eliquis for afib
- PT/OT consulted
- transfuse hemoglobin less than 7.0 g/dL
- follow cbc
ELGIN
- Cr 1.1 on 11/11, peak 2.3, now 2.2
- BUN 66. BUN/Cr 30, prerenal cause
- urinalysis - likely contaminated. Many squamous cells,leukocyte esterase
- urine microscopy - RBC, moderate bacteria, many yeast, squamous cells, Hyaline casts
- Urine Osm 350, Cr 157.6, Na<5, neg glucose, 21 total protein, trace albumin. Serum Osm 290
- ELGIN Likely due to low intravascular volume status secondary to diuresis bc of BUN/Cr >20, presence of hyaline casts in urine
- braun catheter
- renal u/s: nephrolith w/in lower pole of R kidney. No evidence for pelvicalyceal dilation or mass b/l. Renal parenchymal thickness preserved b/l.
- urine urea, cr pending
- nephro following
- BMP to reassess kidney function
b/l le dvt
- IVC filter placed 11/11.
- Pt tolerated procedure well.
hyperkalemia, chronic hyponatremia, hypermagnesemia
- Na 131 on 11/09, now 137. resolved
- K 4.6 on 11/09, 5.7 peak, now 5.0. resolved
- Mg 2.4
- hold KCl, aldactone, magnesium supplements
- received 3 doses lokelma
- low K diet
- follow cmp, mg
MARY KATE, asthma
- continue cpap
- no acute asthma exacerbation
Afib
- hold cardizem
- tele monitoring
- metoprolol for rate control as BP improved
- eliquis started at 2.5mg for stroke prevention. Starting at a lower dose bc pt is high risk for bleeding and has required 3 units pRBCs during this hospitalization.
- Pt's Hb increased, no signs of bleeding. Will increase eliquis to 5mg and monitor for bleeding.
- monitor cbc
Type 2 DM, obesity
- SSI, accuchecks
- hold trulicity
- diabetic diet
HLD
- continue statin
- monitor cmp
GERD
- continue PPI
Hypothyroidism
- continue levothyroxine
- TSH 14.9. Free T4 1.7
Dementia
- continue donepezil
Insomnia
- cont trazodone prn
DVT prophylaxis
- SCDs contraindicated due to recent clots
- developed bl dvt on xarelto
- lovenox contraindicated due to heparin reaction
- retrievable IVC filter placed 11/11
- eliquis dose increased to 5mg as pt has no signs of bleeding and stable Hb. Will monitor for bleeding and cbc
Code status: FULL CODE
Diet: diabetic, low K
Anticipated Discharge: > 48 hours
Subjective/Interval History
-
Date of Service: November 16, 2023
Ms. Anita Guevara is a 73yo F pmh HFpEF (EF 60-65%) on 2l O2 at home, CAD, s/p TAVR (04/22/23), DVT on enoxaparin, afib, htn, hld was admitted 11/09 for a CHF exacerbation. No acute events overnight.
Pt is [place] speaking only. Son is present for translation.
Objective Data
-
Labs:
Laboratory Results
11/16/23
05:24
WBC 7.9
Hgb 9.2 L
Hct 29.9 L
Plt Count 214
Sodium 137
Potassium 4.7
Chloride 96 L
Carbon Dioxide 30
BUN 66 H
Creatinine 2.2 H
Glucose 113 H
Calcium 8.7
Vital Signs:
Vital Signs
Temp Pulse Resp BP Pulse Ox
98.1 F 123 19 130/77 98
11/16/23 03:00 11/16/23 06:02 11/16/23 06:02 11/16/23 06:02 11/16/23 04:00
I&O
11/15/23 11/16/23 11/17/23
06:59 06:59 06:59
Intake Total 120 / 120
Output Total 665 / 665 1025 / 1025
Balance -665 / -665 -905 / -905
Review of Systems
-
Unable to obtain full review of systems at this time due to: Language Barrier
History Source: Patient and Family
Constitutional: Reports No Symptoms
Respiratory: Denies Trouble Breathing
Cardiac: Denies Chest Pain, Diaphoresis or Palpitations
Abdomen/GI: Reports Constipated; Denies Abdominal Pain, Nausea, Vomiting or Diarrhea
Genitourinary: Reports No Symptoms
Physical Exam
-
General: Well Developed, Well Nourished, No Apparent Distress and Morbidly Obese
HEENT: Normocephalic and Atraumatic
Respiratory: Other (on 0.5L O2, w SpO2 dipping to high 70s/low 80s w good waveform)
Cardiac: S1/S2, Irregular Rhythm and Tachycardic; Negative Murmur, Rub or Gallop
GI: Soft, Nontender, Nondistended and Other (hypoactive bowel sounds)
Genito-urinary: Clear Urine and Braun
Musculoskeletal: Edema, Right Lower Extrem (+3) and Edema, Left Lower Extrem (+3)
Skin: Warm, Dry, IV Access / Catheter Site and Other (bruising in various stages of healing on her arms)
Neuro: Awake
Psych: Calm
[2023-11-16 08:12] LABS: Glucose - Point of Care 113 mg/dl (70-99)
[2023-11-16] MEDS: NOVOLOG FLEXPEN-LOW RESISTANCE SC ×3 (08:23→18:02)
[2023-11-16] MEDS: PROTONIX 40 MG PO (08:23)
[2023-11-16] MEDS: ASPIR LOW (ENTERIC COATED) 81 MG PO (08:23)
[2023-11-16] MEDS: ARICEPT 5 MG PO (08:23)
[2023-11-16] MEDS: LOPRESSOR 50 MG PO ×2 (08:23→20:27)
[2023-11-16] MEDS: ELIQUIS 2.5 MG PO (08:23)
[2023-11-16] MEDS: BUMEX 3 MG IV (08:24)
--- NOTE | 2023-11-16 08:47 | W.PN.ONC2 ---
Today's Communication / Plan
-
follow CBC
IVC for DVT
IV iron ordered
anticoagulation/antiplatelet for AF/CAD per cardiology
I will arrange OV in 12 weeks
Hematology will sign off, please reach out for any further questions or concerns
Impression
Impression
DVT, no pulmonary emboli. Mild elevation IgG anticardiolipin with normal IgM and Beta 2 GPI. LA pending
Anemia multifactorial including JENNIE, hematoma, renal insufficiency, ferritin <100 suggests component of iron deficiency. No B12 or folate deficiency. s/p 3unit PRBC during hospitalization, last 11/11, Hgb >9g/dL
ABLA 2/2 large LUE Hematoma/seroma s/p evacuation surgery 11/10
DVT s/p IVC filter placed 11/11, consider removal when no longer necessary
bilateral pleural effusion s/p right thora 11/11, 1100cc drained
ELGIN
hyponatremia-resolved
dementia
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
AF, CAD w stent, HFpEF -DOAC resumed 11/14, on apixaban 2.5mg BID, also on aspirin 81mg daily
Plan
Plan
IVC filter for DVT -Postphlebitic syndrome remains a concern
Cardiology for management of CAD, AF, -defer to cardiology regarding risk/benefit AF/AC and CAD/stent/ASA with ABLA
monitor for bleeding
ferritin <100 suggests component of iron deficiency, reviewed risk/benefit of parenteral iron with pt/ at bedside, she is agreeable -IV iron ordered
Repeat APLS panel testing in 12 weeks with mild elevation in IgG anticardiolipin, LA pending
Subjective/Objective
Chief Complaint
feeling better
deneis pain
Subjective
afebrile, no hypotension, 1L NC
declined Bangladeshi supervisor quality control, pt had at bedside for translation
Vital Signs:
Vital Signs
Temp Pulse Resp BP Pulse Ox
98.1 F 123 19 130/77 98
11/16/23 03:00 11/16/23 06:02 11/16/23 06:02 11/16/23 06:02 11/16/23 04:00
Lab Results:
Laboratory Data
WBC 7.9 10^3/uL (4.8-10.8) 11/16/23 05:24
Hgb 9.2 g/dL (12.0-16.0) L 11/16/23 05:24
Plt Count 214 10^3/uL (130-400) 11/16/23 05:24
PT 14.5 Sec (11.4-14.6) 11/11/23 21:38
INR 1.12 11/11/23 21:38
APTT 32.6 Sec (23.4-35.0) 11/12/23 05:57
eGFR 23.24 11/16/23 05:24
Physical Exam
LUE surgical site C/D/I
HEENT: Moist Mucous Membranes; No Jaundice
Cardiology: Irregular rate/rhythm and Murmur
Pulmonary: Clear
GI: Soft
Extremities: Edema (anasarca)
Neuro: Non Focal
Review of Systems
Review of Systems
ROS notable for subjective otherwise negative
Orders
Orders
Orders From Last 24 Hours
11/16/23 05:24
B12 [Vitamin B12] IN AM
Ferritin IN AM
Folate IN AM
[2023-11-16 09:11] LABS: Magnesium 2.6 mg/dl (1.6-2.3)
--- NOTE | 2023-11-16 09:37 | W.PN.CD ---
Today's Communication / Plan
-
-
Bumex 3 mg IV daily, watch response, she has had edema for 1 year so slow diuresis makes the most sense
Please increase Eliquis dose to 5 BID
-
-
Impression / Plan
-
73 y/o female (Patient of Dr. Vasques)- Croatian/Macanese speaking per her daughter. She has a history of hypertension, dyslipidemia, obesity, MARY KATE, restrictive lung disease, severe multivessel CAD with PCI 2014, permanent AFIB (previously on Xarelto,
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 She was recently hospitalized at [facility] and discharged about one week ago. She presented
since her O2 sats at home were in the 70's. She was treated for acute heart failure with preserved EF with Bumex. She also had a thoracentesis for pleural effusion. She was also treated with antibiotics during that admit for possible PNA. She was
noted to be anemic (HGB 9/17 7.9). Additionally BLE DVT was noted despite being on Xarelto and she was adjusted to Lovenox. No PE on CT scan there. She had an injection in her left arm and now has a significant hematoma. She is here now with
complaints of left arm pain with hematoma and worsened LE edema. She has been on Bumex 2 mg daily, though took it BID twice this week without help. We are consulted for CHF.
Severe HFpEF
- Will diurese slowly Bumex 3 mg daily, strict Na+/fluid restriction
- Eventually hope to see her on/ back on MRA/SGLT2-I and perhaps ARNI as well, but will need to watch K+/Cr
- 1 year of edema favors slow steady diuresis
Daughter is present at bedside and helped translate
Permanent AFib, will benefit from oral anticoagulation when able
- The correct Eliquis dose for her AFib is 5 mg BID (age, serum Cr, body weight dosing)
Acute kidney injury
- Cr 1 on 11/11/2023, peak 2.3 on 11/14/2023, on 11/15/2023 Cr 2.2
LUE hematoma, per vascular surgery
Anemia
Recent BLE DVT => has IVC filter, remove once tolerating anticoagulation
Abnormal troponin => non-ischemic myocardial injury in this patient with CHF, anemia
s/p TAVR, good function by echo
CAD with hx stenting, no obstructive cad at recent cath
PAD: Right common fem artery sten, -remains on ASA
Subjective:
Again she feels better despite her edema and CXR findings
Physical Exam
Vital Signs/Labs
Vital Signs
Temp Pulse Resp BP Pulse Ox
97.7 F 113 19 143/84 98
11/16/23 07:20 11/16/23 08:00 11/16/23 08:00 11/16/23 08:00 11/16/23 04:00
11/15/23 11/16/23 11/17/23
06:59 06:59 06:59
Actual Weight 116.6 kg 116.2 kg
11/16/23 05:24
11/16/23 05:24
PT 14.5 Sec (11.4-14.6) 11/11/23 21:38
INR 1.12 11/11/23 21:38
APTT 32.6 Sec (23.4-35.0) 11/12/23 05:57
Magnesium 2.6 mg/dl (1.6-2.3) H 11/16/23 05:24
Triglycerides 140 mg/dl (10-149) 11/11/23 04:03
LDL Cholesterol, Calc 62 mg/dl 11/11/23 04:03
VLDL Cholesterol, Calc 28 mg/dl (0-30) 11/11/23 04:03
HDL Cholesterol 39 mg/dl 11/11/23 04:03
Free T4 1.70 ng/dl (0.78-2.19) 11/11/23 04:03
11/10/23
13:14
Gbz-U-Ksnksmpvbqb Pept 1420
Physical Exam
Constitutional: No acute distress
EENT: Anicteric
Cardiovascular: Rhythm/rate is irregular, Pedal edema present (3+) and S1S2 is normal
Respiratory: Respiratory effort normal, Crackles Present and Other (decreased at bases)
GI: Distention absent
Neuro/Psych: Alert
Data Reviewed
-
Date of Service: November 16, 2023
--- NOTE | 2023-11-16 11:03 | W.PN.NEPH.PH ---
Today's Communication / Plan
-
extra bumex of needed
Assessment/Plan
-
Impression:
ELGIN
Hyponatremia
Nxejw-er-jskcruj HFpEF: (echo 10/27/23 which showed EF 65%, Grade II DD, well seated bio AVR, MG 16 mmHg, moderately elevated PASP (HRH)
Right Pleural effusion
LUE hematoma: Status post evacuation surgery
Anemia:
Recent BLE DVT: (s/p IVC filter placement)
Permanent AFIB:
Abnormal troponin:
s/p TAVR:
CAD with hx stenting:
Right common fem artery stent
Plan:
ELGIN:
-creatinine unchanged at 2.2 and non oliguric via braun-keep braun for now
-Status post IVC filter placement with 15 cc of Visipaque on 11/12/2023
-ELGIN likely prerenally mediated due to low blood pressure in setting of decompensated congestive heart and contrast administration
Checked urine studies: Fractional excretion of sodium consistent with prerenal stimulus, trace proteinuria and no hematuria
-Diuresis per cardiology, cont bumex, extra dose if needed based on UOP
agree with cards plan slow diuresis , echo noted mod pulm HTN
BPs are stable with holding meds
hypervolemic hyponatremia-strict low salt diet and FR
monitor evolving met alkalosis -stable
elevate legs
d/w family at bedside
-
-
Date of Service: November 16, 2023
CC / HPI / ROS
-
Chief Complaint:
ELGIN
History of Present Illness:
Creatinine no change at 2.2, BUN is better
Hemodynamically, improving Bps
Wt slightly down
non oliguric with braun
Review of Systems:
no cp or sob at rest
no n/v
Labs
-
Labs:
WBC 7.9 10^3/uL (4.8-10.8) 11/16/23 05:24
RBC 3.31 10^6/uL (4.20-5.40) L 11/16/23 05:24
Hgb 9.2 g/dL (12.0-16.0) L 11/16/23 05:24
Hct 29.9 % (37.0-47.0) L 11/16/23 05:24
Plt Count 214 10^3/uL (130-400) 11/16/23 05:24
Sodium 137 mmol/L (135-145) 11/16/23 05:24
Potassium 4.7 mmol/L (3.5-5.1) 11/16/23 05:24
Chloride 96 mmol/L (98-107) L 11/16/23 05:24
Carbon Dioxide 30 mmol/L (22-30) 11/16/23 05:24
BUN 66 mg/dl (7-17) H 11/16/23 05:24
Creatinine 2.2 mg/dL (0.6-1.0) H 11/16/23 05:24
eGFR 23.24 11/16/23 05:24
Glucose 113 mg/dl (70-99) H 11/16/23 05:24
Calcium 8.7 mg/dl (8.4-10.2) 11/16/23 05:24
Nhw-D-Xzkslifhpwl Pept 1420 pg/ml 11/10/23 13:14
Albumin 3.2 g/dl (3.5-5.0) L 11/15/23 04:57
Physical Exam
-
Vital Signs:
Vital Signs
Temp Pulse Resp BP Pulse Ox
97.7 F 113 19 143/84 98
11/16/23 07:20 11/16/23 08:00 11/16/23 08:00 11/16/23 08:00 11/16/23 04:00
Cardiovascular:: Regular rate and rhythm
Respiratory:: Bilateral: CTA (decreased)
Lung Excursion:: Normal
Abdomen:: Nontender and Soft
Extremity Edema:: +3: Bilateral:
Braun Catheter: Yes
[2023-11-16 11:37] LABS: Urine Albumin Negative (Neg - Trace); Urine Bilirubin Negative (Negative); Urine Character Clear (Clear); Urine Color Yellow; Urine Glucose Negative (Negative); Urine Ketone Negative (Negative); Urine Leukocyte Negative (Negative); Urine Nitrite Negative (Negative); Urine Occult Blood 2+ (Negative); Urine Specific Gravity 1.015 (<1.030); Urine Urobilinogen Negative (Neg - 1+)
[2023-11-16 11:48] LABS: Urine Urothelial Cell 0-2 /LPF (FEW)
[2023-11-16 11:49] LABS: Urine Bacteria Few (Negative); Urine Yeast Few (Negative)
[2023-11-16 11:50] LABS: Urine Granular Cast 0-2 /LPF (0); Urine Red Blood Cell 0-2 /HPF (0-2)
[2023-11-16 11:59] LABS: Glucose - Point of Care 121 mg/dl (70-99)
--- NOTE | 2023-11-16 12:44 | CM ---
Ukranian & Danish speaking patient with Hx dementia with Dx HF, Acute on chronic respiratory failure, bilateral LE DVT s/p IVC filter, A fib, LUE hematoma s/p evacuation (BARTOLO drain out yesterday, wound unwrapped), anemia, ELGIN. O2 1L. Receiving IV
Bumex, IV Fe Sodium Gluconate. PT/OT recommend .
Spoke with [facility] (main ph [phone], cell [phone], fax [phone]); they are able to accept the referral. They have Ukranian & Danish speaking staff to work with her and have had this patient on service before.
Went in patient room; patient sleeping, daughter Estela not in room.
Phone call to daughter Estela; left message to provide update [facility] has accepted.
Plan home with [facility], with family.
[2023-11-16] MEDS: FERRLECIT 110 MG IV (13:37)
--- NOTE | 2023-11-16 14:48 | PTCARENOTE ---
Addendum entered by Heather Rivera RN 11/16/23 14:59:
Braun was ordered to be d/c'd at 0600; however still with decreased urinary output this morning. Discussed braun order with Dr Santos who changed order to read: ELGIN, d/c 11/16/23.
Original Note:
Assumed care of patient at beginning of this shift from previous RN with O2 @ 1l n/c. Weaned to RA, then POx decreased to 78%. Placed on 2L to recover then back to 1L. Patient remained at 99%. Resp therapist was going to wean to RA but was informed
by son that patient wears 2l n/c at home. She currently remains on 1L with POx 99%.
Order was entered for u/a, urine urea and urine creatinine. When braun clamped, urine was noted to be leaking from tubing. New bag placed. Patient had c/o abdominal discomfort and had a small amount of urine in bag. Patient had been sitting on the
side of the bed. Repositioned patient, had her lay in bed, verified placement and adjusted cath securer; urine then began to flow without difficulty. 700ml clear yellow emptied. Dr Santos on unit and updated. Patient felt relief from abdominal
discomfort. See worklist for full assessment and MAR for med administration. Son remained at bedside most of the day.
[2023-11-16] MEDS: LIPITOR 40 MG PO (18:36)
[2023-11-16] MEDS: ELIQUIS 5 MG PO (20:27)
[2023-11-17] VITALS (9 sets, daily range): BP systolic 103–132; BP diastolic 50–59; BMI 47.1
[2023-11-17 00:21] LABS: Anti-Xa Qualitative Interp Not Performed (Not Present); Anticoagulant Med Neutralizati Not Performed (Not Performed); Hexagonal Phospholipid Confirm Not Performed s (<=7.9); Neutralized PTT-LA Ratio Not Performed (<=1.20); Neutralized dRVTT Screen Ratio Not Performed (<=1.20); PTT-LA Ratio 1.01 (<=1.20); Prothrombin Time 15.6 s (12.0-15.5); Thrombin Time Not Performed s (<=19.5); dRVTT 1.1 Mix Ratio Not Performed (<=1.20); dRVTT Confirmation Ratio Not Performed (<=1.20); dRVTT Screen Ratio 0.96 (<=1.20)
[2023-11-17] MEDS: SYNTHROID 200 MCG PO (05:01)
[2023-11-17] MEDS: SYNTHROID 50 MCG PO (05:01)
[2023-11-17 05:16] LABS: Hematocrit 27.1 % (37.0-47.0); Hemoglobin 8.4 g/dL (12.0-16.0); Mean Corpuscular Hgb 27.4 pg (27.0-31.0); Mean Corpuscular Volume 88.3 fL (81.0-99.0); Mean Platelet Volume 9.4 fL (7.4-10.4); Platelet Count 203 10^3/uL (130-400); Red Blood Cell Count 3.07 10^6/uL (4.20-5.40); Red Cell Dist. Width 17.3 % (11.5-14.5); White Blood Cell Count 7.9 10^3/uL (4.8-10.8)
--- NOTE | 2023-11-17 05:30 | PTCARENOTE ---
Received patient from IMU via bed with daughter at bedside. Telemetry order, afib on monitor HR 80s. VSS, no c/o pain. Patient and daughter oriented to room. Call reddy within reach.
--- NOTE | 2023-11-17 05:36 | PTCARENOTE ---
No acute changes overnight. Remains on 1L NC. Afib on the cardiac cath rn. Horta with clear yellow urine output. BM in BSC. Daughter at bedside to assist with care and translation. Patient transferred to room 2129. All belongings and chart brought
to room. Report given to FABIAN Dave.
[2023-11-17 05:40] LABS: Blood Urea Nitrogen 62 mg/dl (7-17); Calcium 8.4 mg/dl (8.4-10.2); Carbon Dioxide 32 mmol/L (22-30); Chloride 97 mmol/L (98-107); Estimated Creatinine Clearance 36 ml/min; Glucose 115 mg/dl (70-99); Magnesium 2.4 mg/dl (1.6-2.3); Potassium 4.1 mmol/L (3.5-5.1); Sodium 137 mmol/L (135-145); eGFR 31.66
--- NOTE | 2023-11-17 07:33 | W.PN.HOSP.TC ---
Addendum entered and electronically signed by Alvin Trinh MD 11/17/23 23:39:
Attending Addendum-
I saw and evaluated the patient. I reviewed the resident�s note and agree with findings and plan as documented in the resident�s note. Sub: no new complaints, continues to complaint of pain in left arm.seen with daughter present. Full 12 point ROS
reviewed and negative except as documented Exam: Vitals reviewed in chart GEN-NAD heart irreg irreg lungs crackles at bases abd soft LE 3+ pitting edema B/L LUE incision CDI ozzy in place, no drainage on bandage, bruising present pulses strong
braun in place draining clear yellow urine
# Acute on chronic HFpEF
- Echo 11/14- EF 60-65% normally functioning TAVR
�Cardiology input appreciated
�cont IV bumex daily
- slow diuresis
�Monitor urinary output/daily weights
�monitor daily BMP
- trulicity and spironolactone- both on hold
- t/c SGLT2 when able
# Hyperkalemia-
- resolved
- trend BMP
- spironolactone and k supplements on hold
# Hypermagnesemia-
- hold mag supplements
- trend
#JENNIE
- cont IV iron per heme
# Hypervolemic Hyponatremia-
- resolved
- cont to trend daily
# Atrial Fibrillation
- cont metoprolol
- cont Eliquis to 5 bid
- cards on board
- hold Cardizem
# ELGIN on CKD 3a
- improving cr
- likely prerenal from volume overload
- cont IV diuretics
- renal us- nephrolith in right kidney non obstructing
- Follow I and O/braun
- Avoid nephrotoxins
- Check urine studies- FeUrea-P
- Renal input appreciated
- follow bmp closely while on IV bumex
# Urinary Retention
- cont braun
- likely due to immobility
- TOV when more ambulatory
# Left upper extremity hematoma secondary to and made worse by lovenox administration
� urgent hematoma evacuation on 11/10 Dr. Thurman
- BARTOLO drain removed 11/14
- lovenox dc'd
- Monitor CBC
- wound care
# VTE history
- was on Lovenox and Xarelto previously
- retrievable IVC filter placed 11/11
- cont Eliquis at Afib dose- tolerating well
- repeat b/l LE U/S - neg for DVT B/L
- remove IVC filter when able
# Acute on Chronic hypoxemic respiratory failure.
- resolved
- wean for sats > 92%
- DC o2 if able
# Bioprosthetic AV valve s/p TAVR
- Echo- 11/14 - well seated and normally functioning TAVR
# Hypothyroidism-
- cont levothyroxine
# Dementia
- cont aricept
#GERD- cont protonix (on omeprazole at home)
# H/O PAD
- s/p rt fem bypass
# DVT proph- eliquis
Dispo- likely will need SNF on DC
Time spent coordinating care, review of plan of care with resident, personally reviewed records in EMR, med rec, consults, notes, labs, radiology, d/w nursing cards and daughter � 57 mins
Original Note:
Today's Communication/Plan
-
Assessment / Plan
Assessment / Plan
Ms. Anita Guevara is a 73yo F pmh HFpEF (EF 60-65%) on 2l O2 at home, CAD, s/p TAVR (04/22/23), DVT on enoxaparin, afib, htn, hld was admitted 11/09 for a CHF exacerbation.
Acute on chronic exacerbation of HFpEF w acute on chronic respiratory failure, HTN, Chronic Troponin elevation
- thoracentesis: Successful ultrasound-guided thoracentesis, yielding 1100 cc of serosanguineous pleural fluid.
- 2 PRBCs ordered for Hb 6.3 s/p thoracentesis
- pleural fluid: Light's criteria are not met. Likely a transudative effusion secondary to CHF exacerbation
- ECHO(11/14): well seated bioprosthetic aortic valve. LVEF 60-65%. mild MR
- cardiology, nephro following
- weight is increasing, by 0.6kg from yesterday. BP normalized (MAP 76), clinical signs of fluid overload
- transferred to telemetry
- fluid restriction, I&O's, daily weights
- incentive spirometer
- IV Bumex, titrate as needed
- tubigrips
LUE pain secondary to hematoma s/p hematoma evacuation, anemia
- Dr. Thurman evacuated the hematoma on 11/10. Pt decompensated, requiring transition to an ET tube. Transfused 1 unit RBCs intraoperatively
- vascular surgery: neuro checks, keep L arm elevated. BARTOLO drain removed 11/14. ok to restart eliquis for afib
- PT/OT consulted
Anemia
- Hb 7.4 on 11/09, Hb 9.2 on 11/15, now 8.4
- PT 14.5, INR 1.12, PTT 32.6 - WNL
- No B12 or folate deficiency
- s/p 3 units pRBCs transfusion
- ferritin <100 concern for iron deficiency anemia
- replete w ferric sodium gluconate complex
- rwzw-5-txfqucprjvdq panel, cariolipin panel, lupus panel, phosphatidylserine panel pending
- transfuse hemoglobin less than 7.0 g/dL
- follow cbc
ELGIN
- Cr 1.1 on 11/11, peak 2.3, now 1.7. Improving
- BUN 66. BUN/Cr 30, prerenal cause
- ELGIN Likely due to low intravascular volume status secondary to diuresis bc of BUN/Cr >20, presence of hyaline casts in urine
- braun catheter
- renal u/s: nephrolith w/in lower pole of R kidney. No evidence for pelvicalyceal dilation or mass b/l. Renal parenchymal thickness preserved b/l.
- urine cr 46.3
- urine urea pending
- nephro following
- BMP to reassess kidney function
b/l le dvt
- IVC filter placed 11/11.
- Pt tolerated procedure well.
- bl le us: no dvts
hyperkalemia, chronic hyponatremia, hypermagnesemia
- Na 131 on 11/09, now 137. resolved
- K 4.6 on 11/09, 5.7 peak, now 4.1. resolved
- Mg 2.4
- hold KCl, aldactone, magnesium supplements
- received 3 doses lokelma
- low K diet
- low salt diet per nephro
- follow cmp, mg
MARY KATE, asthma
- continue cpap
- no acute asthma exacerbation
Afib
- hold cardizem
- tele monitoring
- metoprolol for rate control as BP improved
- eliquis started at 2.5mg for stroke prevention. Starting at a lower dose bc pt is high risk for bleeding and has required 3 units pRBCs during this hospitalization.
- Pt's Hb decreased, +blood on urinalysis. Eliquis maintained 5g.
- monitor cbc
Type 2 DM, obesity
- SSI, accuchecks
- hold trulicity
- diabetic diet
HLD
- continue statin
- monitor cmp
GERD
- continue PPI
Hypothyroidism
- continue levothyroxine
- TSH 14.9. Free T4 1.7
Dementia
- continue donepezil
Insomnia
- cont trazodone prn
DVT prophylaxis
- SCDs contraindicated due to recent clots
- developed bl dvt on xarelto
- lovenox contraindicated due to heparin reaction
- retrievable IVC filter placed 11/11
- 5mg eliquis. Will monitor for bleeding and cbc
Code status: FULL CODE
Diet: diabetic, low K
Anticipated Discharge: > 48 hours
Subjective/Interval History
-
Date of Service: November 17, 2023
Ms. Anita Guevara is a 73yo F pmh HFpEF (EF 60-65%) on 2l O2 at home, CAD, s/p TAVR (04/22/23), DVT on enoxaparin, afib, htn, hld was admitted 11/09 for a CHF exacerbation. No acute events overnight.
Objective Data
-
Labs:
Laboratory Results
11/17/23
05:04
WBC 7.9
Hgb 8.4 L
Hct 27.1 L
Plt Count 203
Sodium 137
Potassium 4.1
Chloride 97 L
Carbon Dioxide 32 H
BUN 62 H
Creatinine 1.7 H
Glucose 115 H
Calcium 8.4
Vital Signs:
Vital Signs
Temp Pulse Resp BP Pulse Ox
97.8 F 81 18 103/50 95
11/17/23 05:54 11/17/23 05:54 11/17/23 05:54 11/17/23 05:54 11/17/23 05:54
I&O
11/16/23 11/17/23 11/18/23
06:59 06:59 06:59
Intake Total 120 / 120 360 / 360
Output Total 1025 / 1025 1325 / 1325
Balance -905 / -905 -965 / -965
Review of Systems
-
Unable to obtain full review of systems at this time due to: Language Barrier
Physical Exam
-
General: Well Developed, Well Nourished and Morbidly Obese
HEENT: Normocephalic, Atraumatic and Moist Mucous Membranes
Respiratory: Crackles (bibasilar)
Cardiac: S1/S2 and Irregular Rhythm; Negative Murmur, Rub or Gallop
GI: Soft, Nontender, Normal Bowel Sounds, Distended and No Hepatosplenomegaly
Genito-urinary: Clear Urine and Braun
Musculoskeletal: Edema, Right Lower Extrem (+3) and Edema, Left Lower Extrem (+3)
Skin: Warm, Dry and IV Access / Catheter Site
Psych: Calm
[2023-11-17 08:46] LABS: Glucose - Point of Care 159 mg/dl (70-99)
[2023-11-17] MEDS: LOPRESSOR 50 MG PO ×2 (08:58→20:08)
[2023-11-17] MEDS: ARICEPT 5 MG PO (08:58)
[2023-11-17] MEDS: ELIQUIS 5 MG PO ×2 (08:58→20:08)
[2023-11-17] MEDS: PROTONIX 40 MG PO (08:59)
[2023-11-17] MEDS: BUMEX 3 MG IV (08:59)
[2023-11-17] MEDS: ASPIR LOW (ENTERIC COATED) 81 MG PO (08:59)
--- NOTE | 2023-11-17 09:45 | W.PN.CD ---
Today's Communication / Plan
-
ongoing diureisis with intensive monitoring of creatinine
tubigrips
Impression / Plan
-
73 y/o female (Patient of Dr. Vasques)- Solomon Islander/Panamanian speaking per her daughter. She has a history of hypertension, dyslipidemia, obesity, MARY KATE, restrictive lung disease, severe multivessel CAD with PCI 2014, permanent AFIB (previously on Xarelto,
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 She was recently hospitalized at [facility] and discharged about one week ago. She presented
since her O2 sats at home were in the 70's. She was treated for acute heart failure with preserved EF with Bumex. She also had a thoracentesis for pleural effusion. She was also treated with antibiotics during that admit for possible PNA. She was
noted to be anemic (HGB 9/17 7.9). Additionally BLE DVT was noted despite being on Xarelto and she was adjusted to Lovenox. No PE on CT scan there. She had an injection in her left arm and now has a significant hematoma. She is here now with
complaints of left arm pain with hematoma and worsened LE edema. She has been on Bumex 2 mg daily, though took it BID twice this week without help. We are consulted for CHF.
Severe HFpEF
- Will diurese slowly Bumex 3 mg daily, strict Na+/fluid restriction
- Eventually MRA/SGLT2-I and perhaps ARNI as well, but will need to watch K+/Cr
- 1 year of edema favors slow steady diuresis
- will add tubigrips
Permanent AFib, will benefit from oral anticoagulation when able
-rate controlled
- The correct Eliquis dose for her AFib is 5 mg BID (age, serum Cr, body weight dosing)
Acute kidney injury
-Cr improving now 1.7
-continue diuresis
LUE hematoma, per vascular surgery
Anemia: Hg down again today care per medicine , if needs transfusion would follow with additional lasix dose
Recent BLE DVT => has IVC filter, remove once tolerating anticoagulation
Abnormal troponin => non-ischemic myocardial injury in this patient with CHF, anemia
s/p TAVR, good function by echo
CAD with hx stenting, no obstructive cad at recent cath
PAD: Right common fem artery sten, -remains on ASA
Subjective:
she feels good no sob
Physical Exam
Vital Signs/Labs
Vital Signs
Temp Pulse Resp BP Pulse Ox
98.1 F 95 16 115/57 98
11/17/23 07:00 11/17/23 08:59 11/17/23 07:00 11/17/23 08:59 11/17/23 07:00
11/16/23 11/17/23 11/18/23
06:59 06:59 06:59
Actual Weight 116.2 kg 116.8 kg
11/17/23 05:04
11/17/23 05:04
PT 14.5 Sec (11.4-14.6) 11/11/23 21:38
INR 1.12 11/11/23 21:38
APTT 32.6 Sec (23.4-35.0) 11/12/23 05:57
Magnesium 2.4 mg/dl (1.6-2.3) H 11/17/23 05:04
Triglycerides 140 mg/dl (10-149) 11/11/23 04:03
LDL Cholesterol, Calc 62 mg/dl 11/11/23 04:03
VLDL Cholesterol, Calc 28 mg/dl (0-30) 11/11/23 04:03
HDL Cholesterol 39 mg/dl 11/11/23 04:03
Free T4 1.70 ng/dl (0.78-2.19) 11/11/23 04:03
11/10/23
13:14
Zfk-H-Kyhbjzjkhhf Pept 1420
Physical Exam
Constitutional: No acute distress
Cardiovascular: Systolic murmur absent, Diastolic murmur absent, Rhythm/rate is irregular and Pedal edema present (1-2+ up through the thighs b/l)
Respiratory: Respiratory effort normal, Lungs clear to auscul., Wheeze Absent and Crackles Absent
Neuro/Psych: AO x 3
Data Reviewed
-
Date of Service: November 17, 2023
Medical Decision Making: Review of Case with other Provider (Reviewed with Dr Trinh)
EKG: Other (tele afib)
[2023-11-17 11:03] LABS: Glucose - Point of Care 144 mg/dl (70-99)
[2023-11-17] MEDS: NOVOLOG FLEXPEN-LOW RESISTANCE SC ×2 (11:35→18:04)
--- NOTE | 2023-11-17 12:05 | W.PN.NEPH.PH ---
Today's Communication / Plan
-
Maintain Bumex 3 mg IV daily
Follow BMP
Assessment/Plan
-
Impression:
ELGIN
Hyponatremia
Wvenf-dk-jrysvxr HFpEF: (echo 10/27/23 which showed EF 65%, Grade II DD, well seated bio AVR, MG 16 mmHg, moderately elevated PASP (HRH)
Right Pleural effusion
LUE hematoma: Status post evacuation surgery
Anemia:
Recent BLE DVT: (s/p IVC filter placement)
Permanent AFIB:
Abnormal troponin:
s/p TAVR:
CAD with hx stenting:
Right common fem artery stent
Plan:
ELGIN:
-creatinine improved at 1.7 and non oliguric via braun-keep braun for now
-Status post IVC filter placement with 15 cc of Visipaque on 11/12/2023
-ELGIN likely prerenally mediated due to low blood pressure in setting of decompensated congestive heart and contrast administration
Checked urine studies: Fractional excretion of sodium consistent with prerenal stimulus, trace proteinuria and no hematuria
-Diuresis per cardiology, cont bumex, extra dose if needed based on UOP
agree with cards plan slow diuresis , echo noted mod pulm HTN
BPs are stable with holding meds
hypervolemic hyponatremia-strict low salt diet and FR
monitor evolving met alkalosis -stable
elevate legs
-
-
Date of Service: November 17, 2023
CC / HPI / ROS
-
Chief Complaint:
ELGIN
History of Present Illness:
Creatinine improved to 1.7 BUN is better
Hemodynamically, improving Bps
Wt slightly down
non oliguric with braun
Review of Systems:
no cp or sob at rest
no n/v
Labs
-
Labs:
WBC 7.9 10^3/uL (4.8-10.8) 11/17/23 05:04
RBC 3.07 10^6/uL (4.20-5.40) L 11/17/23 05:04
Hgb 8.4 g/dL (12.0-16.0) L 11/17/23 05:04
Hct 27.1 % (37.0-47.0) L 11/17/23 05:04
Plt Count 203 10^3/uL (130-400) 11/17/23 05:04
Sodium 137 mmol/L (135-145) 11/17/23 05:04
Potassium 4.1 mmol/L (3.5-5.1) 11/17/23 05:04
Chloride 97 mmol/L (98-107) L 11/17/23 05:04
Carbon Dioxide 32 mmol/L (22-30) H 11/17/23 05:04
BUN 62 mg/dl (7-17) H 11/17/23 05:04
Creatinine 1.7 mg/dL (0.6-1.0) H 11/17/23 05:04
eGFR 31.66 11/17/23 05:04
Glucose 115 mg/dl (70-99) H 11/17/23 05:04
Calcium 8.4 mg/dl (8.4-10.2) 11/17/23 05:04
Tlv-O-Eadxaydlcnl Pept 1420 pg/ml 11/10/23 13:14
Albumin 3.2 g/dl (3.5-5.0) L 11/15/23 04:57
Physical Exam
-
Vital Signs:
Vital Signs
Temp Pulse Resp BP Pulse Ox
98 F 93 14 113/50 96
11/17/23 11:00 11/17/23 11:00 11/17/23 11:00 11/17/23 11:00 11/17/23 11:00
Cardiovascular:: Regular rate and rhythm
Respiratory:: Bilateral: CTA (decreased)
Lung Excursion:: Normal
Abdomen:: Nontender and Soft
Extremity Edema:: +3: Bilateral:
Braun Catheter: Yes
--- NOTE | 2023-11-17 12:48 | CM ---
Met with patient & daughter Estela
Ongoing diuresis, tubigrips, Creat 1.7
Patient was going to have an ultrasound BLE to r/o DVT
Discussed referral in place to [facility]-spoke with Kendra at [facility].
PLAN: Discharge when medically stable with [facility]
[2023-11-17] MEDS: FERRLECIT 110 MG IV (13:51)
[2023-11-17 14:46] LABS: INR 1.45; PT 17.8 Sec (11.4-14.6)
[2023-11-17 14:47] LABS: APTT 37.9 Sec (23.4-35.0)
--- NOTE | 2023-11-17 14:53 | PN.CDI ---
CDI
- -
CDI:
Physician Documentation Request
Admit Date: 11/10/23 16:57
Dear Doctor Last,
Patient admitted with acute on chronic diastolic CHF.
11/13 PN, 'Left upper extremity hematoma after direct administration of Lovenox....VTE history, currently on Lovenox, felt at previous hospital failed Xarelto...'
Please clarify the likely relationship between these conditions:
Yes, left upper hematoma is associated with/ enhanced by Lovenox.
No, left upper extremity is not associated with/ enhanced by Lovenox but it is due to ___. (Please specify)
Unable to determine
Use of terms such as suspected, likely, concern for, or probable (associated with a specific diagnosis that is being evaluated, monitored, or treated as if it exists) are acceptable and can be coded in the inpatient setting, when documented at the
time of discharge.
Thank you,
Morena HERNANDEZ,RN,CCDS
CDI Specialist
Available via [place] text
Please use your independent medical judgment in providing your response.
--- NOTE | 2023-11-17 15:18 | PN.CDI ---
CDI
- -
CDI:
Physician Documentation Request
Admit Date: 11/10/23 16:57
Dear Doctor Last,
Patient admitted with acute on chronic diastolic CHF.
11/13 PN, 'Left upper extremity hematoma after direct administration of Lovenox....VTE history, currently on Lovenox, felt at previous hospital failed Xarelto...'
Please clarify the likely relationship between these conditions:
Yes, left upper extremity hematoma is associated with/ enhanced by Lovenox.
No, left upper extremity hematoma is not associated with/ enhanced by Lovenox but it is due to ___. (Please specify)
Unable to determine
Use of terms such as suspected, likely, concern for, or probable (associated with a specific diagnosis that is being evaluated, monitored, or treated as if it exists) are acceptable and can be coded in the inpatient setting, when documented at the
time of discharge.
Thank you,
Morena HERNANDEZ,RN,CCDS
CDI Specialist
Available via [place] text
Please use your independent medical judgment in providing your response.
--- NOTE | 2023-11-17 15:21 | PN.CDI ---
CDI
- -
CDI:
Physician Documentation Request
Admit Date: 11/10/23 16:57
Dear Doctor Last,
Patient admitted with acute on chronic diastolic CHF.
11/13 PN, 'Left upper extremity hematoma after direct administration of Lovenox.'
Please provide in your note the likely type of left upper extremity hematoma:
Traumatic left upper extremity hematoma
Non- traumatic left upper extremity hematoma
Other
Use of terms such as suspected, likely, concern for, or probable (associated with a specific diagnosis that is being evaluated, monitored, or treated as if it exists) are acceptable and can be coded in the inpatient setting, when documented at the
time of discharge.
Thank you,
Morena HERNANDEZ,RN,CCDS
CDI Specialist
Available via [place] text
Please use your independent medical judgment in providing your response.
[2023-11-17] MEDS: LIPITOR 40 MG PO (17:22)
[2023-11-17 18:01] LABS: Glucose - Point of Care 139 mg/dl (70-99)
[2023-11-18 03:27] VITALS: BP 105/49
[2023-11-18] MEDS: SYNTHROID 50 MCG PO (05:43)
[2023-11-18] MEDS: SYNTHROID 200 MCG PO (05:43)
[2023-11-18 06:00] VITALS: BMI 47.3
[2023-11-18 07:00] VITALS: BP 113/62
[2023-11-18 07:30] LABS: Glucose - Point of Care 130 mg/dl (70-99)
--- NOTE | 2023-11-18 07:36 | W.PN.HOSP.TC ---
Addendum entered and electronically signed by Alvin Trinh MD 11/18/23 22:40:
Attending Addendum-
I saw and evaluated the patient. I reviewed the resident�s note and agree with findings and plan as documented in the resident�s note. Sub: pain in left arm improved. on FT with family who provided some translation. Full 12 point ROS reviewed and
negative except as documented Exam: Vitals reviewed in chart GEN-NAD heart irreg irreg lungs crackles at bases abd soft LE 3+ pitting edema B/L LUE incision CDI ozzy in place, no drainage on bandage, bruising present pulses strong braun in
place draining clear yellow urine
# Acute on chronic HFpEF
- Echo 11/14- EF 60-65% normally functioning TAVR
�Cardiology input appreciated
�cont IV bumex daily
- would favor adding additional bumex
�Monitor urinary output/daily weights
- weights increasing
- balance nearly even
�monitor daily BMP
- trulicity and spironolactone- both on hold
- t/c SGLT2 when able
# Hyperkalemia-
- resolved
- trend BMP
- spironolactone and k supplements on hold
# Hypermagnesemia-
- hold mag supplements
- trend
#JENNIE
- cont IV iron per heme
# Hypervolemic Hyponatremia-
- resolved
- cont to trend daily
# Atrial Fibrillation
- cont metoprolol
- cont Eliquis to 5 bid
- cards on board
- hold Cardizem
# ELGIN on CKD 3a
- greatly improved cr
- likely prerenal from volume overload
- cont IV diuretics
- renal us- nephrolith in right kidney non obstructing
- Follow I and O/ cont braun
- Avoid nephrotoxins
- Renal input appreciated
- follow bmp closely while on IV bumex
# Urinary Retention
- cont braun
- likely due to immobility
- TOV when more ambulatory
# Left upper extremity hematoma secondary to and made worse by lovenox administration
� urgent hematoma evacuation on 11/10 Dr. Thurman
- BARTOLO drain removed 11/14
- lovenox dc'd
- Monitor CBC
- wound care
# VTE history
- was on Lovenox and Xarelto previously
- retrievable IVC filter placed 11/11
- cont Eliquis at Afib dose- tolerating well
- repeat b/l LE U/S - neg for DVT B/L
- remove IVC filter when able
# Acute on Chronic hypoxemic respiratory failure.
- resolved
- wean for sats > 92%
- DC o2 if able
# Bioprosthetic AV valve s/p TAVR
- Echo- 11/14 - well seated and normally functioning TAVR
# Hypothyroidism-
- cont levothyroxine
# Dementia
- cont aricept
#GERD- cont protonix (on omeprazole at home)
# H/O PAD
- s/p rt fem bypass
# DVT proph- eliquis
Dispo- home with HC when able
Time spent coordinating care, review of plan of care with resident, personally reviewed records in EMR, med rec, consults, notes, labs, radiology, d/w nursing cards and family on FT � 55 mins
Original Note:
Today's Communication/Plan
-
Assessment / Plan
Assessment / Plan
Ms. Anita Guevara is a 73yo F pmh HFpEF (EF 60-65%) on 2l O2 at home, CAD, s/p TAVR (04/22/23), DVT on enoxaparin, afib, htn, hld was admitted 11/09 for a CHF exacerbation.
Acute on chronic exacerbation of HFpEF, HTN, Chronic Troponin elevation
- thoracentesis: Successful ultrasound-guided thoracentesis, yielding 1100 cc of serosanguineous pleural fluid.
- 2 PRBCs ordered for Hb 6.3 s/p thoracentesis
- pleural fluid: Light's criteria are not met. Likely a transudative effusion secondary to CHF exacerbation
- ECHO(11/14): well seated bioprosthetic aortic valve. LVEF 60-65%. mild MR
- cardiology, nephro following
- weight is increasing, by 0.4kg from yesterday. clinical signs of fluid overload
- transferred to telemetry
- fluid restriction, I&O's, daily weights
- incentive spirometer
- continue diuresing w bumex
- tubigrips
LUE pain secondary to traumatic hematoma associated w lovenox injection s/p hematoma evacuation, anemia
- Dr. Thurman evacuated the hematoma on 11/10. Pt decompensated, requiring transition to an ET tube. Transfused 1 unit RBCs intraoperatively
- vascular surgery: neuro checks, keep L arm elevated. BARTOLO drain removed 11/14. ok to restart eliquis for afib
- PT/OT consulted
Anemia
- Hb 7.4 on 11/09, Hb 9.2 on 11/15, now 8.4
- PT 14.5, INR 1.12, PTT 32.6 - WNL
- No B12 or folate deficiency
- s/p 3 units pRBCs transfusion
- ferritin <100 concern for iron deficiency anemia
- replete w ferric sodium gluconate complex
- sebc-2-bielqornrddj panel, cariolipin panel, lupus panel, phosphatidylserine panel pending
- transfuse hemoglobin less than 7.0 g/dL
- follow cbc
ELGIN
- Cr 1.1 on 11/11, peak 2.3, now 1.7. Improving
- BUN 66. BUN/Cr 30, prerenal cause
- ELGIN Likely due to low intravascular volume status secondary to diuresis bc of BUN/Cr >20, presence of hyaline casts in urine
- braun catheter
- renal u/s: nephrolith w/in lower pole of R kidney. No evidence for pelvicalyceal dilation or mass b/l. Renal parenchymal thickness preserved b/l.
- urine cr 46.3
- urine urea pending
- nephro following
- BMP to reassess kidney function
b/l le dvt
- IVC filter placed 11/11.
- Pt tolerated procedure well.
- bl le us: no dvts
hyperkalemia, chronic hyponatremia, hypermagnesemia
- Na 131 on 11/09, now 137. resolved
- K 4.6 on 11/09, 5.7 peak, now 4.1. resolved
- Mg 2.4
- hold KCl, aldactone, magnesium supplements
- received 3 doses lokelma
- low K diet
- low salt diet per nephro
- follow cmp, mg
acute on chronic respiratory failure
- resovled
- on 2L O2 at home
- wean O2 w SpO2>92%
MARY KATE, asthma
- continue cpap
- no acute asthma exacerbation
Afib
- hold cardizem
- tele monitoring
- metoprolol for rate control as BP improved
- eliquis started at 2.5mg for stroke prevention. Starting at a lower dose bc pt is high risk for bleeding and has required 3 units pRBCs during this hospitalization.
- Pt's Hb decreased, +blood on urinalysis. Eliquis maintained 5g.
- monitor cbc
Type 2 DM, obesity
- SSI, accuchecks
- hold trulicity
- diabetic diet
HLD
- continue statin
- monitor cmp
GERD
- continue PPI
Hypothyroidism
- continue levothyroxine
- TSH 14.9. Free T4 1.7
Dementia
- continue donepezil
Insomnia
- cont trazodone prn
PAD
- s/p R femoral bypass
DVT prophylaxis
- SCDs contraindicated due to recent clots
- developed bl dvt on xarelto
- lovenox contraindicated due to heparin reaction
- retrievable IVC filter placed 11/11
- 5mg eliquis. Will monitor for bleeding and cbc
Code status: FULL CODE
Diet: diabetic, low Na
Anticipated Discharge: > 48 hours
Subjective/Interval History
-
Date of Service: November 18, 2023
Ms. Anita Guevara is a 73yo F pmh HFpEF (EF 60-65%) on 2l O2 at home, CAD, s/p TAVR (04/22/23), DVT on enoxaparin, afib, htn, hld was admitted 11/09 for a CHF exacerbation. Per daughter, pt is 'not in a good mood' due to being in the hospital. No
acute events overnight.
Objective Data
-
Labs:
Laboratory Results
11/18/23
06:00
WBC Pending
Hgb Pending
Hct Pending
Plt Count Pending
Sodium Pending
Potassium Pending
Chloride Pending
Carbon Dioxide Pending
BUN Pending
Creatinine Pending
Glucose Pending
Calcium Pending
Vital Signs:
Vital Signs
Temp Pulse Resp BP Pulse Ox
97.9 F 100 16 113/62 95
11/18/23 07:00 11/18/23 07:00 11/18/23 07:00 11/18/23 07:00 11/18/23 07:00
I&O
11/17/23 11/18/23 11/19/23
06:59 06:59 06:59
Intake Total 360 / 360 1580 / 1580
Output Total 1325 / 1325 1500 / 1500
Balance -965 / -965 80 / 80
Review of Systems
-
History Source: Patient and Family
All other systems: Reviewed and negative
Constitutional: Denies Fever or Chills
Respiratory: Denies Cough or Trouble Breathing
Cardiac: Denies Chest Pain, Diaphoresis or Palpitations
Abdomen/GI: Denies Abdominal Pain, Nausea, Vomiting, Diarrhea or Constipated
Genitourinary: Reports No Symptoms
Physical Exam
-
General: Well Developed and Well Nourished
HEENT: Normocephalic and Atraumatic
Respiratory: Clear to Auscultation and Non Labored Respirations; Negative Wheezes, Rales or Rhonchi
Cardiac: S1/S2, Irregular Rhythm and Tachycardic; Negative Murmur, Rub or Gallop
GI: Soft, Nontender, Nondistended, Normal Bowel Sounds and No Hepatosplenomegaly
Genito-urinary: Clear Urine and Braun
Musculoskeletal: Edema, Right Lower Extrem (2+ pitting) and Edema, Left Lower Extrem (2+ pitting)
Skin: Warm and Dry
Neuro: AO x 3
[2023-11-18] MEDS: NOVOLOG FLEXPEN-LOW RESISTANCE SC ×3 (07:46→16:57)
[2023-11-18 09:01] LABS: Hematocrit 27.3 % (37.0-47.0); Hemoglobin 8.2 g/dL (12.0-16.0); Mean Corpuscular Hgb 27.2 pg (27.0-31.0); Mean Corpuscular Volume 90.4 fL (81.0-99.0); Mean Platelet Volume 9.9 fL (7.4-10.4); Platelet Count 206 10^3/uL (130-400); Red Blood Cell Count 3.02 10^6/uL (4.20-5.40); Red Cell Dist. Width 16.9 % (11.5-14.5); White Blood Cell Count 7.1 10^3/uL (4.8-10.8)
[2023-11-18] MEDS: LOPRESSOR 50 MG PO ×2 (09:12→19:42)
[2023-11-18] MEDS: BUMEX 3 MG IV (09:12)
[2023-11-18] MEDS: PROTONIX 40 MG PO (09:13)
[2023-11-18] MEDS: ARICEPT 5 MG PO (09:13)
[2023-11-18] MEDS: ASPIR LOW (ENTERIC COATED) 81 MG PO (09:13)
[2023-11-18] MEDS: ELIQUIS 5 MG PO ×2 (09:13→19:43)
--- NOTE | 2023-11-18 09:14 | W.PN.CD ---
Today's Communication / Plan
-
awaiting AM labs to assess creatinine with diuresis
weights do not appear to be trending down and I/o nearly even.
If renal function stable then would consider additional IV Bumex
Impression / Plan
-
73 y/o female (Patient of Dr. Vasques)- Czech/Sudanese speaking per her daughter. She has a history of hypertension, dyslipidemia, obesity, MARY KATE, restrictive lung disease, severe multivessel CAD with PCI 2014, permanent AFIB (previously on Xarelto,
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 She was recently hospitalized at [facility] and discharged about one week ago. She presented
since her O2 sats at home were in the 70's. She was treated for acute heart failure with preserved EF with Bumex. She also had a thoracentesis for pleural effusion. She was also treated with antibiotics during that admit for possible PNA. She was
noted to be anemic (HGB 9/17 7.9). Additionally BLE DVT was noted despite being on Xarelto and she was adjusted to Lovenox. No PE on CT scan there. She had an injection in her left arm and now has a significant hematoma. She is here now with
complaints of left arm pain with hematoma and worsened LE edema. She has been on Bumex 2 mg daily, though took it BID twice this week without help. We are consulted for CHF.
HfpEF
- remaisn on 2 liters- resp status stable
- - still wtih significatn edema
- Diuresis with IV Bumex 3 mg daily, Fluid restriction. If renal function stable then consider increasein diuretic
- Eventually MRA/SGLT2-I and perhaps ARNI as well, but will need to watch K+/Cr
Permanent AFib, will benefit from oral anticoagulation when able
-rate controlled
- The correct Eliquis dose for her AFib is 5 mg BID (age, serum Cr, body weight dosing)
Acute kidney injury
-Cr improving 1.7 on 11/17/23. await penign labs
-continue diuresis
LUE hematoma, per vascular surgery
Anemia: Hg down again today care per medicine , if needs transfusion would give additional lasix dose
Recent BLE DVT => has IVC filter, remove once tolerating anticoagulation
Abnormal troponin => non-ischemic myocardial injury in this patient with CHF, anemia
s/p TAVR, good function by echo
CAD with hx stenting, no obstructive cad at recent cath
PAD: Right common fem artery sten, -remains on ASA
Subjective:
she feels good no sob
Physical Exam
Vital Signs/Labs
Vital Signs
Temp Pulse Resp BP Pulse Ox
97.9 F 100 16 113/62 95
11/18/23 07:00 11/18/23 07:00 11/18/23 07:00 11/18/23 07:00 11/18/23 07:00
11/17/23 11/18/23 11/19/23
06:59 06:59 06:59
Actual Weight 116.8 kg 117.197 kg
11/18/23 08:23
PT 17.8 Sec (11.4-14.6) H 11/17/23 14:29
INR 1.45 11/17/23 14:29
APTT 37.9 Sec (23.4-35.0) H 11/17/23 14:29
Magnesium 2.4 mg/dl (1.6-2.3) H 11/17/23 05:04
Triglycerides 140 mg/dl (10-149) 11/11/23 04:03
LDL Cholesterol, Calc 62 mg/dl 11/11/23 04:03
VLDL Cholesterol, Calc 28 mg/dl (0-30) 11/11/23 04:03
HDL Cholesterol 39 mg/dl 11/11/23 04:03
Free T4 1.70 ng/dl (0.78-2.19) 11/11/23 04:03
11/10/23
13:14
Zgb-A-Lntqmdyvfbu Pept 1420
Physical Exam
Constitutional: No acute distress
Cardiovascular: Rhythm/rate is irregular
Respiratory: Wheeze Absent and Rhonchi Absent
GI: Soft and Non tender
Neuro/Psych: Alert
Data Reviewed
-
Date of Service: November 18, 2023
Medical Decision Making: Reviewed Test Results and Review of Case with other Provider (reviewed with nurse)
Medical Tests (PFT, Pathology etc): Report Reviewed by me
Labs: Labs Reviewed by me
[2023-11-18 09:21] LABS: Blood Urea Nitrogen 52 mg/dl (7-17); Calcium 8.5 mg/dl (8.4-10.2); Carbon Dioxide 31 mmol/L (22-30); Chloride 97 mmol/L (98-107); Estimated Creatinine Clearance 51 ml/min; Glucose 125 mg/dl (70-99); Magnesium 2.2 mg/dl (1.6-2.3); Potassium 4.2 mmol/L (3.5-5.1); Sodium 137 mmol/L (135-145); eGFR 48.09
[2023-11-18 11:00] VITALS: BP 124/72
--- NOTE | 2023-11-18 11:00 | W.PN.NEPH.PH ---
Today's Communication / Plan
-
Sign off
Assessment/Plan
-
Impression:
ELGIN
Hyponatremia
Bpgua-kk-xxoaygf HFpEF: (echo 10/27/23 which showed EF 65%, Grade II DD, well seated bio AVR, MG 16 mmHg, moderately elevated PASP (HRH)
Right Pleural effusion
LUE hematoma: Status post evacuation surgery
Anemia:
Recent BLE DVT: (s/p IVC filter placement)
Permanent AFIB:
Abnormal troponin:
s/p TAVR:
CAD with hx stenting:
Right common fem artery stent
Plan:
ELGIN:
-creatinine improved at 1.2 (baseline) and non oliguric via braun-keep braun for now
-Status post IVC filter placement with 15 cc of Visipaque on 11/12/2023
-ELGIN likely prerenally mediated due to low blood pressure in setting of decompensated congestive heart and contrast administration
-Checked urine studies: Fractional excretion of sodium consistent with prerenal stimulus, trace proteinuria and no hematuria
-Diuresis per cardiology, cont bumex, extra dose if needed based on UOP
-We will sign off
-
-
Date of Service: November 18, 2023
CC / HPI / ROS
-
Chief Complaint:
ELGIN
History of Present Illness:
Creatinine improved to 1.2 BUN is better
Hemodynamically, improving Bps
non oliguric with braun
Review of Systems:
no cp or sob at rest
no n/v
braun
Labs
-
Labs:
WBC 7.1 10^3/uL (4.8-10.8) 11/18/23 08:23
RBC 3.02 10^6/uL (4.20-5.40) L 11/18/23 08:23
Hgb 8.2 g/dL (12.0-16.0) L 11/18/23 08:23
Hct 27.3 % (37.0-47.0) L 11/18/23 08:23
Plt Count 206 10^3/uL (130-400) 11/18/23 08:23
Sodium 137 mmol/L (135-145) 11/18/23 08:23
Potassium 4.2 mmol/L (3.5-5.1) 11/18/23 08:23
Chloride 97 mmol/L (98-107) L 11/18/23 08:23
Carbon Dioxide 31 mmol/L (22-30) H 11/18/23 08:23
BUN 52 mg/dl (7-17) H 11/18/23 08:23
Creatinine 1.2 mg/dL (0.6-1.0) H 11/18/23 08:23
eGFR 48.09 11/18/23 08:23
Glucose 125 mg/dl (70-99) H 11/18/23 08:23
Calcium 8.5 mg/dl (8.4-10.2) 11/18/23 08:23
Dkz-U-Supwtwcqmih Pept 1420 pg/ml 11/10/23 13:14
Albumin 3.2 g/dl (3.5-5.0) L 11/15/23 04:57
Physical Exam
-
Vital Signs:
Vital Signs
Temp Pulse Resp BP Pulse Ox
97.9 F 100 16 113/62 95
11/18/23 07:00 11/18/23 09:12 11/18/23 07:00 11/18/23 09:12 11/18/23 09:00
Cardiovascular:: Regular rate and rhythm
Extremity Edema:: +1: Bilateral:
[2023-11-18 11:58] LABS: Glucose - Point of Care 140 mg/dl (70-99)
[2023-11-18] MEDS: FERRLECIT 110 MG IV (14:33)
[2023-11-18 15:00] VITALS: BP 110/58
--- NOTE | 2023-11-18 15:03 | CM ---
Patient seen at bedside.
Creat 1.2 today
US BLE performed 11/16 negative DVT
PT continue to recommend HH
Patient current with [facility]
Left message with daughter Estela
PLAN: Discharge when stable with [facility]
[2023-11-18 16:59] LABS: Glucose - Point of Care 125 mg/dl (70-99)
[2023-11-18] MEDS: LIPITOR 40 MG PO (17:17)
--- NOTE | 2023-11-18 19:06 | PTCARENOTE ---
This RN communicated with nephrology regarding patient's braun catheter order. Per nephro, pull braun at 2000 tonight for TOV, follow bladder scan/straight cath algorithm.
[2023-11-18 19:44] VITALS: BP 116/46
[2023-11-18 21:32] LABS: Glucose - Point of Care 137 mg/dl (70-99)
[2023-11-18 23:02] VITALS: BP 122/53
[2023-11-19 02:56] VITALS: BP 136/69
[2023-11-19 05:27] VITALS: BMI 47.2
[2023-11-19] MEDS: SYNTHROID 200 MCG PO (05:52)
[2023-11-19] MEDS: SYNTHROID 50 MCG PO (05:52)
--- NOTE | 2023-11-19 07:07 | W.PN.HOSP.TC ---
Addendum entered and electronically signed by Alvin Trinh MD 11/19/23 23:45:
Attending Addendum-
I saw and evaluated the patient. I reviewed the resident�s note and agree with findings and plan as documented in the resident�s note. Sub: has epistaxis this am. seen with daughter. Feels weak. Full 12 point ROS reviewed and negative except as
documented Exam: Vitals reviewed in chart GEN-NAD heart irreg irreg lungs crackles at bases abd soft LE 3+ pitting edema B/L LUE incision CDI ozzy in place, bruising and swelling into lower arm and into hand pulses strong braun in place
draining clear yellow urine
# Acute on chronic HFpEF
- Echo 11/14- EF 60-65% normally functioning TAVR
�Cardiology input appreciated
�increase IV bumex
�Monitor urinary output/daily weights
�monitor daily BMP
- t/c SGLT2 when able
# Hyperkalemia-
- resolved
- trend BMP
- spironolactone restarted
# Hypermagnesemia-
- hold mag supplements
- trend
#JENNIE
- cont IV iron per heme
# Hypervolemic Hyponatremia-
- resolved
- cont to trend daily
# Epistaxis
- apply pressure
- monitor closely
# Atrial Fibrillation
- cont metoprolol
- cont Eliquis-new
- cards on board
- hold Cardizem
# ELGIN on CKD 3a
- resolved
- increase IV diuretics
- renal us- nephrolith in right kidney non obstructing
- Follow I and O
- DC Braun
- Avoid nephrotoxins
- Renal input appreciated
- follow bmp closely
# Urinary Retention
- DC braun
- likely due to immobility
- TOV underway
# Left upper extremity hematoma secondary to lovenox administration
� urgent hematoma evacuation on 11/10 Dr. Thurman
- BARTOLO drain removed 11/14
- Monitor CBC
- wound care
# VTE history
- was on Lovenox and Xarelto previously
- retrievable IVC filter placed 11/11
- cont Eliquis at Afib dose- tolerating well
- repeat b/l LE U/S - neg for DVT B/L
- remove IVC filter when able
# Acute on Chronic hypoxemic respiratory failure.
- desating while on RA
- wean for sats > 92%
# Bioprosthetic AV valve s/p TAVR
- Echo- 11/14 - well seated and normally functioning TAVR
# Hypothyroidism-
- cont levothyroxine
# Dementia
- cont aricept
#GERD- cont protonix (on omeprazole at home)
# H/O PAD
- s/p rt fem bypass
# DVT proph- eliquis
Dispo- home with HC when able
Time spent coordinating care, review of plan of care with resident, personally reviewed records in EMR, med rec, consults, notes, labs, radiology, d/w nursing cards and daughter � 56 mins
Original Note:
Today's Communication/Plan
-
Assessment / Plan
Assessment / Plan
Ms. Anita Guevara is a 73yo F pmh HFpEF (EF 60-65%) on 2l O2 at home, CAD, s/p TAVR (04/22/23), DVT on enoxaparin, afib, htn, hld was admitted 11/09 for a CHF exacerbation.
Acute on chronic exacerbation of HFpEF, HTN, Chronic Troponin elevation
- thoracentesis: Successful ultrasound-guided thoracentesis, yielding 1100 cc of serosanguineous pleural fluid.
- 2 PRBCs ordered for Hb 6.3 s/p thoracentesis
- pleural fluid: Light's criteria are not met. Likely a transudative effusion secondary to CHF exacerbation
- ECHO(11/14): well seated bioprosthetic aortic valve. LVEF 60-65%. mild MR
- cardiology, nephro following
- transferred to telemetry
- fluid restriction, I&O's, daily weights
- incentive spirometer
- continue diuresing w bumex
- tubigrips
LUE pain secondary to traumatic hematoma associated w lovenox injection s/p hematoma evacuation, anemia
- Dr. Thurman evacuated the hematoma on 11/10. Pt decompensated, requiring transition to an ET tube. Transfused 1 unit RBCs intraoperatively
- vascular surgery: neuro checks, keep L arm elevated
- PT/OT consulted
Anemia
- Hb 7.4 on 11/09, now 8.2
- PT 14.5, INR 1.12, PTT 32.6 - WNL
- No B12 or folate deficiency
- s/p 3 units pRBCs transfusion
- ferritin <100 concern for iron deficiency anemia
- replete w ferric sodium gluconate complex
- norn-1-vdepzazhlfec panel, cariolipin panel, lupus panel, phosphatidylserine panel pending
- transfuse hemoglobin less than 7.0 g/dL
- follow cbc
ELGIN
- Cr 1.1 on 11/11, peak 2.3, now 1.1. back to baseline
- BUN/Cr>20 likely a prerenal cause
- ELGIN Likely due to low intravascular volume status secondary to diuresis bc of BUN/Cr >20, presence of hyaline casts in urine
- braun catheter removed
- renal u/s: nephrolith w/in lower pole of R kidney. No evidence for pelvicalyceal dilation or mass b/l. Renal parenchymal thickness preserved b/l.
- urine cr 46.3
- urine urea pending
- nephro following
- BMP to reassess kidney function
b/l le dvt
- IVC filter placed 11/11.
- Pt tolerated procedure well.
- bl le us: no dvts
- on eliquis
hyperkalemia, chronic hyponatremia, hypermagnesemia
- resolved
- hold KCl, aldactone, magnesium supplements
- received 3 doses lokelma
- low salt diet per nephro
- follow cmp, mg
acute on chronic respiratory failure
- resovled
- on 2L O2 at home
- wean O2 w SpO2>92%
MARY KATE, asthma
- continue cpap
- no acute asthma exacerbation
Afib
- hold cardizem
- tele monitoring
- metoprolol for rate control as BP improved
- eliquis started at 2.5mg for stroke prevention. Starting at a lower dose bc pt is high risk for bleeding and has required 3 units pRBCs during this hospitalization.
- Pt's Hb decreased, +blood on urinalysis. Eliquis maintained 5g.
- monitor cbc
Type 2 DM, obesity
- SSI, accuchecks
- hold trulicity
- diabetic diet
HLD
- continue statin
- monitor cmp
GERD
- continue PPI
Hypothyroidism
- continue levothyroxine
- TSH 14.9. Free T4 1.7
Dementia
- continue donepezil
Insomnia
- cont trazodone prn
PAD
- s/p R femoral bypass
DVT prophylaxis
- retrievable IVC filter placed 11/11
- 5mg eliquis. Epistaxis. Will monitor for continued bleeding and cbc
Code status: FULL CODE
Diet: diabetic, low Na
Anticipated Discharge: > 48 hours
Subjective/Interval History
-
Date of Service: November 19, 2023
Ms. Anita Guevara is a 73yo F pmh HFpEF (EF 60-65%) on 2l O2 at home, CAD, s/p TAVR (04/22/23), DVT on enoxaparin, afib, htn, hld was admitted 11/09 for a CHF exacerbation. No acute events overnight.
Objective Data
-
Labs:
Laboratory Results
11/19/23
06:00
WBC Pending
Hgb Pending
Hct Pending
Plt Count Pending
Sodium Pending
Potassium Pending
Chloride Pending
Carbon Dioxide Pending
BUN Pending
Creatinine Pending
Glucose Pending
Calcium Pending
Vital Signs:
Vital Signs
Temp Pulse Resp BP Pulse Ox
98.3 F 88 14 136/69 96
11/19/23 02:56 11/19/23 02:56 11/19/23 02:56 11/19/23 02:56 11/19/23 02:56
I&O
11/18/23 11/19/23 11/20/23
06:59 06:59 06:59
Intake Total 1580 / 1580 1260 / 1260
Output Total 1500 / 1500 1450 / 1450
Balance 80 / 80 -190 / -190
Review of Systems
-
Unable to obtain full review of systems at this time due to: Language Barrier
History Source: Patient and Family
Constitutional: Reports No Symptoms
EENT: Reports Bloody Nose
Respiratory: Reports No Symptoms
Cardiac: Reports No Symptoms
Abdomen/GI: Reports No Symptoms
Physical Exam
-
General: Well Developed and Well Nourished
HEENT: Normocephalic and Atraumatic
Respiratory: Crackles (bibasilar)
Cardiac: S1/S2 and Irregular Rhythm
GI: Soft, Nontender, Nondistended and Normal Bowel Sounds
Musculoskeletal: Edema, Right Lower Extrem (+4) and Edema, Left Lower Extrem (+4)
Skin: Other (bruising, no sign of wound dehiscence)
Neuro: Awake
[2023-11-19 07:25] VITALS: BP 129/67
[2023-11-19 08:01] LABS: Hematocrit 27.6 % (37.0-47.0); Hemoglobin 8.2 g/dL (12.0-16.0); Mean Corp Hgb Conc. 29.7 g/dL (33.0-37.0); Mean Corpuscular Hgb 27.6 pg (27.0-31.0); Mean Corpuscular Volume 92.9 fL (81.0-99.0); Mean Platelet Volume 9.6 fL (7.4-10.4); Platelet Count 208 10^3/uL (130-400); Red Blood Cell Count 2.97 10^6/uL (4.20-5.40); Red Cell Dist. Width 17.1 % (11.5-14.5)
[2023-11-19 08:11] LABS: Glucose - Point of Care 121 mg/dl (70-99)
[2023-11-19] MEDS: NOVOLOG FLEXPEN-LOW RESISTANCE SC ×2 (08:39→17:33)
[2023-11-19] MEDS: LOPRESSOR 50 MG PO ×2 (08:42→20:34)
[2023-11-19] MEDS: PROTONIX 40 MG PO (08:42)
[2023-11-19] MEDS: ELIQUIS 5 MG PO ×2 (08:43→20:35)
[2023-11-19 08:44] LABS: Blood Urea Nitrogen 45 mg/dl (7-17); Calcium 8.6 mg/dl (8.4-10.2); Carbon Dioxide 33 mmol/L (22-30); Chloride 97 mmol/L (98-107); Estimated Creatinine Clearance 56 ml/min; Glucose 107 mg/dl (70-99); Magnesium 2.1 mg/dl (1.6-2.3); Potassium 4.4 mmol/L (3.5-5.1); Sodium 137 mmol/L (135-145); eGFR 53.39
[2023-11-19] MEDS: ARICEPT 5 MG PO (08:44)
[2023-11-19] MEDS: ASPIR LOW (ENTERIC COATED) 81 MG PO (08:44)
[2023-11-19] MEDS: BUMEX 3 MG IV ×2 (08:44→17:24)
--- NOTE | 2023-11-19 08:52 | W.PN.CD ---
Today's Communication / Plan
-
increase diuresis to bid
f/u lytes
if no improvement with wheezing then will update cxr
Impression / Plan
-
73 y/o female (Patient of Dr. Vasques)- Welsh/Mozambican speaking per her daughter. She has a history of hypertension, dyslipidemia, obesity, MARY KATE, restrictive lung disease, severe multivessel CAD with PCI 2014, permanent AFIB (previously on Xarelto,
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 She was recently hospitalized at [facility] and discharged about one week ago. She presented
since her O2 sats at home were in the 70's. She was treated for acute heart failure with preserved EF with Bumex. She also had a thoracentesis for pleural effusion. She was also treated with antibiotics during that admit for possible PNA. She was
noted to be anemic (HGB /17 7.9). Additionally BLE DVT was noted despite being on Xarelto and she was adjusted to Lovenox. No PE on CT scan there. She had an injection in her left arm and now has a significant hematoma. She is here now with
complaints of left arm pain with hematoma and worsened LE edema. She has been on Bumex 2 mg daily, though took it BID twice this week without help. We are consulted for CHF.
HfpEF
- remains on oxygen down to 1 liter- today she is wheezing
- - edema improving but weight now really budging much
-Will increase bumex to IV BID and reassess. If no improvement with wheezing could reassesss with CXR
-this will require intensive monitoring of lyte, cr and bp
- Eventually MRA/SGLT2-I and perhaps ARNI as well, but will need to watch K+/Cr
Permanent AFib, will benefit from oral anticoagulation when able
-mostly rate controlled.
- The correct Eliquis dose for her AFib is 5 mg BID (age, serum Cr, body weight dosing)
Acute kidney injury
-Cr improving 1.7 on 11/17/23. await labs
-continue diuresis
LUE hematoma, per vascular surgery
Anemia: Hg down but stable today
Recent BLE DVT => has IVC filter, remove once tolerating anticoagulation
Abnormal troponin => non-ischemic myocardial injury in this patient with CHF, anemia
s/p TAVR, good function by echo
CAD with hx stenting, no obstructive cad at recent cath
PAD: Right common fem artery sten, -remains on ASA
Subjective:
she feels good no sob, arm still with pain but improving
her daughter is at the bedside and aids in history
Physical Exam
Vital Signs/Labs
Vital Signs
Temp Pulse Resp BP Pulse Ox
98.3 F 88 14 136/69 96
11/19/23 02:56 11/19/23 02:56 11/19/23 02:56 11/19/23 02:56 11/19/23 02:56
11/18/23 11/19/23 11/20/23
06:59 06:59 06:59
Actual Weight 117.197 kg 116.845 kg
11/19/23 07:36
11/19/23 07:36
PT 17.8 Sec (11.4-14.6) H 11/17/23 14:29
INR 1.45 11/17/23 14:29
APTT 37.9 Sec (23.4-35.0) H 11/17/23 14:29
Magnesium 2.1 mg/dl (1.6-2.3) 11/19/23 07:36
Triglycerides 140 mg/dl (10-149) 11/11/23 04:03
LDL Cholesterol, Calc 62 mg/dl 11/11/23 04:03
VLDL Cholesterol, Calc 28 mg/dl (0-30) 11/11/23 04:03
HDL Cholesterol 39 mg/dl 11/11/23 04:03
Free T4 1.70 ng/dl (0.78-2.19) 11/11/23 04:03
11/10/23
13:14
Kts-V-Vhnhfygmoic Pept 1420
Physical Exam
Constitutional: No acute distress
Cardiovascular: Systolic murmur absent, Rhythm/rate is irregular and Pedal edema present (1+ with tubigrips b/l)
Respiratory: Respiratory effort normal, Crackles Absent and Wheeze Present (diffusely )
Neuro/Psych: AO x 3
Data Reviewed
-
Date of Service: November 19, 2023
Medical Decision Making: Review of Case with other Provider (Dr Ziggy valdez)
EKG: Other (af slightly fast right now but about to get meds, controlled all day yesterday)
[2023-11-19 11:00] VITALS: BP 118/72
[2023-11-19 11:40] LABS: Glucose - Point of Care 214 mg/dl (70-99)
[2023-11-19] MEDS: NOVOLOG FLEXPEN-LOW RESISTANCE 2 UNITS SC (11:44)
[2023-11-19] MEDS: FERRLECIT 110 MG IV (13:32)
[2023-11-19 15:00] VITALS: BP 110/61
--- NOTE | 2023-11-19 15:51 | CM ---
Addendum entered by Inocencia Tolbert 11/19/23 15:58:
[facility]
Fax #:fax [phone]
Original Note:
Patient seen at bedside with daughter Estela.
continues with diuresis
Referral in care port for [facility].
PT recommending home health.
Careport updated
PLAN: Home with [facility].
Daughter to transport
--- NOTE | 2023-11-19 16:10 | PTCARENOTE ---
Patient with small nosebleed while wearing 1L NC. MD and residents at bedside during event, humidifier added to wall O2 by this RN. This RN communicated with resident, verbal order taken by this RN to cancel IRAD consult for IVC filter retrieval.
B/L LEs and LUE elevated with pillows per MD. + radial pulse and strength of LUE.
[2023-11-19] MEDS: LIPITOR 40 MG PO (17:23)
[2023-11-19 17:34] LABS: Glucose - Point of Care 93 mg/dl (70-99)
[2023-11-19 19:55] VITALS: BP 130/69
[2023-11-19 21:27] LABS: Glucose - Point of Care 173 mg/dl (70-99)
[2023-11-19 23:22] VITALS: BP 107/60
[2023-11-20 03:31] VITALS: BP 100/64
[2023-11-20 05:35] VITALS: BMI 47.1
[2023-11-20] MEDS: SYNTHROID 50 MCG PO (06:13)
[2023-11-20] MEDS: SYNTHROID 200 MCG PO (06:13)
[2023-11-20 06:53] LABS: Hematocrit 26.2 % (37.0-47.0); Mean Corp Hgb Conc. 30.5 g/dL (33.0-37.0); Mean Corpuscular Hgb 28.5 pg (27.0-31.0); Mean Corpuscular Volume 93.2 fL (81.0-99.0); Mean Platelet Volume 9.4 fL (7.4-10.4); Platelet Count 188 10^3/uL (130-400); Red Blood Cell Count 2.81 10^6/uL (4.20-5.40); Red Cell Dist. Width 17.2 % (11.5-14.5); White Blood Cell Count 6.3 10^3/uL (4.8-10.8)
[2023-11-20 07:28] LABS: Blood Urea Nitrogen 35 mg/dl (7-17); Calcium 8.5 mg/dl (8.4-10.2); Carbon Dioxide 37 mmol/L (22-30); Chloride 95 mmol/L (98-107); Estimated Creatinine Clearance 62 ml/min; Glucose 101 mg/dl (70-99); Potassium 3.8 mmol/L (3.5-5.1); Sodium 136 mmol/L (135-145); eGFR 59.86
[2023-11-20 07:28] LABS: Glucose - Point of Care 108 mg/dl (70-99)
[2023-11-20 07:46] VITALS: BP 118/62
[2023-11-20] MEDS: NOVOLOG FLEXPEN-LOW RESISTANCE SC ×2 (08:07→17:38)
[2023-11-20] MEDS: ELIQUIS 5 MG PO ×2 (08:08→20:55)
[2023-11-20] MEDS: ASPIR LOW (ENTERIC COATED) 81 MG PO (08:08)
[2023-11-20] MEDS: BUMEX 3 MG IV ×2 (08:08→17:19)
[2023-11-20] MEDS: ARICEPT 5 MG PO (08:08)
[2023-11-20] MEDS: PROTONIX 40 MG PO (08:08)
[2023-11-20] MEDS: LOPRESSOR 50 MG PO ×2 (08:09→20:55)
--- NOTE | 2023-11-20 10:14 | W.PN.HOSP.TC ---
Today's Communication/Plan
-
diuresis
Assessment / Plan
Assessment / Plan
Ms. Anita Guevara is a 73yo F pmh HFpEF (EF 60-65%) on 2l O2 at home, CAD, s/p TAVR (04/22/23), DVT on enoxaparin, afib, htn, hld was admitted 11/09 for a CHF exacerbation.
CXR 11/15/23
IMPRESSION:
1. Pulmonary edema, without significant change.
2. Small bilateral pleural effusions, right greater than left. Right pleural effusion is increased in size compared to prior chest x-ray.
Acute on chronic exacerbation of HFpEF, HTN, Chronic Troponin elevation
Bilateral pleural effusions
- thoracentesis: Successful ultrasound-guided thoracentesis, yielding 1100 cc of serosanguineous pleural fluid.
- pleural fluid: Light's criteria are not met. Likely a transudative effusion secondary to CHF exacerbation
- ECHO(11/14): well seated bioprosthetic aortic valve. LVEF 60-65%. mild MR
- cardiology, nephro following
- fluid restriction, I&O's, daily weights
- incentive spirometer
- continue diuresing w bumex --> increased to BID without significant response per daughter - consider diuril, discussing with cardiology
- tubigrips
LUE pain secondary to traumatic hematoma associated w lovenox injection s/p hematoma evacuation, anemia
- Dr. Thurman evacuated the hematoma on 11/10.
- vascular surgery: neuro checks, keep L arm elevated
- PT/OT consulted
Anemia
Acute blood loss anemia
- LUE hematoma
- s/p 3 units pRBCs transfusion
- iron repletion
- ppwu-0-kmrsrdtsqxvo panel, cardiolipin panel, lupus panel, phosphatidylserine panel pending
- transfuse hemoglobin less than 7.0 g/dL
- follow cbc
ELGIN
- Cr 1.1 on 11/11, peak 2.3, now 1.1. back to baseline
- BUN/Cr>20 likely a prerenal cause
- ELGIN Likely due to low intravascular volume status secondary to diuresis bc of BUN/Cr >20, presence of hyaline casts in urine
- braun catheter removed
- renal u/s: nephrolith w/in lower pole of R kidney. No evidence for pelvicalyceal dilation or mass b/l. Renal parenchymal thickness preserved b/l.
- urine cr 46.3
- urine urea pending
- nephro following
- BMP to reassess kidney function
b/l le dvt
- IVC filter placed 11/11.
- Pt tolerated procedure well.
- bl le us: no dvts
- on eliquis
hyperkalemia, chronic hyponatremia, hypermagnesemia
- resolved
- hold KCl, aldactone, magnesium supplements
- received 3 doses lokelma
- low salt diet per nephro
- follow cmp, mg
acute on chronic respiratory failure
- resolved
- on 2L O2 at home
- wean O2 w SpO2>92%
MARY KATE, asthma
- continue cpap
- no acute asthma exacerbation
Afib
- hold cardizem
- tele monitoring
- metoprolol for rate control as BP improved
- eliquis 5mg PO BID
Type 2 DM, obesity
- SSI, accuchecks
- hold trulicity
- diabetic diet
HLD
- continue statin
- monitor cmp
GERD
- continue PPI
Hypothyroidism
- continue levothyroxine
- TSH 14.9. Free T4 1.7
Dementia
- continue donepezil
Insomnia
- cont trazodone prn
PAD
- s/p R femoral bypass
DVT prophylaxis
- retrievable IVC filter placed 11/11
- 5mg eliquis. Epistaxis. Will monitor for continued bleeding and cbc
Code status: FULL CODE
Diet: diabetic, low Na
Anticipated Discharge: > 48 hours
Subjective/Interval History
-
Date of Service: November 20, 2023
not urinating significantly remains swollen
seen with daughter at bedside
Objective Data
-
Labs:
Laboratory Results
11/20/23
06:20
WBC 6.3
Hgb 8.0 L
Hct 26.2 L
Plt Count 188
Sodium 136
Potassium 3.8
Chloride 95 L
Carbon Dioxide 37 H
BUN 35 H
Creatinine 1.0
Glucose 101 H
Calcium 8.5
Vital Signs:
Vital Signs
Temp Pulse Resp BP Pulse Ox
98.0 F 58 16 118/62 96
11/20/23 07:46 11/20/23 08:08 11/20/23 07:46 11/20/23 08:08 11/20/23 07:46
I&O
11/19/23 11/20/23 11/21/23
06:59 06:59 06:59
Intake Total 1260 / 1260 480 / 480
Output Total 1450 / 1450 550 / 550
Balance -190 / -190 -70 / -70
Review of Systems
-
History Source: Patient
All other systems: Reviewed and negative
Physical Exam
-
General: Well Developed and Well Nourished
HEENT: Normocephalic and Atraumatic
Respiratory: Crackles (bibasilar)
Cardiac: S1/S2 and Irregular Rhythm
GI: Soft, Nontender, Nondistended and Normal Bowel Sounds
Musculoskeletal: Edema, Right Lower Extrem (+4) and Edema, Left Lower Extrem (+4)
Skin: Other (bruising, no sign of wound dehiscence)
Neuro: Awake
Psych: Calm
Data Reviewed
-
Diagnostic Radiology: Report Reviewed by me
Labs: Labs Reviewed by me
[2023-11-20] MEDS: KCL 40 MEQ PO (10:50)
[2023-11-20 11:31] VITALS: BP 114/72
[2023-11-20 12:22] LABS: Glucose - Point of Care 199 mg/dl (70-99)
--- NOTE | 2023-11-20 12:26 | W.PN.CD ---
Addendum entered and electronically signed by Gilmer Radford MD 11/20/23 16:56:
73 yo female with chronic HFPEF admitted with acute on chronic HFPEF. Does not seem to be diuresing on bumex 3mg IV bid. Exam with irregular rhythm, no murmurs, 2+ LE edema. Cr 1.0.
Add metolazone prior to PM bumex dose today. Trend weight, labs.
Original Note:
Today's Communication / Plan
-
Attempt further diuresis with adding metolazone
Monitor renal function and labs
Impression / Plan
-
73 y/o female (Patient of Dr. Vasques)- Lithuanian/Nigerien speaking per her daughter. She has a history of hypertension, dyslipidemia, obesity, MARY KATE, restrictive lung disease, severe multivessel CAD with PCI 2014, permanent AFIB (previously on Xarelto,
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 She was recently hospitalized at [facility] and discharged about one week ago. She presented
since her O2 sats at home were in the 70's. She was treated for acute heart failure with preserved EF with Bumex. She also had a thoracentesis for pleural effusion. She was also treated with antibiotics during that admit for possible PNA. She was
noted to be anemic (HGB 9/17 7.9). Additionally BLE DVT was noted despite being on Xarelto and she was adjusted to Lovenox. No PE on CT scan there. She had an injection in her left arm and now has a significant hematoma. She is here now with
complaints of left arm pain with hematoma and worsened LE edema. She has been on Bumex 2 mg daily, though took it BID twice this week without help. We are consulted for CHF.
HfpEF
- remains on oxygen down to 1 liter-
- edema improving but weight unchanged
-Bumex increased to BID and still no weight loss
-will add dose metolazone to this afternoons dose of bumex.
-this will require intensive monitoring of lyte, cr and bp
-Eventually MRA/SGLT2-I and perhaps ARNI as well, but will need to watch K+/Cr
Permanent AFib, will benefit from oral anticoagulation when able
- mostly rate controlled.
- The correct Eliquis dose for her AFib is 5 mg BID (age, serum Cr, body weight dosing)
Acute kidney injury
-Cr improving 1.7 on 11/17/23. 11/19 1.0
-continue diuresis
LUE hematoma, per vascular surgery
Anemia: Hg con't to drift downward.
Recent BLE DVT => has IVC filter, remove once tolerating anticoagulation
Abnormal troponin => non-ischemic myocardial injury in this patient with CHF, anemia
s/p TAVR, good function by echo
CAD with hx stenting, no obstructive cad at recent cath
PAD: Right common fem artery sten, -remains on ASA
Subjective:
Pt. denies SOB, CP, palps.
Physical Exam
Vital Signs/Labs
Vital Signs
Temp Pulse Resp BP Pulse Ox
98.1 F 100 16 114/72 100
11/20/23 11:31 11/20/23 11:31 11/20/23 11:31 11/20/23 11:31 11/20/23 11:31
11/19/23 11/20/23 11/21/23
06:59 06:59 06:59
Actual Weight 116.845 kg 116.709 kg
11/20/23 06:20
11/20/23 06:20
PT 17.8 Sec (11.4-14.6) H 11/17/23 14:29
INR 1.45 11/17/23 14:29
APTT 37.9 Sec (23.4-35.0) H 11/17/23 14:29
Magnesium 2.1 mg/dl (1.6-2.3) 11/19/23 07:36
Triglycerides 140 mg/dl (10-149) 11/11/23 04:03
LDL Cholesterol, Calc 62 mg/dl 11/11/23 04:03
VLDL Cholesterol, Calc 28 mg/dl (0-30) 11/11/23 04:03
HDL Cholesterol 39 mg/dl 11/11/23 04:03
Free T4 1.70 ng/dl (0.78-2.19) 11/11/23 04:03
11/10/23
13:14
Psu-X-Jamydzccxpu Pept 1420
Physical Exam
Constitutional: No acute distress
Cardiovascular: Rhythm/rate is irregular and Pedal edema present (mild-mod bilat LE edema)
Respiratory: Other (Decreased bases , no wheeze)
Neuro/Psych: AO x 3
Data Reviewed
-
Date of Service: November 20, 2023
EKG: Other (Tele; AF rate controlled )
Labs: Labs Reviewed by me
[2023-11-20] MEDS: NOVOLOG FLEXPEN-LOW RESISTANCE 1 UNITS SC (12:53)
[2023-11-20] MEDS: FERRLECIT 110 MG IV (14:29)
[2023-11-20 15:10] VITALS: BP 120/68
[2023-11-20] MEDS: ZAROXOLYN 5 MG PO (16:57)
[2023-11-20 17:34] LABS: Glucose - Point of Care 90 mg/dl (70-99)
[2023-11-20] MEDS: LIPITOR 40 MG PO (17:38)
[2023-11-20 19:36] VITALS: BP 125/72
[2023-11-20 21:29] LABS: Glucose - Point of Care 105 mg/dl (70-99)
[2023-11-20 23:24] VITALS: BP 105/67
[2023-11-21] VITALS (7 sets, daily range): BP systolic 109–123; BP diastolic 50–64; BMI 46.4
[2023-11-21] MEDS: SYNTHROID 50 MCG PO (05:32)
[2023-11-21] MEDS: SYNTHROID 200 MCG PO (05:32)
[2023-11-21 06:08] LABS: Hematocrit 27.6 % (37.0-47.0); Hemoglobin 8.4 g/dL (12.0-16.0); Mean Corp Hgb Conc. 30.4 g/dL (33.0-37.0); Mean Corpuscular Hgb 28.6 pg (27.0-31.0); Mean Corpuscular Volume 93.9 fL (81.0-99.0); Mean Platelet Volume 9.5 fL (7.4-10.4); Platelet Count 200 10^3/uL (130-400); Red Blood Cell Count 2.94 10^6/uL (4.20-5.40); Red Cell Dist. Width 17.6 % (11.5-14.5); White Blood Cell Count 6.8 10^3/uL (4.8-10.8)
[2023-11-21 06:24] LABS: Blood Urea Nitrogen 28 mg/dl (7-17); Calcium 8.5 mg/dl (8.4-10.2); Chloride 90 mmol/L (98-107); Estimated Creatinine Clearance 62 ml/min; Glucose 107 mg/dl (70-99); Potassium 3.4 mmol/L (3.5-5.1); Sodium 138 mmol/L (135-145); eGFR 59.86
[2023-11-21 06:37] LABS: Carbon Dioxide 36 mmol/L (22-30)
[2023-11-21] MEDS: BUMEX 3 MG IV ×2 (08:52→17:15)
[2023-11-21] MEDS: LOPRESSOR 50 MG PO ×2 (08:53→20:22)
[2023-11-21] MEDS: ELIQUIS 5 MG PO ×2 (08:53→20:22)
[2023-11-21] MEDS: PROTONIX 40 MG PO (08:53)
[2023-11-21] MEDS: ASPIR LOW (ENTERIC COATED) 81 MG PO (08:53)
[2023-11-21] MEDS: ARICEPT 5 MG PO (08:53)
[2023-11-21 08:55] LABS: Glucose - Point of Care 119 mg/dl (70-99)
[2023-11-21] MEDS: NOVOLOG FLEXPEN-LOW RESISTANCE SC ×3 (08:55→17:15)
--- NOTE | 2023-11-21 10:55 | W.PN.HOSP.TC ---
Today's Communication/Plan
-
diuresis
Assessment / Plan
Assessment / Plan
Ms. Anita Guevara is a 73yo F pmh HFpEF (EF 60-65%) on 2l O2 at home, CAD, s/p TAVR (04/22/23), DVT on enoxaparin, afib, htn, hld was admitted 11/09 for a CHF exacerbation.
CXR 11/15/23
IMPRESSION:
1. Pulmonary edema, without significant change.
2. Small bilateral pleural effusions, right greater than left. Right pleural effusion is increased in size compared to prior chest x-ray.
Acute on chronic exacerbation of HFpEF, HTN, Chronic Troponin elevation
Bilateral pleural effusions
- thoracentesis: Successful ultrasound-guided thoracentesis, yielding 1100 cc of serosanguineous pleural fluid.
- pleural fluid: Light's criteria are not met. Likely a transudative effusion secondary to CHF exacerbation
- ECHO(11/14): well seated bioprosthetic aortic valve. LVEF 60-65%. mild MR
- cardiology, nephro following
- fluid restriction, I&O's, daily weights
- incentive spirometer
- continue diuresing w bumex --> increased to BID with addition of metolazone on 11/19 with good response
- tubigrips
Hypokalemia
-replete
LUE pain secondary to traumatic hematoma associated w lovenox injection s/p hematoma evacuation, anemia
- Dr. Thurman evacuated the hematoma on 11/10.
- vascular surgery: neuro checks, keep L arm elevated
- PT/OT
Anemia
Acute blood loss anemia
- LUE hematoma
- s/p 3 units pRBCs transfusion
- iron repletion
- [id number] panel, cardiolipin panel, lupus panel, phosphatidylserine panel pending
- transfuse hemoglobin less than 7.0 g/dL
- follow cbc
ELGIN in setting of volume overload
- Cr 1.1 on 11/11, peak 2.3, now back to baseline
- braun catheter removed
- renal u/s: nephrolith w/in lower pole of R kidney. No evidence for pelvicalyceal dilation or mass b/l. Renal parenchymal thickness preserved b/l.
-appreciate renal
b/l le dvt
- IVC filter placed 11/11.
- Pt tolerated procedure well.
- bl le us: no dvts
- on eliquis
hyperkalemia, chronic hyponatremia, hypermagnesemia
- resolved
- received 3 doses lokelma
- now giving K back with diuresis
- holding spironolactone
acute on chronic respiratory failure
- resolved
- on 2L O2 at home
- wean O2 w SpO2>92%
MARY KATE, asthma
- continue cpap
- no acute asthma exacerbation
Afib
- hold cardizem
- tele monitoring
- metoprolol for rate control as BP improved
- eliquis 5mg PO BID
Type 2 DM, obesity
- SSI, accuchecks
- hold trulicity
- diabetic diet
HLD
- continue statin
- monitor cmp
GERD
- continue PPI
Hypothyroidism
- continue levothyroxine
- TSH 14.9. Free T4 1.7
Dementia
- continue donepezil
Insomnia
- cont trazodone prn
PAD
- s/p R femoral bypass
DVT prophylaxis
- retrievable IVC filter placed 11/11
- 5mg eliquis. Epistaxis. Will monitor for continued bleeding and cbc
Code status: FULL CODE
Diet: diabetic, low Na
Anticipated Discharge: 24 - 48 hours
Subjective/Interval History
-
Date of Service: November 21, 2023
good response to metolazone, urinating more and less swelling
Objective Data
-
Labs:
Laboratory Results
11/21/23
05:28
WBC 6.8
Hgb 8.4 L
Hct 27.6 L
Plt Count 200
Sodium 138
Potassium 3.4 L
Chloride 90 L
Carbon Dioxide 36 H
BUN 28 H
Creatinine 1.0
Glucose 107 H
Calcium 8.5
Vital Signs:
Vital Signs
Temp Pulse Resp BP Pulse Ox
97.7 F 99 18 112/63 100
11/21/23 07:15 11/21/23 08:52 11/21/23 07:15 11/21/23 08:52 11/21/23 07:15
I&O
11/20/23 11/21/23 11/22/23
06:59 06:59 06:59
Intake Total 480 / 480 1919
Output Total 550 / 550
Balance -70 / -70 1919
Review of Systems
-
History Source: Patient
All other systems: Reviewed and negative
Physical Exam
-
General: Well Developed and Well Nourished
HEENT: Normocephalic and Atraumatic
Respiratory: Crackles (bibasilar)
Cardiac: S1/S2 and Irregular Rhythm
GI: Soft, Nontender, Nondistended and Normal Bowel Sounds
Musculoskeletal: Edema, Right Lower Extrem and Edema, Left Lower Extrem
Skin: Other (bruising, no sign of wound dehiscence)
Neuro: Awake
Psych: Calm
Data Reviewed
-
Diagnostic Radiology: Report Reviewed by me
Labs: Labs Reviewed by me
[2023-11-21] MEDS: KCL 40 MEQ PO (11:15)
[2023-11-21 13:16] LABS: Glucose - Point of Care 86 mg/dl (70-99)
[2023-11-21] MEDS: ZAROXOLYN 5 MG PO (16:05)
[2023-11-21 17:07] LABS: Glucose - Point of Care 122 mg/dl (70-99)
[2023-11-21] MEDS: LIPITOR 40 MG PO (17:15)
[2023-11-21] MEDS: KCL 20 MEQ PO (17:15)
--- NOTE | 2023-11-21 18:06 | W.PN.CD ---
Today's Communication / Plan
-
cont bumex IV 3 mg bid; with metolazone 5mg given on 11/19, and again today 11/20
resume aldactone
Impression / Plan
-
73 y/o female (Patient of Dr. Vasques)- Uzbek/Greek speaking per her daughter. She has a history of hypertension, dyslipidemia, obesity, MARY KATE, restrictive lung disease, severe multivessel CAD with PCI 2014, permanent AFIB (previously on Xarelto,
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 She was recently hospitalized at [facility] and discharged about one week ago. She presented
since her O2 sats at home were in the 70's. She was treated for acute heart failure with preserved EF with Bumex. She also had a thoracentesis for pleural effusion. She was also treated with antibiotics during that admit for possible PNA. She was
noted to be anemic (HGB 9/17 7.9). Additionally BLE DVT was noted despite being on Xarelto and she was adjusted to Lovenox. No PE on CT scan there. She had an injection in her left arm and now has a significant hematoma. She is here now with
complaints of left arm pain with hematoma and worsened LE edema. She has been on Bumex 2 mg daily, though took it BID twice this week without help. We are consulted for CHF.
HfpEF: Acute on chronic, severe
-cont bumex IV 3 mg bid; with metolazone 5mg given on 11/19, and again today 11/20
-weight starting to come down; edema better
-this will require intensive monitoring of lyte, cr and bp
-K low: resume aldactone
-eventual SGLT2i
Permanent AFib, will benefit from oral anticoagulation when able
-rate controlled. metoprolol tartrate 50mg bid, and diltiazem 120mg bid
- The correct Eliquis dose for her AFib is 5 mg BID (age, serum Cr, body weight dosing)
Acute kidney injury
-resolved with diuresis
-continue diuresis
LUE hematoma, per vascular surgery
Anemia: Hg con't to drift downward.
Recent BLE DVT => has IVC filter, remove once tolerating anticoagulation
Abnormal troponin => non-ischemic myocardial injury in this patient with CHF, anemia
s/p TAVR, good function by echo
CAD with hx stenting, no obstructive cad at recent cath
PAD: Right common fem artery sten, -remains on ASA
Subjective:
edema better
Physical Exam
Vital Signs/Labs
Vital Signs
Temp Pulse Resp BP Pulse Ox
98.2 F 84 18 123/57 98
11/21/23 15:00 11/21/23 15:00 11/21/23 15:00 11/21/23 15:00 11/21/23 15:00
11/20/23 11/21/23 11/22/23
06:59 06:59 06:59
Actual Weight 116.709 kg 114.94 kg
11/21/23 05:28
11/21/23 05:28
PT 17.8 Sec (11.4-14.6) H 11/17/23 14:29
INR 1.45 11/17/23 14:29
APTT 37.9 Sec (23.4-35.0) H 11/17/23 14:29
Magnesium 2.1 mg/dl (1.6-2.3) 11/19/23 07:36
Triglycerides 140 mg/dl (10-149) 11/11/23 04:03
LDL Cholesterol, Calc 62 mg/dl 11/11/23 04:03
VLDL Cholesterol, Calc 28 mg/dl (0-30) 11/11/23 04:03
HDL Cholesterol 39 mg/dl 11/11/23 04:03
Free T4 1.70 ng/dl (0.78-2.19) 11/11/23 04:03
11/10/23
13:14
Wik-N-Sxjwwuwplwe Pept 1420
Physical Exam
Constitutional: No acute distress and Comfortable
EENT: Moist mucous membranes
Cardiovascular: Systolic murmur absent, Rhythm/rate is irregular, Pedal edema present and JVD present
Respiratory: Respiratory effort normal and Lungs clear to auscul.
Neuro/Psych: Alert
Data Reviewed
-
Date of Service: November 21, 2023
EKG: Other (Tele: A fib 90s)
Labs: Labs Reviewed by me
[2023-11-21 21:28] LABS: Glucose - Point of Care 95 mg/dl (70-99)
[2023-11-22] VITALS (7 sets, daily range): BP systolic 107–122; BP diastolic 50–61; PULSE 77; O2SAT 98; BMI 45.9
[2023-11-22] MEDS: SYNTHROID 50 MCG PO (05:43)
[2023-11-22] MEDS: SYNTHROID 200 MCG PO (05:43)
--- NOTE | 2023-11-22 07:56 | W.PN.HOSP.TC ---
Addendum entered and electronically signed by Pierre Serrato MD 11/22/23 13:53:
continue iv diuretics, add metalzone per cards recs
continue eliquis, monitor for bleeding and hgb
still has ivc filter in place
monitror uop
keep k >4 and mg >2
Original Note:
Today's Communication/Plan
-
Assessment / Plan
Assessment / Plan
Ms. Anita Guevara is a 73yo F pmh HFpEF (EF 60-65%) on 2l O2 at home, CAD, s/p TAVR (04/22/23), DVT on enoxaparin, afib, htn, hld was admitted 11/09 for a CHF exacerbation.
Acute on chronic exacerbation of HFpEF, HTN, Chronic Troponin elevation
Bilateral pleural effusions
- thoracentesis: Successful ultrasound-guided thoracentesis, yielding 1100 cc of serosanguineous pleural fluid.
- pleural fluid: Light's criteria are not met. Likely a transudative effusion secondary to CHF exacerbation
- ECHO(11/14): well seated bioprosthetic aortic valve. LVEF 60-65%. mild MR
- cardiology following
- fluid restriction, I&O's, daily weights
- incentive spirometer
- continue diuresing w bumex -> increased to BID with addition of metolazone on 11/19 with good response
- tubigrips
- aldactone added 11/21
Hypokalemia
-replete w KCl
Hypomagnesemia
- replete w magnesium sulfate
LUE pain secondary to traumatic hematoma associated w lovenox injection s/p hematoma evacuation, anemia
- Dr. Thurman evacuated the hematoma on 11/10.
- vascular surgery: neuro checks, keep L arm elevated
- PT/OT
Anemia
Acute blood loss anemia
- LUE hematoma
- s/p 3 units pRBCs transfusion
- iron repletion
- [id number]-[id number] panel, cardiolipin panel, lupus panel, phosphatidylserine panel pending
- transfuse hemoglobin less than 7.0 g/dL
- follow cbc
ELGIN in setting of volume overload
- Cr 1.1 on 11/11, peak 2.3, now back to baseline
- braun catheter removed
- renal u/s: nephrolith w/in lower pole of R kidney. No evidence for pelvicalyceal dilation or mass b/l. Renal parenchymal thickness preserved b/l.
b/l le dvt
- IVC filter placed 11/11.
- Pt tolerated procedure well.
- bl le us: no dvts
- on eliquis
- will need to consult IRAD for retrieval prior to d/c
hyperkalemia, chronic hyponatremia, hypermagnesemia
- resolved
- received 3 doses lokelma
- now giving K back with diuresis
- holding spironolactone
acute on chronic respiratory failure
- resolved
- on 2L O2 at home
- wean O2 w SpO2>92%
MARY KATE, asthma
- continue cpap
- no acute asthma exacerbation
Afib
- hold cardizem
- tele monitoring
- metoprolol for rate control as BP improved
- eliquis 5mg PO BID
Type 2 DM, obesity
- SSI, accuchecks
- hold trulicity
- diabetic diet
HLD
- continue statin
- monitor cmp
GERD
- continue PPI
Hypothyroidism
- continue levothyroxine
- TSH 14.9. Free T4 1.7
Dementia
- continue donepezil
Insomnia
- cont trazodone prn
PAD
- s/p R femoral bypass
DVT prophylaxis
- retrievable IVC filter placed 11/11
- 5mg eliquis. Epistaxis. Will monitor for continued bleeding and cbc
Code status: FULL CODE
Diet: diabetic, low Na
Anticipated Discharge: 24 - 48 hours
Subjective/Interval History
-
Date of Service: November 22, 2023
Ms. Anita Guevara is a 73yo F pmh HFpEF (EF 60-65%) on 2l O2 at home, CAD, s/p TAVR (04/22/23), DVT on enoxaparin, afib, htn, hld was admitted 11/09 for a CHF exacerbation. No acute events overnight.
Objective Data
-
Labs:
Laboratory Results
11/22/23
07:50
Sodium Pending
Potassium Pending
Chloride Pending
Carbon Dioxide Pending
BUN Pending
Creatinine Pending
Glucose Pending
Calcium Pending
Vital Signs:
Vital Signs
Temp Pulse Resp BP Pulse Ox
98.0 F 85 18 122/50 95
11/22/23 03:15 11/22/23 03:15 11/22/23 03:15 11/22/23 03:15 11/22/23 03:15
I&O
11/21/23 11/22/23 11/23/23
06:59 06:59 06:59
Intake Total 1919 1060 / 1060
Balance 1919 1060 / 1060
Review of Systems
-
Unable to obtain full review of systems at this time due to: Language Barrier
History Source: Patient
Constitutional: Reports No Symptoms
Respiratory: Reports No Symptoms
Cardiac: Reports No Symptoms
Abdomen/GI: Reports No Symptoms
Physical Exam
-
General: Well Developed, Well Nourished and Comfortable
HEENT: Normocephalic and Atraumatic
Respiratory: Clear to Auscultation
Cardiac: S1/S2 and Irregular Rhythm
GI: Soft, Nontender, Nondistended and Normal Bowel Sounds
Musculoskeletal: No Cyanosis, Edema, Right Lower Extrem and Edema, Left Lower Extrem
Skin: Warm and Dry
[2023-11-22 08:10] LABS: Glucose - Point of Care 115 mg/dl (70-99)
[2023-11-22] MEDS: NOVOLOG FLEXPEN-LOW RESISTANCE SC ×3 (08:20→17:24)
[2023-11-22 08:33] LABS: Blood Urea Nitrogen 26 mg/dl (7-17); Calcium 8.4 mg/dl (8.4-10.2); Chloride 86 mmol/L (98-107); Estimated Creatinine Clearance 67 ml/min; Glucose 104 mg/dl (70-99); Potassium 2.9 mmol/L (3.5-5.1); Sodium 137 mmol/L (135-145); eGFR > 60.00
[2023-11-22 08:44] LABS: Carbon Dioxide 41 mmol/L (22-30)
[2023-11-22] MEDS: BUMEX 3 MG IV ×2 (08:54→16:30)
[2023-11-22] MEDS: PROTONIX 40 MG PO (08:58)
[2023-11-22] MEDS: ASPIR LOW (ENTERIC COATED) 81 MG PO (08:58)
[2023-11-22] MEDS: ARICEPT 5 MG PO (08:58)
[2023-11-22] MEDS: ELIQUIS 5 MG PO ×2 (08:58→20:05)
[2023-11-22] MEDS: ALDACTONE 25 MG PO (08:58)
[2023-11-22] MEDS: LOPRESSOR 50 MG PO ×2 (08:58→20:05)
--- NOTE | 2023-11-22 09:27 | W.PN.CD ---
Addendum entered and electronically signed by Gilmer Radford MD 11/22/23 09:53:
chasity is covered without copay. if labs are stable tomorrow, will assess to start
Original Note:
Today's Communication / Plan
-
cont bumex IV 3 mg bid; with metolazone 5mg with PM dose (given 11/19, 11/20, and ordered for today)
aldactone added back today
will give Kcl 40mEq tid today for K 2.9, and reassess labs in AM
Impression / Plan
-
73 y/o female (Patient of Dr. Vasques)- Cypriot/Mongolian speaking per her daughter. She has a history of hypertension, dyslipidemia, obesity, MARY KATE, restrictive lung disease, severe multivessel CAD with PCI 2014, permanent AFIB (previously on Xarelto,
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 She was recently hospitalized at [facility] and discharged about one week ago. She presented
since her O2 sats at home were in the 70's. She was treated for acute heart failure with preserved EF with Bumex. She also had a thoracentesis for pleural effusion. She was also treated with antibiotics during that admit for possible PNA. She was
noted to be anemic (HGB 9/17 7.9). Additionally BLE DVT was noted despite being on Xarelto and she was adjusted to Lovenox. No PE on CT scan there. She had an injection in her left arm and now has a significant hematoma. She is here now with
complaints of left arm pain with hematoma and worsened LE edema. She has been on Bumex 2 mg daily, though took it BID twice this week without help. We are consulted for CHF.
HfpEF: Acute on chronic, severe
-cont bumex IV 3 mg bid; with metolazone 5mg with PM dose (given 11/19, 11/20, and ordered for today)
-weight starting to come down; edema better
-this will require intensive monitoring of lyte, cr and bp
-K low: resume aldactone
-eventual SGLT2i
Hypokalemia
-aldactone added back today
-will give Kcl 40mEq tid today for K 2.9, and reassess labs in AM
Permanent AFib
-rate controlled. metoprolol tartrate 50mg bid, and diltiazem 120mg bid
- The correct Eliquis dose for her AFib is 5 mg BID (age, serum Cr, body weight dosing)
Acute kidney injury
-resolved with diuresis
-continue diuresis
LUE hematoma, per vascular surgery
Anemia: Hg con't to drift downward.
Recent BLE DVT => has IVC filter, remove once tolerating anticoagulation
Abnormal troponin => non-ischemic myocardial injury in this patient with CHF, anemia
s/p TAVR, good function by echo
CAD with hx stenting, no obstructive cad at recent cath, ASA stopped once eliquis started
PAD: Right common fem artery sten, -remains on ASA
Subjective:
edema better
Physical Exam
Vital Signs/Labs
Vital Signs
Temp Pulse Resp BP Pulse Ox
97.6 F 81 16 121/56 98
11/22/23 07:20 11/22/23 08:58 11/22/23 07:20 11/22/23 08:58 11/22/23 07:20
11/21/23 11/22/23 11/23/23
06:59 06:59 06:59
Actual Weight 114.94 kg 113.625 kg
11/21/23 05:28
11/22/23 07:50
PT 17.8 Sec (11.4-14.6) H 11/17/23 14:29
INR 1.45 11/17/23 14:29
APTT 37.9 Sec (23.4-35.0) H 11/17/23 14:29
Magnesium 2.1 mg/dl (1.6-2.3) 11/19/23 07:36
Triglycerides 140 mg/dl (10-149) 11/11/23 04:03
LDL Cholesterol, Calc 62 mg/dl 11/11/23 04:03
VLDL Cholesterol, Calc 28 mg/dl (0-30) 11/11/23 04:03
HDL Cholesterol 39 mg/dl 11/11/23 04:03
Free T4 1.70 ng/dl (0.78-2.19) 11/11/23 04:03
11/10/23
13:14
Zzl-L-Egyzrmzvzpz Pept 1420
Physical Exam
Constitutional: No acute distress
EENT: Moist mucous membranes
Cardiovascular: Systolic murmur absent, Rhythm/rate is irregular, Pedal edema present and JVD present
Respiratory: Respiratory effort normal
Neuro/Psych: Alert
Data Reviewed
-
Date of Service: November 22, 2023
EKG: Other (Tele: A fib 80s)
Labs: Labs Reviewed by me
[2023-11-22] MEDS: KCL 40 MEQ PO ×3 (09:40→21:30)
--- NOTE | 2023-11-22 09:48 | CM ---
Case management consult completed for cost of Farxiga 10mg daily vs. Jardiance 10mg. daily
Spoke with Sulma at [facility] and she stated that Farxiga 10mg daily is covered 0 copay & that Jardiance is not covered.
tt Dr. Gilmer Radford
--- NOTE | 2023-11-22 10:00 | PTCARENOTE ---
MD and cardio made aware of K of 2.9 on AM labs; patient receiving scheduled PO aldactone, cardio confirmed to this RN patient okay to receive scheduled IV Bumex today. PO KCL 40 meq TID and repeat AM labs ordered per cardio.
[2023-11-22 10:24] LABS: Magnesium 1.5 mg/dl (1.6-2.3)
[2023-11-22 11:56] LABS: Glucose - Point of Care 110 mg/dl (70-99)
[2023-11-22] MEDS: MAGNESIUM SULFATE 100 IV (13:39)
[2023-11-22] MEDS: ZAROXOLYN 5 MG PO (16:28)
[2023-11-22] MEDS: LIPITOR 40 MG PO (17:16)
[2023-11-22 17:23] LABS: Glucose - Point of Care 122 mg/dl (70-99)
[2023-11-22 21:45] LABS: Glucose - Point of Care 103 mg/dl (70-99)
[2023-11-23 03:17] VITALS: BP 111/54
[2023-11-23 05:31] VITALS: BMI 45.1
[2023-11-23] MEDS: SYNTHROID 50 MCG PO (05:35)
[2023-11-23] MEDS: SYNTHROID 200 MCG PO (05:35)
[2023-11-23 07:20] VITALS: BP 114/49
[2023-11-23 07:39] LABS: Glucose - Point of Care 127 mg/dl (70-99)
[2023-11-23] MEDS: NOVOLOG FLEXPEN-LOW RESISTANCE SC ×2 (07:44→16:56)
--- NOTE | 2023-11-23 07:44 | W.PN.HOSP.TC ---
Addendum entered and electronically signed by Pierre Serrato MD 11/25/23 07:09:
worsening contraction alkalosis will give diamox.
Original Note:
Today's Communication/Plan
-
Assessment / Plan
Assessment / Plan
Ms. Anita Guevara is a 73yo F pmh HFpEF (EF 60-65%) on 2l O2 at home, CAD, s/p TAVR (04/22/23), DVT on enoxaparin, afib, htn, hld was admitted 11/09 for a CHF exacerbation.
Acute on chronic exacerbation of HFpEF, HTN, Chronic Troponin elevation
Bilateral pleural effusions
- thoracentesis: Successful ultrasound-guided thoracentesis, yielding 1100 cc of serosanguineous pleural fluid.
- pleural fluid: Light's criteria are not met. Likely a transudative effusion secondary to CHF exacerbation
- ECHO(11/14): well seated bioprosthetic aortic valve. LVEF 60-65%. mild MR
- cardiology following
- fluid restriction, I&O's, daily weights
- incentive spirometer
- bumex, aldactone
- tubigrips
- farxiga started
Metabolic alkalosis
- vbg
- diamox 500mg
Hypokalemia
-replete w KCl
Hypomagnesemia
- replete w magnesium sulfate
LUE pain secondary to traumatic hematoma associated w lovenox injection s/p hematoma evacuation, anemia
- Dr. Thurman evacuated the hematoma on 11/10.
- vascular surgery: neuro checks, keep L arm elevated
- PT/OT
Anemia
Acute blood loss anemia
- LUE hematoma
- s/p 3 units pRBCs transfusion
- iron repletion
- hepatitis panel negative
- [id number]-[id number] panel, lupus panel, phosphatidylserine panel negative
- Anti-Cardiolipin IgG Antibody (+). Repeat in 12 weeks
- transfuse hemoglobin less than 7.0 g/dL
- follow cbc
ELGIN in setting of volume overload
- Cr 1.1 on 11/11, peak 2.3, now back to baseline
- braun catheter removed
- renal u/s: nephrolith w/in lower pole of R kidney. No evidence for pelvicalyceal dilation or mass b/l. Renal parenchymal thickness preserved b/l.
b/l le dvt
- IVC filter placed 11/11.
- Pt tolerated procedure well.
- bl le us: no dvts
- on eliquis
- will need to consult IRAD for retrieval prior to d/c
hyperkalemia, chronic hyponatremia, hypermagnesemia
- resolved
- received 3 doses lokelma
- now giving K back with diuresis
- holding spironolactone
acute on chronic respiratory failure
- resolved
- on 2L O2 at home
- wean O2 w SpO2>92%
MARY KATE, asthma
- continue cpap
- no acute asthma exacerbation
Afib
- hold cardizem
- tele monitoring
- metoprolol for rate control as BP improved
- eliquis 5mg PO BID
Type 2 DM, obesity
- SSI, accuchecks
- hold trulicity
- diabetic diet
HLD
- continue statin
- monitor cmp
GERD
- continue PPI
Hypothyroidism
- continue levothyroxine
- TSH 14.9. Free T4 1.7
Dementia
- continue donepezil
Insomnia
- cont trazodone prn
PAD
- s/p R femoral bypass
DVT prophylaxis
- retrievable IVC filter placed 11/11
- 5mg eliquis. Epistaxis. Will monitor for continued bleeding and cbc
Code status: FULL CODE
Diet: diabetic, low Na
Anticipated Discharge: 24 - 48 hours
Subjective/Interval History
-
Date of Service: November 23, 2023
Ms. Anita Guevara is a 73yo F pmh HFpEF (EF 60-65%) on 2l O2 at home, CAD, s/p TAVR (04/22/23), DVT on enoxaparin, afib, htn, hld was admitted 11/09 for a CHF exacerbation. No acute events overnight
Objective Data
-
Labs:
Laboratory Results
11/23/23
06:00
WBC Pending
Hgb Pending
Hct Pending
Plt Count Pending
Sodium Pending
Potassium Pending
Chloride Pending
Carbon Dioxide Pending
BUN Pending
Creatinine Pending
Glucose Pending
Calcium Pending
Vital Signs:
Vital Signs
Temp Pulse Resp BP Pulse Ox
97.9 F 72 18 111/54 98
11/23/23 03:17 11/23/23 03:17 11/23/23 03:17 11/23/23 03:17 11/23/23 03:17
I&O
11/22/23 11/23/23 11/24/23
06:59 06:59 06:59
Intake Total 1060 / 1060 1800 / 1800
Balance 1060 / 1060 1800 / 1800
Review of Systems
-
Unable to obtain full review of systems at this time due to: Language Barrier
Respiratory: Reports No Symptoms
Cardiac: Reports No Symptoms
Physical Exam
-
General: Well Developed, Comfortable and Morbidly Obese
HEENT: Normocephalic and Atraumatic
Respiratory: Wheezes and Crackles (bibasilar)
Cardiac: S1/S2 and Irregular Rhythm
GI: Soft, Nontender, Nondistended and Normal Bowel Sounds
Musculoskeletal: Edema, Right Lower Extrem (+2) and Edema, Left Lower Extrem (+2)
Skin: Warm and Dry
[2023-11-23 08:24] LABS: Hematocrit 28.1 % (37.0-47.0); Hemoglobin 8.4 g/dL (12.0-16.0); Mean Corp Hgb Conc. 29.9 g/dL (33.0-37.0); Mean Corpuscular Hgb 27.5 pg (27.0-31.0); Mean Corpuscular Volume 91.8 fL (81.0-99.0); Mean Platelet Volume 9.6 fL (7.4-10.4); Platelet Count 198 10^3/uL (130-400); Red Blood Cell Count 3.06 10^6/uL (4.20-5.40); Red Cell Dist. Width 18.6 % (11.5-14.5); White Blood Cell Count 5.8 10^3/uL (4.8-10.8)
--- NOTE | 2023-11-23 08:32 | W.PN.CD ---
Today's Communication / Plan
-
-Continue bumex IV 3 mg BID.
-Will place on a standing dose of metolazone 5 mg daily in the morning.
-Replete potassium as necessary; labs this a.m. pending.
Impression / Plan
-
73 y/o female (Patient of Dr. Vasques)- English/Azerbaijani speaking per her daughter. She has a history of hypertension, dyslipidemia, obesity, MARY KATE, restrictive lung disease, severe multivessel CAD with PCI 2014, permanent AFIB (previously on Xarelto,
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 She was recently hospitalized at [facility] and discharged about one week ago. She presented
since her O2 sats at home were in the 70's. She was treated for acute heart failure with preserved EF with Bumex. She also had a thoracentesis for pleural effusion. She was also treated with antibiotics during that admit for possible PNA. She was
noted to be anemic (HGB 9/17 7.9). Additionally BLE DVT was noted despite being on Xarelto and she was adjusted to Lovenox. No PE on CT scan there. She had an injection in her left arm and now has a significant hematoma. She is here now with
complaints of left arm pain with hematoma and worsened LE edema. She has been on Bumex 2 mg daily, though took it BID twice this week without help. We are consulted for CHF.
HfpEF: Acute on chronic, severe
-Weight is improving, but still with significant edema.
-Continue bumex IV 3 mg BID.
-Will place on a standing dose of metolazone 5 mg daily in the morning.
-Replete potassium as necessary; labs this a.m. pending.
-Can consider eventual SGLT2i.
Hypokalemia
-Continue spironolactone; replete potassium as necessary.
Permanent AFib
-rate controlled.
-Continue metoprolol tartrate 50mg bid, and diltiazem 120mg bid
-Continue Eliquis 5 mg BID (age, serum Cr, body weight dosing)
Acute kidney injury
-resolved with diuresis
-continue diuresis
LUE hematoma, per vascular surgery
Anemia: Hemoglobin relatively stable.
Recent BLE DVT => has IVC filter, remove once tolerating anticoagulation
Abnormal troponin => non-ischemic myocardial injury in this patient with CHF, anemia
s/p TAVR, good function by echo
CAD with hx stenting, no obstructive cad at recent cath, ASA stopped once eliquis started
PAD: Right common fem artery sten, -remains on ASA
Subjective:
No major events overnight.
Physical Exam
Vital Signs/Labs
Vital Signs
Temp Pulse Resp BP Pulse Ox
97.9 F 72 18 111/54 98
11/23/23 03:17 11/23/23 03:17 11/23/23 03:17 11/23/23 03:17 11/23/23 03:17
11/22/23 11/23/23 11/24/23
06:59 06:59 06:59
Actual Weight 113.625 kg 111.72 kg
11/23/23 07:55
PT 17.8 Sec (11.4-14.6) H 11/17/23 14:29
INR 1.45 11/17/23 14:29
APTT 37.9 Sec (23.4-35.0) H 11/17/23 14:29
Magnesium 1.5 mg/dl (1.6-2.3) L 11/22/23 07:50
Triglycerides 140 mg/dl (10-149) 11/11/23 04:03
LDL Cholesterol, Calc 62 mg/dl 11/11/23 04:03
VLDL Cholesterol, Calc 28 mg/dl (0-30) 11/11/23 04:03
HDL Cholesterol 39 mg/dl 11/11/23 04:03
Free T4 1.70 ng/dl (0.78-2.19) 11/11/23 04:03
11/10/23
13:14
Xwh-D-Swnstfhimif Pept 1420
Physical Exam
Constitutional: No acute distress and Comfortable
EENT: Anicteric
Cardiovascular: Rhythm/rate is irregular, Pedal edema present (3+ bilateral pitting), Systolic murmur present (2/6) and S1S2 is normal
Respiratory: Respiratory effort normal, Wheeze Absent and Crackles Present
GI: Soft
Neuro/Psych: AO x 3
Data Reviewed
-
Date of Service: November 23, 2023
EKG: Tracing Personally Visualized and interpreted (Telemetry: Atrial fibrillation)
Labs: Labs Reviewed by me
[2023-11-23 09:24] LABS: Blood Urea Nitrogen 25 mg/dl (7-17); Calcium 8.6 mg/dl (8.4-10.2); Chloride 81 mmol/L (98-107); Estimated Creatinine Clearance 67 ml/min; Glucose 108 mg/dl (70-99); Magnesium 1.9 mg/dl (1.6-2.3); Potassium 3.3 mmol/L (3.5-5.1); Sodium 136 mmol/L (135-145); eGFR > 60.00
[2023-11-23 09:33] LABS: Carbon Dioxide 43 mmol/L (22-30)
[2023-11-23] MEDS: ELIQUIS 5 MG PO ×2 (09:53→19:54)
[2023-11-23] MEDS: BUMEX 3 MG IV ×2 (09:53→17:18)
[2023-11-23] MEDS: ALDACTONE 25 MG PO (09:54)
[2023-11-23] MEDS: PROTONIX 40 MG PO (09:54)
[2023-11-23] MEDS: ZAROXOLYN 5 MG PO (09:54)
[2023-11-23] MEDS: LOPRESSOR 50 MG PO ×2 (09:54→19:54)
[2023-11-23] MEDS: ARICEPT 5 MG PO (09:54)
[2023-11-23] MEDS: FARXIGA 10 MG PO (09:57)
[2023-11-23 11:50] VITALS: BP 100/52
[2023-11-23 12:37] LABS: Venous Blood Gas B.E. 25.6 mmol/L (-4 to +4); Venous Blood Gas HCO3 52.6 mmol/L (22-27); Venous Blood Gas O2 Sat % 94.9 %; Venous Blood Gas pCO2 69 mmHg (35-48); Venous Blood Gas pH 7.49 (7.32-7.43); Venous Blood Gas pO2 62 mmHg (30-50)
[2023-11-23 13:11] LABS: Glucose - Point of Care 150 mg/dl (70-99)
[2023-11-23] MEDS: NOVOLOG FLEXPEN-LOW RESISTANCE 1 UNITS SC (13:56)
[2023-11-23] MEDS: MAGNESIUM SULFATE 100 IV (13:57)
[2023-11-23] MEDS: KCL 40 MEQ PO ×2 (13:58→19:54)
[2023-11-23] MEDS: DIAMOX 5 MG IV (14:46)
[2023-11-23 14:57] VITALS: BP 119/55
[2023-11-23 16:55] LABS: Glucose - Point of Care 120 mg/dl (70-99)
[2023-11-23] MEDS: LIPITOR 40 MG PO (17:18)
--- NOTE | 2023-11-23 17:52 | CM ---
Patient seen at bedside.
CXR today
Continues with diuresis
PLAN: [facility]
Daughter to transport
[facility]
Fax #:fax [phone]
--- NOTE | 2023-11-23 18:20 | PTCARENOTE ---
MD made aware of BP 101/42 HR 95 taken by this RN before administering patient's scheduled IV Bumex; per MD and resident, patient okay to receive Bumex, parameters on medication adjusted per resident to hold Bumex for MAP <65.
[2023-11-23 19:01] VITALS: BP 135/73
[2023-11-23 22:10] LABS: Glucose - Point of Care 164 mg/dl (70-99)
[2023-11-23 22:40] VITALS: BP 107/61
--- NOTE | 2023-11-23 23:00 | PTCARENOTE ---
Report given to oncoming RN, nursing assessments completed and as documented, see worklist.
[2023-11-24 03:05] VITALS: BP 106/51
[2023-11-24 05:09] VITALS: BMI 44.4
[2023-11-24] MEDS: SYNTHROID 50 MCG PO (05:22)
[2023-11-24] MEDS: SYNTHROID 200 MCG PO (05:22)
[2023-11-24 07:28] LABS: Glucose - Point of Care 117 mg/dl (70-99)
[2023-11-24] MEDS: NOVOLOG FLEXPEN-LOW RESISTANCE SC ×2 (07:32→12:15)
--- NOTE | 2023-11-24 07:37 | W.PN.HOSP.TC ---
Addendum entered and electronically signed by Pierre Serrato MD 11/25/23 07:09:
bump in cr, hold diuretics, repeat bmp tomorrow, likely able to transition to po diureitcs
Original Note:
Today's Communication/Plan
-
Assessment / Plan
Assessment / Plan
Ms. Anita Guevara is a 73yo F pmh HFpEF (EF 60-65%) on 2l O2 at home, CAD, s/p TAVR (04/22/23), DVT on enoxaparin, afib, htn, hld was admitted 11/09 for a CHF exacerbation.
Acute on chronic exacerbation of HFpEF, HTN, Chronic Troponin elevation
Bilateral pleural effusions
- thoracentesis: Successful ultrasound-guided thoracentesis, yielding 1100 cc of serosanguineous pleural fluid.
- pleural fluid: Light's criteria are not met. Likely a transudative effusion secondary to CHF exacerbation
- ECHO(11/14): well seated bioprosthetic aortic valve. LVEF 60-65%. mild MR
- new wheezing, 11/23 CXR: moderate R pleural effusion
- IRAD consulted for thoracentesis
- cardiology following
- fluid restriction, I&O's, daily weights
- incentive spirometer
- bumex, aldactone
- tubigrips
- farxiga
Metabolic alkalosis
- vbg
- diamox 500mg
Hypokalemia
-replete w KCl
Hypomagnesemia
- replete w magnesium sulfate
- resolved
LUE pain secondary to traumatic hematoma associated w lovenox injection s/p hematoma evacuation, anemia
- Dr. Thurman evacuated the hematoma on 11/10.
- vascular surgery: neuro checks, keep L arm elevated
- PT/OT
Anemia
Acute blood loss anemia
- LUE hematoma
- s/p 3 units pRBCs transfusion
- iron repletion
- hepatitis panel negative
- [id number] panel, lupus panel, phosphatidylserine panel negative
- Anti-Cardiolipin IgG Antibody (+). Repeat in 12 weeks
- transfuse hemoglobin less than 7.0 g/dL
- follow cbc
ELGIN in setting of volume overload
- Cr 1.1 on 11/11, peak 2.3, now back to baseline
- braun catheter removed
- renal u/s: nephrolith w/in lower pole of R kidney. No evidence for pelvicalyceal dilation or mass b/l. Renal parenchymal thickness preserved b/l.
b/l le dvt
- IVC filter placed 11/11.
- Pt tolerated procedure well.
- bl le us: no dvts
- on eliquis
- will need to consult IRAD for retrieval prior to d/c
hyperkalemia, chronic hyponatremia, hypermagnesemia
- resolved
- received 3 doses lokelma
- now giving K back with diuresis
- holding spironolactone
acute on chronic respiratory failure
- resolved
- on 2L O2 at home
- wean O2 w SpO2>92%
MARY KATE, asthma
- continue cpap
- no acute asthma exacerbation
Afib
- hold cardizem
- tele monitoring
- metoprolol for rate control as BP improved
- eliquis 5mg PO BID
Type 2 DM, obesity
- SSI, accuchecks
- hold trulicity
- diabetic diet
HLD
- continue statin
- monitor cmp
GERD
- continue PPI
Hypothyroidism
- continue levothyroxine
- TSH 14.9. Free T4 1.7
Dementia
- continue donepezil
Insomnia
- cont trazodone prn
PAD
- s/p R femoral bypass
DVT prophylaxis
- retrievable IVC filter placed 11/11
- 5mg eliquis. Epistaxis. Will monitor for continued bleeding and cbc
Code status: FULL CODE
Diet: diabetic, low Na
Anticipated Discharge: 24 - 48 hours
Subjective/Interval History
-
Date of Service: November 24, 2023
Ms. Anita Guevara is a 73yo F pmh HFpEF (EF 60-65%) on 2l O2 at home, CAD, s/p TAVR (04/22/23), DVT on enoxaparin, afib, htn, hld was admitted 11/09 for a CHF exacerbation. No acute overnight events.
Objective Data
-
Labs:
Laboratory Results
11/24/23
06:54
WBC Pending
Hgb Pending
Hct Pending
Plt Count Pending
Sodium Pending
Potassium Pending
Chloride Pending
Carbon Dioxide Pending
BUN Pending
Creatinine Pending
Glucose Pending
Calcium Pending
Vital Signs:
Vital Signs
Temp Pulse Resp BP Pulse Ox
97.7 F 78 16 106/51 97
11/24/23 03:05 11/24/23 03:05 11/24/23 03:05 11/24/23 03:05 11/24/23 03:05
I&O
11/23/23 11/24/23 11/25/23
06:59 06:59 06:59
Intake Total 1800 / 1800 1480 / 1480
Balance 1800 / 1800 1480 / 1480
Review of Systems
-
Unable to obtain full review of systems at this time due to: Language Barrier
History Source: Patient and Family
Constitutional: Reports No Symptoms
Respiratory: Reports No Symptoms
Cardiac: Reports No Symptoms
Physical Exam
-
General: Well Developed, Well Nourished and No Apparent Distress
HEENT: Normocephalic, Atraumatic and Moist Mucous Membranes
Respiratory: Wheezes
Cardiac: S1/S2 and Irregular Rhythm
GI: Soft, Nontender, Nondistended and Normal Bowel Sounds
[2023-11-24 07:54] VITALS: BP 103/50
[2023-11-24 08:12] LABS: Hematocrit 27.3 % (37.0-47.0); Hemoglobin 8.3 g/dL (12.0-16.0); Mean Corp Hgb Conc. 30.4 g/dL (33.0-37.0); Mean Corpuscular Hgb 27.7 pg (27.0-31.0); Mean Platelet Volume 9.6 fL (7.4-10.4); Platelet Count 195 10^3/uL (130-400); Red Cell Dist. Width 19.1 % (11.5-14.5); White Blood Cell Count 6.4 10^3/uL (4.8-10.8)
[2023-11-24] MEDS: ALDACTONE PO (08:24)
[2023-11-24] MEDS: FARXIGA 10 MG PO (08:33)
[2023-11-24] MEDS: ELIQUIS 5 MG PO ×2 (08:34→19:56)
[2023-11-24] MEDS: PROTONIX 40 MG PO (08:34)
[2023-11-24] MEDS: ARICEPT 5 MG PO (08:34)
[2023-11-24] MEDS: LOPRESSOR 50 MG PO ×2 (08:35→19:56)
[2023-11-24] MEDS: KCL 40 MEQ PO ×3 (08:36→19:56)
[2023-11-24] MEDS: ZAROXOLYN 5 MG PO (08:37)
[2023-11-24] MEDS: BUMEX 3 MG IV (08:39)
[2023-11-24 09:11] LABS: Blood Urea Nitrogen 26 mg/dl (7-17); Calcium 8.6 mg/dl (8.4-10.2); Chloride 78 mmol/L (98-107); Estimated Creatinine Clearance 50 ml/min; Glucose 101 mg/dl (70-99); Sodium 135 mmol/L (135-145); eGFR 48.09
[2023-11-24 11:01] VITALS: BP 106/51
[2023-11-24 11:09] LABS: Carbon Dioxide 46 mmol/L (22-30)
--- NOTE | 2023-11-24 12:10 | W.PN.CD ---
Today's Communication / Plan
-
Cr has trended up.
Change to bumex 3mg PO bid, and trend Cr, K in AM; trend weight
Hold metolazone: suspect she will need 5mg M/W/F when ready for d/c
Continue spironolactone and farxiga.
Impression / Plan
-
73 y/o female (Patient of Dr. Vasques)- Comoran/Zimbabwean speaking per her daughter. She has a history of hypertension, dyslipidemia, obesity, MARY KATE, restrictive lung disease, severe multivessel CAD with PCI 2014, permanent AFIB (previously on Xarelto,
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 She was recently hospitalized at [facility] and discharged about one week ago. She presented
since her O2 sats at home were in the 70's. She was treated for acute heart failure with preserved EF with Bumex. She also had a thoracentesis for pleural effusion. She was also treated with antibiotics during that admit for possible PNA. She was
noted to be anemic (HGB 9/17 7.9). Additionally BLE DVT was noted despite being on Xarelto and she was adjusted to Lovenox. No PE on CT scan there. She had an injection in her left arm and now has a significant hematoma. She is here now with
complaints of left arm pain with hematoma and worsened LE edema. She has been on Bumex 2 mg daily, though took it BID twice this week without help. We are consulted for CHF.
HfpEF: Acute on chronic, improved s/p IV bumex and metolazone
-Cr is rising: transition to PO diuretic and hold metolazone
-Change to bumex 3mg PO bid, and trend Cr, K in AM; trend weight
-Hold metolazone: suspect she will need 5mg M/W/F when ready for d/c
-Continue spironolactone and farxiga.
Hypokalemia
-still need to monitor labs closely
-Continue spironolactone, replete K
Permanent AFib
-rate controlled.
-Continue metoprolol tartrate 50mg bid, and diltiazem 120mg bid
-Continue Eliquis 5 mg BID (age, serum Cr, body weight dosing)
Acute kidney injury
-improved with diuresis
LUE hematoma, per vascular surgery
Anemia: Hemoglobin relatively stable.
Recent BLE DVT => has IVC filter, remove once tolerating anticoagulation
Abnormal troponin => non-ischemic myocardial injury in this patient with CHF, anemia
s/p TAVR, good function by echo
CAD with hx stenting, no obstructive cad at recent cath, ASA stopped once eliquis started
PAD: Right common fem artery sten, -remains on ASA
Subjective:
No events overnight.
Daughter updated at bedside.
Physical Exam
Vital Signs/Labs
Vital Signs
Temp Pulse Resp BP Pulse Ox
98.3 F 83 16 106/51 98
11/24/23 11:01 11/24/23 11:01 11/24/23 11:01 11/24/23 11:01 11/24/23 11:01
11/23/23 11/24/23 11/25/23
06:59 06:59 06:59
Actual Weight 111.72 kg 109.996 kg
11/24/23 06:54
11/24/23 06:54
PT 17.8 Sec (11.4-14.6) H 11/17/23 14:29
INR 1.45 11/17/23 14:29
APTT 37.9 Sec (23.4-35.0) H 11/17/23 14:29
Magnesium 2.0 mg/dl (1.6-2.3) 11/24/23 06:54
Triglycerides 140 mg/dl (10-149) 11/11/23 04:03
LDL Cholesterol, Calc 62 mg/dl 11/11/23 04:03
VLDL Cholesterol, Calc 28 mg/dl (0-30) 11/11/23 04:03
HDL Cholesterol 39 mg/dl 11/11/23 04:03
Free T4 1.70 ng/dl (0.78-2.19) 11/11/23 04:03
11/10/23
13:14
[id number] Pept 1420
Physical Exam
Constitutional: No acute distress
EENT: Moist mucous membranes
Cardiovascular: Systolic murmur absent, Rhythm/rate is irregular, Pedal edema present and JVD present
Respiratory: Respiratory effort normal and Lungs clear to auscul.
Neuro/Psych: Alert
Data Reviewed
-
Date of Service: November 24, 2023
EKG: Other (Tele: A fib 80s-90s)
Labs: Labs Reviewed by me
[2023-11-24 12:11] LABS: Glucose - Point of Care 127 mg/dl (70-99)
[2023-11-24 12:19] VITALS: BP 116/62; PULSE 88; O2SAT 98
[2023-11-24 15:10] VITALS: BP 109/58
[2023-11-24 15:18] LABS: Body Fluid WBC 164 /CUMM
[2023-11-24 15:19] LABS: Body Fluid Mononuclear 90.9 %; Body Fluid Polymorphonuclear 9.1 %
[2023-11-24 15:20] LABS: Body Fluid Second Tech FB
[2023-11-24 15:25] LABS: Body Fluid LDH 136 U/L; Body Fluid Protein 2.9 g/dl
--- NOTE | 2023-11-24 15:41 | CM ---
Daughter at patient bedside.
CXR today
Spoke with Carol at [facility] updated
PLAN: [facility]
Daughter to transport
[facility]
Fax #:fax [phone]
--- NOTE | 2023-11-24 15:45 | W.PN.UPDATE ---
Update Note
Progress Note Update
Patient due for removal of ozzy from left upper extremity surgical site, site appears well-healed, is well-approximated, no erythema, no areas of dehiscence, scant area of edema remains but all compartments soft and vastly improved from
preoperative phase. Patient reports continued improvement in discomfort at left upper extremity. Ozzy removed without difficulty, site CDI. Steri-Strips left in place.
[2023-11-24 16:38] LABS: Glucose - Point of Care 190 mg/dl (70-99)
[2023-11-24 16:59] LABS: LDH 272 U/L (120-246); Total Protein 6.3 g/dl (6.3-8.2)
[2023-11-24] MEDS: NOVOLOG FLEXPEN-LOW RESISTANCE 1 UNITS SC (17:04)
[2023-11-24] MEDS: LIPITOR 40 MG PO (17:05)
[2023-11-24 21:43] LABS: Glucose - Point of Care 96 mg/dl (70-99)
[2023-11-24 23:10] VITALS: BP 94/53
[2023-11-25 02:12] VITALS: BP 98/42
[2023-11-25] MEDS: SYNTHROID 50 MCG PO (05:35)
[2023-11-25] MEDS: SYNTHROID 200 MCG PO (05:36)
[2023-11-25 06:00] VITALS: BMI 43.5
--- NOTE | 2023-11-25 07:29 | W.PN.HOSP.TC ---
Addendum entered and electronically signed by Pierre Serrato MD 11/25/23 12:02:
Transition to PO diuretics with MWF dosing of metolazone
S/p thora, analysis consistent with transdutive, likely related to HF
Now off of o2 at rest, but still hypoxic and sob with ambulation even when back to the bathroom
Will plan to have IVC filter removed
Continue eliquis
Continue diuretics and mwf metalzone
Outpatient Cardiology follow up
Plan to DC tomorrow after IVC filter removal
Original Note:
Today's Communication/Plan
-
Assessment / Plan
Assessment / Plan
Ms. Anita Guevara is a 73yo F h HFpEF (EF 60-65%) on 2l O2 at home, CAD, s/p TAVR (04/22/23), DVT on enoxaparin, afib, htn, hld was admitted 11/09 for a CHF exacerbation.
Acute on chronic exacerbation of HFpEF, HTN, Chronic Troponin elevation
Bilateral pleural effusions
- thoracentesis: Successful ultrasound-guided thoracentesis, yielding 1100 cc of serosanguineous pleural fluid.
- pleural fluid: Light's criteria are not met. Likely a transudative effusion secondary to CHF exacerbation
- ECHO(11/14): well seated bioprosthetic aortic valve. LVEF 60-65%. mild MR
- new wheezing, 11/23 CXR: moderate R pleural effusion
- IRAD consulted for thoracentesis
- cardiology following
- fluid restriction, I&O's, daily weights
- incentive spirometer
- bumex, aldactone
- tubigrips
- farxiga
Metabolic alkalosis
- vbg
- diamox 500mg
Hypokalemia
-replete w KCl
Hypomagnesemia
- replete w magnesium sulfate
- resolved
LUE pain secondary to traumatic hematoma associated w lovenox injection s/p hematoma evacuation, anemia
- Dr. Thurman evacuated the hematoma on 11/10.
- vascular surgery - ozzy removed 11/23
- PT/OT
Anemia
Acute blood loss anemia
- LUE hematoma
- s/p 3 units pRBCs transfusion
- iron repletion
- hepatitis panel negative
- [id number] panel, lupus panel, phosphatidylserine panel negative
- Anti-Cardiolipin IgG Antibody (+). Repeat in 12 weeks
- transfuse hemoglobin less than 7.0 g/dL
- follow cbc
ELGIN in setting of volume overload
- Cr 1.1 on 11/11, peak 2.3, now back to baseline
- braun catheter removed
- renal u/s: nephrolith w/in lower pole of R kidney. No evidence for pelvicalyceal dilation or mass b/l. Renal parenchymal thickness preserved b/l.
b/l le dvt
- IVC filter placed 11/11.
- Pt tolerated procedure well.
- bl le us: no dvts
- on eliquis
- will need to consult IRAD for retrieval prior to d/c
hyperkalemia, chronic hyponatremia, hypermagnesemia
- resolved
- received 3 doses lokelma
- now giving K back with diuresis
- holding spironolactone
acute on chronic respiratory failure
- resolved
- on 2L O2 at home
- wean O2 w SpO2>92%
MARY KATE, asthma
- continue cpap
- no acute asthma exacerbation
Afib
- hold cardizem
- tele monitoring
- metoprolol for rate control as BP improved
- eliquis 5mg PO BID
Type 2 DM, obesity
- SSI, accuchecks
- hold trulicity
- diabetic diet
HLD
- continue statin
- monitor cmp
GERD
- continue PPI
Hypothyroidism
- continue levothyroxine
- TSH 14.9. Free T4 1.7
Dementia
- continue donepezil
Insomnia
- cont trazodone prn
PAD
- s/p R femoral bypass
DVT prophylaxis
- retrievable IVC filter placed 11/11
- 5mg eliquis. Epistaxis. Will monitor for continued bleeding and cbc
- consulted IR to remove IVC filter
Code status: FULL CODE
Diet: diabetic, low Na
Anticipated Discharge: Within 24 hours
Subjective/Interval History
-
Date of Service: November 25, 2023
Ms. Anita Guevara is a 73yo F pmh HFpEF (EF 60-65%) on 2l O2 at home, CAD, s/p TAVR (04/22/23), DVT on enoxaparin, afib, htn, hld was admitted 11/09 for a CHF exacerbation. Vascular surgery removed ozzy from hematoma evacuation yesterday. [facility]
lightheaded when she was hypotensive after her thoracentesis last night. No SOB, CP.
Objective Data
-
Labs:
Laboratory Results
11/25/23
06:27
WBC Pending
Hgb Pending
Hct Pending
Plt Count Pending
Sodium Pending
Potassium Pending
Chloride Pending
Carbon Dioxide Pending
BUN Pending
Creatinine Pending
Glucose Pending
Calcium Pending
Vital Signs:
Vital Signs
Temp Pulse Resp BP Pulse Ox
98.5 F 84 18 98/42 100
11/24/23 23:10 11/25/23 02:12 11/25/23 02:12 11/25/23 02:12 11/24/23 23:10
I&O
11/24/23 11/25/23 11/26/23
06:59 06:59 06:59
Intake Total 1480 / 1480 600 / 600
Balance 1480 / 1480 600 / 600
Review of Systems
-
Unable to obtain full review of systems at this time due to: Language Barrier
History Source: Patient and Family
Constitutional: Reports No Symptoms
Respiratory: Reports No Symptoms
Cardiac: Reports No Symptoms
Abdomen/GI: Reports No Symptoms
Psych: Reports Sad
Physical Exam
-
General: Well Developed, Well Nourished and Conversant
Respiratory: Clear to Auscultation
Cardiac: S1/S2 and Irregular Rhythm
GI: Soft, Nontender, Nondistended, Normal Bowel Sounds and No Hepatosplenomegaly
Musculoskeletal: Edema, Right Lower Extrem (+1) and Edema, Left Lower Extrem (+1)
Skin: Warm, Dry and Other (hematoma evacuation scar healing well)
Neuro: AO x 3
Psych: Calm
[2023-11-25 07:34] LABS: Glucose - Point of Care 131 mg/dl (70-99)
[2023-11-25] MEDS: NOVOLOG FLEXPEN-LOW RESISTANCE SC ×3 (07:34→16:37)
[2023-11-25 07:38] LABS: Hematocrit 27.1 % (37.0-47.0); Hemoglobin 8.2 g/dL (12.0-16.0); Mean Corp Hgb Conc. 30.3 g/dL (33.0-37.0); Mean Corpuscular Hgb 27.6 pg (27.0-31.0); Mean Corpuscular Volume 91.2 fL (81.0-99.0); Mean Platelet Volume 9.7 fL (7.4-10.4); Platelet Count 198 10^3/uL (130-400); Red Blood Cell Count 2.97 10^6/uL (4.20-5.40); Red Cell Dist. Width 19.6 % (11.5-14.5); White Blood Cell Count 6.2 10^3/uL (4.8-10.8)
[2023-11-25 07:39] VITALS: BP 145/65
--- NOTE | 2023-11-25 07:59 | W.PN.CD ---
Today's Communication / Plan
-
-Cr is rising: Transitioned to PO Bumex 3 mg PO BID yesterday, and metolazone being held for now with plan to place on metolazone 5 mg Wednesday/Wednesday/Wednesday on discharge.
-Labs this a.m. pending; has lost over 10 kg in weight this admission, now down to lowest weight--dry weight unknown.
Impression / Plan
-
73 y/o female (Patient of Dr. Vasques)- German/Palestinian speaking per her daughter. She has a history of hypertension, dyslipidemia, obesity, MARY KATE, restrictive lung disease, severe multivessel CAD with PCI 2014, permanent AFIB (previously on Xarelto,
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 She was recently hospitalized at [facility] and discharged about one week ago. She presented
since her O2 sats at home were in the 70's. She was treated for acute heart failure with preserved EF with Bumex. She also had a thoracentesis for pleural effusion. She was also treated with antibiotics during that admit for possible PNA. She was
noted to be anemic (HGB 9/17 7.9). Additionally BLE DVT was noted despite being on Xarelto and she was adjusted to Lovenox. No PE on CT scan there. She had an injection in her left arm and now has a significant hematoma. She is here now with
complaints of left arm pain with hematoma and worsened LE edema. She has been on Bumex 2 mg daily, though took it BID twice this week without help. We are consulted for CHF.
HfpEF: Acute on chronic, improved s/p IV bumex and metolazone
-Cr is rising: Transitioned to PO Bumex 3 mg PO BID yesterday, and metolazone being held for now with plan to place on metolazone 5 mg Wednesday/Wednesday/Wednesday on discharge.
-Labs this a.m. pending; has lost over 10 kg in weight this admission, now down to lowest weight--dry weight unknown.
-Continue spironolactone and farxiga.
Hypokalemia
-still need to monitor labs closely
-Continue spironolactone, replete K as needed.
Permanent AFib
-Remains rate-controlled.
-Continue metoprolol tartrate 50 mg BID and diltiazem 120 mg BID.
-Continue Eliquis 5 mg BID (age, serum Cr, body weight dosing).
Acute kidney injury
-improved with diuresis
LUE hematoma - management as per Vascular Surgery; stable.
Anemia: Hemoglobin relatively stable.
Recent BLE DVT => has IVC filter, remove once tolerating anticoagulation
Abnormal troponin => non-ischemic myocardial injury in this patient with CHF, anemia
s/p TAVR, good function by echo
CAD with hx stenting, no obstructive cad at recent cath, ASA stopped once eliquis started
PAD: Right common fem artery sten, -remains on ASA
Subjective:
No major events overnight. Daughter (Stefanie) at bedside, who was able to help translate.
Physical Exam
Vital Signs/Labs
Vital Signs
Temp Pulse Resp BP Pulse Ox
98 F 78 16 145/65 95
11/25/23 07:39 11/25/23 07:39 11/25/23 07:39 11/25/23 07:39 11/25/23 07:39
11/24/23 11/25/23 11/26/23
06:59 06:59 06:59
Actual Weight 109.996 kg 107.728 kg
11/25/23 06:27
PT 17.8 Sec (11.4-14.6) H 11/17/23 14:29
INR 1.45 11/17/23 14:29
APTT 37.9 Sec (23.4-35.0) H 11/17/23 14:29
Magnesium 2.0 mg/dl (1.6-2.3) 11/24/23 06:54
Triglycerides 140 mg/dl (10-149) 11/11/23 04:03
LDL Cholesterol, Calc 62 mg/dl 11/11/23 04:03
VLDL Cholesterol, Calc 28 mg/dl (0-30) 11/11/23 04:03
HDL Cholesterol 39 mg/dl 11/11/23 04:03
Free T4 1.70 ng/dl (0.78-2.19) 11/11/23 04:03
11/10/23
13:14
Ijt-R-Dygvodziafr Pept 1420
Physical Exam
Constitutional: No acute distress and Comfortable
EENT: Anicteric
Cardiovascular: Rhythm/rate is irregular, Pedal edema present (2-3+), Systolic murmur present (2/6) and S1S2 is normal
Respiratory: Respiratory effort normal and Lungs clear to auscul.
GI: Soft
Neuro/Psych: AO x 3
Data Reviewed
-
Date of Service: November 25, 2023
Medical Tests (PFT, Pathology etc): Discussed with Patient and Discussed with Family
Labs: Labs Reviewed by me
[2023-11-25] MEDS: PROTONIX 40 MG PO (08:04)
[2023-11-25] MEDS: FARXIGA 10 MG PO (08:04)
[2023-11-25] MEDS: ALDACTONE 25 MG PO (08:05)
[2023-11-25] MEDS: ELIQUIS 5 MG PO ×2 (08:05→20:49)
[2023-11-25] MEDS: ARICEPT 5 MG PO (08:05)
[2023-11-25] MEDS: LOPRESSOR 50 MG PO (08:05)
[2023-11-25] MEDS: BUMEX 3 MG PO ×2 (08:06→17:05)
[2023-11-25 08:13] LABS: Blood Urea Nitrogen 29 mg/dl (7-17); Calcium 8.7 mg/dl (8.4-10.2); Chloride 80 mmol/L (98-107); Estimated Creatinine Clearance 49 ml/min; Glucose 102 mg/dl (70-99); Potassium 3.3 mmol/L (3.5-5.1); Sodium 136 mmol/L (135-145); eGFR 48.09
[2023-11-25 08:48] LABS: Carbon Dioxide 46 mmol/L (22-30)
[2023-11-25] MEDS: KCL 40 MEQ PO ×2 (09:36→20:48)
[2023-11-25 11:57] LABS: Glucose - Point of Care 103 mg/dl (70-99)
--- NOTE | 2023-11-25 13:30 | PTCARENOTE ---
Per IR IVC filter will be removed tomorrow 11/25 late morning/ early afternoon. NPO at midnight. sips water in am ok with pills. Make sure IV is working for sedation.
--- NOTE | 2023-11-25 15:11 | CM ---
Patient seen at bedside. Son Vin in room with patient.
transition to po diuretics
NPO tonight - procedure tomorrow IVC filter to be removed.
Spoke with Carol from [facility]: turn off the lights & updated.
PLAN: Home with [facility]: turn off the lights
daughter to transport
[facility]: turn off the lights [facility]
Fax #:fax [phone]
[2023-11-25 15:18] VITALS: BP 99/52
[2023-11-25 16:02] VITALS: BP 105/53; BP 118/60; PULSE 85; O2SAT 90
[2023-11-25 16:34] LABS: Glucose - Point of Care 105 mg/dl (70-99)
[2023-11-25] MEDS: LIPITOR 40 MG PO (17:04)
[2023-11-25] MEDS: LOPRESSOR PO (21:00)
[2023-11-25] MEDS: LOPRESSOR 25 MG PO (21:02)
[2023-11-25 21:18] LABS: Glucose - Point of Care 159 mg/dl (70-99)
[2023-11-25 22:51] VITALS: BP 99/58
[2023-11-25 23:05] VITALS: BP 99/58
[2023-11-26] VITALS (10 sets, daily range): BP systolic 85–119; BP diastolic 52–82; BMI 42.8
[2023-11-26] MEDS: SYNTHROID 50 MCG PO (06:09)
[2023-11-26] MEDS: SYNTHROID 200 MCG PO (06:09)
[2023-11-26 06:17] LABS: Glucose - Point of Care 111 mg/dl (70-99)
[2023-11-26 06:41] LABS: Hematocrit 27.2 % (37.0-47.0); Hemoglobin 8.5 g/dL (12.0-16.0); Mean Corp Hgb Conc. 31.3 g/dL (33.0-37.0); Mean Corpuscular Hgb 28.6 pg (27.0-31.0); Mean Corpuscular Volume 91.6 fL (81.0-99.0); Platelet Count 187 10^3/uL (130-400); Red Blood Cell Count 2.97 10^6/uL (4.20-5.40); Red Cell Dist. Width 19.9 % (11.5-14.5); White Blood Cell Count 6.4 10^3/uL (4.8-10.8)
[2023-11-26 07:22] LABS: ALT (SGPT) 16 U/L (0-35); AST (SGOT) 41 U/L (14-36); Albumin 3.1 g/dl (3.5-5.0); Alkaline Phosphatase 158 U/L (38-126); Blood Urea Nitrogen 28 mg/dl (7-17); Calcium 8.7 mg/dl (8.4-10.2); Chloride 79 mmol/L (98-107); Estimated Creatinine Clearance 48 ml/min; Glucose 99 mg/dl (70-99); Sodium 134 mmol/L (135-145); Total Protein 6.3 g/dl (6.3-8.2); eGFR 48.09
--- NOTE | 2023-11-26 07:51 | W.PN.CD ---
Today's Communication / Plan
-
-Creatinine is relatively stable at 1.2.
-Continue Bumex 3 mg PO BID; recommend metolazone metolazone 5 mg Wednesday/Wednesday/Wednesday on discharge.
-Replete potassium (keep K+ > 4.0); will need potassium supplementation at home and close monitoring of it as outpatient.
-Recommend compression stockings to help with edema; explained to patient/family that edema will likely not completely resolve.
-Outpatient follow-up with primary Projection Camera Operator.
Impression / Plan
-
73 y/o female (Patient of Dr. Vasques)- Kazakh/Malian speaking per her daughter. She has a history of hypertension, dyslipidemia, obesity, MARY KATE, restrictive lung disease, severe multivessel CAD with PCI 2014, permanent AFIB (previously on Xarelto,
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 She was recently hospitalized at [facility] and discharged about one week ago. She presented
since her O2 sats at home were in the 70's. She was treated for acute heart failure with preserved EF with Bumex. She also had a thoracentesis for pleural effusion. She was also treated with antibiotics during that admit for possible PNA. She was
noted to be anemic (HGB 9/17 7.9). Additionally BLE DVT was noted despite being on Xarelto and she was adjusted to Lovenox. No PE on CT scan there. She had an injection in her left arm and now has a significant hematoma. She is here now with
complaints of left arm pain with hematoma and worsened LE edema. She has been on Bumex 2 mg daily, though took it BID twice this week without help. We are consulted for CHF.
HfpEF: Acute on chronic, improved s/p IV bumex and metolazone
-Creatinine is relatively stable at 1.2.
-Continue Bumex 3 mg PO BID; recommend metolazone metolazone 5 mg Wednesday/Wednesday/Wednesday on discharge.
-Replete potassium (keep K+ > 4.0); will need potassium supplementation at home and close monitoring of it as outpatient.
-Recommend compression stockings to help with edema; explained to patient/family that edema will likely not completely resolve.
-Continue spironolactone and farxiga.
Hypokalemia
-Replete aggressively; continue spironolactone.
Permanent AFib
-Rate-controlled; stable.
-Continue metoprolol tartrate 50 mg BID and diltiazem 120 mg BID.
-Continue Eliquis 5 mg BID (age, serum Cr, body weight dosing).
Acute renal insufficiency:
-Should be monitored as outpatient.
LUE hematoma - management as per Vascular Surgery; stable.
Anemia: Hemoglobin relatively stable.
Recent BLE DVT => has IVC filter, remove once tolerating anticoagulation
Abnormal troponin => non-ischemic myocardial injury in this patient with CHF, anemia
s/p TAVR, good function by echo
CAD with hx stenting, no obstructive cad at recent cath, ASA stopped once eliquis started
PAD: Right common fem artery sten, -remains on ASA
Subjective:
No cardiac events overnight.
Physical Exam
Vital Signs/Labs
Vital Signs
Temp Pulse Resp BP Pulse Ox
98.1 F 81 18 99/58 94
11/25/23 23:05 11/25/23 23:05 11/25/23 23:05 11/25/23 23:05 11/25/23 23:05
11/25/23 11/26/23 11/27/23
06:59 06:59 06:59
Actual Weight 107.728 kg 106.05 kg
11/26/23 05:39
11/26/23 05:39
PT 17.8 Sec (11.4-14.6) H 11/17/23 14:29
INR 1.45 11/17/23 14:29
APTT 37.9 Sec (23.4-35.0) H 11/17/23 14:29
Magnesium 2.0 mg/dl (1.6-2.3) 11/26/23 05:39
Triglycerides 140 mg/dl (10-149) 11/11/23 04:03
LDL Cholesterol, Calc 62 mg/dl 11/11/23 04:03
VLDL Cholesterol, Calc 28 mg/dl (0-30) 11/11/23 04:03
HDL Cholesterol 39 mg/dl 11/11/23 04:03
Free T4 1.70 ng/dl (0.78-2.19) 11/11/23 04:03
11/10/23
13:14
Zrh-I-Wuwnjdwbrbr Pept 1420
Physical Exam
Constitutional: No acute distress and Comfortable
EENT: Anicteric
Cardiovascular: Rhythm/rate is irregular, Pedal edema present (2-3+), Systolic murmur present (2/6) and S1S2 is normal
Respiratory: Respiratory effort normal and Lungs clear to auscul.
GI: Soft
Neuro/Psych: AO x 3
Data Reviewed
-
Date of Service: November 26, 2023
Labs: Labs Reviewed by me
[2023-11-26] MEDS: NOVOLOG FLEXPEN-LOW RESISTANCE SC ×3 (08:18→18:32)
[2023-11-26] MEDS: BUMEX 3 MG PO (08:20)
[2023-11-26] MEDS: ARICEPT 5 MG PO (08:21)
[2023-11-26] MEDS: LOPRESSOR 50 MG PO ×2 (08:21→22:02)
[2023-11-26] MEDS: FARXIGA 10 MG PO (08:21)
[2023-11-26] MEDS: PROTONIX 40 MG PO (08:21)
[2023-11-26] MEDS: ALDACTONE 25 MG PO (08:21)
[2023-11-26] MEDS: ELIQUIS 5 MG PO ×2 (08:22→21:08)
[2023-11-26] MEDS: KCL 40 MEQ PO ×5 (08:22→21:08)
--- NOTE | 2023-11-26 08:41 | W.PN.HOSP.TC ---
Addendum entered and electronically signed by Pierre Serrato MD 11/26/23 13:20:
Transition to PO diuretics with MWF dosing of metolazone
S/p thora, analysis consistent with transdutive, likely related to HF
Now off of o2 at rest, but still hypoxic and sob with ambulation even when back to the bathroom
Will plan to have IVC filter removed
Continue eliquis
Continue diuretics and mwf metalzone
Outpatient Cardiology follow up
retrieve IVC filter today and then can be discharged home.
More than 30 minutes spent in discharge including
Final examination of the patient
Summarizing hospital stay
Instructions for continuing care to all relevant caregivers
Preparation of discharge records, prescriptions, and referral forms
Total time spent (in minutes): 33mins
Original Note:
Today's Communication/Plan
-
Assessment / Plan
Assessment / Plan
Ms. Anita Guevara is a 73yo F h HFpEF (EF 60-65%) on 2l O2 at home, CAD, s/p TAVR (04/22/23), DVT on enoxaparin, afib, htn, hld was admitted 11/09 for a CHF exacerbation.
Acute on chronic exacerbation of HFpEF, HTN, Chronic Troponin elevation
Bilateral pleural effusions
- thoracentesis #1: Successful ultrasound-guided thoracentesis, yielding 1100 cc of serosanguineous pleural fluid. Pleural fluid: Light's criteria are not met. Likely a transudative effusion secondary to CHF exacerbation
- ECHO(11/14): well seated bioprosthetic aortic valve. LVEF 60-65%. mild MR
- new wheezing, 11/23 CXR: moderate R pleural effusion
- thoracentesis #2: Successful ultrasound-guided thoracentesis, yielding 900 cc of serosanguineous pleural fluid. Pleural fluid: light's criteria not met. Likely a transudative effusion secondary to chf exacerbation
- cardiology following
- fluid restriction, I&O's, daily weights
- incentive spirometer
- bumex, aldactone
- tubigrips
- farxiga
Metabolic alkalosis
- vbg
- diamox 500mg
Hypokalemia
-replete w KCl
Hypomagnesemia
- replete w magnesium sulfate
- resolved
LUE pain secondary to traumatic hematoma associated w lovenox injection s/p hematoma evacuation, anemia
- Dr. Thurman evacuated the hematoma on 11/10.
- vascular surgery - ozzy removed 11/23
- PT/OT
Anemia
Acute blood loss anemia
- Hb stable
- LUE hematoma
- s/p 3 units pRBCs transfusion
- iron repletion
- hepatitis panel negative
- [id number] panel, lupus panel, phosphatidylserine panel negative
- Anti-Cardiolipin IgG Antibody (+). Repeat in 12 weeks
- transfuse hemoglobin less than 7.0 g/dL
- follow cbc
ELGIN in setting of volume overload
- Cr 1.1 on 11/11, peak 2.3, now back to baseline
- braun catheter removed
- renal u/s: nephrolith w/in lower pole of R kidney. No evidence for pelvicalyceal dilation or mass b/l. Renal parenchymal thickness preserved b/l.
b/l le dvt
- IVC filter placed 11/11.
- Pt tolerated procedure well.
- bl le us: no dvts
- on eliquis
- IRAD consulted for retrieval prior to d/c
hyperkalemia, chronic hyponatremia, hypermagnesemia
- resolved
- received 3 doses lokelma
- now giving K back with diuresis
- holding spironolactone
acute on chronic respiratory failure
- resolved
- on 2L O2 at home
- wean O2 w SpO2>92%
MARY KATE, asthma
- continue cpap
- no acute asthma exacerbation
Afib
- hold cardizem
- tele monitoring
- metoprolol for rate control as BP improved
- eliquis 5mg PO BID
Type 2 DM, obesity
- SSI, accuchecks
- hold trulicity
- diabetic diet
HLD
- continue statin
- monitor cmp
GERD
- continue PPI
Hypothyroidism
- continue levothyroxine
- TSH 14.9. Free T4 1.7
Dementia
- continue donepezil
Insomnia
- cont trazodone prn
PAD
- s/p R femoral bypass
DVT prophylaxis
- retrievable IVC filter placed 11/11
- 5mg eliquis. Epistaxis. Will monitor for continued bleeding and cbc
- consulted IR to remove IVC filter
Code status: FULL CODE
Diet: diabetic, low Na
Anticipated Discharge: Today
Subjective/Interval History
-
Date of Service: November 26, 2023
Ms. Anita Guevara is a 73yo F pmh HFpEF (EF 60-65%) on 2l O2 at home, CAD, s/p TAVR (04/22/23), DVT on enoxaparin, afib, htn, hld was admitted 11/09 for a CHF exacerbation. No acute events overnight.
Objective Data
-
Labs:
Laboratory Results
11/26/23
05:39
WBC 6.4
Hgb 8.5 L
Hct 27.2 L
Plt Count 187
Sodium 134 L
Potassium 3.0 L
Chloride 79 L
Carbon Dioxide Pending
BUN 28 H
Creatinine 1.2 H
Glucose 99
Calcium 8.7
Total Bilirubin 1.0
AST 41 H
ALT 16
Alkaline Phosphatase 158 H
Vital Signs:
Vital Signs
Temp Pulse Resp BP Pulse Ox
98.1 F 83 18 119/59 97
11/26/23 08:00 11/26/23 08:20 11/26/23 08:00 11/26/23 08:20 11/26/23 08:00
I&O
11/25/23 11/26/23 11/27/23
06:59 06:59 06:59
Intake Total 600 / 600 720 / 720
Balance 600 / 600 720 / 720
Review of Systems
-
Unable to obtain full review of systems at this time due to: Language Barrier
History Source: Patient
Constitutional: Reports No Symptoms
Respiratory: Reports No Symptoms
Cardiac: Reports No Symptoms
Abdomen/GI: Reports No Symptoms
Musculoskeletal: Reports No Symptoms
Physical Exam
-
General: Well Developed, Well Nourished and No Apparent Distress
HEENT: Normocephalic and Atraumatic
Respiratory: Clear to Auscultation
Cardiac: S1/S2 and Irregular Rhythm
GI: Soft, Nontender, Nondistended and Normal Bowel Sounds
Genito-urinary: No Costovertebral Tender
Musculoskeletal: Edema, Right Lower Extrem (+1) and Edema, Left Lower Extrem (1+)
Skin: Warm and Dry; Negative Rash
Neuro: AO x 3
Psych: Calm
--- NOTE | 2023-11-26 08:42 | W.DCSUMMARY ---
Discharge Summary
Discharge Data
Date of Admission: 11/10/23
Date of Discharge: 11/27/23
-
Pending Results: No
Hospital Course
Ms. Anita Guevara is a 73yo F pmh HFpEF (EF 65-70%, NYHA class 4) on 2l O2 at home, s/p TAVR (04/22/23), DVT on enoxaparin, afib, htn, hld was admitted 11/09 for worsening swelling to her BL LE, increased O2 requirements, and LUE swelling. Recently
d/c�ed from another hospital six days prior for a chf exacerbation. DVT found while on Xarelto, switched to lovenox. Was discharged on 2L O2, needed 4L O2 in ED. Afib on ECG. L arm swollen and painful from lovenox injections. LUE venous doppler
u/s remarkable for a hematoma or seroma that was not actively bleeding. CXR remarkable for moderate R pleural effusion. Arm pain worsened on admission and pt unable to move arm. Evaluated by vascular surgery. Scheduled for semi-urgent hematoma
evacuation the same day. Decompensated during surgery - hypoxic to 80s, required ET tube, 1 unit pRBCs, extubated but required bipap. Postop ecg showed afib, cxr showed mod R pleural effusion, unchanged. Next day, thoracentesis. Drained 1100cc
serosanguinous fluid. Transudative by Light's criteria. Anemic Hb 6.3 after thoracentesis, received 2 unit pRBCs. ELGIN developed, eventually resolved w diuresis. Pt unable to tolerate lovenox/heparin, developed DVTs on xarelto, so retrievable IVC
filter placed 11/12. Her weight started to trend up, intermittently became hypotensive, but was clinically fluid overloaded. Nephro, cardiology assisted managing volume overload while sustaining adequate blood pressure and kidney function. Horta
catheter inserted. BARTOLO drain from hematoma evacuation was removed, and ozzy later removed. Eliquis started at 2.5 mg for afib stroke prevention. Started low dose due to concern of high bleeding risk, anemia requiring 3 pRBCs this hospitalization.
Advanced to appropriate 5mg dose the next day in setting of stable Hb and no signs of bleeding. B/l LE u/s confirmed no active DVTs. IVC filter to be removed, but cancelled due to anterior epistaxis. Weight kept increasing, so bumex dose doubled.
Her weight started to trend downwards. Developed metabolic alkalosis. Resolved w diamox administration. Farxiga started for cardioprotection. The next day, crackles worsened on auscultation. Repeat CXR showed moderate R pleural effusion.
Thoracentesis drained 900cc serosanguinous fluid. Transudative effusion by light's criteria. Transitioned to PO bumex. Retrievable IVC filter removed. Electrolyte abnormalities managed daily. Iron deficiency anemia repleted w iron. Hemodynamically
stable, no dyspnea. O2 requirements returned to baseline.
Discharge Plan
-
Patient Disposition: Home (Routine Discharge)
Discharge Diagnosis/Procedures: Hematoma, CHF exacerbation
Condition: Good
Diet: Low Sodium
Activity: With Walker
Activity Restrictions/Additional Instructions:
Please follow up with your owner spa director in 1-2 weeks.
Please return to the hospital if you experience new or worsening symptoms. This includes fevers, chills, excessive drainage from your surgical site, signs of infection, loss of sensation in your arm, or shortness of breath.
Repeat APLS panel testing in 12 weeks (from 11/15) with mild elevation in IgG anticardiolipin
Instructions: Low-sodium diet, *PCP/Other Mental Health Aides Teacher Heart Failure Instructions
Referrals:
Harmeet Barrios MD [Family Provider] - in one to two weeks
John Dangelo DO [Active] - in one to two months
Levy Thurman MD [Active] -
Prescriptions:
New
bumetanide 1 mg Tablet
3 mg PO BID@0800,1600 30 Days Qty: 60 0RF
Eliquis 5 mg Tablet
5 mg PO BID 30 Days Qty: 60 0RF
dapagliflozin propanediol 10 mg Tablet
10 mg PO DAILY 30 Days Qty: 30 0RF
metoprolol succinate 50 mg capsule,sprinkle,ER 24hr
50 mg PO BID 30 Days Qty: 60 0RF
potassium chloride 20 mEq Tablet,Er Particles/Crystals
40 meq PO DAILY 30 Days Qty: 60 0RF
metolazone 5 mg tablet
5 mg PO .[facility] Qty: 15 0RF
Continued
atorvastatin 40 mg Tablet
40 mg PO QPM
donepezil 5 mg Tablet
5 mg PO DAILY
trazodone 50 mg Tablet
50 mg PO HS
spironolactone 25 mg Tablet
25 mg PO DAILY
diltiazem HCl 120 mg Capsule,Extended Release 24hr
120 mg PO BID
levothyroxine 200 mcg Tablet
200 mcg PO DAILY
Rx Instructions:
taken w/ 50mcg= 250mcg
omeprazole 20 mg Tablet,Delayed Release (Dr/Ec)
20 mg PO DAILY
ergocalciferol (vitamin D2) 1,250 mcg (50,000 unit) Capsule
1,250 mcg PO DAY
levothyroxine 50 mcg tablet
50 mcg PO DAILY
Rx Instructions:
taken w/ 200mcg= 250mcg
Trulicity 0.75 mg/0.5 mL pen injector
0.75 mg SC DAY
aspirin 81 mg Tablet,Delayed Release (Dr/Ec)
81 mg PO DAILY Qty: 0 0RF
Discontinued
potassium chloride 20 mEq Tablet Extended Release
20 meq PO BID
bumetanide 2 mg tablet
2 mg PO DAILY
metoprolol tartrate 50 mg tablet
50 mg PO BID
enoxaparin 120 mg/0.8 mL syringe
120 mg SC Q12H
Discharge Date and Time
Print Language: Tuvaluan
[2023-11-26 09:53] LABS: Carbon Dioxide 43 mmol/L (22-30)
[2023-11-26 12:21] LABS: Glucose - Point of Care 115 mg/dl (70-99)
--- NOTE | 2023-11-26 16:23 | CM ---
Patient for IR today removal of IVC filter
Spoke with [facility] - tt hospitalist/resident regarding a script for HH to be placed on chart.
PLAN: home with [facility]
daughter to transport
[facility]
Fax #:fax [phone]
[2023-11-26] MEDS: LIPITOR 40 MG PO (17:04)
--- NOTE | 2023-11-26 17:16 | PTCARENOTE ---
This RN went in to take this pts accucheck and given 1600 bumex and 1800 liptor, pt refused Bumex so as to 'not have to go to the bathroom while in IR.' Instructed to take bumex after procedure, patient in agreement, will administer afterwards.
Lipitor administered. Refused accucheck because she is not eating, pt made aware of importance of Q6 accucheck while NPO. made aware, no new orders at this time.
--- NOTE | 2023-11-26 18:43 | PTCARENOTE ---
Sent pt down to IR on stretcher, report called. Will provide discharge information/communication to overnight RN to discharge pt after procedure in IR.
--- NOTE | 2023-11-26 20:07 | W.PN.IRAD.PR ---
Procedure Note
-
IVC filter retrieved successfully via RIJ access. No immediate complications.
[2023-11-26] MEDS: BUMEX PO (21:00)
[2023-11-26 21:08] LABS: Glucose - Point of Care 85 mg/dl (70-99)
--- NOTE | 2023-11-26 22:28 | W.PN.UPDATE ---
Update Note
Progress Note Update
Per nursing patient came back on the Unit from IR procedure at 2100. Report was given the Unit RN by IR that Patient's BP was on the lower side (80s/50s) for the procedure. Upon arrival to the Unit, patient Pt remains soft 90-100 systolic but HR
elevated. Patient and daughter reports not feeling comfortable taking mother home tonight. Will monitor over night.
--- NOTE | 2023-11-26 23:56 | PTCARENOTE ---
Pt back from IR on the unit at around 2100 after IVC filter removal, on report from IR nurse, pt's bp after procedure was 80s/50s. Pt c/o dizziness upon arrival on the unit and lightheadedness, VS 103/66, 104. As per order pt to be d/c 1 hr post IVC
filter removal. Daughter and pt concern about pt's low bp, also expressing concern driving this late at night. Tax Technician made aware. Also, petroleum production engineer MILLED LUMBER GRADER made aware of the above, bumex 3mg held. Pt ordered telemetry monitoring- Afib with HR 100-127
(non sustained).
[2023-11-27 03:52] VITALS: BP 101/45
[2023-11-27 06:00] VITALS: BMI 42.3
[2023-11-27] MEDS: SYNTHROID 50 MCG PO (06:25)
[2023-11-27] MEDS: SYNTHROID 200 MCG PO (06:25)
[2023-11-27 07:20] VITALS: BP 105/60
[2023-11-27 07:20] LABS: Hematocrit 30.1 % (37.0-47.0); Hemoglobin 9.1 g/dL (12.0-16.0); Mean Corp Hgb Conc. 30.2 g/dL (33.0-37.0); Mean Corpuscular Hgb 28.1 pg (27.0-31.0); Mean Corpuscular Volume 92.9 fL (81.0-99.0); Mean Platelet Volume 9.9 fL (7.4-10.4); Platelet Count 188 10^3/uL (130-400); Red Blood Cell Count 3.24 10^6/uL (4.20-5.40); Red Cell Dist. Width 20.3 % (11.5-14.5); White Blood Cell Count 6.8 10^3/uL (4.8-10.8)
--- NOTE | 2023-11-27 07:26 | W.DCSUMMARY ---
Discharge Summary
Discharge Data
Date of Admission: 11/10/23
Date of Discharge: 11/27/23
-
Pending Results: No
Hospital Course
Ms. Anita Guevara is a 73yo F pmh HFpEF (EF 65-70%, NYHA class 4) on 2l O2 at home, s/p TAVR (04/22/23), DVT on enoxaparin, afib, htn, hld was admitted 11/09 for worsening swelling to her BL LE, increased O2 requirements, and LUE swelling. Recently
d/c�ed from another hospital six days prior for a chf exacerbation. DVT found while on Xarelto, switched to lovenox. Was discharged on 2L O2, needed 4L O2 in ED. Afib on ECG. L arm swollen and painful from lovenox injections. LUE venous doppler
u/s remarkable for a hematoma or seroma that was not actively bleeding. CXR remarkable for moderate R pleural effusion. Arm pain worsened on admission and pt unable to move arm. Evaluated by vascular surgery. Scheduled for semi-urgent hematoma
evacuation the same day. Decompensated during surgery - hypoxic to 80s, required ET tube, 1 unit pRBCs, extubated but required bipap. Postop ecg showed afib, cxr showed mod R pleural effusion, unchanged. Next day, thoracentesis. Drained 1100cc
serosanguinous fluid. Transudative by Light's criteria. Anemic Hb 6.3 after thoracentesis, received 2 unit pRBCs. ELGIN developed, eventually resolved w diuresis. Pt unable to tolerate lovenox/heparin, developed DVTs on xarelto, so retrievable IVC
filter placed 11/12. Her weight started to trend up, intermittently became hypotensive, but was clinically fluid overloaded. Nephro, cardiology assisted managing volume overload while sustaining adequate blood pressure and kidney function. Horta
catheter inserted. BARTOOL drain from hematoma evacuation was removed, and ozzy later removed. Eliquis started at 2.5 mg for afib stroke prevention. Started low dose due to concern of high bleeding risk, anemia requiring 3 pRBCs this hospitalization.
Advanced to appropriate 5mg dose the next day in setting of stable Hb and no signs of bleeding. B/l LE u/s confirmed no active DVTs. IVC filter to be removed, but cancelled due to anterior epistaxis. Weight kept increasing, so bumex dose doubled.
Her weight started to trend downwards. Developed metabolic alkalosis. Resolved w diamox administration. Farxiga started for cardioprotection. The next day, crackles worsened on auscultation. Repeat CXR showed moderate R pleural effusion.
Thoracentesis drained 900cc serosanguinous fluid. Transudative effusion by light's criteria. Transitioned to PO bumex. Retrievable IVC filter removed. Electrolyte abnormalities managed daily. Iron deficiency anemia repleted w iron. Hemodynamically
stable, no dyspnea. O2 requirements returned to baseline.
Discharge Plan
-
Patient Disposition: Home (Routine Discharge)
Discharge Diagnosis/Procedures: Hematoma, CHF exacerbation
Condition: Good
Diet: Low Sodium
Activity: With Walker
Other Services: VN and PT
Activity Restrictions/Additional Instructions:
Please follow up with your territory business manager in 1-2 weeks.
Please return to the hospital if you experience new or worsening symptoms. This includes fevers, chills, excessive drainage from your surgical site, signs of infection, loss of sensation in your arm, or shortness of breath.
Repeat APLS panel testing in 12 weeks (from 11/15) with mild elevation in IgG anticardiolipin
Instructions: Low-sodium diet, *PCP/Other Acid Regenerator Heart Failure Instructions
Referrals:
Harmeet Barrios MD [Family Provider] - in one to two weeks
John Dangelo DO [Active] - in one to two months
Levy Thurman MD [Active] -
Additional Discharge Medication Instructions: Resume bumex and aldactone tomorrow (11/27)
Prescriptions:
New
bumetanide 1 mg Tablet
3 mg PO BID@0800,1600 30 Days Qty: 60 0RF
Eliquis 5 mg Tablet
5 mg PO BID 30 Days Qty: 60 0RF
dapagliflozin propanediol 10 mg Tablet
10 mg PO DAILY 30 Days Qty: 30 0RF
metoprolol succinate 50 mg capsule,sprinkle,ER 24hr
50 mg PO BID 30 Days Qty: 60 0RF
potassium chloride 20 mEq Tablet,Er Particles/Crystals
40 meq PO DAILY 30 Days Qty: 60 0RF
metolazone 5 mg tablet
5 mg PO .MWF Qty: 15 0RF
Continued
atorvastatin 40 mg Tablet
40 mg PO QPM
donepezil 5 mg Tablet
5 mg PO DAILY
trazodone 50 mg Tablet
50 mg PO HS
spironolactone 25 mg Tablet
25 mg PO DAILY
diltiazem HCl 120 mg Capsule,Extended Release 24hr
120 mg PO BID
levothyroxine 200 mcg Tablet
200 mcg PO DAILY
Rx Instructions:
taken w/ 50mcg= 250mcg
omeprazole 20 mg Tablet,Delayed Release (Dr/Ec)
20 mg PO DAILY
ergocalciferol (vitamin D2) 1,250 mcg (50,000 unit) Capsule
1,250 mcg PO DAY
levothyroxine 50 mcg tablet
50 mcg PO DAILY
Rx Instructions:
taken w/ 200mcg= 250mcg
Trulicity 0.75 mg/0.5 mL pen injector
0.75 mg SC DAY
aspirin 81 mg Tablet,Delayed Release (Dr/Ec)
81 mg PO DAILY Qty: 0 0RF
Discontinued
potassium chloride 20 mEq Tablet Extended Release
20 meq PO BID
bumetanide 2 mg tablet
2 mg PO DAILY
metoprolol tartrate 50 mg tablet
50 mg PO BID
enoxaparin 120 mg/0.8 mL syringe
120 mg SC Q12H
Discharge Orders:
Discharge Patient (As Directed); Ordered 11/27/23
Ordered By: Naomi Ni
Discharge Date and Time
Print Language: Bahamian
[2023-11-27 07:27] LABS: Glucose - Point of Care 82 mg/dl (70-99)
--- NOTE | 2023-11-27 07:27 | W.PN.HOSP.TC ---
Addendum entered and electronically signed by Pierre Serrato MD 11/27/23 12:43:
Transition to PO diuretics with MWF dosing of metolazone
S/p thora, analysis consistent with transdutive, likely related to HF
Now off of o2 at rest, but still hypoxic and sob with ambulation even when back to the bathroom
Will plan to have IVC filter removed
Continue eliquis
Continue diuretics and mwf metalzone
Outpatient Cardiology follow up
retrieved IVC filter 11/25. late return to room and became hypotensive and tachycardic. without report of blood loss therfore, likely anaesthia induced.
-will give addtional fluid back this am. hold the diretics for today.
-if repeat bp is high then will plan to dc home.
More than 30 minutes spent in discharge including
Final examination of the patient
Summarizing hospital stay
Instructions for continuing care to all relevant caregivers
Preparation of discharge records, prescriptions, and referral forms
Total time spent (in minutes): 33mins
Original Note:
Today's Communication/Plan
-
Assessment / Plan
Assessment / Plan
Ms. Anita Guevara is a 73yo F h HFpEF (EF 60-65%) on 2l O2 at home, CAD, s/p TAVR (04/22/23), DVT on enoxaparin, afib, htn, hld was admitted 11/09 for a CHF exacerbation.
Acute on chronic exacerbation of HFpEF, HTN, Chronic Troponin elevation
Bilateral pleural effusions
- thoracentesis #1: Successful ultrasound-guided thoracentesis, yielding 1100 cc of serosanguineous pleural fluid. Pleural fluid: Light's criteria are not met. Likely a transudative effusion secondary to CHF exacerbation
- ECHO(11/14): well seated bioprosthetic aortic valve. LVEF 60-65%. mild MR
- new wheezing, 11/23 CXR: moderate R pleural effusion
- thoracentesis #2: Successful ultrasound-guided thoracentesis, yielding 900 cc of serosanguineous pleural fluid. Pleural fluid: light's criteria not met. Likely a transudative effusion secondary to chf exacerbation
- cardiology following
- fluid restriction, I&O's, daily weights
- incentive spirometer
- bumex, aldactone held today for HoTN. Resume tw
- tubigrips
- farxiga
Hypotension
- likely secondary to anesthetics secondary to prolonged fasting
- clinically appears dry
- replete w ivf
Metabolic alkalosis
- vbg
- diamox 500mg
Hypokalemia
- replete w KCl
- resolved
Hypomagnesemia
- replete w magnesium sulfate
- resolved
LUE pain secondary to traumatic hematoma associated w lovenox injection s/p hematoma evacuation, anemia
- Dr. Thurman evacuated the hematoma on 11/10.
- vascular surgery - ozzy removed 11/23
- PT/OT
Anemia
Acute blood loss anemia
- Hb stable
- LUE hematoma
- s/p 3 units pRBCs transfusion
- iron repletion
- hepatitis panel negative
- [id number] panel, lupus panel, phosphatidylserine panel negative
- Anti-Cardiolipin IgG Antibody (+). Repeat in 12 weeks
- transfuse hemoglobin less than 7.0 g/dL
- follow cbc
ELGIN in setting of volume overload
- Cr 1.1 on 11/11, peak 2.3, now back to baseline
- braun catheter removed
- renal u/s: nephrolith w/in lower pole of R kidney. No evidence for pelvicalyceal dilation or mass b/l. Renal parenchymal thickness preserved b/l.
b/l le dvt
- IVC filter placed 11/11. Removed 11/25
- Pt tolerated procedure well.
- bl le us: no dvts
- on eliquis
hyperkalemia, chronic hyponatremia, hypermagnesemia
- resolved
- received 3 doses lokelma
- now giving K back with diuresis
acute on chronic respiratory failure
- resolved
- on 2L O2 at home
- wean O2 w SpO2>92%
- maty O2 eval
MARY KATE, asthma
- continue cpap
- no acute asthma exacerbation
Afib
- hold cardizem
- tele monitoring
- metoprolol for rate control as BP improved
- eliquis 5mg PO BID
Type 2 DM, obesity
- SSI, accuchecks
- hold trulicity
- farxiga
HLD
- continue statin
- monitor cmp
GERD
- continue PPI
Hypothyroidism
- continue levothyroxine
- TSH 14.9. Free T4 1.7
Dementia
- continue donepezil
Insomnia
- cont trazodone prn
PAD
- s/p R femoral bypass
DVT prophylaxis
- retrievable IVC filter placed 11/11, removed 11/25
- 5mg eliquis
Code status: FULL CODE
Diet: diabetic, low Na
Anticipated Discharge: Today
Subjective/Interval History
-
Date of Service: November 27, 2023
Ms. Anita Guevara is a 73yo F pmh HFpEF (EF 60-65%) on 2l O2 at home, CAD, s/p TAVR (04/22/23), DVT on enoxaparin, afib, htn, hld was admitted 11/09 for a CHF exacerbation. Was hypotensive after IVC filter retrieval, stayed another night to stabilize.
Objective Data
-
Labs:
Laboratory Results
11/27/23
06:18
WBC 6.8
Hgb 9.1 L
Hct 30.1 L
Plt Count 188
Vital Signs:
Vital Signs
Temp Pulse Resp BP Pulse Ox
98.0 F 97 18 101/45 98
11/27/23 03:52 11/27/23 03:52 11/27/23 03:52 11/27/23 03:52 11/27/23 03:52
I&O
11/26/23 11/27/23 11/28/23
06:59 06:59 06:59
Intake Total 720 / 720 620 / 620
Balance 720 / 720 620 / 620
Review of Systems
-
Unable to obtain full review of systems at this time due to: Language Barrier
History Source: Patient and Family
Constitutional: Reports No Symptoms
Respiratory: Reports No Symptoms
Cardiac: Reports No Symptoms
Abdomen/GI: Reports No Symptoms
Genitourinary: Reports No Symptoms
Musculoskeletal: Reports No Symptoms
Neuro: Reports No Symptoms
Physical Exam
-
General: Well Developed and Well Nourished
HEENT: Normocephalic, Atraumatic and Other (dry mucous membranes)
Respiratory: Wheezes
Cardiac: S1/S2 and Irregular Rhythm
GI: Soft, Nontender, Nondistended and Normal Bowel Sounds
Musculoskeletal: No Clubbing, No Cyanosis and No Edema
Skin: Warm and Dry
Neuro: Awake
Psych: Calm
[2023-11-27 07:50] LABS: Magnesium 2.1 mg/dl (1.6-2.3)
[2023-11-27] MEDS: NOVOLOG FLEXPEN-LOW RESISTANCE SC ×2 (08:09→13:03)
[2023-11-27] MEDS: LOPRESSOR 50 MG PO (09:06)
[2023-11-27] MEDS: ARICEPT 5 MG PO (09:06)
[2023-11-27] MEDS: KCL 40 MEQ PO (09:06)
[2023-11-27] MEDS: FARXIGA 10 MG PO (09:06)
[2023-11-27] MEDS: ELIQUIS 5 MG PO (09:07)
[2023-11-27] MEDS: PROTONIX 40 MG PO (09:07)
[2023-11-27] MEDS: BUMEX PO (09:07)
[2023-11-27] MEDS: ALDACTONE PO (09:07)
[2023-11-27] MEDS: CARDIZEM CD 120 MG PO (09:08)
[2023-11-27] MEDS: NSS 500 IV ×2 (09:12→12:59)
--- NOTE | 2023-11-27 09:45 | PTCARENOTE ---
Pts BP this AM was 105/60, pressure running soft overnight after IR procedure. Pt to be given multiple medications to lower BP this AM, this RN contacted MD to as which medications were to be given, MD order to hold bumex and aldactone. All other
medications adminstered, HR elevated in the 120s when ambulating, MD aware. IVF ordered and hung, no new orders at this time. MD and resident in to speak with pt and family at bedside this AM.
[2023-11-27 10:56] LABS: Blood Urea Nitrogen 27 mg/dl (7-17); Chloride 84 mmol/L (98-107); Estimated Creatinine Clearance 41 ml/min; Glucose 94 mg/dl (70-99); Potassium 4.1 mmol/L (3.5-5.1); Sodium 138 mmol/L (135-145); eGFR 39.97
[2023-11-27 11:00] VITALS: BP 103/54
[2023-11-27 11:09] LABS: Carbon Dioxide 40 mmol/L (22-30)
[2023-11-27 12:50] LABS: Glucose - Point of Care 91 mg/dl (70-99)
--- NOTE | 2023-11-27 15:00 | PTCARENOTE ---
Pt's pharmacy is closed for the day, cannot get evening dose of eliquis, reached out to MD COLE advising pt to take previous xarelto for tonight before being able to waste picker prescription tomorrow if she is not willing to stay one more night. Pt and
family member aware of risks, pt going home anyways.
== END 2023-11-27 15:23 | disposition home health service (06) | DRG 579 ==
LOC: 2 NORTH 16:57
PROVIDERS: Emergency Medicine; Family Medicine; Internal Medicine Cardiovascular Disease; Nurse Practitioner; Nurse Practitioner Acute Care; Nurse Practitioner Gerontology; Radiology Diagnostic Radiology; Registered Nurse; ADMITTING PHYSICIAN Hospitalist; ATTENDING PHYSICIAN Hospitalist; CONSULT PHYSICIAN Internal Medicine; EMERGENCY PHYSICIAN Student in an Organized Health Care Education/Training Program; FAMILY PHYSICIAN Internal Medicine; OTHER PHYSICIAN Internal Medicine Hematology & Oncology; OTHER PHYSICIAN Specialist; OTHER PHYSICIAN Surgery Vascular Surgery
PROC: 5A09357 Assistance with Respiratory Ventilation, Less than 24 Consecutive Hours, Continuous Positive Airway Pressure (ICD-10-PCS; 2023-11-10)
PROC: 30233N1 Transfusion of Nonautologous Red Blood Cells into Peripheral Vein, Percutaneous Approach (ICD-10-PCS; 2023-11-10)
PROC: 06H03DZ Insertion of Intraluminal Device into Inferior Vena Cava, Percutaneous Approach (ICD-10-PCS; 2023-11-12)
PROC: 0W993ZX Drainage of Right Pleural Cavity, Percutaneous Approach, Diagnostic (ICD-10-PCS; 2023-11-12)
PROC: 0K980ZZ Drainage of Left Upper Arm Muscle, Open Approach (ICD-10-PCS; 2023-11-12)
DX: S40.022A Contusion of left upper arm, initial encounter (principal); I50.33 Acute on chronic diastolic (congestive) heart failure; J96.21 Acute and chronic respiratory failure with hypoxia; I13.0 Hypertensive heart and chronic kidney disease with heart failure and stage 1 through stage 4 chronic kidney disease, or unspecified chronic kidney disease; Z68.41 Body mass index [BMI] 40.0-44.9, adult; I48.21 Permanent atrial fibrillation; E87.1 Hypo-osmolality and hyponatremia; F03.918 Unspecified dementia, unspecified severity, with other behavioral disturbance; D62 Acute posthemorrhagic anemia; D68.32 Hemorrhagic disorder due to extrinsic circulating anticoagulants; N17.9 Acute kidney failure, unspecified; E87.3 Alkalosis; I70.92 Chronic total occlusion of artery of the extremities; I5A Non-ischemic myocardial injury (non-traumatic); I25.10 Atherosclerotic heart disease of native coronary artery without angina pectoris; E78.00 Pure hypercholesterolemia, unspecified; E66.01 Morbid (severe) obesity due to excess calories; E03.9 Hypothyroidism, unspecified; I27.20 Pulmonary hypertension, unspecified; D50.9 Iron deficiency anemia, unspecified; D63.8 Anemia in other chronic diseases classified elsewhere; G47.33 Obstructive sleep apnea (adult) (pediatric); J45.909 Unspecified asthma, uncomplicated; K21.9 Gastro-esophageal reflux disease without esophagitis; T45.515A Adverse effect of anticoagulants, initial encounter; I95.9 Hypotension, unspecified; R04.0 Epistaxis; G47.00 Insomnia, unspecified; E87.5 Hyperkalemia; I70.201 Unspecified atherosclerosis of native arteries of extremities, right leg; X58.XXXA Exposure to other specified factors, initial encounter; N18.31 Chronic kidney disease, stage 3a; E83.41 Hypermagnesemia; E11.22 Type 2 diabetes mellitus with diabetic chronic kidney disease; R33.8 Other retention of urine; E11.51 Type 2 diabetes mellitus with diabetic peripheral angiopathy without gangrene; Z79.82 Long term (current) use of aspirin; Z79.899 Other long term (current) drug therapy; Z86.718 Personal history of other venous thrombosis and embolism; Z87.891 Personal history of nicotine dependence; Z95.1 Presence of aortocoronary bypass graft; Z95.3 Presence of xenogenic heart valve; Z95.820 Peripheral vascular angioplasty status with implants and grafts; Z99.81 Dependence on supplemental oxygen
CPT/HCPCS: 10140; 32555; 37191; 71045; 71046; 73206; 76775; 80048; 80053; 80061; 81003; 81015; 82042; 82248; 82570; 82607; 82728; 82746; 82805; 82962; 83010; 83036; 83540; 83615; 83690; 83735; 83880; 83930; 83935; 83986; 84132; 84155; 84156; 84157; 84300; 84439; 84443; 84478; 84484; 85014; 85018; 85025; 85027; 85610; 85613; 85730; 86146; 86147; 86148; 86704; 86705; 86706; 86708; 86709; 86803; 86850; 86900; 86901; 86920; 87015; 87070; 87086; 87205; 87340; 89051; 93005; 93306; 93970; 93971; 94660; 96374; 96375; 97116; 97162; 97167; 97530; 97535; 99285; C1769; C1880; J2916; P9016; Q9967